=== PATIENT | female | born 1940 | race African-American/Black ===

== ENCOUNTER 2019-02-18 16:35 | Emergency (ER) | payer BC, OTHER ==
[2019-02-18 16:51] VITALS: BP 121/61; PULSE 73; TEMP 98.2; BMI 25.0
[2019-02-18] MEDS ORDERED: ACETAMINOPHEN 325 MG TABLET (FP) PO ONE (18:13)
[2019-02-18] MEDS ORDERED: CEFAZOLIN 1 GM in DEXTROSE 5%-WATER - 50 ML IVPB ONE (18:13)
--- NOTE | 2019-02-18 18:20 | PDOC ---
History of Present Illness - General Chief Complaint: Chronic pain Stated Complaint: FOOT PAIN Time Seen by Provider: 02/18/19 17:58 History Source: Patient Exam Limitations: No Limitations - History of Present Illness Initial Comments: 02/18/19 18:15 78 year old female with medical history of HTN, DM and cholesterol presents with pain to right foot x 1 month, worsening today when they noted right great toe to be swollen and erythematous. Denies fever or chills. States wore ill fitting shoes 1 month ago and since then with intermittent foot pain. Occurred: reports: other (1 month worse today) Severity: Yes: moderate Lower Extremity Pain Location: right: 1st toe Method of Injury: Yes: other (infection) Modifying Factors: improves with: immobilization, pain medication Lower Ext. Injury Location - Specific Injury Location Hips: bilateral hip: no evidence of injury Legs: bilateral: normal inspection Knees: bilateral no evidence of injury Ankle: bilateral no evidence of injury Foot: bilateral foot no evidence of injury Extremity Pain Location - Extremity Pain Location Extremity Pain Locations: right: 1st toe Past History - Travel Traveled outside of the country in the last 30 days: No Close contact w/someone who was outside of country & ill: No - Past Medical History Allergies/Adverse Reactions: Allergies Allergy/AdvReac Type Severity Reaction Status Date / Time No Known Allergies Allergy Verified 02/18/19 16:51 Home Medications: Ambulatory Orders Atorvastatin Ca [Lipitor] 80 mg PO DAILY 02/16/13 Ferrous Sulfate/Licor Rt Ext [Sailaja Molly Herbal Tablet] 325 mg PO DAILY 02/16 Hydrochloric Acid 0 ml PO DAILY 02/16/13 Simethicone [Gas Relief] 80 mg PO DAILY 02/16/13 Valsartan/Hydrochlorothiazide [Diovan Hct 160-12.5 mg Tablet] 160 mg PO DAILY Acetaminophen 500 mg PO Q4HWA #20 tablet 02/18/19 Aspirin 81 mg PO DAILY 02/18/19 Cephalexin [Keflex] 500 mg PO QID #30 capsule 02/18/19 Lisinopril 0 mg PO DAILY 02/18/19 Metformin HCl [Glucophage] 0 mg PO DAILY 02/18/19 Anemia: Yes Cancer: Yes (leukemia) Cardiac Disorders: Yes COPD: No Diabetes: Yes HTN: Yes Hypercholesterolemia: Yes - Psycho Social/Smoking Cessation Hx Smoking History: Never smoked Hx Alcohol Use: No Drug/Substance Use Hx: No Review of Systems - Review of Systems Able to Perform ROS?: Yes Is the patient limited Polish proficient: No Constitutional: No: Chills, Diaphoresis, Fever HEENTM: No: Throat Pain, Throat Swelling Respiratory: No: Shortness of Breath, Wheezing Cardiac (ROS): No: Edema, Palpitations, Syncope ABD/GI: No: Poor Appetite, Indigestion : No: Burning, Dysuria, Incontinence Musculoskeletal: Yes: Joint Pain Integumentary: Yes: Erythema, Other Neurological: Yes: Numbness *Physical Exam - Vital Signs Last Vital Signs Temp Pulse Resp BP Pulse Ox 98.2 F 73 16 121/61 100 02/18/19 16:47 02/18/19 16:47 02/18/19 16:47 02/18/19 16:47 02/18/19 16:47 - Physical Exam General Appearance: Yes: Nourished, Appropriately Dressed HEENT: positive: Pharynx Normal Neck: positive: Supple. negative: Lymphadenopathy (R), Lymphadenopathy (L) Respiratory/Chest: positive: Lungs Clear Cardiovascular: positive: Regular Rhythm, Regular Rate Vascular Pulses: Dorsalis-Pedis (R): 3+, Doralis-Pedis (L): 4+ Musculoskeletal: positive: Normal Inspection Extremity: positive: Normal Capillary Refill, Erythema, Inflammation, Other ( right great toe with redness swelling and discoloration of right great toe) Neurologic: positive: Fully Oriented, Alert Medical Decision Making - Medical Decision Making 02/18/19 18:23 78 year old female with medical history of HTN, DM and cholesterol presents with pain to right foot x 1 month, worsening today when they noted right great toe to be swollen and erythematous. Denies fever or chills. States wore ill fitting shoes 1 month ago and since then with intermittent foot pain. Imp: onchyomycosis Plan: xray 1gm of ancef analgesia 02/18/19 20:10 no fracture or dislocation, no osteomyelitis Discharge - Discharge Information Problems reviewed: Yes Clinical Impression/Diagnosis: Nail bed infection Condition: Good Disposition: HOME - Admission No - Additional Discharge Information Prescriptions: Acetaminophen 500 mg PO Q4HWA #20 tablet Cephalexin [Keflex] 500 mg PO QID #30 capsule - Follow up/Referral Referrals: Baldo Lewis MD [Staff Physician] - (follow up with history card clerk) - Patient Discharge Instructions Patient Printed Discharge Instructions: Onychomycosis Additional Instructions: Please take medication as prescribed Please return to emergency room 02/20/2019 or follow up with history card clerk as previously scheduled Return to emergency room for worsening of symptoms including pain and numbness of toe Please soak toe in warm water 3 times daily - Post Discharge Activity Work/Back to School Note: Back to Work
[2019-02-18] MEDS ORDERED: ACETAMINOPHEN 325 MG TABLET (FP) ONE (18:34)
[2019-02-18] MEDS ORDERED: CEFAZOLIN 1 GM/D5W 1 GM/50 ML BAG ONE (19:27)
== END 2019-02-18 20:25 | disposition home or self-care (01) ==
LOC: JERFT 16:35
DX: B35.1 Tinea unguium (principal); I10 Essential (primary) hypertension; E78.00 Pure hypercholesterolemia, unspecified; E11.9 Type 2 diabetes mellitus without complications; Z79.84 Long term (current) use of oral hypoglycemic drugs; D64.9 Anemia, unspecified; Z85.6 Personal history of leukemia
CPT/HCPCS: 73630-TC-RT-FY; 73660-TC-FY; 96365; 99281-25

== ENCOUNTER 2019-03-03 17:57 | Inpatient (IN) | payer BC, OTHER ==
[2019-03-03] MEDS ORDERED: CLINDAMYCIN 600MG PREMIX IVPB 600 MG/50 ML BAG IVPB ONE ×2 (19:08→21:17)
--- NOTE | 2019-03-03 19:11 | PDOC ---
History of Present Illness - General Chief Complaint: Wound Stated Complaint: WOUND ON R TOE Time Seen by Provider: 03/03/19 18:51 History Source: Patient, Family - History of Present Illness Occurred: reports: other Lower Extremity Pain Location: right: 1st toe Past History - Past Medical History Allergies/Adverse Reactions: Allergies Allergy/AdvReac Type Severity Reaction Status Date / Time No Known Allergies Allergy Verified 03/03/19 18:13 Home Medications: Ambulatory Orders Ferrous Sulfate/Licor Rt Ext [Sailaja Omlly Herbal Tablet] 325 mg PO DAILY 02/16 Simethicone [Gas Relief] 80 mg PO DAILY 02/16/13 Valsartan/Hydrochlorothiazide [Diovan Hct 160-12.5 mg Tablet] 160 mg PO DAILY Acetaminophen 500 mg PO Q4HWA #20 tablet 02/18/19 Aspirin 81 mg PO DAILY 02/18/19 Lisinopril 40 mg PO DAILY 02/18/19 Amlodipine Besylate [Norvasc -] 10 mg PO DAILY 03/03/19 Insulin Lispro [Humalog] units SQ ASDIR 03/03/19 Simvastatin 80 mg PO HS 03/03/19 Anemia: Yes Cancer: Yes (leukemia) Cardiac Disorders: Yes COPD: No Diabetes: Yes HTN: Yes Hypercholesterolemia: Yes - Psycho Social/Smoking Cessation Hx Smoking History: Never smoked Hx Alcohol Use: No Drug/Substance Use Hx: No Review of Systems - Review of Systems Constitutional: No: Chills, Fever, Malaise Integumentary: Yes: Erythema *Physical Exam - Vital Signs Last Vital Signs Temp Pulse Resp BP Pulse Ox 97.9 F 83 18 129/56 L 100 03/03/19 18:21 03/03/19 18:21 03/03/19 18:21 03/03/19 18:21 03/03/19 18:21 - Physical Exam General Appearance: Yes: Appropriately Dressed. No: Apparent Distress HEENT: positive: Normal Voice Neck: positive: Supple Respiratory/Chest: negative: Respiratory Distress Extremity: positive: Other (R great toe paronychia w/ surrounding dark discoloration and trace erythema extending into foot) Integumentary: positive: Dry, Warm Neurologic: positive: Fully Oriented, Alert, Normal Mood/Affect Procedures - Incision and Drainage I&D Site: Right: Paronychia (R great toe) Betadine cleansed: Yes Anesthesia: 1% Lidocaine Volume(ml): 5 Blade Size: 11 Attempts: 1 (small amoutn of purulent drainage) Plain Packing: No ED Treatment Course - LABORATORY CBC & Chemistry Diagram: 03/03/19 19:10 03/03/19 19:10 - RADIOLOGY Radiology Studies Ordered: Category Date Time Status FOOT-RIGHT [RAD] Stat Radiology 03/03/19 19:07 Ordered Medical Decision Making - Medical Decision Making 03/03/19 19:09 79-year-old female history of HTN, IDDM, CKD, here with worsening R great toe pain. Patient states condition started a month ago after she got a pedicure. Pt was seen here on 02/18 and discharged with a course of keflex for cellulitis. States after she was seen here, she followed up with her reception centre manager who drained pus from site. Patient states symptoms had improved but then got worse yesterday. States pain now radiating into her foot. No fever or chills see exam R great toe paronychia Persistent despite I&D and a course of keflex > 3 weeks ago No systemic s/s -pain control -XR -I&D -admit for IV abx Discharge - Discharge Information Problems reviewed: Yes Clinical Impression/Diagnosis: Cellulitis of foot, Paronychia Condition: Fair - Admission Yes - Follow up/Referral - Patient Discharge Instructions - Post Discharge Activity
[2019-03-03] MEDS ORDERED: ACETAMINOPHEN 325 MG TABLET (FP) PO ONE (19:15)
[2019-03-03 21:29] LABS: BASO % 1.3 % (0-2.0); EOS % 4.6 % (0-4.5); HEMATOCRIT 33.6 % (32.4-45.2); HEMOGLOBIN 10.7 GM/dL (10.7-15.3); MCH 28.1 pg (25.7-33.7); MEAN CELL VOLUME 87.9 fl (80-96); MEAN PLT VOLUME 10.4 fl (7.5-11.1); MONO % 4.6 % (3.8-10.2); NEUT % 45.5 % (42.8-82.8); PLATELET COUNT 192 K/MM3 (134-434); RBC 3.82 M/mm3 (3.60-5.2); WHITE BLOOD COUNT 10.3 K/mm3 (4.0-10.0)
[2019-03-03] MEDS ORDERED: ACETAMINOPHEN 325 MG TABLET (FP) ONE (21:33)
[2019-03-03 21:55] LABS: BILIRUBIN,TOTAL 0.4 mg/dL (0.2-1); BLOOD UREA NITROGEN 42.7 mg/dL (7-18); CALCIUM 8.8 mg/dL (8.5-10.1); CREATININE 1.9 mg/dL (0.55-1.3); POTASSIUM 5.3 mmol/L (3.5-5.1)
--- NOTE | 2019-03-03 23:24 | HP ---
CHIEF COMPLAINT: Pain, swelling, and erythema of her Rt big toe for the past 3 weeks PCP: None HISTORY OF PRESENT ILLNESS: This is a 79 year old female with PMH significant for HTN, DM, and CKD. She presented to the ER with complaints of pain, swelling, and erythema of her Rt big toe over the past 3 weeks. She underwent a pedicure procedure in January, and approximately a week after that she developed pain, swelling, and erythema of her Rt big toe. She visited the [facility] ER and was discharged on Keflex. She followed up with her pneumatic tester the next day, and had an I&D of the toe. Since then, the swelling and pain has persisted and there has been no improvement in her symptoms. She denies any fevers, chills, dizziness, light headedness, SOB, chest pain, palpitations, nausea, vomiting, diarrhea, constipation, dysuria, or hematuria. She has not taken any new medications, and denies sick contacts. She follows regularly with a pneumatic tester and an senior trial attorney for her DM, and checks her glucose regularly at home. 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 Social History: Smoking: Quit 20 years ago, unable to quantify amount Alcohol: a few beers every month Drugs: denies Allergies No Known Allergies Allergy (Verified 03/03/19 18:13) HOME MEDICATIONS: Home Medications Medication Instructions Recorded Ferrous Sulfate/Licor Rt Ext 325 mg PO DAILY 02/16/13 [Sailaja Molly Herbal Tablet] Simethicone [Gas Relief] 80 mg PO DAILY 02/16/13 Valsartan/Hydrochlorothiazide 160 mg PO DAILY 02/16/13 [Diovan Hct 160-12.5 mg Tablet] Acetaminophen 500 mg PO Q4HWA #20 tablet 02/18/19 Aspirin 81 mg PO DAILY 02/18/19 Lisinopril 40 mg PO DAILY 02/18/19 Amlodipine Besylate [Norvasc -] 10 mg PO DAILY 03/03/19 Insulin Lispro [Humalog] units SQ ASDIR 03/03/19 Simvastatin 80 mg PO HS 03/03/19 REVIEW OF SYSTEMS CONSTITUTIONAL: Absent: fever, chills, diaphoresis, generalized weakness, malaise, loss of appetite, weight change HEENT: Absent: rhinorrhea, nasal congestion, throat pain, throat swelling, difficulty swallowing, mouth swelling, ear pain, eye pain, visual changes CARDIOVASCULAR: Absent: chest pain, syncope, palpitations, irregular heart rate, lightheadedness , peripheral edema RESPIRATORY: Absent: cough, shortness of breath, dyspnea with exertion, orthopnea, wheezing, stridor, hemoptysis GASTROINTESTINAL: Absent: abdominal pain, abdominal distension, nausea, vomiting, diarrhea, constipation, melena, hematochezia GENITOURINARY: Absent: dysuria, frequency, urgency, hesitancy, hematuria, flank pain, genital pain MUSCULOSKELETAL: erythema, swelling, and pain Rt toe Absent: myalgia, arthralgia, joint swelling, back pain, neck pain SKIN: Absent: rash, itching, pallor HEMATOLOGIC/IMMUNOLOGIC: Absent: easy bleeding, easy bruising, lymphadenopathy, frequent infections ENDOCRINE: Absent: unexplained weight gain, unexplained weight loss, heat intolerance, cold intolerance NEUROLOGIC: Absent: headache, focal weakness or paresthesias, dizziness, unsteady gait, seizure, mental status changes, bladder or bowel incontinence PSYCHIATRIC: Absent: anxiety, depression, suicidal or homicidal ideation, hallucinations. PHYSICAL EXAMINATION Vital Signs - 24 hr 03/03/19 03/03/19 18:21 19:50 Temperature 97.9 F 98.2 F Pulse Rate 83 Pulse Rate [ 71 Apical] Respiratory 18 22 H Rate Blood Pressure 129/56 L Blood Pressure 150/80 [Right Arm] O2 Sat by Pulse 100 100 Oximetry (%) GENERAL: AOx3 HEAD: Normal with no signs of trauma. EYES: PETER, EOMI, clouding of right cornea EARS, NOSE, THROAT: Ears normal, nares patent, oropharynx clear without exudates. Moist mucous membranes. NECK: Normal range of motion, supple without lymphadenopathy, JVD, or masses. LUNGS: Breath sounds equal, clear to auscultation bilaterally. No wheezes, and no crackles. No accessory muscle use. HEART: Regular rate and rhythm, normal S1 and S2 without murmur, rub or gallop. ABDOMEN: Soft, nontender, not distended, normoactive bowel sounds, no guarding, no rebound, no masses. No hepatomegaly or splenomegaly. MUSCULOSKELETAL: Normal range of motion at all joints. No bony deformities or tenderness. No CVA tenderness. LOWER EXTREMITIES: 2+ pulses, warm, well-perfused. Rt toe is swollen with erythema extending to the foot as well as inter digital space NEUROLOGICAL: Cranial nerves II-XII intact. Normal speech. Normal gait. PSYCHIATRIC: Cooperative. Good eye contact. Appropriate mood and affect. SKIN: Warm, dry, normal turgor, no rashes or lesions noted, normal capillary refill. Laboratory Results - last 24 hr 03/03/19 03/03/19 19:10 19:10 WBC 10.3 H RBC 3.82 Hgb 10.7 Hct 33.6 MCV 87.9 MCH 28.1 MCHC 32.0 RDW 14.0 Plt Count 192 MPV 10.4 Absolute Neuts (auto) 4.7 Neutrophils % 45.5 Lymphocytes % 44.0 H Monocytes % 4.6 Eosinophils % 4.6 H Basophils % 1.3 Nucleated RBC % 0 Sodium 142 Potassium 5.3 H Chloride 112 H Carbon Dioxide 24 Anion Gap 5 L BUN 42.7 H Creatinine 1.9 H Est GFR (CKD-EPI)AfAm 28.56 Est GFR (CKD-EPI)NonAf 24.64 Random Glucose 194 H Calcium 8.8 Total Bilirubin 0.4 AST 33 ALT 71 H Alkaline Phosphatase 154 H Total Protein 6.0 L Albumin 3.0 L ASSESSMENT/PLAN: 79 year old female with PMH significant for HTN, DM, and CKD. She presented to the ER with complaints of pain, swelling, and erythema of her Rt big toe over the past 3 weeks. #Cellulitis - Will start on renally dosed Vancomycin 1g OD and Zosyn 2.25g Q6, received Clinda 600mg in ER - MRI Rt toe ordered to r/o osteomyelitis - XRay Rt toe pending - CRP/ESR ordered in AM - ID consult (Dr. Shi) - Podiatry consult (Dr. Adams) #CKD - Cr 1.9, was also 1.9 on last visit on Feb 14 - UA pending - Renal US ordered - Renal consult placed with (Dr. Mayfield) #Hyperkalemia - May be due to CKD, or decreased insulin - Pt. apparently on LEXUS and ARBs, would D/C one since these may exacerbate hyperkalemia - Levemir 10 units HS started, 10 units given now for glucose control, will also help with K #Hx of DM - BG 194 - BGM with ISS ACHS started - Levemir 10units given on admission - HbA1c ordered #Hx of HTN - Continue Norvasc and Lisinopril, Valsartan/HCTZ held #Hx of HLD - Continue Simvastatin #FEN - DM diet #DVT - Lovenox 40mg Visit type - Emergency Visit Emergency Visit: Yes ED Registration Date: 03/03/19 Care time: The patient presented to the Emergency Department on the above date and was hospitalized for further evaluation of their emergent condition. - New Patient This patient is new to me today: Yes Date on this admission: 03/04/19 - Critical Care Critical Care patient: No Total Critical Care Time (in minutes): 37 Critical Care Statement: The care of this patient involved high complexity decision making to prevent further life threatening deterioration of the patient 's condition and/or to evaluate & treat vital organ system(s) failure or risk of failure. ATTENDING PHYSICIAN STATEMENT I saw and evaluated the patient. I reviewed the resident's note and discussed the case with the resident. I agree with the resident's findings and plan as documented. SUBJECTIVE: OBJECTIVE: ASSESSMENT AND PLAN:
[2019-03-03] MEDS ORDERED: INSULIN (LEVEMIR) 100 UNITS/ML UNITS SQ ONE (23:39)
--- NOTE | 2019-03-04 01:23 | PN ---
Teaching Attending Note Name of Resident: Jose Maria Garcia ATTENDING PHYSICIAN STATEMENT I saw and evaluated the patient. I reviewed the resident's note and discussed the case with the resident. I agree with the resident's findings and plan as documented. SUBJECTIVE: 79-year-old woman with a history of uncontrolled insulin dependent diabetes, Blind right eye, hypertension, CKD presenting with right great toe swelling, tenderness worsening despite taking p.o. cephalexin which was prescribed to her on a ER visit on 02/18/2019. Patient reports compliance with her antibiotic and wound is not improving. Reported that the nail is coming off her great toe. Denied any trauma to her foot and thinks it started spontaneously. She says she sees a podiatristDr. Patel Who allegedly drained purulent discharge from her right great toe recently. In the emergency room, patient received clindamycin 600 mg IV. OBJECTIVE: Last Vital Signs Temp Pulse Resp BP Pulse Ox 98.2 F 71 22 H 150/80 100 03/03/19 19:50 03/03/19 19:50 03/03/19 19:50 03/03/19 19:50 03/03/19 19:50 GENERAL: Elderly, frail, not in acute distress HEENT: Right eye opaque NECK: Supple. Full ROM. No JVD. Carotid pulses 2+ and symmetric, without bruits. No thyromegaly. No lymphadenopathy. CARDIOVASCULAR: Regular rate and rhythm. No murmurs, rubs, or gallops. Distal pulses are 2+ and symmetric. PULMONARY: No evidence of respiratory distress. Lungs clear to auscultation bilaterally. No wheezing, rales or rhonchi. ABDOMINAL: Soft. Non-tender. Non-distended. No rebound or guarding. No organomegaly. Normoactive bowel sounds. MUSCULOSKELETAL Normal range of motion at all joints. No bony deformities or tenderness. No CVA tenderness. EXTREMITIES: Right great toe swollen, loose, tender to touch, serous discharge appreciated SKIN: Warm and dry. Normal capillary refill. No rashes. No jaundice. NEUROLOGICAL: Alert, awake, appropriate. Cranial nerves 2-12 intact. No deficits to light touch and temperature in face, upper extremities and lower extremities. No motor deficits in the in face, upper extremities and lower extremities. Normoreflexic in the upper and lower extremities. Normal speech. Toes are down- going bilaterally. Gait is normal without ataxia. PSYCHIATRIC: Cooperative. Good eye contact. Appropriate mood and affect. Abnormal Lab Results 03/03/19 03/03/19 03/03/19 19:10 19:10 19:10 WBC 10.3 H Lymphocytes % 44.0 H Eosinophils % 4.6 H Potassium 5.3 H Chloride 112 H Anion Gap 5 L BUN 42.7 H Creatinine 1.9 H Random Glucose 194 H Hemoglobin A1c % 8.2 H ALT 71 H Alkaline Phosphatase 154 H Total Protein 6.0 L Albumin 3.0 L Imaging studies reviewed ASSESSMENT AND PLAN: 79-year-old woman uncontrolled diabetic with suspected osteomyelitis of her right great toe, tender to touch, did not respond to Keflex. Admit to [facility] Blood cultures x2 Zosynrenally dosed Vancomycin renally dosed ESR and CRP Infectious disease consultation MRI of right foot to rule out osteomyelitis Podiatry consultwould obtain bone biopsy of right great toe and specimen for culture Strict glycemic control #Uncontrolled diabetes mellitus-Noted to be on both an LEXUS inhibitor and Arb. This is not recommended and may contribute to worsening kidney function, possible toxicity, hyperkalemia A1c NovoLog sliding scale Glargine 10 units nightly IV fluid hydration Diabetic diet DC valsartan/hydrochlorothiazide, can continue lisinopril for now Continue with aspirin Continue with simvastatin #CKD Strict diabetes control UA Avoid unnecessary nephrotoxins Nephrology consult Renal sonogram
[2019-03-04] MEDS ORDERED: morphine CARPU-JECT 4 MG/1 ML DISP.SYRIN IVPUSH ONE (01:38)
[2019-03-04] MEDS ORDERED: INSULIN SLIDING SCALE (NOVOLOG) 1 VIAL SQ SCH ×2 (01:38→07:00)
[2019-03-04] MEDS ORDERED: VANCOMYCIN 1 GRAM (PRE-DOCKED) 1,000 MG/250 ML BAG IVPB SCH (02:00)
[2019-03-04] MEDS ORDERED: MORPHINE SULFATE 2 MG/ML VIAL ONE (02:18)
[2019-03-04] MEDS ORDERED: VANCOMYCIN 1 GRAM (PRE-DOCKED) 1,000 MG/250 ML BAG IVPB ONE (02:18)
[2019-03-04] MEDS ORDERED: PIPERACILLIN/TAZOB 2.25 GM 2.25 GM/50 ML BAG IVPB ONE ×2 (02:18→11:56)
[2019-03-04] MEDS: PIPERACILLIN/TAZOB 2.25 GM 2.25 GM in DEXTROSE 5%-WATER - 50 ML IVPB SCH ×5 (02:25→22:01)
[2019-03-04 06:19] LABS: BASO % 0.9 % (0-2.0); EOS % 5.1 % (0-4.5); HEMOGLOBIN 9.8 GM/dL (10.7-15.3); LYMPH % 46.5 % (8-40); MCH 28.3 pg (25.7-33.7); MCHC 32.6 g/dl (32.0-36.0); MEAN CELL VOLUME 86.8 fl (80-96); MEAN PLT VOLUME 9.3 fl (7.5-11.1); MONO % 6.9 % (3.8-10.2); NEUT % 40.6 % (42.8-82.8); PLATELET COUNT 165 K/MM3 (134-434); RBC 3.45 M/mm3 (3.60-5.2); RDW 13.5 % (11.6-15.6); WHITE BLOOD COUNT 6.8 K/mm3 (4.0-10.0)
[2019-03-04 06:49] LABS: ALBUMIN 2.8 g/dl (3.4-5.0); ALK PHOS 129 U/L (45-117); ANION GAP 7 MMOL/L (8-16); BILIRUBIN,TOTAL 0.4 mg/dL (0.2-1); BLOOD UREA NITROGEN 41.2 mg/dL (7-18); CHLORIDE 111 mmol/L (98-107); CO2 21 mmol/L (21-32); CREATININE 1.9 mg/dL (0.55-1.3); GLUCOSE,RANDOM 227 mg/dL (74-106); POTASSIUM 4.1 mmol/L (3.5-5.1); SGOT/AST 26 U/L (15-37); SGPT/ALT 60 U/L (13-61); SODIUM 139 mmol/L (136-145); TOT PROT 5.1 g/dl (6.4-8.2)
[2019-03-04] MEDS ORDERED: ENOXAPARIN NA (PORCINE) 40 MG/0.4 ML DISP.SYRIN SQ SCH (10:00)
--- NOTE | 2019-03-04 10:54 | PN ---
Progress Note (short form) - Note Progress Note: ID consult dictated history of right foot pain/ first toe swelling with recent drainage 2 weeks ago- cellulitis, r/o osteomyelitis MICHEAL/?CKD longstanding diabetes continue with vancomycin and zosyn-dose vancomycin by level esr/crp MRI podiatry to see consider vascular surgery consult-?PVD, nonpalpable pedal pulses evaluation of MICHEAL in progress Problem List - Problems (1) Cellulitis of foot Code(s): L03.119 - CELLULITIS OF UNSPECIFIED PART OF LIMB (2) Osteomyelitis Code(s): M86.9 - OSTEOMYELITIS, UNSPECIFIED (3) CKD (chronic kidney disease) Code(s): N18.9 - CHRONIC KIDNEY DISEASE, UNSPECIFIED (4) Diabetes Code(s): E11.9 - TYPE 2 DIABETES MELLITUS WITHOUT COMPLICATIONS (5) PVD (peripheral vascular disease) Code(s): I73.9 - PERIPHERAL VASCULAR DISEASE, UNSPECIFIED
[2019-03-04] MEDS ORDERED: ACETAMINOPHEN 500 MG TABLET (FP) PO ONE (11:15)
[2019-03-04] MEDS: SIMETHICONE 80 MG TAB.CHEW (FP) PO SCH (11:30)
[2019-03-04] MEDS: INSULIN SLIDING SCALE (NOVOLOG) 1 VIAL SQ SCH ×4 (11:32→22:12)
[2019-03-04] MEDS ORDERED: LISINOPRIL 20 MG TABLET (FP) ONE (11:55)
[2019-03-04] MEDS ORDERED: amLODIPine BESYLATE 5 MG TABLET (FP) ONE (11:55)
[2019-03-04] MEDS ORDERED: ASPIRIN 81 MG CHEWABLE TABLETS ONE (11:55)
[2019-03-04] MEDS: ASPIRIN 81 MG CHEWABLE TABLETS PO SCH (12:00)
[2019-03-04] MEDS: amLODIPine BESYLATE 10 MG TABLET (FP) PO SCH (12:22)
[2019-03-04] MEDS: LISINOPRIL 20 MG TABLET (FP) PO SCH (12:22)
[2019-03-04] MEDS ORDERED: ACETAMINOPHEN 325 MG TABLET (FP) ONE (12:26)
[2019-03-04] MEDS ORDERED: INSULIN (NOVOLOG) ASPART 100 UNITS/ML 10ML VIAL ONE (12:27)
--- NOTE | 2019-03-04 12:49 | CONSULT ---
Consult Consult Specialty:: Nephrology Reason for Consultation:: CKD - History of Present Illness Chief Complaint: right great toe pain History of Present Illness: Pt is a 79 year old female with pmhx of htn, dm, ckd who presents with pain and selling of her right great toe. She was found to have elevated creatinine and I was called to evaluate her. She denies history of CKD. Her daughter is at bedside and assisted with history. She denies shortness of breath or palpitations. SHe denies fevers or chills. She denies nsaid use. She denies hematuria or dysuria. - History Source History Provided By: Patient - Past Medical History Cardio/Vascular: Yes: HTN Renal/: Yes: Renal Inusuff Endocrine: Yes: Diabetes Mellitus - Alcohol/Substance Use Hx Alcohol Use: No - Smoking History Smoking history: Never smoked Home Medications - Allergies Allergies/Adverse Reactions: Allergies Allergy/AdvReac Type Severity Reaction Status Date / Time No Known Allergies Allergy Verified 03/03/19 18:13 - Home Medications Home Medications: Ambulatory Orders Acetaminophen 500 mg PO Q4HWA #20 tablet 02/18/19 Lisinopril 40 mg PO DAILY 02/18/19 Amlodipine Besylate [Norvasc -] 10 mg PO DAILY 03/03/19 Insulin Lispro [Humalog] units SQ ASDIR 03/03/19 Aspirin [Aspirin EC] 1 tab PO DAILY 03/04/19 Brimonidine Tartrate [Alphagan P 0.1% -] 1 drop OU BID 03/04/19 Cephalexin [Keflex] 1 cap PO QID 03/04/19 Dicloxacillin Sodium 500 mg PO BID 03/04/19 Dorzolamide/Timolol/Pf [Dorzolamide-Timolol 2%-0.5%] 1 drop OU BID 03/04/19 Latanoprost 0.005% Eye Drops [Xalatan 0.005% Eye Drops -] 1 drop OS HS 03/04/19 Lipase/Protease/Amylase [Zenpep Dr 40,000 Unit Capsule] 1 cap PO TID 03/04/19 Simvastatin 1 tab PO HS 03/04/19 metroNIDAZOLE [Metronidazole] 1 tab PO TID 03/04/19 Family Medical History Family History: Denies Review of Systems - Review of Systems Constitutional: reports: No Symptoms Eyes: reports: No Symptoms HENT: reports: No Symptoms Neck: reports: No Symptoms Cardiovascular: reports: No Symptoms Respiratory: reports: No Symptoms Gastrointestinal: reports: No Symptoms Genitourinary: reports: No Symptoms Musculoskeletal: reports: Other (right toe pain) Neurological: reports: No Symptoms Endocrine: reports: No Symptoms Hematology/Lymphatic: reports: No Symptoms Psychiatric: reports: No Symptoms Physical Exam Vital Signs: Vital Signs Temperature 99.1 F 03/04/19 12:00 Pulse Rate 78 03/04/19 12:00 Respiratory Rate 18 03/04/19 12:00 Blood Pressure 147/79 03/04/19 12:00 O2 Sat by Pulse Oximetry (%) 99 03/04/19 12:00 Constitutional: Yes: Calm Eyes: Yes: Conjunctiva Clear HENT: Yes: Atraumatic Cardiovascular: Yes: S1, S2 Respiratory: Yes: CTA Bilaterally Gastrointestinal: Yes: Soft Musculoskeletal: Yes: WNL Edema: No Neurological: Yes: Oriented Psychiatric: Yes: Oriented Labs: CBC, BMP 03/04/19 05:20 03/04/19 05:20 Laboratory Tests 02/14/19 03/03/19 03/03/19 10:02 19:10 19:10 WBC 10.3 H Sodium Potassium Creatinine 1.9 H 1.9 H Hemoglobin A1c % 03/04/19 03/04/19 03/04/19 05:20 05:20 05:20 WBC 6.8 Sodium 139 Potassium 4.1 Creatinine 1.9 H Hemoglobin A1c % 8.2 H Imaging - Results Chest X-ray: Report Reviewed Ultrasound: Report Reviewed Problem List - Problems (1) CKD (chronic kidney disease) Code(s): N18.9 - CHRONIC KIDNEY DISEASE, UNSPECIFIED (2) Cellulitis of foot Code(s): L03.119 - CELLULITIS OF UNSPECIFIED PART OF LIMB Assessment/Plan Current Medications Generic Name Dose Route Start Last Admin Trade Name Freq PRN Reason Stop Dose Admin Amlodipine Besylate 10 mg 03/04/19 10:00 03/04/19 12:22 Norvasc - PO 10 mg DAILY LEATHA Administration Aspirin 81 mg 03/04/19 10:00 03/04/19 12:00 Asa - PO 81 mg DAILY LEATHA Administration Atorvastatin Calcium 40 mg 03/04/19 22:00 Lipitor - PO HS LEATHA Heparin Sodium (Porcine) 5,000 unit 03/04/19 14:00 Heparin - SQ TID LEATHA Sodium Chloride 1,000 mls @ 100 mls/hr 03/04/19 04:45 Normal Saline - IV ASDIR LEATHA Piperacillin Sod/Tazobactam 50 mls @ 100 mls/hr 03/04/19 11:00 03/04/19 12:23 Sod 2.25 gm/ Dextrose IVPB 100 mls/hr Q6H-IV LEATHA Administration Protocol Insulin Aspart 1 vial 03/04/19 01:45 03/04/19 12:34 Novolog Vial Sliding Scale - SQ 2 units ACHS LEATHA Administration Protocol Insulin Detemir 10 units 03/04/19 22:00 Levemir Vial SQ HS LEATHA Lisinopril 40 mg 03/04/19 10:00 03/04/19 12:22 Prinivil PO 40 mg DAILY LEATHA Administration Simethicone 80 mg 03/04/19 10:00 03/04/19 11:30 Mylicon - PO 80 mg DAILY LEATHA Administration Impression 1. CKD 2. cellulitis 3. DM 4. HTN 5. 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
--- NOTE | 2019-03-04 13:23 | CONS ---
INFECTIOUS DISEASE CONSULTATION DATE OF CONSULTATION: DATE OF DICTATION: 03/04/2019 HISTORY: This is a 79-year-old woman with a history of longstanding diabetes for over 20 years, hypertension, hyperlipidemia. She originally presented on the to the ER complaining of swelling and pain of her big toe, which had originally been of the foot and then had come to the big toe. She was seen in our ER on the and prescribed Keflex and follow up with her human resources temp. She saw the human resources temp the next day and had an incision and drainage of the toe. She does not recall the name of the human resources temp. She reports no fevers or chills. The toe has continued to remain swollen and painful. She has been taking Keflex for 2 weeks, so she just completed it. She has no fevers or chills. She, otherwise, feels well. PAST MEDICAL HISTORY: Notable for hypertension, diabetes, hyperlipidemia. SURGICAL HISTORY: Cataracts and corneal transplant. SOCIAL HISTORY: Her granddaughter lives with her. She is originally from [place]. She has been in this country more than 20 years. Distant smoker. Quit many years ago. Last travel was to [place] in November 2018. She is followed at [address] [place] [address]. She does not know the name of her doctor or her human resources temp. ALLERGIES: She has no known drug allergies. MEDICATIONS: Include iron, simethicone, valsartan, hydrochlorothiazide, acetaminophen, aspirin, lisinopril, Norvasc, insulin, and simvastatin. REVIEW OF SYSTEMS: As per HPI. She does not recall how this happened to her foot. She has not had any foot ulcers before. PHYSICAL EXAMINATION: General: She is awake and alert. Vital Signs: Her temperature is 98.2, pulse of 84, blood pressure is 139/81, respiratory rate is 14. She is saturating 97% on room air. no thrush cor-rrr lulngs clear abd soft,nt ext no palpable pedal pulse +swelling discoloration of the right big toe, no drainage Extremities: She is complaining of pain in her toe for which she has been taking Tylenol at home. Her white count is 6.8, hemoglobin 9.8, platelets are 165, BUN 41, creatinine 1.9. Hemoglobin A1c is 8.2. Blood cultures have been sent and are pending. She received clindamycin in the ER and was switched to vancomycin and Zosyn. When seen by the admitting doctor, she had erythema extending to the foot, which appears to be improved, but she still has discoloration and pain and swelling around the nail of the big toe. She has a good femoral pulse. Her foot is warm, but it is difficult to feel the pulse in her foot. In summary, this is a 79-year-old woman with: Cellulitis/uleout osteomyelitis 1. At least a now [id number]-[id number] of pain in her toe with a recent 2-week course of Keflex that is now improving. Apparently, had purulent drainage drained from that area. Would treat her with vancomycin and Zosyn. MRI of the foot to rule out osteomyelitis. Podiatry consult. 2. Diabetes. Check hgbaic 3. MICHEAL or CKD. We do not know her baseline. Antibiotics to be adjusted for her renal failure. We will follow up. 4. r/o PVD- nonpalpable pulses in her feet GAURAV MELÉNDEZ M.D. [id number] MTDD
--- NOTE | 2019-03-04 13:57 | EKG ---
Test Reason : Blood Pressure : / mmHG Vent. Rate : 072 BPM Atrial Rate : 072 BPM P-R Int : 178 ms QRS Dur : 072 ms QT Int : 380 ms P-R-T Axes : 053 020 056 degrees QTc Int : 416 ms NORMAL SINUS RHYTHM POSSIBLE LEFT ATRIAL ENLARGEMENT SEPTAL INFARCT , AGE UNDETERMINED ABNORMAL ECG WHEN COMPARED WITH ECG OF 10-APR-1997 21:49, NO SIGNIFICANT CHANGE WAS FOUND Confirmed by Ny Cervantes ([id number]) on 03/04/2019 1:56:55 PM Referred By: Confirmed By:Ny Cervantes
[2019-03-04] MEDS ORDERED: SODIUM CHLORIDE 1,000 ML IV SCH (14:45)
[2019-03-04] MEDS ORDERED: PIPERACILLIN/TAZOB 2.25 GM 2.25 GM in DEXTROSE 5%-WATER - 50 ML IVPB SCH (15:00)
[2019-03-04] MEDS ORDERED: DEXTROSE 5%-WATER - 50 ML IVPB ONE ×2 (15:27→21:38)
[2019-03-04] MEDS ORDERED: PIPERACILLIN/TAZOBACTAM 2.25 GM VIAL IVPB ONE ×2 (15:27→21:38)
--- NOTE | 2019-03-04 16:01 | PN ---
Physical Exam: SUBJECTIVE: Patient seen and examined. Pt appears to be in pain and discomfort. Denies any overnight events or issues. Denies f/c/n/v/d/chest pain. OBJECTIVE: Vital Signs Period Temp Pulse Resp BP Sys/Zarate Pulse Ox Last 24 Hr 97.9 F-99.1 F 71-84 14-22 129-150/56-81 97-100 GENERAL: AOx3, AT/AC EYES: PETER, EOMI, cataract visible EARS, NOSE, THROAT: oropharynx clear without exudates. Moist mucous membranes. NECK: Normal range of motion, supple without lymphadenopathy, JVD, or masses. LUNGS: Breath sounds equal, clear to auscultation bilaterally. No wheezes, and no crackles. No accessory muscle use. HEART: Regular rate and rhythm, normal S1 and S2 without murmur, rub or gallop. ABDOMEN: Soft, nontender, not distended, normoactive bowel sounds, no guarding, no rebound, no masses. LOWER EXTREMITIES: 2+ pulses, warm, well-perfused. Rt toe is swollen with erythema extending to the foot as well as inter digital space. Appears to be an infect toe nail. NEUROLOGICAL: Normal speech. Normal gait. SKIN: Warm, dry, normal turgor, Laboratory Results - last 24 hr CBC,CMP WBC 6.8 K/mm3 (4.0-10.0) 03/04/19 05:20 RBC 3.45 M/mm3 (3.60-5.2) L 03/04/19 05:20 Hgb 9.8 GM/dL (10.7-15.3) L 03/04/19 05:20 Hct 30.0 % (32.4-45.2) L 03/04/19 05:20 MCV 86.8 fl (80-96) 03/04/19 05:20 MCH 28.3 pg (25.7-33.7) 03/04/19 05:20 MCHC 32.6 g/dl (32.0-36.0) 03/04/19 05:20 RDW 13.5 % (11.6-15.6) 03/04/19 05:20 Plt Count 165 K/MM3 (134-434) 03/04/19 05:20 MPV 9.3 fl (7.5-11.1) D 03/04/19 05:20 Absolute Neuts (auto) 2.7 K/mm3 (1.5-8.0) 03/04/19 05:20 Neutrophils % 40.6 % (42.8-82.8) L 03/04/19 05:20 Lymphocytes % 46.5 % (8-40) H 03/04/19 05:20 Monocytes % 6.9 % (3.8-10.2) 03/04/19 05:20 Eosinophils % 5.1 % (0-4.5) H 03/04/19 05:20 Basophils % 0.9 % (0-2.0) 03/04/19 05:20 Nucleated RBC % 0 % (0-0) 03/04/19 05:20 ESR 25 mm/hr (0-30) 03/04/19 05:20 Sodium 139 mmol/L (136-145) 03/04/19 05:20 Potassium 4.1 mmol/L (3.5-5.1) 03/04/19 05:20 Chloride 111 mmol/L (98-107) H 03/04/19 05:20 Carbon Dioxide 21 mmol/L (21-32) 03/04/19 05:20 Anion Gap 7 MMOL/L (8-16) L 03/04/19 05:20 BUN 41.2 mg/dL (7-18) H 03/04/19 05:20 Creatinine 1.9 mg/dL (0.55-1.3) H 03/04/19 05:20 Est GFR (CKD-EPI)AfAm 28.56 03/04/19 05:20 Est GFR (CKD-EPI)NonAf 24.64 03/04/19 05:20 POC Glucometer 166 UNITS (80-120) 03/04/19 12:19 Random Glucose 227 mg/dL (74-106) H 03/04/19 05:20 Hemoglobin A1c % 8.2 % (4.2-6.3) H 03/04/19 05:20 Calcium 8.0 mg/dL (8.5-10.1) L 03/04/19 05:20 Total Bilirubin 0.4 mg/dL (0.2-1) 03/04/19 05:20 AST 26 U/L (15-37) 03/04/19 05:20 ALT 60 U/L (13-61) 03/04/19 05:20 Alkaline Phosphatase 129 U/L (45-117) H 03/04/19 05:20 C-Reactive Protein < 0.3 MG/DL (0.00-0.3) 03/04/19 05:20 Total Protein 5.1 g/dl (6.4-8.2) L 03/04/19 05:20 Albumin 2.8 g/dl (3.4-5.0) L 03/04/19 05:20 Active Medications Generic Name Dose Route Start Last Admin Trade Name Freq PRN Reason Stop Dose Admin Amlodipine Besylate 10 mg 03/04/19 10:00 03/04/19 12:22 Norvasc - PO 10 mg DAILY LEATHA Administration Aspirin 81 mg 03/04/19 10:00 03/04/19 12:00 Asa - PO 81 mg DAILY LEATHA Administration Atorvastatin Calcium 40 mg 03/04/19 22:00 Lipitor - PO HS LEATHA Brimonidine Tartrate 1 drop 03/04/19 22:00 Alphagan P 0.1% - OU BID LEATHA Heparin Sodium (Porcine) 5,000 unit 03/04/19 14:00 Heparin - SQ TID LEATHA Sodium Chloride 1,000 mls @ 100 mls/hr 03/04/19 04:45 Normal Saline - IV ASDIR LEATHA Piperacillin Sod/Tazobactam 50 mls @ 100 mls/hr 03/04/19 11:00 03/04/19 12:23 Sod 2.25 gm/ Dextrose IVPB 100 mls/hr Q6H-IV LEATHA Administration Protocol Insulin Aspart 1 vial 03/04/19 01:45 03/04/19 12:34 Novolog Vial Sliding Scale - SQ 2 units ACHS LEATHA Administration Protocol Insulin Detemir 10 units 03/04/19 22:00 Levemir Vial SQ HS LEATHA Latanoprost 1 drop 03/04/19 22:00 Xalatan 0.005% Eye Drops - OS HS LEATHA Lisinopril 40 mg 03/04/19 10:00 03/04/19 12:22 Prinivil PO 40 mg DAILY LEATHA Administration Non-Formulary Medication 1 drop 03/04/19 22:00 Dorzolamide/Timolol/Pf [Dorzolamide-Timolol 2%-0.5%] OU BID LEATHA Non-Formulary Medication 1 cap 03/04/19 14:00 Lipase/Protease/Amylase [Zenpep Dr 40,000 Unit Capsule] PO TID LEATHA Simethicone 80 mg 03/04/19 10:00 03/04/19 11:30 Mylicon - PO 80 mg DAILY LEATHA Administration Vancomycin HCl 1,000 mg 03/05/19 02:00 Vancomycin (Pre-Docked) IVPB 03/05/19 02:01 ONCE ONE Protocol ASSESSMENT/PLAN: 79 y/o F with PMH significant for HTN, DM, and CKD presents to ed c/o pain, swelling, and erythema of her Rt big toe over the past 3 weeks admitted for infection of the toe #Cellulitis of the Toe 2/2 to an infected ingrown toe nail Renally dosed Vancomycin 1g given once, will f/u ID for daily dosing Zosyn 2.25g Q6 MRI Rt toe ordered to r/o osteomyelitis XRay Rt toe- right foot revel some bone density loss, calcaneal spurring, vascular calcifications and some minimal swelling. Small soft tissue ulceration by the distal end of the first metatarsal. CRP/ESR normal ID consult- appreciate consult Podiatry consult (Dr. Adams)- pending #CKD Cr 1.9 appears baseline for pt UA pending Renal US ordered- unremarkable Renal consult (Dr. Mayfield) appreciated #Hyperkalemia resolved #Hx of DM A1c 8.2 BGM with ISS ACHS started Levemir 10 units if needed for glucose control, will also help with K #Hx of HTN Lisinopril #Hx of HLD lipitor #FEN DM diet #DVT Heparin TID Dispo: f/u MRI, f/u Podiatry consult, cont abx Visit type - Emergency Visit Emergency Visit: Yes ED Registration Date: 03/03/19 Care time: The patient presented to the Emergency Department on the above date and was hospitalized for further evaluation of their emergent condition. - New Patient This patient is new to me today: Yes Date on this admission: 03/04/19 - Critical Care Critical Care patient: No - Discharge Referral Referred to [facility] Med [facility] No ATTENDING PHYSICIAN STATEMENT I saw and evaluated the patient. I reviewed the resident's note and discussed the case with the resident. I agree with the resident's findings and plan as documented. SUBJECTIVE: OBJECTIVE: ASSESSMENT AND PLAN:
[2019-03-04] MEDS: HEPARIN NA (PORCINE) 5,000 UNITS/ML 1ML VIAL SQ SCH ×2 (16:29→22:12)
[2019-03-04] MEDS: SODIUM CHLORIDE 1,000 ML IV SCH (16:32)
[2019-03-04] MEDS ORDERED: PATIENT'S OWN MEDICATION (NON-FORMULARY) (Dorzolamide/Timolol/Pf [Dorzolamide-Timolol 2%-0 OU SCH (22:00)
[2019-03-04] MEDS: ATORVASTATIN CA 40 MG TABLET (FP) PO SCH (22:12)
[2019-03-04] MEDS: INSULIN (LEVEMIR) 100 UNITS/ML UNITS SQ SCH (22:12)
[2019-03-04 22:18] LABS: EPI CELLS 0.6 /HPF (0-5/HPF); HYALINE CASTS 0 /lpf (0-8); PH,URINE 5.5 (5.0-8.0); URINE APPEARANCE CLEAR; URINE BACTERIA 0.5 /hpf (NEGATIVE); URINE BILIRUBIN NEGATIVE (NEGATIVE); URINE COLOR YELLOW; URINE GLUCOSE (UA) NEGATIVE (NEGATIVE); URINE KETONE NEGATIVE (NEGATIVE); URINE LEUK ESTERASE NEGATIVE (NEGATIVE); URINE NITRITE NEGATIVE (NEGATIVE); URINE PROTEIN 3+ (NEGATIVE); URINE RBC 1 /hpf (0-4); URINE UROBILINOGEN 0.2 mg/dL (0.2-1.0); URINE WBC 1 /hpf (0-5)
[2019-03-04] MEDS: LATANOPROST 0.005% OPHTH SOLN 2.5ML BOTTLE OS SCH (23:48)
[2019-03-04] MEDS: BRIMONIDINE TARTRATE 0.1% OPHTHALMIC 5 ML BOTTLE OU SCH (23:48)
[2019-03-05] MEDS ORDERED: PIPERACILLIN/TAZOBACTAM 2.25 GM VIAL IVPB ONE ×4 (01:35→21:53)
[2019-03-05] MEDS ORDERED: DEXTROSE 5%-WATER - 50 ML IVPB ONE ×4 (01:35→21:53)
[2019-03-05] MEDS ORDERED: VANCOMYCIN 1 GRAM (PRE-DOCKED) 1,000 MG/250 ML BAG IVPB SCH (02:00)
[2019-03-05] MEDS ORDERED: VANCOMYCIN 1 GM in D5W (PRE-DOCKED) 1,000 MG/250 ML IVPB ONE (02:00)
--- NOTE | 2019-03-05 02:03 | PN ---
Teaching Attending Note Name of Resident: Marcel Romero ATTENDING PHYSICIAN STATEMENT I saw and evaluated the patient. I reviewed the resident's note and discussed the case with the resident. I agree with the resident's findings and plan as documented. Seen and examined; agree with overnight and resident assessment. Noted consult placed for CKD. PMH CKD, DM, HTN. No new complaints. DM, suspicioud for OM. Noted low ESr, low CRP (relative for OM) and no WBC or fever. 10 sys ROS done and negative aside from hpi VS labs imaging reviewed NAD AAO resting in bed NC AT EOMI PERRLA HR wnl, +s1/2 Lungs CTAB, w/ sym exp Toenail wound noted with no tracking or edema ASSESSMENT AND PLAN: Potential cellulitis, r/o OM, defer care to consultants DM HTN Full code
[2019-03-05] MEDS: PIPERACILLIN/TAZOB 2.25 GM 2.25 GM in DEXTROSE 5%-WATER - 50 ML IVPB SCH ×4 (02:47→22:30)
[2019-03-05] MEDS: HEPARIN NA (PORCINE) 5,000 UNITS/ML 1ML VIAL SQ SCH ×4 (06:53→23:00)
[2019-03-05] MEDS: SODIUM CHLORIDE 1,000 ML IV SCH ×3 (06:53→23:25)
[2019-03-05] MEDS: INSULIN SLIDING SCALE (NOVOLOG) 1 VIAL SQ SCH ×4 (06:54→23:17)
[2019-03-05 09:14] LABS: HEMATOCRIT 30.9 % (32.4-45.2); HEMOGLOBIN 9.9 GM/dL (10.7-15.3); MCH 27.9 pg (25.7-33.7); MCHC 32.1 g/dl (32.0-36.0); MEAN CELL VOLUME 86.8 fl (80-96); MEAN PLT VOLUME 9.4 fl (7.5-11.1); PLATELET COUNT 180 K/MM3 (134-434); RBC 3.55 M/mm3 (3.60-5.2); RDW 13.6 % (11.6-15.6); WHITE BLOOD COUNT 7.2 K/mm3 (4.0-10.0)
[2019-03-05 09:32] LABS: ALBUMIN 2.8 g/dl (3.4-5.0); BILIRUBIN,TOTAL 0.3 mg/dL (0.2-1); BLOOD UREA NITROGEN 32.1 mg/dL (7-18); CREATININE 1.8 mg/dL (0.55-1.3); POTASSIUM 4.5 mmol/L (3.5-5.1); TOT PROT 5.3 g/dl (6.4-8.2)
[2019-03-05] MEDS ORDERED: BRIMONIDINE TARTRATE 0.2% OPHTHALMIC 5 ML BOTTLE OU SCH (10:00)
[2019-03-05] MEDS ORDERED: PT OWN MED DRAWER 7, Y5N ONE (10:48)
[2019-03-05] MEDS: ASPIRIN 81 MG CHEWABLE TABLETS PO SCH (11:13)
[2019-03-05] MEDS: SIMETHICONE 80 MG TAB.CHEW (FP) PO SCH (11:13)
[2019-03-05] MEDS: LISINOPRIL 20 MG TABLET (FP) PO SCH (11:13)
[2019-03-05] MEDS: TIMOLOL 0.5% OPHTHALMIC SOL 5 ML BOTTLE OU SCH ×2 (11:13→23:04)
[2019-03-05] MEDS: amLODIPine BESYLATE 10 MG TABLET (FP) PO SCH (11:13)
[2019-03-05] MEDS: DORZOLAMIDE 2% HCL OPHTHALMIC SOLUTION 10 ML BOTTLE OU SCH ×2 (11:13→23:11)
[2019-03-05] MEDS: BRIMONIDINE TARTRATE 0.1% OPHTHALMIC 5 ML BOTTLE OU SCH ×2 (11:14→23:10)
[2019-03-05] MEDS ORDERED: INSULIN (NOVOLOG) ASPART 100 UNITS/ML 10ML VIAL ONE (11:16)
[2019-03-05] MEDS ORDERED: ACETAMINOPHEN 325 MG TABLET (FP) PO PRN (12:29)
--- NOTE | 2019-03-05 13:23 | PN ---
Physical Exam: SUBJECTIVE: Patient seen and examined. Pt appears to be in pain and discomfort. Denies any overnight events or issues. Denies f/c/n/v/d/chest pain. OBJECTIVE: Vital Signs Period Temp Pulse Resp BP Sys/Zarate Pulse Ox Last 24 Hr 98.1 F-98.7 F 73-80 18-18 144-158/70-80 98-99 GENERAL: AOx3, AT/AC EYES: PETER, EOMI, cataract visible EARS, NOSE, THROAT: oropharynx clear without exudates. Moist mucous membranes. NECK: Normal range of motion, supple without lymphadenopathy, JVD, or masses. LUNGS: Breath sounds equal, clear to auscultation bilaterally. No wheezes, and no crackles. No accessory muscle use. HEART: Regular rate and rhythm, normal S1 and S2 without murmur, rub or gallop. ABDOMEN: Soft, nontender, not distended, normoactive bowel sounds, no guarding, no rebound, no masses. LOWER EXTREMITIES: 2+ pulses, warm, well-perfused. Rt toe is swollen with erythema extending to the foot as well as inter digital space. Appears to be an infect toe nail. Dressing placed NEUROLOGICAL: Normal speech. Normal gait. SKIN: Warm, dry, normal turgor, Laboratory Results - last 24 hr CBC,CMP WBC 7.2 K/mm3 (4.0-10.0) 03/05/19 07:30 RBC 3.55 M/mm3 (3.60-5.2) L 03/05/19 07:30 Hgb 9.9 GM/dL (10.7-15.3) L 03/05/19 07:30 Hct 30.9 % (32.4-45.2) L 03/05/19 07:30 MCV 86.8 fl (80-96) 03/05/19 07:30 MCH 27.9 pg (25.7-33.7) 03/05/19 07:30 MCHC 32.1 g/dl (32.0-36.0) 03/05/19 07:30 RDW 13.6 % (11.6-15.6) 03/05/19 07:30 Plt Count 180 K/MM3 (134-434) 03/05/19 07:30 MPV 9.4 fl (7.5-11.1) 03/05/19 07:30 Absolute Neuts (auto) 2.7 K/mm3 (1.5-8.0) 03/04/19 05:20 Neutrophils % 40.6 % (42.8-82.8) L 03/04/19 05:20 Lymphocytes % 46.5 % (8-40) H 03/04/19 05:20 Monocytes % 6.9 % (3.8-10.2) 03/04/19 05:20 Eosinophils % 5.1 % (0-4.5) H 03/04/19 05:20 Basophils % 0.9 % (0-2.0) 03/04/19 05:20 Nucleated RBC % 0 % (0-0) 03/04/19 05:20 ESR 25 mm/hr (0-30) 03/04/19 05:20 Sodium 143 mmol/L (136-145) 03/05/19 07:30 Potassium 4.5 mmol/L (3.5-5.1) 03/05/19 07:30 Chloride 115 mmol/L (98-107) H 03/05/19 07:30 Carbon Dioxide 22 mmol/L (21-32) 03/05/19 07:30 Anion Gap 5 MMOL/L (8-16) L 03/05/19 07:30 BUN 32.1 mg/dL (7-18) H 03/05/19 07:30 Creatinine 1.8 mg/dL (0.55-1.3) H 03/05/19 07:30 Est GFR (CKD-EPI)AfAm 30.49 03/05/19 07:30 Est GFR (CKD-EPI)NonAf 26.31 03/05/19 07:30 POC Glucometer 182 UNITS (80-120) 03/05/19 11:20 Random Glucose 130 mg/dL (74-106) H 03/05/19 07:30 Hemoglobin A1c % 8.2 % (4.2-6.3) H 03/04/19 05:20 Calcium 8.0 mg/dL (8.5-10.1) L 03/05/19 07:30 Total Bilirubin 0.3 mg/dL (0.2-1) 03/05/19 07:30 AST 22 U/L (15-37) 03/05/19 07:30 ALT 52 U/L (13-61) 03/05/19 07:30 Alkaline Phosphatase 113 U/L (45-117) 03/05/19 07:30 C-Reactive Protein < 0.3 MG/DL (0.00-0.3) 03/04/19 05:20 Total Protein 5.3 g/dl (6.4-8.2) L 03/05/19 07:30 Albumin 2.8 g/dl (3.4-5.0) L 03/05/19 07:30 Active Medications Current Medications Acetaminophen (Tylenol -) 650 mg PO Q6H PRN PRN Reason: PAIN LEVEL 1-5 Amlodipine Besylate (Norvasc -) 10 mg PO DAILY [facility] Last Admin: 03/05/19 11:13 Dose: 10 mg Aspirin (Asa -) 81 mg PO DAILY [facility] Last Admin: 03/05/19 11:13 Dose: 81 mg Atorvastatin Calcium (Lipitor -) 40 mg PO [facility] Last Admin: 03/04/19 22:12 Dose: 40 mg Brimonidine Tartrate (Alphagan P 0.1% -) 1 drop OU BID [facility] Last Admin: 03/05/19 11:14 Dose: 1 drop Dorzolamide HCl (Trusopt 2%) 1 drop OU BID [facility] Last Admin: 03/05/19 11:13 Dose: 1 drop Heparin Sodium (Porcine) (Heparin -) 5,000 unit SQ TID [facility] Last Admin: 03/05/19 06:53 Dose: 5,000 unit Sodium Chloride (Normal Saline -) 1,000 mls @ 100 mls/hr IV ASDIR [facility] Last Admin: 03/05/19 09:03 Dose: 100 mls/hr Piperacillin Sod/Tazobactam (Sod 2.25 gm/ Dextrose) 50 mls @ 100 mls/hr IVPB Q6H-IV [facility]; Protocol Last Admin: 03/05/19 09:01 Dose: 100 mls/hr Insulin Aspart (Novolog Vial Sliding Scale -) 1 vial SQ [facility]; Protocol Last Admin: 03/05/19 11:17 Dose: 2 units Insulin Detemir (Levemir Vial) 10 units SQ [facility] Last Admin: 03/04/19 22:12 Dose: 10 units Latanoprost (Xalatan 0.005% Eye Drops -) 1 drop OS [facility] Last Admin: 03/04/19 23:48 Dose: 1 drop Lisinopril (Prinivil) 40 mg PO DAILY [facility] Last Admin: 03/05/19 11:13 Dose: 40 mg Non-Formulary Medication (Lipase/Protease/Amylase [Jerrodpep Dr 40,000 Unit Capsule ]) 1 cap PO TID [facility] Simethicone (Mylicon -) 80 mg PO DAILY [facility] Last Admin: 03/05/19 11:13 Dose: 80 mg Timolol Maleate (Timoptic 0.5%) 1 drop OU BID [facility] Last Admin: 03/05/19 11:13 Dose: 1 drop Home Medications Medication Instructions Recorded Acetaminophen 500 mg PO Q4HWA #20 tablet 02/18/19 Lisinopril 40 mg PO DAILY 02/18/19 Amlodipine Besylate [Norvasc -] 10 mg PO DAILY 03/03/19 Insulin Lispro [Humalog] units SQ ASDIR 03/03/19 Aspirin [Aspirin EC] 1 tab PO DAILY 03/04/19 Brimonidine Tartrate [Alphagan P 1 drop OU BID 03/04/19 0.1% -] Cephalexin [Keflex] 1 cap PO QID 03/04/19 Dicloxacillin Sodium 500 mg PO BID 03/04/19 Dorzolamide/Timolol/Pf 1 drop OU BID 03/04/19 [Dorzolamide-Timolol 2%-0.5%] Latanoprost 0.005% Eye Drops 1 drop OS HS 03/04/19 [Xalatan 0.005% Eye Drops -] Lipase/Protease/Amylase [Markusp Dr 1 cap PO TID 03/04/19 40,000 Unit Capsule] Simvastatin 1 tab PO HS 03/04/19 metroNIDAZOLE [Metronidazole] 1 tab PO TID 03/04/19 Microbiology 03/04/19 05:20 Blood - Peripheral Venous Blood Culture - Preliminary NO GROWTH OBTAINED AFTER 24 HOURS, INCUBATION TO CONTINUE FOR 4 DAYS. 03/04/19 05:20 Blood - Peripheral Venous Blood Culture - Preliminary NO GROWTH OBTAINED AFTER 24 HOURS, INCUBATION TO CONTINUE FOR 4 DAYS. ASSESSMENT/PLAN: 79 y/o F with PMH significant for HTN, DM, and CKD presents to ed c/o pain, swelling, and erythema of her Rt big toe over the past 3 weeks admitted for infection of the toe #Cellulitis of the Toe 2/2 to an infected ingrown toe nail Renally dosed Vancomycin 1g given once, will f/u ID for daily dosing- give another dose today Zosyn 2.25g Q6 MRI Rt toe ordered to r/o osteomyelitis- pending read ID consult- appreciate consult- f/u on cont Vanc daily or must give one dose today Podiatry consult (Dr. Adams)- pending- attempted to contact, left message with wound clinic nurses Discussed with Dr. Morgan, hold vanc dose today, vanc levels appropriate, will r/p levels in the am If MRI positive for findings, consider Vascular consult #CKD Cr 1.8 appears baseline for pt- attempting to f/u with outpt Nephro for baseline Cre PCP clinic gave two values- 02/25 Cre 2.07; 02/24 Cre 1.72 UA pending Renal consult (Dr. Mayfield) appreciated #Anemia Iron-TIBC panel, Folate, B12 ordered #Hx of DM BGM with ISS ACHS started Levemir 10 units if needed for glucose control, will also help with K #Hx of HTN Lisinopril, Norvasc, will f/u with PCP for any other BP meds #Hx of HLD lipitor #FEN DM diet #DVT Heparin TID Dispo: f/u MRI read, f/u Podiatry consult, cont abx Visit type - Emergency Visit Emergency Visit: Yes ED Registration Date: 03/03/19 Care time: The patient presented to the Emergency Department on the above date and was hospitalized for further evaluation of their emergent condition. - New Patient This patient is new to me today: Yes Date on this admission: 03/06/19 - Critical Care Critical Care patient: No - Discharge Referral Referred to [facility] Med P.C.: No ATTENDING PHYSICIAN STATEMENT I saw and evaluated the patient. I reviewed the resident's note and discussed the case with the resident. I agree with the resident's findings and plan as documented. SUBJECTIVE: OBJECTIVE: ASSESSMENT AND PLAN:
--- NOTE | 2019-03-05 14:11 | CONSULT ---
Consult - text type - Consultation Consultation Note: Podiatry Consultation: 79 year old diabetic female presents to hospital for admission for intractable pain, cellulitis to the right great toe. The patient endorses a several week history of pain, swelling to the nail fold of the right great toe. She was seen by her talent acquisition lead who trimmed a portion of the nail. She notes some clear drainage from the nail fold. She went to ED and was discharged with PO abx. However, her pain progressed which prompted admission. She denies F/V/N/C/SOB/ CP. Afebrile. She states that her blood sugars have been up and down. PMHx: DM, HTN, HLP, CKD Meds: noted ALL: NKMA SIM: Pedal pulses nonpalpable, TG wnl, CFT brisk to toes bilaterally. There are no acute ischemic changes to the foot bilaterally. There is tenderness elicited on palpation of the medial nail fold of the right hallux. There is mild serous drainage to the right medial nail fold. There is moderate discoloration of the medial nail fold. There is no probing to bone, no deep purulence, no fluctuance , no streaking cellulitis, no signs of infection R foot XR: calcifications, no evidence of osteomyelitis R foot MRI: report pending Imp: 79 year old diabetic female with chronic paronychia right great toe 1. IV abx per infectious disease 2. Continue local care 3. MRI report pending 4. Needs DIMAS/PVRs. I suspect intractable pain can be from peripheral arterial insufficiency. +/- vascular consult. 5. Will follow. Thank you for the courtesy of this consultation. Es Adams DPM
--- NOTE | 2019-03-05 14:44 | PN ---
Progress Note (short form) - Note Progress Note: no complaints awaiting MRI results Vital Signs Period Temp Pulse Resp BP Sys/Zarate Pulse Ox Last 24 Hr 98.1 F-98.7 F 73-80 18-18 144-152/70-76 98-98 cor-rrr lungs clear abd soft,nt ext big toe is discolored, no erythema no drainage CBC, BMP 03/05/19 07:30 03/05/19 07:30 Laboratory Tests 03/04/19 03/04/19 05:20 05:20 ESR 25 C-Reactive Protein < 0.3 awaiting MRI results a/p history of right foot pain/ first toe swelling with recent drainage 2 weeks ago- cellulitis, r/o osteomyelitis MICHEAL/?CKD longstanding diabetes continue with vancomycin and zosyn-dose vancomycin by level esr/crp are normal MRI pending podiatry consult noted consider vascular surgery consult-?PVD, nonpalpable pedal pulses evaluation of MICHEAL in progress Problem List - Problems (1) Cellulitis of foot Code(s): L03.119 - CELLULITIS OF UNSPECIFIED PART OF LIMB (2) Osteomyelitis Code(s): M86.9 - OSTEOMYELITIS, UNSPECIFIED (3) CKD (chronic kidney disease) Code(s): N18.9 - CHRONIC KIDNEY DISEASE, UNSPECIFIED (4) Diabetes Code(s): E11.9 - TYPE 2 DIABETES MELLITUS WITHOUT COMPLICATIONS (5) PVD (peripheral vascular disease) Code(s): I73.9 - PERIPHERAL VASCULAR DISEASE, UNSPECIFIED
--- NOTE | 2019-03-05 15:06 | PN ---
Teaching Attending Note Name of Resident: Marcel Romero ATTENDING PHYSICIAN STATEMENT I saw and evaluated the patient. I reviewed the resident's note and discussed the case with the resident. I agree with the resident's findings and plan as documented. SUBJECTIVE: Improving pain/erythema/swelling R great toe. No fever/chills. OBJECTIVE: Afebrile, Hemodynamically Stable. Last Vital Signs Temp Pulse Resp BP Pulse Ox 98.7 F 73 18 147/76 98 03/05/19 09:11 03/05/19 09:11 03/05/19 09:11 03/05/19 09:11 03/05/19 09:00 HEENT - Atraumatic, Normocephalic. Heart - S1 S2, RRR Lungs - clear to auscultation Abdomen - soft, non-tender. Extremities - no edema, no calf tenderness, warm, difficult to palpate pedal pulses, R great toe medial aspect erythema/tenderness, serosanguinous discharge. Neuro - AAO x 3. Tone/Power normal all extremities. Laboratory Results - last 24 hr 03/04/19 03/04/19 03/04/19 17:31 21:50 21:50 WBC RBC Hgb Hct MCV MCH MCHC RDW Plt Count MPV Sodium Potassium Chloride Carbon Dioxide Anion Gap BUN Creatinine Est GFR (CKD-EPI)AfAm Est GFR (CKD-EPI)NonAf POC Glucometer 156 Random Glucose Calcium Iron TIBC Iron Saturation Unsaturated IBC Total Bilirubin AST ALT Alkaline Phosphatase Total Protein Albumin Vitamin B12 Serum Folate Urine Color Yellow Urine Appearance Clear Urine pH 5.5 Ur Specific [place] 1.016 Urine Protein 3+ H Urine Glucose (UA) Negative Urine Ketones Negative Urine Blood Negative Urine Nitrite Negative Urine Bilirubin Negative Urine Urobilinogen 0.2 Ur Leukocyte Esterase Negative Urine WBC (Auto) 1 Urine RBC (Auto) 1 Urine Casts (Auto) 0 U Epithel Cells (Auto) 0.6 Urine Bacteria (Auto) 0.5 U Random Total Protein 148.8 H Urine Creatinine 68.0 Protein/Creatinin Ratio 2.2 Random Vancomycin 03/04/19 03/05/19 03/05/19 22:09 06:52 07:30 WBC RBC Hgb Hct MCV MCH MCHC RDW Plt Count MPV Sodium Potassium Chloride Carbon Dioxide Anion Gap BUN Creatinine Est GFR (CKD-EPI)AfAm Est GFR (CKD-EPI)NonAf POC Glucometer 148 133 Random Glucose Calcium Iron TIBC Iron Saturation Unsaturated IBC Total Bilirubin AST ALT Alkaline Phosphatase Total Protein Albumin Vitamin B12 Serum Folate Urine Color Urine Appearance Urine pH Ur Specific [place] Urine Protein Urine Glucose (UA) Urine Ketones Urine Blood Urine Nitrite Urine Bilirubin Urine Urobilinogen Ur Leukocyte Esterase Urine WBC (Auto) Urine RBC (Auto) Urine Casts (Auto) U Epithel Cells (Auto) Urine Bacteria (Auto) U Random Total Protein Urine Creatinine Protein/Creatinin Ratio Random Vancomycin 21.2 03/05/19 03/05/19 03/05/19 07:30 07:30 11:20 WBC 7.2 RBC 3.55 L Hgb 9.9 L Hct 30.9 L MCV 86.8 MCH 27.9 MCHC 32.1 RDW 13.6 Plt Count 180 MPV 9.4 Sodium 143 Potassium 4.5 Chloride 115 H Carbon Dioxide 22 Anion Gap 5 L BUN 32.1 H Creatinine 1.8 H Est GFR (CKD-EPI)AfAm 30.49 Est GFR (CKD-EPI)NonAf 26.31 POC Glucometer 182 Random Glucose 130 H Calcium 8.0 L Iron 62 TIBC 179 L Iron Saturation 34 Unsaturated IBC 117 L Total Bilirubin 0.3 AST 22 ALT 52 Alkaline Phosphatase 113 Total Protein 5.3 L Albumin 2.8 L Vitamin B12 816 Serum Folate 11 Urine Color Urine Appearance Urine pH Ur Specific [place] Urine Protein Urine Glucose (UA) Urine Ketones Urine Blood Urine Nitrite Urine Bilirubin Urine Urobilinogen Ur Leukocyte Esterase Urine WBC (Auto) Urine RBC (Auto) Urine Casts (Auto) U Epithel Cells (Auto) Urine Bacteria (Auto) U Random Total Protein Urine Creatinine Protein/Creatinin Ratio Random Vancomycin Current Medications Generic Name Dose Route Start Last Admin Trade Name Freq PRN Reason Stop Dose Admin Acetaminophen 650 mg 03/05/19 12:29 03/05/19 14:00 Tylenol - PO 650 mg Q6H PRN Administration PAIN LEVEL 1-5 Amlodipine Besylate 10 mg 03/04/19 10:00 03/05/19 11:13 Norvasc - PO 10 mg DAILY LEATHA Administration Aspirin 81 mg 03/04/19 10:00 03/05/19 11:13 Asa - PO 81 mg DAILY LEATHA Administration Atorvastatin Calcium 40 mg 03/04/19 22:00 03/04/19 22:12 Lipitor - PO 40 mg HS LEATHA Administration Brimonidine Tartrate 1 drop 01/27/20 22:00 03/05/19 11:14 Alphagan P 0.1% - OU 1 drop BID LEATHA Administration Dorzolamide HCl 1 drop 03/05/19 10:00 03/05/19 11:13 Trusopt 2% OU 1 drop BID LEATHA Administration Heparin Sodium (Porcine) 5,000 unit 03/04/19 14:00 03/05/19 14:00 Heparin - SQ 5,000 unit TID LEATHA Administration Sodium Chloride 1,000 mls @ 100 mls/hr 03/04/19 04:45 03/05/19 09:03 Normal Saline - IV 100 mls/hr ASDIR LEATHA Administration Piperacillin Sod/Tazobactam 50 mls @ 100 mls/hr 03/04/19 11:00 03/05/19 14:00 Sod 2.25 gm/ Dextrose IVPB 100 mls/hr Q6H-IV [facility] Administration Protocol Insulin Aspart 1 vial 03/04/19 01:45 03/05/19 11:17 Novolog Vial Sliding Scale - SQ 2 units ACHS LEATHA Administration Protocol Insulin Detemir 10 units 03/04/19 22:00 03/04/19 22:12 Levemir Vial SQ 10 units HS [facility]ATHA Administration Latanoprost 1 drop 03/04/19 22:00 03/04/19 23:48 Xalatan 0.005% Eye Drops - OS 1 drop HS [facility]ATHA Administration Lisinopril 40 mg 03/04/19 10:00 03/05/19 11:13 Prinivil PO 40 mg DAILY LEATHA Administration Non-Formulary Medication 1 cap 03/04/19 14:00 Lipase/Protease/Amylase [Zenpep Dr 40,000 Unit Capsule] PO TID LEATHA Simethicone 80 mg 03/04/19 10:00 03/05/19 11:13 Mylicon - PO 80 mg DAILY LEAT[facility] Administration Timolol Maleate 1 drop 03/05/19 10:00 03/05/19 11:13 Timoptic 0.5% OU 1 drop BID LEATHA Administration Home Medications Medication Instructions Recorded Acetaminophen 500 mg PO Q4HWA #20 tablet 02/18/19 Lisinopril 40 mg PO DAILY 02/18/19 Amlodipine Besylate [Norvasc -] 10 mg PO DAILY 03/03/19 Insulin Lispro [Humalog] units SQ ASDIR 03/03/19 Aspirin [Aspirin EC] 1 tab PO DAILY 03/04/19 Brimonidine Tartrate [Alphagan P 1 drop OU BID 03/04/19 0.1% -] Cephalexin [Keflex] 1 cap PO QID 03/04/19 Dicloxacillin Sodium 500 mg PO BID 03/04/19 Dorzolamide/Timolol/Pf 1 drop OU BID 03/04/19 [Dorzolamide-Timolol 2%-0.5%] Latanoprost 0.005% Eye Drops 1 drop OS HS 03/04/19 [Xalatan 0.005% Eye Drops -] Lipase/Protease/Amylase [Zenpep Dr 1 cap PO TID 03/04/19 40,000 Unit Capsule] Simvastatin 1 tab PO HS 03/04/19 metroNIDAZOLE [Metronidazole] 1 tab PO TID 03/04/19 ASSESSMENT AND PLAN: 79 year old female with history of DM 2, R eye visual impairment, HTN, CKD 3, admitted with R great toe cellulitis, failed out-patient Abx therapy with Cephalexin. 1. Acute Cellulitis R great toe s/p Pedicure, failed out-patient abx therapy IV Vanco/Zosyn. Blood Cx neg MRI to exclude osteomyelitis Podiatry, ID following. 2. Suspected PAD Decreased pulses LEs Arterial Duplex LEs requested. Vascular Sx consult if positive. 3. DM 2, Uncontrolled, A1c 8.2 Miantain on Glargine/Novolog sliding scale insulin 4. HTN - Continue Lisinopril, Norvasc. 5. HLD - Continue Statin. 6. CKD 3 - Stable. Renal US - no obstruction. Nephrology following. DVT Px - Heparin SQ
[2019-03-05 15:07] VITALS: BMI 25.1
[2019-03-05] MEDS: LIPASE/PROTEASE/AMYLASE 36,000 UNIT CAPSULE PO SCH (17:51)
--- NOTE | 2019-03-05 18:51 | PN ---
Progress Note, Physician History of Present Illness: Pt seen and examined at bedside. She denies shortness of breath. - Current Medication List Current Medications: Active Medications Acetaminophen (Tylenol -) 650 mg PO Q6H PRN PRN Reason: PAIN LEVEL 1-5 Last Admin: 03/05/19 14:00 Dose: 650 mg Amlodipine Besylate (Norvasc -) 10 mg PO DAILY [facility] Last Admin: 03/05/19 11:13 Dose: 10 mg Aspirin (Asa -) 81 mg PO DAILY [facility] Last Admin: 03/05/19 11:13 Dose: 81 mg Atorvastatin Calcium (Lipitor -) 40 mg PO HS [facility] Last Admin: 03/04/19 22:12 Dose: 40 mg Brimonidine Tartrate (Alphagan P 0.1% -) 1 drop OU BID [facility] Last Admin: 03/05/19 11:14 Dose: 1 drop Dorzolamide HCl (Trusopt 2%) 1 drop OU BID [facility] [place] Last Admin: 03/05/19 11:13 Dose: 1 drop Heparin Sodium (Porcine) (Heparin -) 5,000 unit SQ TID [facility] [place] Last Admin: 03/05/19 14:00 Dose: 5,000 unit Sodium Chloride (Normal Saline -) 1,000 mls @ 100 mls/hr IV ASDIR [facility] [place] Last Admin: 03/05/19 09:03 Dose: 100 mls/hr Piperacillin Sod/Tazobactam (Sod 2.25 gm/ Dextrose) 50 mls @ 100 mls/hr IVPB Q6H-IV [facility] [place]; Protocol Last Admin: 03/05/19 14:00 Dose: 100 mls/hr Insulin Aspart (Novolog Vial Sliding Scale -) 1 vial SQ ACHS [facility] [place]; Protocol Last Admin: 03/05/19 16:39 Dose: Not Given Insulin Detemir (Levemir Vial) 10 units SQ [facility] Last Admin: 03/04/19 22:12 Dose: 10 units Latanoprost (Xalatan 0.005% Eye Drops -) 1 drop OS HS [facility] [place] Last Admin: 03/04/19 23:48 Dose: 1 drop Lisinopril (Prinivil) 40 mg PO DAILY [facility] [place] Last Admin: 03/05/19 11:13 Dose: 40 mg Pancrelipase (Creon Dr 36,000 Units Capsule) 1 cap PO TIDAC [facility] [place] Last Admin: 03/05/19 17:51 Dose: 1 cap Simethicone (Mylicon -) 80 mg PO DAILY [facility] Last Admin: 03/05/19 11:13 Dose: 80 mg Timolol Maleate (Timoptic 0.5%) 1 drop OU BID [facility] Last Admin: 03/05/19 11:13 Dose: 1 drop - Objective Vital Signs: Vital Signs Temperature 98.1 F 03/05/19 14:00 Pulse Rate 80 03/05/19 14:00 Respiratory Rate 18 03/05/19 14:00 Blood Pressure 175/85 H 03/05/19 14:00 O2 Sat by Pulse Oximetry (%) 98 03/05/19 09:00 Constitutional: Yes: Calm Eyes: Yes: Conjunctiva Clear HENT: Yes: Atraumatic Neck: Yes: Supple Cardiovascular: Yes: S1, S2 Respiratory: Yes: CTA Bilaterally Gastrointestinal: Yes: Normal Bowel Sounds, Soft Genitourinary: Yes: WNL Musculoskeletal: Yes: WNL Edema: No Integumentary: Yes: WNL Neurological: Yes: Oriented Psychiatric: Yes: Oriented Labs: CBC, BMP 03/05/19 07:30 03/05/19 07:30 Problem List - Problems (1) CKD (chronic kidney disease) Code(s): N18.9 - CHRONIC KIDNEY DISEASE, UNSPECIFIED (2) Cellulitis of foot Code(s): L03.119 - CELLULITIS OF UNSPECIFIED PART OF LIMB Assessment/Plan Current Medications Generic Name Dose Route Start Last Admin Trade Name Freq PRN Reason Stop Dose Admin Acetaminophen 650 mg 03/05/19 12:29 03/05/19 14:00 Tylenol - PO 650 mg Q6H PRN Administration PAIN LEVEL 1-5 Amlodipine Besylate 10 mg 03/04/19 10:00 03/05/19 11:13 Norvasc - PO 10 mg DAILY LEATHA Administration Aspirin 81 mg 03/04/19 10:00 03/05/19 11:13 Asa - PO 81 mg DAILY LEATHA Administration Atorvastatin Calcium 40 mg 03/04/19 22:00 03/04/19 22:12 Lipitor - PO 40 mg HS LEATHA Administration Brimonidine Tartrate 1 drop 03/04/19 22:00 03/05/19 11:14 Alphagan P 0.1% - OU 1 drop BID LEATHA Administration Dorzolamide HCl 1 drop 03/05/19 10:00 03/05/19 11:13 Trusopt 2% OU 1 drop BID LEATHA Administration Heparin Sodium (Porcine) 5,000 unit 03/04/19 14:00 03/05/19 14:00 Heparin - SQ 5,000 unit TID LEATHA Administration Sodium Chloride 1,000 mls @ 100 mls/hr 03/04/19 04:45 03/05/19 09:03 Normal Saline - IV 100 mls/hr ASDIR LEATHA Administration Piperacillin Sod/Tazobactam 50 mls @ 100 mls/hr 03/04/19 11:00 03/05/19 14:00 Sod 2.25 gm/ Dextrose IVPB 100 mls/hr Q6H-IV LEATHA Administration Protocol Insulin Aspart 1 vial 03/04/19 01:45 03/05/19 16:39 Novolog Vial Sliding Scale - SQ Not Given ACHS LEATHA Protocol Insulin Detemir 10 units 03/04/19 22:00 03/04/19 22:12 Levemir Vial SQ 10 units HS LEATHA Administration Latanoprost 1 drop 03/04/19 22:00 03/04/19 23:48 Xalatan 0.005% Eye Drops - OS 1 drop HS LEATHA Administration Lisinopril 40 mg 03/04/19 10:00 03/05/19 11:13 Prinivil PO 40 mg DAILY LEATHA Administration Pancrelipase 1 cap 03/05/19 16:30 03/05/19 17:51 Creon 36,000 Units Capsule PO 1 cap TIDAC LEATHA Administration Simethicone 80 mg 03/04/19 10:00 03/05/19 11:13 Mylicon - PO 80 mg DAILY LEATHA Administration Timolol Maleate 1 drop 03/05/19 10:00 03/05/19 11:13 Timoptic 0.5% OU 1 drop BID LEATHA Administration Impression 1. CKD 2. cellulitis 3. DM 4. HTN 5. HLD Plan - renal function at baseline - she follows with Dr Vidal - cont leena for proteinuria - avoid nsaids - renal dose meds - will need outpt follow up
[2019-03-05] MEDS: ATORVASTATIN CA 40 MG TABLET (FP) PO SCH (23:00)
[2019-03-05] MEDS: LATANOPROST 0.005% OPHTH SOLN 2.5ML BOTTLE OS SCH (23:05)
[2019-03-05] MEDS: INSULIN (LEVEMIR) 100 UNITS/ML UNITS SQ SCH (23:11)
[2019-03-06] MEDS ORDERED: PIPERACILLIN/TAZOBACTAM 2.25 GM VIAL IVPB ONE ×3 (00:51→13:37)
[2019-03-06] MEDS ORDERED: DEXTROSE 5%-WATER - 50 ML IVPB ONE ×3 (00:51→13:38)
[2019-03-06] MEDS: PIPERACILLIN/TAZOB 2.25 GM 2.25 GM in DEXTROSE 5%-WATER - 50 ML IVPB SCH ×3 (02:58→14:47)
[2019-03-06] MEDS ORDERED: SODIUM CHLORIDE 1,000 ML IV SCH (03:20)
[2019-03-06] MEDS: HEPARIN NA (PORCINE) 5,000 UNITS/ML 1ML VIAL SQ SCH ×4 (05:42→22:05)
[2019-03-06] MEDS ORDERED: PT OWN MED DRAWER 7, Y5N ONE ×3 (06:16→22:01)
[2019-03-06] MEDS: INSULIN SLIDING SCALE (NOVOLOG) 1 VIAL SQ SCH ×4 (06:38→22:12)
[2019-03-06] MEDS: LIPASE/PROTEASE/AMYLASE 36,000 UNIT CAPSULE PO SCH ×3 (06:41→17:59)
[2019-03-06 08:53] LABS: HEMATOCRIT 30.3 % (32.4-45.2); MCH 28.5 pg (25.7-33.7); MEAN CELL VOLUME 86.3 fl (80-96); PLATELET COUNT 185 K/MM3 (134-434); RBC 3.51 M/mm3 (3.60-5.2); RDW 13.6 % (11.6-15.6); WHITE BLOOD COUNT 7.2 K/mm3 (4.0-10.0)
[2019-03-06 09:22] LABS: ALBUMIN 2.8 g/dl (3.4-5.0); BILIRUBIN,TOTAL 0.3 mg/dL (0.2-1); BLOOD UREA NITROGEN 20.5 mg/dL (7-18); CALCIUM 8.1 mg/dL (8.5-10.1); CREATININE 1.5 mg/dL (0.55-1.3); MAGNESIUM 2.3 mg/dL (1.8-2.4); POTASSIUM 4.1 mmol/L (3.5-5.1); TOT PROT 5.4 g/dl (6.4-8.2)
[2019-03-06] MEDS: ASPIRIN 81 MG CHEWABLE TABLETS PO SCH (09:48)
[2019-03-06] MEDS: LISINOPRIL 20 MG TABLET (FP) PO SCH (09:48)
[2019-03-06] MEDS: SIMETHICONE 80 MG TAB.CHEW (FP) PO SCH (09:48)
[2019-03-06] MEDS: amLODIPine BESYLATE 10 MG TABLET (FP) PO SCH (09:48)
[2019-03-06] MEDS: DORZOLAMIDE 2% HCL OPHTHALMIC SOLUTION 10 ML BOTTLE OU SCH ×2 (09:50→22:08)
[2019-03-06] MEDS: TIMOLOL 0.5% OPHTHALMIC SOL 5 ML BOTTLE OU SCH ×2 (09:50→22:08)
[2019-03-06] MEDS: BRIMONIDINE TARTRATE 0.1% OPHTHALMIC 5 ML BOTTLE OU SCH ×2 (09:51→22:06)
--- NOTE | 2019-03-06 12:55 | PN ---
Progress Note, Physician History of Present Illness: Pt seen and examined at bedside. She is awake and alert. She denies shortness of breath. - Current Medication List Current Medications: Active Medications Acetaminophen (Tylenol -) 650 mg PO Q6H PRN PRN Reason: PAIN LEVEL 1-5 Last Admin: 03/05/19 14:00 Dose: 650 mg Amlodipine Besylate (Norvasc -) 10 mg PO DAILY [facility] Last Admin: 03/06/19 09:48 Dose: 10 mg Aspirin (Asa -) 81 mg PO DAILY [facility] Last Admin: 03/06/19 09:48 Dose: 81 mg Atorvastatin Calcium (Lipitor -) 40 mg PO HS [facility] Last Admin: 03/05/19 23:00 Dose: 40 mg Brimonidine Tartrate (Alphagan P 0.1% -) 1 drop OU BID [facility] Last Admin: 03/06/19 09:51 Dose: 1 drop Dorzolamide HCl (Trusopt 2%) 1 drop OU BID [facility] Last Admin: 03/06/19 09:50 Dose: 1 drop Heparin Sodium (Porcine) (Heparin -) 5,000 unit SQ TID [facility] Last Admin: 03/06/19 06:41 Dose: 5,000 unit Piperacillin Sod/Tazobactam (Sod 2.25 gm/ Dextrose) 50 mls @ 100 mls/hr IVPB Q6H-IV [facility]; Protocol Last Admin: 03/06/19 08:29 Dose: 100 mls/hr Sodium Chloride (Normal Saline -) 1,000 mls @ 50 mls/hr IV ASDIR [facility] Last Admin: 03/06/19 04:08 Dose: Not Given Insulin Aspart (Novolog Vial Sliding Scale -) [facility] Protocol Last Admin: 03/06/19 11:55 Dose: Not Given Insulin Detemir (Levemir Vial) 10 units SQ [facility] Last Admin: 03/05/19 23:11 Dose: 10 units Latanoprost (Xalatan 0.005% Eye Drops -) 1 drop OS HS [facility] Last Admin: 03/05/19 23:05 Dose: 1 drop Lisinopril (Prinivil) 40 mg PO DAILY [facility] Last Admin: 03/06/19 09:48 Dose: 40 mg Pancrelipase (Creon Dr 36,000 Units Capsule) 1 cap PO TIDAC [facility] Last Admin: 03/06/19 12:12 Dose: 1 cap Simethicone (Mylicon -) 80 mg PO DAILY [facility] Last Admin: 03/06/19 09:48 Dose: 80 mg Timolol Maleate (Timoptic 0.5%) 1 drop OU BID [facility] Last Admin: 03/06/19 09:50 Dose: 1 drop - Objective Vital Signs: Vital Signs Temperature 97.9 F 03/06/19 06:00 Pulse Rate 76 03/06/19 10:00 Respiratory Rate 18 03/06/19 10:00 Blood Pressure 130/68 03/06/19 10:00 O2 Sat by Pulse Oximetry (%) 98 03/06/19 09:00 Constitutional: Yes: Calm Eyes: Yes: Conjunctiva Clear HENT: Yes: Atraumatic Neck: Yes: Supple Cardiovascular: Yes: S1, S2 Respiratory: Yes: CTA Bilaterally Gastrointestinal: Yes: Soft Genitourinary: Yes: WNL Musculoskeletal: Yes: WNL Edema: No Neurological: Yes: Oriented Psychiatric: Yes: Oriented Labs: CBC, BMP 03/06/19 08:23 03/06/19 08:23 Problem List - Problems (1) CKD (chronic kidney disease) Code(s): N18.9 - CHRONIC KIDNEY DISEASE, UNSPECIFIED (2) Cellulitis of foot Code(s): L03.119 - CELLULITIS OF UNSPECIFIED PART OF LIMB Assessment/Plan Current Medications Generic Name Dose Route Start Last Admin Trade Name Freq PRN Reason Stop Dose Admin Acetaminophen 650 mg 03/05/19 12:29 03/05/19 14:00 Tylenol - PO 650 mg Q6H PRN Administration PAIN LEVEL 1-5 Amlodipine Besylate 10 mg 03/04/19 10:00 03/06/19 09:48 Norvasc - PO 10 mg DAILY LEATHA Administration Aspirin 81 mg 03/04/19 10:00 03/06/19 09:48 Asa - PO 81 mg DAILY [facility]HA Administration Atorvastatin Calcium 40 mg 03/04/19 22:00 03/05/19 23:00 Lipitor - PO 40 mg HS LEATHA Administration Brimonidine Tartrate 1 drop 03/04/19 22:00 03/06/19 09:51 Alphagan P 0.1% - OU 1 drop BID LEATHA Administration Dorzolamide HCl 1 drop 03/05/19 10:00 03/06/19 09:50 Trusopt 2% OU 1 drop BID LEATHA Administration Heparin Sodium (Porcine) 5,000 unit 03/04/19 14:00 03/06/19 06:41 Heparin - SQ 5,000 unit TID [facility] Administration Piperacillin Sod/Tazobactam 50 mls @ 100 mls/hr 03/04/19 11:00 03/06/19 08:29 Sod 2.25 gm/ Dextrose IVPB 100 mls/hr Q6H-IV [facility] Administration Protocol Sodium Chloride 1,000 mls @ 50 mls/hr 03/06/19 03:20 03/06/19 04:08 Normal Saline - IV Not Given ASDIR LEATHA Insulin Aspart 1 vial 03/04/19 01:45 03/06/19 11:55 Novolog Vial Sliding Scale - SQ Not Given ACHS [facility] Protocol Insulin Detemir 10 units 03/04/19 22:00 03/05/19 23:11 Levemir Vial SQ 10 units HS [facility] Administration Latanoprost 1 drop 03/04/19 22:00 03/05/19 23:05 Xalatan 0.005% Eye Drops - OS 1 drop HS [facility] Administration Lisinopril 40 mg 03/04/19 10:00 03/06/19 09:48 Prinivil PO 40 mg DAILY [facility] Administration Pancrelipase 1 cap 03/05/19 16:30 03/06/19 12:12 Creon 36,000 Units Capsule PO 1 cap TIDAC [facility] Administration Simethicone 80 mg 03/04/19 10:00 03/06/19 09:48 Mylicon - PO 80 mg DAILY [facility] Administration Timolol Maleate 1 drop 03/05/19 10:00 03/06/19 09:50 Timoptic 0.5% OU 1 drop BID [facility] Administration Impression 1. CKD 2. cellulitis 3. DM 4. HTN 5. HLD Plan - renal function is stable - cont leena - potassium stable - she follows with Dr Vidal as outpt - cont leena for proteinuria - avoid nsaids
--- NOTE | 2019-03-06 13:24 | PN ---
Teaching Attending Note Name of Resident: Marcel Romero ATTENDING PHYSICIAN STATEMENT I saw and evaluated the patient. I reviewed the resident's note and discussed the case with the resident. I agree with the resident's findings and plan as documented. SUBJECTIVE: Improving pain/erythema/swelling R great toe. No fever/chills. OBJECTIVE: Afebrile, Hemodynamically Stable. Last Vital Signs Temp Pulse Resp BP Pulse Ox 97.9 F 76 18 130/68 98 03/06/19 06:00 03/06/19 10:00 03/06/19 10:00 03/06/19 10:00 03/06/19 09:00 Heart - S1 S2, RRR Lungs - clear to auscultation Abdomen - soft, non-tender. Extremities - no edema, no calf tenderness, warm, difficult to palpate pedal pulses, R great toe medial aspect erythema/tenderness, dressed. Neuro - AAO x 3. Tone/Power normal all extremities. Laboratory Results - last 24 hr 03/05/19 03/05/19 03/05/19 07:30 16:37 23:12 WBC RBC Hgb Hct MCV MCH MCHC RDW Plt Count MPV Sodium Potassium Chloride Carbon Dioxide Anion Gap BUN Creatinine Est GFR (CKD-EPI)AfAm Est GFR (CKD-EPI)NonAf POC Glucometer 141 244 Random Glucose Calcium Magnesium Iron 62 TIBC 179 L Iron Saturation 34 Unsaturated IBC 117 L Total Bilirubin AST ALT Alkaline Phosphatase Total Protein Albumin Vitamin B12 816 Serum Folate 11 Random Vancomycin 03/06/19 03/06/19 03/06/19 06:00 06:37 08:23 WBC 7.2 RBC 3.51 L Hgb 10.0 L Hct 30.3 L MCV 86.3 MCH 28.5 MCHC 33.0 RDW 13.6 Plt Count 185 MPV 9.0 Sodium Potassium Chloride Carbon Dioxide Anion Gap BUN Creatinine Est GFR (CKD-EPI)AfAm Est GFR (CKD-EPI)NonAf POC Glucometer 106 Random Glucose Calcium Magnesium Iron TIBC Iron Saturation Unsaturated IBC Total Bilirubin AST ALT Alkaline Phosphatase Total Protein Albumin Vitamin B12 Serum Folate Random Vancomycin 10.9 L 03/06/19 03/06/19 08:23 11:48 WBC RBC Hgb Hct MCV MCH MCHC RDW Plt Count MPV Sodium 144 Potassium 4.1 Chloride 116 H Carbon Dioxide 23 Anion Gap 5 L BUN 20.5 H Creatinine 1.5 H Est GFR (CKD-EPI)AfAm 38.01 Est GFR (CKD-EPI)NonAf 32.79 POC Glucometer 135 Random Glucose 107 H Calcium 8.1 L Magnesium 2.3 Iron TIBC Iron Saturation Unsaturated IBC Total Bilirubin 0.3 AST 24 ALT 48 Alkaline Phosphatase 122 H Total Protein 5.4 L Albumin 2.8 L Vitamin B12 Serum Folate Random Vancomycin Current Medications Generic Name Dose Route Start Last Admin Trade Name Freq PRN Reason Stop Dose Admin Acetaminophen 650 mg 03/05/19 12:29 03/05/19 14:00 Tylenol - PO 650 mg Q6H PRN Administration PAIN LEVEL 1-5 Amlodipine Besylate 10 mg 03/04/19 10:00 03/06/19 09:48 Norvasc - PO 10 mg DAILY LEATHA Administration Aspirin 81 mg 03/04/19 10:00 03/06/19 09:48 Asa - PO 81 mg DAILY LEATHA Administration Atorvastatin Calcium 40 mg 03/04/19 22:00 03/05/19 23:00 Lipitor - PO 40 mg HS LEATHA Administration Brimonidine Tartrate 1 drop 03/04/19 22:00 03/06/19 09:51 Alphagan P 0.1% - OU 1 drop BID LEATHA Administration Dorzolamide HCl 1 drop 03/05/19 10:00 03/06/19 09:50 Trusopt 2% OU 1 drop BID LEATHA Administration Heparin Sodium (Porcine) 5,000 unit 03/04/19 14:00 03/06/19 06:41 Heparin - SQ 5,000 unit TID LEATHA Administration Piperacillin Sod/Tazobactam 50 mls @ 100 mls/hr 03/04/19 11:00 03/06/19 08:29 Sod 2.25 gm/ Dextrose IVPB 100 mls/hr Q6H-IV LEATHA Administration Protocol Sodium Chloride 1,000 mls @ 50 mls/hr 03/06/19 03:20 03/06/19 04:08 Normal Saline - IV Not Given ASDIR [facility] Insulin Aspart 1 vial 03/04/19 01:45 03/06/19 11:55 Novolog Vial Sliding Scale - SQ Not Given ACHS [facility] Protocol Insulin Detemir 10 units 03/04/19 22:00 03/05/19 23:11 Levemir Vial SQ 10 units HS LEATHA Administration Latanoprost 1 drop 03/04/19 22:00 03/05/19 23:05 Xalatan 0.005% Eye Drops - OS 1 drop HS LEATHA Administration Lisinopril 40 mg 03/04/19 10:00 03/06/19 09:48 Prinivil PO 40 mg DAILY LEATHA Administration Pancrelipase 1 cap 03/05/19 16:30 03/06/19 12:12 Crefernanda Vásquez 36,000 Units Capsule PO 1 cap TIDAC LEATHA Administration Simethicone 80 mg 03/04/19 10:00 03/06/19 09:48 Mylicon - PO 80 mg DAILY LEATHA Administration Timolol Maleate 1 drop 03/05/19 10:00 03/06/19 09:50 Timoptic 0.5% OU 1 drop BID LEATHA Administration Home Medications Medication Instructions Recorded Acetaminophen 500 mg PO Q4HWA #20 tablet 02/18/19 Lisinopril 40 mg PO DAILY 02/18/19 Amlodipine Besylate [Norvasc -] 10 mg PO DAILY 03/03/19 Insulin Lispro [Humalog] units SQ ASDIR 03/03/19 Aspirin [Aspirin EC] 1 tab PO DAILY 03/04/19 Brimonidine Tartrate [Alphagan P 1 drop OU BID 03/04/19 0.1% -] Cephalexin [Keflex] 1 cap PO QID 03/04/19 Dicloxacillin Sodium 500 mg PO BID 03/04/19 Dorzolamide/Timolol/Pf 1 drop OU BID 03/04/19 [Dorzolamide-Timolol 2%-0.5%] Latanoprost 0.005% Eye Drops 1 drop OS HS 03/04/19 [Xalatan 0.005% Eye Drops -] Lipase/Protease/Amylase [Zenpep Dr 1 cap PO TID 03/04/19 40,000 Unit Capsule] Simvastatin 1 tab PO HS 03/04/19 metroNIDAZOLE [Metronidazole] 1 tab PO TID 03/04/19 ASSESSMENT AND PLAN: 79 year old female with history of DM 2, R eye visual impairment, HTN, CKD 3, admitted with R great toe cellulitis, failed out-patient Abx therapy with Cephalexin. 1. Acute Cellulitis R great toe s/p Pedicure, failed out-patient abx therapy Blood Cx neg MRI - soft tissue swelling plantar aspect foot, no OM. Podiatry, ID following. Continue IV zosyn/Vanco for now pending ID re-eval given MRI findings. 2. PAD Arterial Duplex LEs - moderate to high grade stenosis distal R SFA extends to prox popliteal; stenosis L popliteal Vascular Sx consult. 3. DM 2, Uncontrolled, A1c 8.2 Miantain on Glargine/Novolog sliding scale insulin 4. HTN - Continue Lisinopril, Norvasc. 5. HLD - Continue Statin. 6. CKD 3 - Stable. Renal US - no obstruction. Nephrology following. DVT Px - Heparin SQ
--- NOTE | 2019-03-06 14:59 | PN ---
Physical Exam: SUBJECTIVE: Patient seen and examined. Pt reports pain has improved significantly. BMx2 and urinating. No overnight events. Denies any overnight events or issues. Denies f/c/n/v/d/chest pain. OBJECTIVE: Vital Signs Period Temp Pulse Resp BP Sys/Zarate Pulse Ox Last 24 Hr 97.9 F-98.4 F 76-80 18-18 130-177/68-84 97-98 GENERAL: AOx3, AT/AC EYES: PETER, EOMI, cataract visible EARS, NOSE, THROAT: oropharynx clear without exudates. Moist mucous membranes. NECK: Normal range of motion, supple without lymphadenopathy, JVD, or masses. LUNGS: Breath sounds equal, clear to auscultation bilaterally. No wheezes, and no crackles. No accessory muscle use. HEART: Regular rate and rhythm, normal S1 and S2 without murmur, rub or gallop. ABDOMEN: Soft, nontender, not distended, normoactive bowel sounds, no guarding, no rebound, no masses. LOWER EXTREMITIES: 2+ pulses, warm, well-perfused. Rt toe is swollen with erythema extending to the foot as well as inter digital space. Appears to be an infect toe nail. Dressing placed. Toes and leg discolored- turning dark NEUROLOGICAL: Normal speech. Normal gait. SKIN: Warm, dry, normal turgor, Laboratory Results - last 24 hr CBC,CMP WBC 7.2 K/mm3 (4.0-10.0) 03/06/19 08:23 RBC 3.51 M/mm3 (3.60-5.2) L 03/06/19 08:23 Hgb 10.0 GM/dL (10.7-15.3) L 03/06/19 08:23 Hct 30.3 % (32.4-45.2) L 03/06/19 08:23 MCV 86.3 fl (80-96) 03/06/19 08:23 MCH 28.5 pg (25.7-33.7) 03/06/19 08:23 MCHC 33.0 g/dl (32.0-36.0) 03/06/19 08:23 RDW 13.6 % (11.6-15.6) 03/06/19 08:23 Plt Count 185 K/MM3 (134-434) 03/06/19 08:23 MPV 9.0 fl (7.5-11.1) 03/06/19 08:23 Absolute Neuts (auto) 2.7 K/mm3 (1.5-8.0) 03/04/19 05:20 Neutrophils % 40.6 % (42.8-82.8) L 03/04/19 05:20 Lymphocytes % 46.5 % (8-40) H 03/04/19 05:20 Monocytes % 6.9 % (3.8-10.2) 03/04/19 05:20 Eosinophils % 5.1 % (0-4.5) H 03/04/19 05:20 Basophils % 0.9 % (0-2.0) 03/04/19 05:20 Nucleated RBC % 0 % (0-0) 03/04/19 05:20 ESR 25 mm/hr (0-30) 03/04/19 05:20 Sodium 144 mmol/L (136-145) 03/06/19 08:23 Potassium 4.1 mmol/L (3.5-5.1) 03/06/19 08:23 Chloride 116 mmol/L (98-107) H 03/06/19 08:23 Carbon Dioxide 23 mmol/L (21-32) 03/06/19 08:23 Anion Gap 5 MMOL/L (8-16) L 03/06/19 08:23 BUN 20.5 mg/dL (7-18) H 03/06/19 08:23 Creatinine 1.5 mg/dL (0.55-1.3) H 03/06/19 08:23 Est GFR (CKD-EPI)AfAm 38.01 03/06/19 08:23 Est GFR (CKD-EPI)NonAf 32.79 03/06/19 08:23 POC Glucometer 135 UNITS (80-120) 03/06/19 11:48 Random Glucose 107 mg/dL (74-106) H 03/06/19 08:23 Hemoglobin A1c % 8.2 % (4.2-6.3) H 03/04/19 05:20 Calcium 8.1 mg/dL (8.5-10.1) L 03/06/19 08:23 Magnesium 2.3 mg/dL (1.8-2.4) 03/06/19 08:23 Iron 62 ug/dL (50-175) 03/05/19 07:30 TIBC 179 ug/dL (250-450) L 03/05/19 07:30 Iron Saturation 34 % (17.5-39) 03/05/19 07:30 Unsaturated IBC 117 ug/dL (200-275) L 03/05/19 07:30 Total Bilirubin 0.3 mg/dL (0.2-1) 03/06/19 08:23 AST 24 U/L (15-37) 03/06/19 08:23 ALT 48 U/L (13-61) 03/06/19 08:23 Alkaline Phosphatase 122 U/L (45-117) H 03/06/19 08:23 C-Reactive Protein < 0.3 MG/DL (0.00-0.3) 03/04/19 05:20 Total Protein 5.4 g/dl (6.4-8.2) L 03/06/19 08:23 Albumin 2.8 g/dl (3.4-5.0) L 03/06/19 08:23 Vitamin B12 816 pg/ml (193-986) 03/05/19 07:30 Serum Folate 11 ng/mL (3.1-17.5) 03/05/19 07:30 Active Medications Generic Name Dose Route Start Last Admin Trade Name Freq PRN Reason Stop Dose Admin Acetaminophen 650 mg 03/05/19 12:29 03/05/19 14:00 Tylenol - PO 650 mg Q6H PRN Administration PAIN LEVEL 1-5 Amlodipine Besylate 10 mg 03/04/19 10:00 03/06/19 09:48 Norvasc - PO 10 mg DAILY LEATHA Administration Aspirin 81 mg 03/04/19 10:00 03/06/19 09:48 Asa - PO 81 mg DAILY LEATHA Administration Atorvastatin Calcium 40 mg 03/04/19 22:00 03/05/19 23:00 Lipitor - PO 40 mg HS LEATHA Administration Brimonidine Tartrate 1 drop 03/04/19 22:00 03/06/19 09:51 Alphagan P 0.1% - OU 1 drop BID LEATHA Administration Clindamycin HCl 450 mg 03/06/19 18:00 Cleocin - PO Q6HPO LEATHA Dorzolamide HCl 1 drop 03/05/19 10:00 03/06/19 09:50 Trusopt 2% OU 1 drop BID LEATHA Administration Heparin Sodium (Porcine) 5,000 unit 03/04/19 14:00 03/06/19 13:52 Heparin - SQ 5,000 unit TID LEATHA Administration Insulin Aspart 1 vial 03/04/19 01:45 03/06/19 11:55 Novolog Vial Sliding Scale - SQ Not Given ACHS [facility] Protocol Insulin Detemir 10 units 03/04/19 22:00 03/05/19 23:11 Levemir Vial SQ 10 units HS LEATHA Administration Latanoprost 1 drop 03/04/19 22:00 03/05/19 23:05 Xalatan 0.005% Eye Drops - OS 1 drop HS LEATHA Administration Lisinopril 40 mg 03/04/19 10:00 03/06/19 09:48 Prinivil PO 40 mg DAILY LEATHA Administration Pancrelipase 1 cap 03/05/19 16:30 03/06/19 12:[address] 36,000 Units Capsule PO 1 cap TIDAC LEATHA Administration Simethicone 80 mg 03/04/19 10:00 03/06/19 09:48 Mylicon - PO 80 mg DAILY LEATHA Administration Timolol Maleate 1 drop 03/05/19 10:00 03/06/19 09:50 Timoptic 0.5% OU 1 drop BID LEATHA Administration ASSESSMENT/PLAN: 79 y/o F with PMH significant for HTN, DM, and CKD presents to ed c/o pain, swelling, and erythema of her Rt big toe over the past 3 weeks admitted for infection of the toe #Cellulitis of the Toe 2/2 to an infected ingrown toe nail Vanc/ Zosyn d/sari Clindamycin 300 TID started as per ID recom- no sign of major infection Arterial Duplex LEs - moderate to high grade stenosis distal R SFA extends to prox popliteal; stenosis L popliteal MRI Rt toe ordered to r/o osteomyelitis- soft tissue swelling plantar aspect foot 2nd metatarsal, no OM. Examined 2nd MCP, no signs of swelling or infxn Podiatry following Vascular consult appreciated- Discussed with Dr. Lundy. Pt scheduled for CO2 angiography of the right leg and foot tomorrow, in the setting of CKD, risk of Contrast induced nephropathy. Pt NPO after midnight #CKD PCP clinic gave two values- 02/25 Cre 2.07; 02/24 Cre 1.72 Renal consult (Dr. Mayfield) appreciated #Anemia Iron-TIBC panel, Folate, B12 ordered #Hx of DM BGM with ISS ACHS started Levemir 10 units if needed for glucose control, will also help with K #Hx of HTN Lisinopril, Norvasc, will f/u with PCP for any other BP meds #Hx of HLD lipitor #FEN DM diet #DVT Heparin TID Dispo: podiatry/ ID/ Vascular following, Angiogram tomorrow Visit type - Emergency Visit Emergency Visit: Yes ED Registration Date: 03/03/19 Care time: The patient presented to the Emergency Department on the above date and was hospitalized for further evaluation of their emergent condition. - New Patient This patient is new to me today: Yes Date on this admission: 03/07/19 - Critical Care Critical Care patient: No - Discharge Referral Referred to [facility] Med [facility].C[facility] No ATTENDING PHYSICIAN STATEMENT I saw and evaluated the patient. I reviewed the resident's note and discussed the case with the resident. I agree with the resident's findings and plan as documented. SUBJECTIVE: OBJECTIVE: ASSESSMENT AND PLAN:
--- NOTE | 2019-03-06 15:07 | PN ---
Progress Note (short form) - Note Progress Note: no complaints mri no osteomyelitis Vital Signs Period Temp Pulse Resp BP Sys/Zarate Pulse Ox Last 24 Hr 97.9 F-98.4 F 76-80 18-18 130-177/68-84 97-98 cor-rrr lungs clear abd soft,nt ext big toe is discolored, no erythema no drainage CBC, BMP 03/06/19 08:23 03/06/19 08:23 Laboratory Tests 03/04/19 03/04/19 05:20 05:20 ESR 25 C-Reactive Protein < 0.3 a/p history of right foot pain/ first toe swelling with recent drainage 2 weeks ago- mild cellulitis, no osteo, can switch to po cllindamycin 300 tid for one week bacid doe for one month (prior keflex) ckd longstanding diabetes PVD- for angio per vascular please call back if needed d/w resident Problem List - Problems (1) Cellulitis of foot Code(s): L03.119 - CELLULITIS OF UNSPECIFIED PART OF LIMB (2) Osteomyelitis Code(s): M86.9 - OSTEOMYELITIS, UNSPECIFIED (3) CKD (chronic kidney disease) Code(s): N18.9 - CHRONIC KIDNEY DISEASE, UNSPECIFIED (4) Diabetes Code(s): E11.9 - TYPE 2 DIABETES MELLITUS WITHOUT COMPLICATIONS (5) PVD (peripheral vascular disease) Code(s): I73.9 - PERIPHERAL VASCULAR DISEASE, UNSPECIFIED
--- NOTE | 2019-03-06 16:22 | PN ---
Progress Note (short form) - Note Progress Note: 79 year old diabetic female presents to hospital for admission for intractable pain, cellulitis to the right great toe. Has been doing better. Had MRI done as well as vascular studies. Redness down. PMHx: DM, HTN, HLP, CKD Meds: noted ALL: NKMA SIM: Pedal pulses nonpalpable, TG wnl, CFT brisk to toes bilaterally. . There is tenderness elicited on palpation of the medial nail fold of the right hallux. there is mild duskiness noted to the same area, no erythema, no edema, POP to the digit, no signs of acute infection R foot XR: calcifications, no evidence of osteomyelitis R foot MRI: negative for osteo Imp: 79 year old diabetic female with chronic paronychia right great toe Evaluated and reviewed DIMAS/PVR show stenosis; will need vascular work up Infection resolving Cont Iv Abx Per ID. Will follow
[2019-03-06] MEDS: CLINDAMYCIN HCL 150 MG CAPSULE (FP) PO SCH ×2 (17:59→23:50)
[2019-03-06] MEDS: ATORVASTATIN CA 40 MG TABLET (FP) PO SCH (22:05)
[2019-03-06] MEDS: LATANOPROST 0.005% OPHTH SOLN 2.5ML BOTTLE OS SCH (22:08)
[2019-03-06] MEDS: INSULIN (LEVEMIR) 100 UNITS/ML UNITS SQ SCH (22:15)
[2019-03-07] MEDS: HEPARIN NA (PORCINE) 5,000 UNITS/ML 1ML VIAL SQ SCH ×3 (06:15→22:45)
[2019-03-07] MEDS: INSULIN SLIDING SCALE (NOVOLOG) 1 VIAL SQ SCH ×4 (06:15→22:46)
[2019-03-07] MEDS: CLINDAMYCIN HCL 150 MG CAPSULE (FP) PO SCH ×3 (06:38→22:44)
[2019-03-07] MEDS: LIPASE/PROTEASE/AMYLASE 36,000 UNIT CAPSULE PO SCH ×3 (06:38→17:44)
[2019-03-07 09:15] LABS: HEMATOCRIT 30.2 % (32.4-45.2); MCH 28.3 pg (25.7-33.7); MEAN CELL VOLUME 85.8 fl (80-96); MEAN PLT VOLUME 9.2 fl (7.5-11.1); PLATELET COUNT 189 K/MM3 (134-434); RBC 3.52 M/mm3 (3.60-5.2); RDW 13.6 % (11.6-15.6)
[2019-03-07 09:55] LABS: ALBUMIN 2.7 g/dl (3.4-5.0); BILIRUBIN,TOTAL 0.3 mg/dL (0.2-1); BLOOD UREA NITROGEN 21.2 mg/dL (7-18); CALCIUM 8.4 mg/dL (8.5-10.1); CREATININE 1.4 mg/dL (0.55-1.3); MAGNESIUM 2.3 mg/dL (1.8-2.4); POTASSIUM 4.3 mmol/L (3.5-5.1); TOT PROT 5.5 g/dl (6.4-8.2)
[2019-03-07] MEDS ORDERED: LACTOBACILLUS ACIDOPHILUS 1 TABLET PO SCH (10:00)
[2019-03-07] MEDS: SIMETHICONE 80 MG TAB.CHEW (FP) PO SCH (10:09)
[2019-03-07] MEDS: amLODIPine BESYLATE 10 MG TABLET (FP) PO SCH (10:51)
[2019-03-07] MEDS: LISINOPRIL 20 MG TABLET (FP) PO SCH (10:51)
[2019-03-07] MEDS: ASPIRIN 81 MG CHEWABLE TABLETS PO SCH (10:51)
[2019-03-07] MEDS: BRIMONIDINE TARTRATE 0.1% OPHTHALMIC 5 ML BOTTLE OU SCH ×2 (10:55→22:44)
[2019-03-07] MEDS: DORZOLAMIDE 2% HCL OPHTHALMIC SOLUTION 10 ML BOTTLE OU SCH ×2 (10:59→22:47)
[2019-03-07] MEDS: TIMOLOL 0.5% OPHTHALMIC SOL 5 ML BOTTLE OU SCH ×2 (11:04→22:47)
[2019-03-07] MEDS ORDERED: ONDANSETRON 4 MG/2 ML VIAL IVPUSH PRN ×4 (12:33→16:24)
[2019-03-07] MEDS ORDERED: PROPOFOL 20 ML ONE ×4 (12:38→14:59)
[2019-03-07] MEDS ORDERED: SUCCINYLCHOLINE CHLORIDE 200 MG/10 ML SYRINGE ONE (12:38)
[2019-03-07] MEDS ORDERED: MIDAZOLAM HCL 2 MG/2 ML SINGLE DOSE VIAL ONE (12:38)
[2019-03-07] MEDS ORDERED: LIDOCAINE HCL 1%, 10 MG/ML (20ML VIAL) ONE ×2 (12:46→13:03)
[2019-03-07] MEDS ORDERED: HEPARIN NA (PORCINE) 5,000 UNITS/ML 1ML VIAL ONE ×2 (12:46→13:59)
[2019-03-07] MEDS ORDERED: ceFAZolin SODIUM 1 GM VIAL IVPB ONE (13:15)
[2019-03-07] MEDS ORDERED: LIDOCAINE HCL 1%, 10 MG/ML (20ML VIAL) NR ONE ×2 (13:42)
--- NOTE | 2019-03-07 14:03 | PN ---
Teaching Attending Note Name of Resident: Marcel Romero ATTENDING PHYSICIAN STATEMENT I saw and evaluated the patient. I reviewed the resident's note and discussed the case with the resident. I agree with the resident's findings and plan as documented. SUBJECTIVE: Improving pain/erythema/swelling R great toe. No fever/chills. Hungry, wants to eat. NPO for Angio +/- PCI. OBJECTIVE: Afebrile, Hemodynamically Stable. Last Vital Signs Temp Pulse Resp BP Pulse Ox 97.8 F 76 18 120/72 100 03/07/19 06:35 03/07/19 10:00 03/07/19 10:00 03/07/19 10:03/07/19 09:00 Heart - S1 S2, RRR Lungs - clear to auscultation Abdomen - soft, non-tender. Extremities - no edema, no calf tenderness, warm, difficult to palpate pedal pulses, R great toe medial aspect erythema/tenderness, dressed. Neuro - AAO x 3. Tone/Power normal all extremities. Laboratory Results - last 24 hr 03/06/19 03/06/19 03/07/19 17:03 22:10 06:03 WBC RBC Hgb Hct MCV MCH MCHC RDW Plt Count MPV Sodium Potassium Chloride Carbon Dioxide Anion Gap BUN Creatinine Est GFR (CKD-EPI)AfAm Est GFR (CKD-EPI)NonAf POC Glucometer 228 76 113 Random Glucose Calcium Magnesium Total Bilirubin AST ALT Alkaline Phosphatase Total Protein Albumin 03/07/19 03/07/19 03/07/19 08:15 08:15 11:37 WBC 9.0 RBC 3.52 L Hgb 10.0 L Hct 30.2 L MCV 85.8 MCH 28.3 MCHC 33.0 RDW 13.6 Plt Count 189 MPV 9.2 Sodium 143 Potassium 4.3 Chloride 113 H Carbon Dioxide 21 Anion Gap 8 BUN 21.2 H Creatinine 1.4 H Est GFR (CKD-EPI)AfAm 41.31 Est GFR (CKD-EPI)NonAf 35.65 POC Glucometer 110 Random Glucose 120 H Calcium 8.4 L Magnesium 2.3 Total Bilirubin 0.3 AST 35 ALT 60 Alkaline Phosphatase 124 H Total Protein 5.5 L Albumin 2.7 L Current Medications Generic Name Dose Route Start Last Admin Trade Name Freq PRN Reason Stop Dose Admin Acetaminophen 650 mg 03/05/19 12:29 03/05/19 14:00 Tylenol - PO 650 mg Q6H PRN Administration PAIN LEVEL 1-5 Amlodipine Besylate 10 mg 03/04/19 10:00 03/07/19 10:51 Norvasc - PO 10 mg DAILY [facility] Administration Aspirin 81 mg 03/04/19 10:00 03/07/19 10:51 Asa - PO Not Given DAILY [facility] Atorvastatin Calcium 40 mg 03/04/19 22:00 03/06/19 22:05 Lipitor - PO 40 mg HS [facility] Administration Brimonidine Tartrate 1 drop 03/04/19 22:00 03/07/19 10:55 Alphagan P 0.1% - OU 1 drop BID [facility] Administration Clindamycin HCl 300 mg 03/07/19 06:00 03/07/19 06:38 Cleocin - PO 300 mg TID [facility] Administration Dorzolamide HCl 1 drop 03/05/19 10:00 03/07/19 10:59 Trusopt 2% OU 1 drop BID [facility] Administration Fentanyl 50 mcg 03/07/19 12:33 Sublimaze Injection - IVPUSH [id number] PRN PAIN-PACU ORDER X 4 DOSES ONLY Heparin Sodium (Porcine) 5,000 unit 03/04/19 14:00 03/07/19 06:15 Heparin - SQ Not Given TID [facility] Insulin Aspart 1 vial 03/04/19 01:45 03/07/19 11:43 Novolog Vial Sliding Scale - SQ Not Given ACHS [facility] Protocol Insulin Detemir 10 units 03/04/19 22:00 03/06/19 22:15 Levemir Vial SQ Not Given HS [facility] Lactobacillus Acidophilus 1 tab 03/07/19 10:00 03/07/19 10:51 Bacid - PO 1 tab DAILY [facility] Administration Latanoprost 1 drop 03/04/19 22:00 03/06/19 22:08 Xalatan 0.005% Eye Drops - OS 1 drop HS [facility] Administration Lisinopril 40 mg 03/04/19 10:00 03/07/19 10:51 Prinivil PO 40 mg DAILY [facility] Administration Ondansetron HCl 4 mg 03/07/19 12:33 Zofran Injection IVPUSH Q6H PRN NAUSEA AND/OR VOMITING Pancrelipase 1 cap 03/05/19 16:30 03/07/19 10:[address] 36,000 Units Capsule PO Not Given TIDAC [facility] Simethicone 80 mg 03/04/19 10:00 03/07/19 10:09 Mylicon - PO Not Given DAILY LEATHA Timolol Maleate 1 drop 03/05/19 10:00 03/07/19 11:04 Timoptic 0.5% OU 1 drop BID LEATHA Administration Home Medications Medication Instructions Recorded Acetaminophen 500 mg PO Q4HWA #20 tablet 02/18/19 Lisinopril 40 mg PO DAILY 02/18/19 Amlodipine Besylate [Norvasc -] 10 mg PO DAILY 03/03/19 Insulin Lispro [Humalog] units SQ ASDIR 03/03/19 Aspirin [Aspirin EC] 1 tab PO DAILY 03/04/19 Brimonidine Tartrate [Alphagan P 1 drop OU BID 03/04/19 0.1% -] Cephalexin [Keflex] 1 cap PO QID 03/04/19 Dicloxacillin Sodium 500 mg PO BID 03/04/19 Dorzolamide/Timolol/Pf 1 drop OU BID 03/04/19 [Dorzolamide-Timolol 2%-0.5%] Latanoprost 0.005% Eye Drops 1 drop OS HS 03/04/19 [Xalatan 0.005% Eye Drops -] Lipase/Protease/Amylase [Zenpep Dr 1 cap PO TID 03/04/19 40,000 Unit Capsule] Simvastatin 1 tab PO HS 03/04/19 metroNIDAZOLE [Metronidazole] 1 tab PO TID 03/04/19 ASSESSMENT AND PLAN: 79 year old female with history of DM 2, R eye visual impairment, HTN, CKD 3, admitted with R great toe cellulitis, failed out-patient Abx therapy with Cephalexin. 1. Acute Cellulitis R great toe s/p Pedicure, failed out-patient abx therapy Blood Cx neg MRI - soft tissue swelling plantar aspect foot, no OM. IV Zosyn/Vanco transitioned to oral Clindamycin for 1 week with Probiotic coverage. Podiatry, ID following. 2. PAD Arterial Duplex LEs - moderate to high grade stenosis distal R SFA extends to prox popliteal; stenosis L popliteal Vascular Sx to perform LE Angiogram +/- PCI today. 3. DM 2, Uncontrolled, A1c 8.2 Maintain on Glargine/Novolog sliding scale insulin - can resume out-patient regimen on discharge with PCP follow up for further DM 2 management. 4. HTN - Continue Lisinopril, Norvasc. 5. HLD - Continue Statin. 6. CKD 3 - Stable. Renal US - no obstruction. Nephrology following. DVT Px - Heparin SQ
--- NOTE | 2019-03-07 15:23 | OP ---
Operative Note - Note: Operative Date: 03/07/19 Pre-Operative Diagnosis: Right great toe discoloration Operation: CO2 Aortogram, RLE angiogram, SFA atherectomy, angioplasty, with stent placement. Findings: 80% stenosis Abductor canal for 10 cm. Post-Operative Diagnosis: Same as Pre-op Surgeon: Sam Lundy Anesthesia: Fractional Estimated Blood Loss (mls): 50 Operative Report Dictated: Yes
[2019-03-07] MEDS ORDERED: SODIUM CHLORIDE 1,000 ML IV SCH (15:30)
[2019-03-07] MEDS ORDERED: ACETAMINOPHEN 325 MG TABLET (FP) ONE (16:55)
[2019-03-07] MEDS ORDERED: CLOPIDOGREL BISULFATE 75 MG TABLET (FP) ONE (16:55)
[2019-03-07] MEDS: CLOPIDOGREL BISULFATE 75 MG TABLET (FP) PO SCH (17:00)
[2019-03-07] MEDS: ACETAMINOPHEN 325 MG TABLET (FP) PO PRN (17:00)
--- NOTE | 2019-03-07 17:02 | PN ---
Physical Exam: SUBJECTIVE: Patient seen and examined. Pt reports pain has improved significantly. BMx2 and urinating. No overnight events. Denies any overnight events or issues. Denies f/c/n/v/d/chest pain. OBJECTIVE: Vital Signs Period Temp Pulse Resp BP Sys/Zarate Pulse Ox Last 24 Hr 97.8 F-98.8 F 64-76 18-18 120-167/59-73 99-100 GENERAL: AOx3, AT/AC EYES: PETER, EOMI, cataract visible EARS, NOSE, THROAT: oropharynx clear without exudates. Moist mucous membranes. NECK: Normal range of motion, supple without lymphadenopathy, JVD, or masses. LUNGS: Breath sounds equal, clear to auscultation bilaterally. No wheezes, and no crackles. No accessory muscle use. HEART: Regular rate and rhythm, normal S1 and S2 without murmur, rub or gallop. ABDOMEN: Soft, nontender, not distended, normoactive bowel sounds, no guarding, no rebound, no masses. LOWER EXTREMITIES: 2+ pulses, warm, well-perfused. Rt toe is swollen with erythema extending to the foot as well as inter digital space. Appears to be an infect toe nail. Dressing placed. Toes and leg discolored- turning dark NEUROLOGICAL: Normal speech. Normal gait. SKIN: Warm, dry, normal turgor, Laboratory Results - last 24 hr CBC,CMP WBC 9.0 K/mm3 (4.0-10.0) 03/07/19 08:15 RBC 3.52 M/mm3 (3.60-5.2) L 03/07/19 08:15 Hgb 10.0 GM/dL (10.7-15.3) L 03/07/19 08:15 Hct 30.2 % (32.4-45.2) L 03/07/19 08:15 MCV 85.8 fl (80-96) 03/07/19 08:15 MCH 28.3 pg (25.7-33.7) 03/07/19 08:15 MCHC 33.0 g/dl (32.0-36.0) 03/07/19 08:15 RDW 13.6 % (11.6-15.6) 03/07/19 08:15 Plt Count 189 K/MM3 (134-434) 03/07/19 08:15 MPV 9.2 fl (7.5-11.1) 03/07/19 08:15 Absolute Neuts (auto) 2.7 K/mm3 (1.5-8.0) 03/04/19 05:20 Neutrophils % 40.6 % (42.8-82.8) L 03/04/19 05:20 Lymphocytes % 46.5 % (8-40) H 03/04/19 05:20 Monocytes % 6.9 % (3.8-10.2) 03/04/19 05:20 Eosinophils % 5.1 % (0-4.5) H 03/04/19 05:20 Basophils % 0.9 % (0-2.0) 03/04/19 05:20 Nucleated RBC % 0 % (0-0) 03/04/19 05:20 ESR 25 mm/hr (0-30) 03/04/19 05:20 Sodium 143 mmol/L (136-145) 03/07/19 08:15 Potassium 4.3 mmol/L (3.5-5.1) 03/07/19 08:15 Chloride 113 mmol/L (98-107) H 03/07/19 08:15 Carbon Dioxide 21 mmol/L (21-32) 03/07/19 08:15 Anion Gap 8 MMOL/L (8-16) 03/07/19 08:15 BUN 21.2 mg/dL (7-18) H 03/07/19 08:15 Creatinine 1.4 mg/dL (0.55-1.3) H 03/07/19 08:15 Est GFR (CKD-EPI)AfAm 41.31 03/07/19 08:15 Est GFR (CKD-EPI)NonAf 35.65 03/07/19 08:15 POC Glucometer 105 UNITS (80-120) 03/07/19 16:48 Random Glucose 120 mg/dL (74-106) H 03/07/19 08:15 Hemoglobin A1c % 8.2 % (4.2-6.3) H 03/04/19 05:20 Calcium 8.4 mg/dL (8.5-10.1) L 03/07/19 08:15 Magnesium 2.3 mg/dL (1.8-2.4) 03/07/19 08:15 Iron 62 ug/dL (50-175) 03/05/19 07:30 TIBC 179 ug/dL (250-450) L 03/05/19 07:30 Iron Saturation 34 % (17.5-39) 03/05/19 07:30 Unsaturated IBC 117 ug/dL (200-275) L 03/05/19 07:30 Total Bilirubin 0.3 mg/dL (0.2-1) 03/07/19 08:15 AST 35 U/L (15-37) 03/07/19 08:15 ALT 60 U/L (13-61) 03/07/19 08:15 Alkaline Phosphatase 124 U/L (45-117) H 03/07/19 08:15 C-Reactive Protein < 0.3 MG/DL (0.00-0.3) 03/04/19 05:20 Total Protein 5.5 g/dl (6.4-8.2) L 03/07/19 08:15 Albumin 2.7 g/dl (3.4-5.0) L 03/07/19 08:15 Vitamin B12 816 pg/ml (193-986) 03/05/19 07:30 Serum Folate 11 ng/mL (3.1-17.5) 03/05/19 07:30 Active Medications Generic Name Dose Route Start Last Admin Trade Name Freq PRN Reason Stop Dose Admin Acetaminophen 650 mg 03/07/19 16:24 Tylenol - PO Q6H PRN PAIN LEVEL 1-5 Amlodipine Besylate 10 mg 03/08/19 10:00 Norvasc - PO DAILY [facility] Atorvastatin Calcium 40 mg 03/07/19 22:00 Lipitor - PO HS [facility] Brimonidine Tartrate 1 drop 03/07/19 22:00 Alphagan P 0.1% - OU BID [facility]AT[facility] Clindamycin HCl 300 mg 03/07/19 22:00 Cleocin - PO TID [facility] Clopidogrel Bisulfate 75 mg 03/07/19 15:30 Plavix - PO DAILY [facility] Dorzolamide HCl 1 drop 03/07/19 22:00 Trusopt 2% OU BID [facility] Heparin Sodium (Porcine) 5,000 unit 03/07/19 22:00 Heparin - SQ TID [facility] Sodium Chloride 1,000 mls @ 75 mls/hr 03/07/19 16:24 Normal Saline - IV ASDIR [facility] Insulin Aspart 1 vial 03/07/19 16:30 Novolog Vial Sliding Scale - SQ ACHS [facility] Protocol Insulin Detemir 10 units 03/07/19 22:00 Levemir Vial SQ HS [facility] Lactobacillus Acidophilus 1 tab 03/08/19 10:00 Bacid - PO DAILY [facility] Latanoprost 1 drop 03/07/19 22:00 Xalatan 0.005% Eye Drops - OS HS [facility] Lisinopril 40 mg 03/08/19 10:00 Prinivil PO DAILY [facility] Pancrelipase 1 cap 03/07/19 16:30 Creon 36,000 Units Capsule PO TIDAC [facility] Simethicone 80 mg 03/08/19 10:00 Mylicon - PO DAILY [facility] Timolol Maleate 1 drop 03/07/19 22:00 Timoptic 0.5% OU BID [facility] ASSESSMENT/PLAN: 79 y/o F with PMH significant for HTN, DM, and CKD presents to ed c/o pain, swelling, and erythema of her Rt big toe over the past 3 weeks admitted for infection of the toe #Cellulitis of the Toe 2/2 to an infected ingrown toe nail Clindamycin 300 TID started as per ID recom- no sign of major infection Arterial Duplex LEs - moderate to high grade stenosis distal R SFA extends to prox popliteal; stenosis L popliteal MRI Rt toe ordered to r/o osteomyelitis- soft tissue swelling plantar aspect foot 2nd metatarsal, no OM. CO2 angiogram with, SFA atherectomy, angioplasty, stent placement of the RLE- 80 % stenosis of abductor canal for 10cm #CKD PCP clinic gave two values- 02/25 Cre 2.07; 02/24 Cre 1.72 Renal consult (Dr. Mayfield) appreciated #Anemia Iron-TIBC panel, Folate, B12 #Hx of DM BGM with ISS ACHS started Levemir 10 units if needed for glucose control, will also help with K #Hx of HTN Lisinopril, Norvasc, will f/u with PCP for any other BP meds #Hx of HLD lipitor #FEN DM diet #DVT Heparin TID Dispo: podiatry/ ID/ f/u with Vascular for d/c likely damon Visit type - Emergency Visit Emergency Visit: Yes ED Registration Date: 03/03/19 Care time: The patient presented to the Emergency Department on the above date and was hospitalized for further evaluation of their emergent condition. - New Patient This patient is new to me today: Yes Date on this admission: 03/08/19 - Critical Care Critical Care patient: No - Discharge Referral Referred to [facility] Med P.C.: No ATTENDING PHYSICIAN STATEMENT I saw and evaluated the patient. I reviewed the resident's note and discussed the case with the resident. I agree with the resident's findings and plan as documented. SUBJECTIVE: OBJECTIVE: ASSESSMENT AND PLAN:
--- NOTE | 2019-03-07 17:18 | PN ---
Progress Note, Physician History of Present Illness: Pt seen and examined at bedside. She is awake and alert. She denies shortness of breath. She had the angio today. - Current Medication List Current Medications: Active Medications Acetaminophen (Tylenol -) 650 mg PO Q6H PRN PRN Reason: PAIN LEVEL 1-5 Amlodipine Besylate (Norvasc -) 10 mg PO DAILY [facility] Atorvastatin Calcium (Lipitor -) 40 mg PO HS [facility] Brimonidine Tartrate (Alphagan P 0.1% -) 1 drop OU BID [facility] Clindamycin HCl (Cleocin -) 300 mg PO TID [facility] Clopidogrel Bisulfate (Plavix -) 75 mg PO DAILY [facility] Dorzolamide HCl (Trusopt 2%) 1 drop OU BID [facility] Heparin Sodium (Porcine) (Heparin -) 5,000 unit SQ TID [facility] Sodium Chloride (Normal Saline -) 1,000 mls @ 75 mls/hr IV ASDIR [facility] Insulin Aspart (Novolog Vial Sliding Scale -) 1 vial SQ ACHS [facility]; Protocol Insulin Detemir (Levemir Vial) 10 units SQ HS [facility] Lactobacillus Acidophilus (Bacid -) 1 tab PO DAILY [facility] Latanoprost (Xalatan 0.005% Eye Drops -) 1 drop OS HS [facility] Lisinopril (Prinivil) 40 mg PO DAILY [facility] Pancrelipase (Creon Dr 36,000 Units Capsule) 1 cap PO TIDAC [facility] Simethicone (Mylicon -) 80 mg PO DAILY [facility] Timolol Maleate (Timoptic 0.5%) 1 drop OU BID [facility] - Objective Vital Signs: Vital Signs Temperature 97.8 F 03/07/19 15:20 Pulse Rate 64 03/07/19 15:20 Respiratory Rate 18 03/07/19 15:20 Blood Pressure 127/59 L 03/07/19 15:20 O2 Sat by Pulse Oximetry (%) 99 03/07/19 15:20 Constitutional: Yes: Calm Eyes: Yes: Conjunctiva Clear HENT: Yes: Atraumatic Neck: Yes: Supple Cardiovascular: Yes: S1, S2 Respiratory: Yes: CTA Bilaterally Gastrointestinal: Yes: Normal Bowel Sounds, Soft Genitourinary: Yes: WNL Edema: No Neurological: Yes: Oriented Psychiatric: Yes: Oriented Labs: CBC, BMP 03/07/19 08:15 03/07/19 08:15 Problem List - Problems (1) CKD (chronic kidney disease) Code(s): N18.9 - CHRONIC KIDNEY DISEASE, UNSPECIFIED (2) Cellulitis of foot Code(s): L03.119 - CELLULITIS OF UNSPECIFIED PART OF LIMB Assessment/Plan Current Medications Generic Name Dose Route Start Last Admin Trade Name Freq PRN Reason Stop Dose Admin Acetaminophen 650 mg 03/07/19 16:24 Tylenol - PO Q6H PRN PAIN LEVEL 1-5 Amlodipine Besylate 10 mg 03/08/19 10:00 Norvasc - PO DAILY [facility] Atorvastatin Calcium 40 mg 03/07/19 22:00 Lipitor - PO HS [facility] Brimonidine Tartrate 1 drop 03/07/19 22:00 Alphagan P 0.1% - OU BID [facility] Clindamycin HCl 300 mg 03/07/19 22:00 Cleocin - PO TID [facility] Clopidogrel Bisulfate 75 mg 03/07/19 15:30 Plavix - PO DAILY [facility] Dorzolamide HCl 1 drop 03/07/19 22:00 Trusopt 2% OU BID [facility] Heparin Sodium (Porcine) 5,000 unit 03/07/19 22:00 Heparin - SQ TID [facility] Sodium Chloride 1,000 mls @ 75 mls/hr 03/07/19 16:24 Normal Saline - IV ASDIR [facility] Insulin Aspart 1 vial 03/07/19 16:30 Novolog Vial Sliding Scale - SQ ACHS [facility] Protocol Insulin Detemir 10 units 03/07/19 22:00 Levemir Vial SQ HS [facility] Lactobacillus Acidophilus 1 tab 03/08/19 10:00 Bacid - PO DAILY [facility] Latanoprost 1 drop 03/07/19 22:00 Xalatan 0.005% Eye Drops - OS HS [facility] Lisinopril 40 mg 03/08/19 10:00 Prinivil PO DAILY [facility] Pancrelipase 1 cap 03/07/19 16:[address] 36,000 Units Capsule PO TIDAC [facility] Simethicone 80 mg 03/08/19 10:00 Mylicon - PO DAILY [facility] Timolol Maleate 1 drop 03/07/19 22:00 Timoptic 0.5% OU BID [facility] Impression 1. CKD 2. cellulitis 3. DM 4. HTN 5. HLD Plan - pt s/p angio - monitor renal function - avoid nsaids - will need outpt follow up - cont leena for proteinuria - avoid nsaids
[2019-03-07] MEDS: SODIUM CHLORIDE 1,000 ML IV SCH (17:43)
[2019-03-07] MEDS ORDERED: ATORVASTATIN CA 40 MG TABLET (FP) PO SCH (22:00)
[2019-03-07] MEDS ORDERED: INSULIN (LEVEMIR) 100 UNITS/ML UNITS SQ SCH (22:00)
[2019-03-07] MEDS ORDERED: LATANOPROST 0.005% OPHTH SOLN 2.5ML BOTTLE OS SCH (22:00)
[2019-03-08] MEDS: CLINDAMYCIN HCL 150 MG CAPSULE (FP) PO SCH ×2 (05:33→13:23)
[2019-03-08] MEDS: HEPARIN NA (PORCINE) 5,000 UNITS/ML 1ML VIAL SQ SCH ×2 (05:34→13:23)
[2019-03-08] MEDS: ACETAMINOPHEN 325 MG TABLET (FP) PO PRN (05:34)
[2019-03-08] MEDS: INSULIN SLIDING SCALE (NOVOLOG) 1 VIAL SQ SCH ×3 (07:02→17:40)
[2019-03-08] MEDS: LIPASE/PROTEASE/AMYLASE 36,000 UNIT CAPSULE PO SCH ×3 (07:03→17:41)
--- NOTE | 2019-03-08 08:58 | PN ---
Progress Note (short form) - Note Progress Note: VASCULAR SURGERY POD #1 s/p CO2 Aortogram, RLE angiogram, SFA atherectomy, angioplasty, with stent placement No acute events per RN notes. Alert. Doing well. No complaints. AVSS. Afebrile Gen: nad Left groin: closed with dermabond. stab incision c/d/i. no hematoma. No acute ischemic changes to the feet bilaterally. Warm. Cap refill < 3 sec Problem List - Problems (1) CKD (chronic kidney disease) Assessment/Plan: POD #1 RLE angio No complications from surgery. Tight glycemic control Cont care per primary medical team re-consult vascular surgery prn Above discussed with my attending and agrees On behalf of Dr. Lundy, thank you for the opportunity to participate in your patient's care. Code(s): N18.9 - CHRONIC KIDNEY DISEASE, UNSPECIFIED (2) Cellulitis of foot Code(s): L03.119 - CELLULITIS OF UNSPECIFIED PART OF LIMB (3) Diabetes Code(s): E11.9 - TYPE 2 DIABETES MELLITUS WITHOUT COMPLICATIONS (4) Paronychia Code(s): NYV0628 -
[2019-03-08 09:11] LABS: BASO % 0.5 % (0-2.0); EOS % 2.5 % (0-4.5); HEMATOCRIT 27.6 % (32.4-45.2); LYMPH % 46.7 % (8-40); MCH 28.1 pg (25.7-33.7); MCHC 32.5 g/dl (32.0-36.0); MEAN CELL VOLUME 86.4 fl (80-96); MEAN PLT VOLUME 9.3 fl (7.5-11.1); MONO % 4.3 % (3.8-10.2); PLATELET COUNT 177 K/MM3 (134-434); RDW 13.6 % (11.6-15.6)
[2019-03-08 09:40] LABS: BLOOD UREA NITROGEN 27.4 mg/dL (7-18); CALCIUM 7.9 mg/dL (8.5-10.1); CREATININE 1.5 mg/dL (0.55-1.3); POTASSIUM 4.3 mmol/L (3.5-5.1)
[2019-03-08] MEDS ORDERED: SIMETHICONE 80 MG TAB.CHEW (FP) PO SCH (10:00)
[2019-03-08] MEDS ORDERED: LISINOPRIL 20 MG TABLET (FP) PO SCH (10:00)
[2019-03-08] MEDS ORDERED: LACTOBACILLUS ACIDOPHILUS 1 TABLET PO SCH (10:00)
[2019-03-08] MEDS ORDERED: amLODIPine BESYLATE 10 MG TABLET (FP) PO SCH (10:00)
[2019-03-08] MEDS: CLOPIDOGREL BISULFATE 75 MG TABLET (FP) PO SCH (10:27)
[2019-03-08] MEDS: BRIMONIDINE TARTRATE 0.1% OPHTHALMIC 5 ML BOTTLE OU SCH (10:28)
[2019-03-08] MEDS: TIMOLOL 0.5% OPHTHALMIC SOL 5 ML BOTTLE OU SCH (10:29)
[2019-03-08] MEDS: DORZOLAMIDE 2% HCL OPHTHALMIC SOLUTION 10 ML BOTTLE OU SCH (10:29)
--- NOTE | 2019-03-08 13:15 | PN ---
Teaching Attending Note Name of Resident: Marcel Romero ATTENDING PHYSICIAN STATEMENT I saw and evaluated the patient. I reviewed the resident's note and discussed the case with the resident. I agree with the resident's findings and plan as documented. SUBJECTIVE: Improving pain/erythema/swelling R great toe. No fever/chills. OBJECTIVE: Afebrile, Hemodynamically Stable. Last Vital Signs Temp Pulse Resp BP Pulse Ox 98.5 F 72 18 134/78 100 03/08/19 09:57 03/08/19 09:57 03/08/19 09:57 03/08/19 09:57 03/08/19 09:00 Heart - S1 S2, RRR Lungs - clear to auscultation Abdomen - soft, non-tender. Extremities - no edema, no calf tenderness, warm, still difficult to palpate pedal pulses, R great toe medial aspect erythema/tenderness improving Neuro - AAO x 3. Tone/Power normal all extremities. Laboratory Results - last 24 hr 03/07/19 03/07/19 03/08/19 16:48 22:41 05:34 WBC RBC Hgb Hct MCV MCH MCHC RDW Plt Count MPV Absolute Neuts (auto) Neutrophils % Lymphocytes % Monocytes % Eosinophils % Basophils % Nucleated RBC % Sodium Potassium Chloride Carbon Dioxide Anion Gap BUN Creatinine Est GFR (CKD-EPI)AfAm Est GFR (CKD-EPI)NonAf POC Glucometer 105 165 90 Random Glucose Calcium 03/08/19 03/08/19 03/08/19 08:19 08:19 11:36 WBC 12.0 H RBC 3.20 L Hgb 9.0 L Hct 27.6 L MCV 86.4 MCH 28.1 MCHC 32.5 RDW 13.6 Plt Count 177 MPV 9.3 Absolute Neuts (auto) 5.5 Neutrophils % 46.0 Lymphocytes % 46.7 H Monocytes % 4.3 Eosinophils % 2.5 Basophils % 0.5 Nucleated RBC % 0 Sodium 140 Potassium 4.3 Chloride 113 H Carbon Dioxide 20 L Anion Gap 7 L BUN 27.4 H Creatinine 1.5 H Est GFR (CKD-EPI)AfAm 38.01 Est GFR (CKD-EPI)NonAf 32.79 POC Glucometer 137 Random Glucose 99 Calcium 7.9 L Current Medications Generic Name Dose Route Start Last Admin Trade Name Freq PRN Reason Stop Dose Admin Acetaminophen 650 mg 03/07/19 16:24 03/08/19 05:34 Tylenol - PO 650 mg Q6H PRN Administration PAIN LEVEL 1-5 Amlodipine Besylate 10 mg 03/08/19 10:00 03/08/19 10:27 Norvasc - PO 10 mg DAILY [facility] Administration Atorvastatin Calcium 40 mg 03/07/19 22:00 03/07/19 22:45 Lipitor - PO 40 mg HS COUNTS INCLUDE 234 BEDS AT [facility] Administration Brimonidine Tartrate 1 drop 03/07/19 22:00 03/08/19 10:28 Alphagan P 0.1% - OU 1 drop BID [facility] Administration Clindamycin HCl 300 mg 03/07/19 22:00 03/08/19 05:33 Cleocin - PO 300 mg TID COUNTS INCLUDE 234 BEDS AT THE [facility] Administration Clopidogrel Bisulfate 75 mg 03/07/19 15:30 03/08/19 10:27 Plavix - PO 75 mg DAILY [facility] Administration Dorzolamide HCl 1 drop 03/07/19 22:00 03/08/19 10:29 Trusopt 2% OU 1 drop BID COUNTS INCLUDE 234 BEDS AT THE [facility] Administration Heparin Sodium (Porcine) 5,000 unit 03/07/19 22:00 03/08/19 05:34 Heparin - SQ 5,000 unit TID COUNTS INCLUDE 234 BEDS AT [facility] Administration Sodium Chloride 1,000 mls @ 75 mls/hr 03/07/19 16:24 03/07/19 17:43 Normal Saline - IV 75 mls/hr ASDIR COUNTS INCLUDE 234 BEDS AT [facility] Administration Insulin Aspart 1 vial 03/07/19 16:30 03/08/19 11:38 Novolog Vial Sliding Scale - SQ Not [facility] Protocol Insulin Detemir 10 units 03/07/19 22:00 03/07/19 22:45 Levemir Vial SQ 10 units HS [facility]S INCLUDE 234 BEDS AT [facility] Administration Lactobacillus Acidophilus 1 tab 03/08/19 10:00 03/08/19 10:27 Bacid - PO 1 tab DAILY COUNTS INCLUDE 234 BEDS AT [facility] Administration Latanoprost 1 drop 03/07/19 22:00 03/07/19 22:47 Xalatan 0.005% Eye Drops - OS Not Given [facility] Lisinopril 40 mg 03/08/19 10:00 03/08/19 10:27 Prinivil PO 40 mg DAILY [facility]S INCLUDE 234 BEDS AT [facility] Administration Pancrelipase 1 cap 03/07/19 16:30 03/08/19 11:[address] 36,000 Units Capsule PO Not Given TIDAC COUNTS INCLUDE 234 BEDS AT THE [facility] Simethicone 80 mg 03/08/19 10:00 03/08/19 10:27 Mylicon - PO 80 mg DAILY [facility] Administration Timolol Maleate 1 drop 03/07/19 22:00 03/08/19 10:29 Timoptic 0.5% OU 1 drop BID [facility] Administration Discharge Medications Medication Instructions Recorded Lisinopril 40 mg PO DAILY 02/18/19 Amlodipine Besylate [Norvasc -] 10 mg PO DAILY 03/03/19 Insulin Lispro [Humalog] 2 - 10 units SQ AC 03/03/19 Aspirin [Aspirin EC] 1 tab PO DAILY 03/04/19 Brimonidine Tartrate [Alphagan P 1 drop OU BID 03/04/19 0.1% -] Dorzolamide/Timolol/Pf 1 drop OU BID 03/04/19 [Dorzolamide-Timolol 2%-0.5%] Latanoprost 0.005% Eye Drops 1 drop OS HS 03/04/19 [Xalatan 0.005% Eye Drops -] Lipase/Protease/Amylase [Zenpep Dr 1 cap PO TID 03/04/19 40,000 Unit Capsule] Simvastatin 1 tab PO HS 03/04/19 Insulin (Levemir) [Levemir Vial] 16 units SQ HS 03/07/19 Clindamycin [Cleocin -] 300 mg PO TID #18 capsule 03/08/19 Clopidogrel Bisulfate [Plavix -] 75 mg PO DAILY #30 tablet 03/08/19 Lactobacillus Acidophilus [Bacid -] 1 tab PO DAILY #30 tab 03/08/19 ASSESSMENT AND PLAN: 79 year old female with history of DM 2, R eye visual impairment, HTN, CKD 3, admitted with R great toe cellulitis, failed out-patient Abx therapy with Cephalexin. 1. Acute Cellulitis R great toe s/p Pedicure, failed out-patient abx therapy Blood Cx neg MRI - soft tissue swelling plantar aspect foot, no OM. IV Zosyn/Vanco transitioned to oral Clindamycin for 1 additional week with Probiotic coverage as per ID. Podiatry, ID following. 2. PAD Arterial Duplex LEs - moderate to high grade stenosis distal R SFA extends to prox popliteal; stenosis L popliteal POD 1 s/p RLE Angiogram +/- PCI/Stent R SFA. LEs well perfused. Optimized for discharge as per Vascular Sx. Will discharge on Aspirin/Plavix/Statin. Vascular Sx follow up. 3. DM 2, Uncontrolled, A1c 8.2 Can resume out-patient regimen on discharge with PCP follow up for further DM 2 management. 4. HTN - Continue Lisinopril, Norvasc. 5. HLD - Continue Statin. 6. CKD 3 - Stable. Renal US - no obstruction. Nephrology following. Medically stable and optimized for discharge wit PCP, Podiatry, and Vascular Surgery follow up.
[2019-03-08 15:44] VITALS: BP 160/77; PULSE 82; TEMP 99.2
--- NOTE | 2019-03-08 16:36 | PN ---
Progress Note, Physician History of Present Illness: Pt seen and examined at bedside. She is awake and alert. She is eager to go home. - Current Medication List Current Medications: Active Medications Acetaminophen (Tylenol -) 650 mg PO Q6H PRN PRN Reason: PAIN LEVEL 1-5 Last Admin: 03/08/19 05:34 Dose: 650 mg Amlodipine Besylate (Norvasc -) 10 mg PO DAILY [facility] Last Admin: 03/08/19 10:27 Dose: 10 mg Atorvastatin Calcium (Lipitor -) 40 mg PO HS [facility] Last Admin: 03/07/19 22:45 Dose: 40 mg Brimonidine Tartrate (Alphagan P 0.1% -) 1 drop OU BID [facility] Last Admin: 03/08/19 10:28 Dose: 1 drop Clindamycin HCl (Cleocin -) 300 mg PO TID [facility] Last Admin: 03/08/19 13:23 Dose: 300 mg Clopidogrel Bisulfate (Plavix -) 75 mg PO DAILY [facility] Last Admin: 03/08/19 10:27 Dose: 75 mg Dorzolamide HCl (Trusopt 2%) 1 drop OU BID [facility] Last Admin: 03/08/19 10:29 Dose: 1 drop Heparin Sodium (Porcine) (Heparin -) 5,000 unit SQ TID [facility] Last Admin: 03/08/19 13:23 Dose: 5,000 unit Sodium Chloride (Normal Saline -) 1,000 mls @ 75 mls/hr IV ASDIR [facility] Last Admin: 03/07/19 17:43 Dose: 75 mls/hr Insulin Aspart (Novolog Vial Sliding Scale -) 1 vial SQ [facility]; Protocol Last Admin: 03/08/19 11:38 Dose: Not Given Insulin Detemir (Levemir Vial) 10 units SQ [facility] Last Admin: 03/07/19 22:45 Dose: 10 units Lactobacillus Acidophilus (Bacid -) 1 tab PO DAILY [facility] Last Admin: 03/08/19 10:27 Dose: 1 tab Latanoprost (Xalatan 0.005% Eye Drops -) 1 drop OS [facility] Last Admin: 03/07/19 22:47 Dose: Not Given Lisinopril (Prinivil) 40 mg PO DAILY [facility] Last Admin: 03/08/19 10:27 Dose: 40 mg Pancrelipase (Creon Dr 36,000 Units Capsule) 1 cap PO TIDAC [facility] Last Admin: 03/08/19 11:37 Dose: Not Given Simethicone (Mylicon -) 80 mg PO DAILY [facility] Last Admin: 03/08/19 10:27 Dose: 80 mg Timolol Maleate (Timoptic 0.5%) 1 drop OU BID [facility] Last Admin: 03/08/19 10:29 Dose: 1 drop - Objective Vital Signs: Vital Signs Temperature 99.2 F 03/08/19 15:40 Pulse Rate 82 03/08/19 15:40 Respiratory Rate 18 03/08/19 15:40 Blood Pressure 160/77 03/08/19 15:40 O2 Sat by Pulse Oximetry (%) 100 03/08/19 09:00 Constitutional: Yes: Calm Eyes: Yes: Conjunctiva Clear HENT: Yes: Atraumatic Neck: Yes: Supple Cardiovascular: Yes: S1, S2 Respiratory: Yes: CTA Bilaterally Gastrointestinal: Yes: Normal Bowel Sounds, Soft Genitourinary: Yes: WNL Musculoskeletal: Yes: WNL Edema: No Neurological: Yes: Oriented Psychiatric: Yes: Oriented Labs: CBC, BMP 03/08/19 08:19 03/08/19 08:19 Problem List - Problems (1) CKD (chronic kidney disease) Code(s): N18.9 - CHRONIC KIDNEY DISEASE, UNSPECIFIED (2) Cellulitis of foot Code(s): L03.119 - CELLULITIS OF UNSPECIFIED PART OF LIMB Assessment/Plan Current Medications Generic Name Dose Route Start Last Admin Trade Name Freq PRN Reason Stop Dose Admin Acetaminophen 650 mg 03/07/19 16:24 03/08/19 05:34 Tylenol - PO 650 mg Q6H PRN Administration PAIN LEVEL 1-5 Amlodipine Besylate 10 mg 03/08/19 10:00 03/08/19 10:27 Norvasc - PO 10 mg DAILY [facility] Administration Atorvastatin Calcium 40 mg 03/07/19 22:00 03/07/19 22:45 Lipitor - PO 40 mg HS [facility] Administration Brimonidine Tartrate 1 drop 03/07/19 22:00 03/08/19 10:28 Alphagan P 0.1% - OU 1 drop BID [facility] Administration Clindamycin HCl 300 mg 03/07/19 22:00 03/08/19 13:23 Cleocin - PO 300 mg TID [facility] Administration Clopidogrel Bisulfate 75 mg 03/07/19 15:30 03/08/19 10:27 Plavix - PO 75 mg DAILY [facility] Administration Dorzolamide HCl 1 drop 03/07/19 22:00 03/08/19 10:29 Trusopt 2% OU 1 drop BID [facility] Administration Heparin Sodium (Porcine) 5,000 unit 03/07/19 22:00 03/08/19 13:23 Heparin - SQ 5,000 unit TID [facility] Administration Sodium Chloride 1,000 mls @ 75 mls/hr 03/07/19 16:24 03/07/19 17:43 Normal Saline - IV 75 mls/hr ASDIR [facility] Administration Insulin Aspart 1 vial 03/07/19 16:30 03/08/19 11:38 Novolog Vial Sliding Scale - SQ Not [facility] Protocol Insulin Detemir 10 units 03/07/19 22:00 03/07/19 22:45 Levemir Vial SQ 10 units HS [facility] Administration Lactobacillus Acidophilus 1 tab 03/08/19 10:00 03/08/19 10:27 Bacid - PO 1 tab DAILY [facility] Administration Latanoprost 1 drop 03/07/19 22:00 03/07/19 22:47 Xalatan 0.005% Eye Drops - OS Not Given HS [facility] Lisinopril 40 mg 03/08/19 10:00 03/08/19 10:27 Prinivil PO 40 mg DAILY [facility] Administration Pancrelipase 1 cap 03/07/19 16:30 03/08/19 11:37 Creon 36,000 Units Capsule PO Not Given TIDAC [facility] Simethicone 80 mg 03/08/19 10:00 03/08/19 10:27 Mylicon - PO 80 mg DAILY LEATHA Administration Timolol Maleate 1 drop 03/07/19 22:00 03/08/19 10:29 Timoptic 0.5% OU 1 drop BID LEATHA Administration Impression 1. CKD 2. cellulitis 3. DM 4. HTN 5. HLD Plan - renal function is stable - can d/c fluids - outpt follow up with Dr Vidal - avoid nsaids - avoid nephrotoxins - cont leena for proteinuria
--- NOTE | 2019-03-08 17:04 | DS ---
Physical Exam: SUBJECTIVE: Patient seen and examined. S/p POD1 angiogram and stenting of the right toe. Pt is much more comfortable. Denies any pain ot the toe. Denies f/c/n/v/d/sob/cp OBJECTIVE: Vital Signs Period Temp Pulse Resp BP Sys/Zarate Pulse Ox Last 24 Hr 97.6 F-99.2 F 62-82 18-18 134-172/60-78 98-100 PHYSICAL EXAM GENERAL: AOx3, AT/AC EYES: PETER, EOMI, cataract visible EARS, NOSE, THROAT: oropharynx clear without exudates. Moist mucous membranes. NECK: Normal range of motion, supple without lymphadenopathy, JVD, or masses. LUNGS: Breath sounds equal, clear to auscultation bilaterally. No wheezes, and no crackles. No accessory muscle use. HEART: Regular rate and rhythm, normal S1 and S2 without murmur, rub or gallop. ABDOMEN: Soft, nontender, not distended, normoactive bowel sounds, no guarding, no rebound, no masses. LOWER EXTREMITIES: 2+ pulses, warm, well-perfused. Rt toe much more improved. Color normal now. Nontender or not swollen. NEUROLOGICAL: Normal speech. Normal gait. SKIN: Warm, dry, normal turgor, LABS Laboratory Results - last 24 hr 03/08/19 03/08/19 08:19 11:36 WBC 12.0 H RBC 3.20 L Hgb 9.0 L Hct 27.6 L MCV 86.4 MCH 28.1 MCHC 32.5 RDW 13.6 Plt Count 177 MPV 9.3 Absolute Neuts (auto) 5.5 Neutrophils % 46.0 Lymphocytes % 46.7 H Monocytes % 4.3 Eosinophils % 2.5 Basophils % 0.5 Nucleated RBC % 0 Sodium Potassium Chloride Carbon Dioxide Anion Gap BUN Creatinine Est GFR (CKD-EPI)AfAm Est GFR (CKD-EPI)NonAf POC Glucometer 137 Random Glucose Calcium HOSPITAL COURSE: Date of Admission:03/03/19 79 y/o F with PMH significant for HTN, DM, and CKD presents to ed c/o pain, swelling, and erythema of her Rt big toe over the past 3 weeks admitted for infection of the toe likely from trauma to the nail. Pt was started on zosyn and vanc and then switched to Clindamycin 300 TID. Pt's cellulitis improved but her arterial Duplex LEs showed moderate to high grade stenosis distal R SFA extends to prox popliteal; stenosis L popliteal. MRI Rt toe ordered to r/o osteomyelitis - soft tissue swelling plantar aspect foot 2nd metatarsal, no OM. Dr. Lundy, vascular was consulted and after lengthy discussion, pt was taken for an CO2 angiogram of the right LE, which showed 80% stenosis of abductor canal for 10cm. Therefore, SFA atherectomy, angioplasty, stent placement of the RLE was done. S/p POD1 pts symptoms improved significantly and pt was discharged on Clindamycin 100 mg three times a day by mouth for 6 more days and Bacid 1 pill daily by mouth for one month. Pt was also started on Plavix 75 daily and her ASA was d/sari. Arterial Duplex LEs showed moderate to high grade stenosis distal R SFA extends to prox popliteal; stenosis L popliteal. MRI Rt toe ordered to r/o osteomyelitis- soft tissue swelling plantar aspect foot 2nd metatarsal, no OM CO2 angiogram of the right LE, which showed 80% stenosis of abductor canal for 10cm. XRay Rt toe- right foot revel some bone density loss, calcaneal spurring, vascular calcifications and some minimal swelling. Small soft tissue ulceration by the distal end of the first metatarsal. Date of Discharge: 03/08/19 Minutes to complete discharge: 40 Discharge Summary Problems reviewed: Yes Reason For Visit: PARONYCHIA, CELLULITIS OF FOOT Current Active Problems CKD (chronic kidney disease) (Chronic) Diabetes (Chronic) PVD (peripheral vascular disease) (Chronic) Condition: Improved - Instructions Diet, Activity, Other Instructions: You were admitted to the hospital for an infection in your toe. Wile you were here we drained the abscess and we treated you with antibiotics. To complete treatment of the infection please take: Clindamycin 100 mg three times a day by mouth for 6 more days Bacid 1 pill daily by mouth for one month While you were here you also underwent a procedure to help open up the vessels in your legs. There was a stent placed to help keep the vessels open. To ensure the vessels stay open please take: Clopidogrel 75 mg by mouth daily [place] STOP taking your aspirin. It is very important that you follow up with the vascular surgeon, Dr. Lundy in one week. You should follow up with the Utility Bagger to monitor your foot wound. You should follow up with the Instructional Media Services Technician ( kidney doctor) to continue to monitor function of your kidneys. Please continue your home medications as prescribed. Follow up with your primary care physician within one week. It is very important for you to try to tightly control your diabetes. Return to the Emergency Department if you have nay nausea, vomiting, bleeding, chest pain, headaches, or shortness of breath. f/u w/ Dr. Lundy in [facility] to set-up HBO Therapy in 1 week Referrals: [facility] [place] [facility] [Provider Group] Natanael Adams MD [Staff Physician] - Sam Lundy DO [Staff Physician] - Carson Mayfield MD [Staff Physician] - Disposition: HOME - Home Medications Comprehensive Discharge Medication List: Ambulatory Orders Lisinopril 40 mg PO DAILY 02/18/19 Amlodipine Besylate [Norvasc -] 10 mg PO DAILY 03/03/19 Insulin Lispro [Humalog] 2 - 10 units SQ AC 03/03/19 Brimonidine Tartrate [Alphagan P 0.1% -] 1 drop OU BID 03/04/19 Dorzolamide/Timolol/Pf [Dorzolamide-Timolol 2%-0.5%] 1 drop OU BID 03/04/19 Latanoprost 0.005% Eye Drops [Xalatan 0.005% Eye Drops -] 1 drop OS HS 03/04/19 Lipase/Protease/Amylase [Zenpep Dr 40,000 Unit Capsule] 1 cap PO TID 03/04/19 Simvastatin 1 tab PO HS 03/04/19 Insulin (Levemir) [Levemir Vial] 16 units SQ HS 03/07/19 Clindamycin [Cleocin -] 300 mg PO TID #18 capsule 03/08/19 Clopidogrel Bisulfate [Plavix -] 75 mg PO DAILY #30 tablet 03/08/19 Lactobacillus Acidophilus [Bacid -] 1 tab PO DAILY #30 tab 03/08/19 This patient is new to me today: Yes Date on this admission: 03/08/19 Emergency Visit: Yes ED Registration Date: 03/03/19 Care time: The patient presented to the Emergency Department on the above date and was hospitalized for further evaluation of their emergent condition. Critical Care patient: No - Discharge Referral Referred to [facility] No ATTENDING PHYSICIAN STATEMENT I saw and evaluated the patient. I reviewed the resident's note and discussed the case with the resident. I agree with the resident's findings and plan as documented. SUBJECTIVE: OBJECTIVE: ASSESSMENT AND PLAN:
[2019-03-08] MEDS: SODIUM CHLORIDE 1,000 ML IV SCH (17:40)
--- NOTE | 2019-03-20 13:34 | OP ---
DATE OF OPERATION: 03/07/2019 PREOPERATIVE DIAGNOSIS: Right great toe discoloration. POSTOPERATIVE DIAGNOSIS: Right great toe discoloration. PROCEDURE: Carbon dioxide aortogram, right lower extremity angiogram, superficial femoral artery atherectomy, angioplasty with stent placement. FINDINGS: Stenosis 80% adductor canal for 10 cm. SURGEON: Sam Thorpe DO ANESTHESIA: Fractional. BLOOD LOSS: 50 mL. INDICATIONS FOR PROCEDURE: Patient is a 79-year-old female that has right great toe discoloration, after she went to a janitorial tech. She had a preoperative CTA showing right SFA disease. It was decided that she would need an angiogram. Patient was consented for the procedure, understanding all risks, benefits, and alternatives, and was then taken to the operating room. Once in the operating room, was laid on the operating room table in supine position and the area of the right and left groin was prepped and draped in a sterile surgical manner. We then injected 10 mL of lidocaine 1% over the left common femoral artery. We then took a Micropuncture needle, punctured the left common femoral artery, and a Micropuncture wire was inserted. Micropuncture sheath was inserted and a 0.035 floppy guide wire was inserted. A traditional 5-[place] sheath was then inserted. We then inserted our 0.035 floppy guide wire up into the aorta, followed by Omni Flush catheter. Due to the fact that the patient had renal insufficiency, we used CO2 and a CO2 aortogram was performed showing that the aorta and iliac arteries were without any disease. We then used our wire and went up and over to the right common femoral artery and our Omni Flush catheter followed. We then shot a CO2 angiogram showing that the common femoral artery and the profunda were patent. The SFA was patent, but the SFA had severe disease of 80% to 90% along the adductor canal for 10 cm. Popliteal artery was patent and patient had 2-vessel runoff into the foot in the form of AT and PT. At this point, we placed a 0.035 stiff guide wire into the SFA, removed our Omni Flush catheter, and a 6 x 45 Crossover sheath was placed. Heparin of 5000 units was administered to the patient. We then placed our 0.035 stiff guide wire down to the adductor canal and we were able to cross it using Quick-Cross catheter. We then exchanged the wire for a ViperWire. We then used a Squla orbital atherectomy device and performed atherectomy of the adductor canal on low and medium. We then went ahead and used a 5 x 10 Ultraverse balloon and angioplasty was performed. Once the angioplasty was performed, we shot a completion CO2 angiogram showing that the SFA was now patent, but there was still some recoil at this point. At this point, a 6 x 8 LifeStent was placed in the area and that was ballooned in place using a 5 x 8 Ultraverse balloon. Completion CO2 angiogram now showed that the SFA was patent, there was flow all the way down into the foot. At this point, we brought our sheath up and over. StarClose device was successfully deployed in the left common femoral artery. Pressure was held for 5 minutes. After there was no more bleeding, the area was and Dermabond was placed. Patient tolerated the procedure with no complications. Patient transferred to PACU in stable condition. SAM THORPE DO [id number]
== END 2019-03-08 17:22 | disposition home or self-care (01) | DRG 271 ==
LOC: JER 17:57 → JERBED 19:58 → J5S 03-04 15:11
PROVIDERS: ADMIT Internal Medicine
PROC: 0H9MXZZ Drainage of Right Foot Skin, External Approach (ICD-10-PCS; 2019-03-03)
PROC: 047K3DZ Dilation of Right Femoral Artery with Intraluminal Device, Percutaneous Approach (ICD-10-PCS; 2019-03-07)
PROC: B40FYZZ Plain Radiography of Right Lower Extremity Arteries using Other Contrast (ICD-10-PCS; 2019-03-07)
PROC: B41DYZZ Fluoroscopy of Aorta and Bilateral Lower Extremity Arteries using Other Contrast (ICD-10-PCS; 2019-03-07)
PROC: 04CK3ZZ Extirpation of Matter from Right Femoral Artery, Percutaneous Approach (ICD-10-PCS; principal; 2019-03-07 14:00)
DX: E11.51 Type 2 diabetes mellitus with diabetic peripheral angiopathy without gangrene (principal); N17.9 Acute kidney failure, unspecified; L03.031 Cellulitis of right toe; E11.22 Type 2 diabetes mellitus with diabetic chronic kidney disease; I12.9 Hypertensive chronic kidney disease with stage 1 through stage 4 chronic kidney disease, or unspecified chronic kidney disease; Z94.7 Corneal transplant status; E87.5 Hyperkalemia; E78.5 Hyperlipidemia, unspecified; Z79.4 Long term (current) use of insulin; D64.9 Anemia, unspecified; E11.65 Type 2 diabetes mellitus with hyperglycemia; N18.3 Chronic kidney disease, stage 3 (moderate)
CPT/HCPCS: 36415; 71045-TC-FY; 73630-TC-RT-FY; 73718-TC-RT; 76000-TC-FY; 76775-TC; 80048; 80053; 81003; 82570; 82607; 82746; 82962; 83036; 83540; 83550; 83735; 84156; 85025; 85027; 85651; 86140; 87040; 93005; 93010; 93925-TC; 93971-TC; 94760; 99284-25; G0480; J1644; J7030

== ENCOUNTER 2019-03-14 16:49 | Emergency (ER) | payer BC, OTHER ==
[2019-03-14 17:23] VITALS: BP 155/67; PULSE 66; TEMP 98; BMI 26.2
[2019-03-14] MEDS ORDERED: BACITRACIN 15 GM TUBE TOPICAL OINTMENT ONE (18:26)
--- NOTE | 2019-03-14 18:27 | PDOC ---
History of Present Illness - General Chief Complaint: Wound Stated Complaint: INFECTED TOE Time Seen by Provider: 03/14/19 17:39 History Source: Patient, Old Records Exam Limitations: No Limitations - History of Present Illness Initial Comments: 03/14/19 19:02 HISTORY OF PRESENT ILLNESS: 79-year-old woman with past medical history of CKD, hypertension, diabetes who is currently status post angiography of occluded vessel in the left leg who presents emergency department for evaluation of right great toe. The daughter brought the patient to the emergency department for reevaluation as she was discharged 7 days ago and has finished antibiotics. The daughter is requesting reassessment of the foot as well as indications for treatment going forward. Patient was recommended to follow-up with the wound clinic here at [facility] as well as podiatry, nephrology and primary care for management of her chronic medical conditions. Patient has not contacted any of her doctors as an outpatient. Patient denies any complaints at this time. No recent travel or sick contacts. PAST MEDICAL HISTORY: See HPI SURGICAL HISTORY: See HPI ALLERGIES: No known drug allergies REVIEW OF SYSTEMS General/Constitutional: Denies fever or chills. Denies weakness, weight change. HEENT: Denies change in vision. Denies ear pain or discharge. Denies sore throat. Cardiovascular: Denies chest pain or shortness of breath. Respiratory: Denies cough, wheezing, or hemoptysis. Gastrointestinal: Denies nausea, vomiting, diarrhea or constipation. Denies rectal bleeding. Genitourinary: Denies dysuria, frequency, or change in urination. Musculoskeletal: See HPI Skin and breasts: Denies rash or easy bruising. Neurologic: Denies headache, vertigo, loss of consciousness, or loss of sensation. Psychiatric: Denies depression or anxiety. Endocrine: Denies increased thirst. Denies abnormal weight change. Hematologic/Lymphatic: Denies anemia, easy bleeding, or history of blood clots. Allergic/Immunologic: Denies hives or skin allergy. Denies latex allergy. PHYSICAL EXAM General Appearance: Well-appearing, appropriately dressed. No apparent distress , no intoxication. Lymphatic: No adenopathy, tenderness. Musculoskeletal/Extremities: Normal inspection. FROM of all extremities, normal capillary refill. Pelvis Stable. No CVA tenderness. No tenderness to extremities, pedal edema, swelling, erythema or deformity. Right great toe without erythema or induration present. No lymphangitis present. There is no discharge or drainage from her toe and is neurovascularly intact. Integumentary: Appropriate color, dry, warm. No cyanosis, erythema, jaundice or rash Past History - Past Medical History Allergies/Adverse Reactions: Allergies Allergy/AdvReac Type Severity Reaction Status Date / Time No Known Allergies Allergy Verified 03/03/19 18:13 Home Medications: Ambulatory Orders Lisinopril 40 mg PO DAILY 02/18/19 Amlodipine Besylate [Norvasc -] 10 mg PO DAILY 03/03/19 Insulin Lispro [Humalog] 2 - 10 units SQ AC 03/03/19 Brimonidine Tartrate [Alphagan P 0.1% -] 1 drop OU BID 03/04/19 Dorzolamide/Timolol/Pf [Dorzolamide-Timolol 2%-0.5%] 1 drop OU BID 03/04/19 Latanoprost 0.005% Eye Drops [Xalatan 0.005% Eye Drops -] 1 drop OS HS 03/04/19 Lipase/Protease/Amylase [Zenpep Dr 40,000 Unit Capsule] 1 cap PO TID 03/04/19 Simvastatin 1 tab PO HS 03/04/19 Insulin (Levemir) [Levemir Vial] 16 units SQ HS 03/07/19 Clindamycin [Cleocin -] 300 mg PO TID #18 capsule 03/08/19 Clopidogrel Bisulfate [Plavix -] 75 mg PO DAILY #30 tablet 03/08/19 Lactobacillus Acidophilus [Bacid -] 1 tab PO DAILY #30 tab 03/08/19 Anemia: Yes Asthma: No Cancer: Yes (leukemia) Cardiac Disorders: Yes CVA: No COPD: No CHF: No Dementia: No Diabetes: Yes GI Disorders: No Disorders: No HTN: Yes Hypercholesterolemia: Yes Liver Disease: No Seizures: No Thyroid Disease: No - Surgical History Abdominal Surgery: No Appendectomy: No Cardiac Surgery: No Cholecystectomy: No Lung Surgery: No Neurologic Surgery: No Orthopedic Surgery: No - Immunization History Immunization Up to Date: No - Psycho Social/Smoking Cessation Hx Smoking History: Never smoked Have you smoked in the past 12 months: No Information on smoking cessation initiated: No Hx Alcohol Use: No Drug/Substance Use Hx: No Substance Use Type: None Hx Substance Use Treatment: No *Physical Exam - Vital Signs Last Vital Signs Temp Pulse Resp BP Pulse Ox 98.0 F 66 16 155/67 98 03/14/19 17:20 03/14/19 17:20 03/14/19 17:20 03/14/19 17:20 03/14/19 17:20 Medical Decision Making - Medical Decision Making 03/14/19 19:05 A/P: 79-year-old woman here for wound check of her right great toe There are no signs of infection presently. Patient finished a course of clindamycin as an outpatient and is currently offering no complaints. Patient is instructed to follow-up with wound care as well as her other specialist as an outpatient for continued management of her chronic medical conditions. Bacitracin placed on the toe followed by a dry sterile dressing as patient's foot is exposed to the elements upon arrival. Discharge home Discharge - Discharge Information Problems reviewed: Yes Clinical Impression/Diagnosis: Visit for wound check Condition: Stable Disposition: HOME - Admission No - Follow up/Referral Referrals: ON STAFF,NOT [Primary Care Provider] - - Patient Discharge Instructions Additional Instructions: It is important that you follow-up with wound care as previously recommended. The phone number is [phone]. Call to schedule an appointment for evaluation as soon as possible. Continue doing dressing changes as you have been at home. It is important that you follow-up with your audit consultant. Call tomorrow to schedule an appointment. Follow-up with your transitional nurse as previously scheduled. Schedule appointment with your primary doctor for tight control of your diabetes. Return to the emergency department for any new or worsening symptoms. Thank you very much for choosing us to provide your emergent healthcare needs. - Post Discharge Activity
== END 2019-03-14 18:25 | disposition home or self-care (01) ==
LOC: JER 16:49
DX: Z51.89 Encounter for other specified aftercare (principal); I12.9 Hypertensive chronic kidney disease with stage 1 through stage 4 chronic kidney disease, or unspecified chronic kidney disease; E11.22 Type 2 diabetes mellitus with diabetic chronic kidney disease; N18.9 Chronic kidney disease, unspecified; Z79.4 Long term (current) use of insulin; E78.00 Pure hypercholesterolemia, unspecified; I73.89 Other specified peripheral vascular diseases; Z85.6 Personal history of leukemia; Z98.62 Peripheral vascular angioplasty status
CPT/HCPCS: 99281-25

== ENCOUNTER 2020-02-10 20:14 | Observation (INO) | payer MEDICARE, OTHER ==
[2020-02-10 21:02] LABS: HEMATOCRIT 32.5 % (32.4-45.2); HEMOGLOBIN 10.4 GM/dl (10.7-15.3); MCH 27.8 pg (25.7-33.7); MCHC 31.9 g/dl (32.0-36.0); MEAN CELL VOLUME 86.9 fl (80-96); MEAN PLT VOLUME 10.4 fl (7.5-11.1); PLATELET COUNT 193 K/MM3 (134-434); RBC 3.74 M/mm3 (3.60-5.2); RDW 12.3 % (11.6-15.6); WHITE BLOOD COUNT 12.6 K/mm3 (4.0-10.8)
[2020-02-10 21:15] LABS: ALBUMIN 3.7 g/dl (3.4-5.0); BILIRUBIN,TOTAL 0.4 mg/dl (0.2-1); CALCIUM 10.4 mg/dl (8.5-10); CREATININE 3.4 mg/dl (0.55-1.3); TOT PROT 6.2 g/dl (6.4-8.2)
[2020-02-10 22:30] LABS: PLATELET ESTIMATE ADEQUATE
[2020-02-11] MEDS: SODIUM CHLORIDE 1,000 ML IV SCH ×2 (01:13→22:52)
[2020-02-11] MEDS: LATANOPROST 0.005% OPHTH SOLN 2.5ML BOTTLE OU SCH ×2 (01:21→22:55)
[2020-02-11] MEDS: BRIMONIDINE TARTRATE 0.1% OPHTHALMIC 5 ML BOTTLE OU SCH ×4 (01:22→22:54)
[2020-02-11 06:53] LABS: BASO % 0.4 % (0-2.0); HEMATOCRIT 30.7 % (32.4-45.2); HEMOGLOBIN 9.9 GM/dL (10.7-15.3); MCH 27.9 pg (25.7-33.7); MCHC 32.2 g/dl (32.0-36.0); MEAN CELL VOLUME 86.6 fl (80-96); MEAN PLT VOLUME 10.7 fl (7.5-11.1); NEUT % 38.6 % (42.8-82.8); PLATELET COUNT 178 K/MM3 (134-434); RBC 3.55 M/mm3 (3.60-5.2); WHITE BLOOD COUNT 12.5 K/mm3 (4.0-10.0)
[2020-02-11 07:03] LABS: ALBUMIN 3.5 g/dl (3.4-5.0); ANION GAP 9 MMOL/L (8-16); BLOOD UREA NITROGEN 70.5 mg/dL (7-18); CALCIUM 9.5 mg/dL (8.5-10.1); CHLORIDE 108 mmol/L (98-107); CO2 24 mmol/L (21-32); GLUCOSE,RANDOM 220 mg/dL (74-106); MAGNESIUM 1.9 mg/dL (1.8-2.4); SODIUM 141 mmol/L (136-145)
[2020-02-11 07:06] LABS: CHOLESTEROL 218 mg/dL (50-200); CREATININE 2.8 mg/dL (0.55-1.3); SGOT/AST 21 U/L (15-37); SGPT/ALT 26 U/L (13-61)
[2020-02-11 07:07] LABS: BILIRUBIN,TOTAL 0.3 mg/dL (0.2-1); TOT PROT 6.4 g/dl (6.4-8.2); TRIGLYCERIDES 62 mg/dL (0-150)
[2020-02-11 07:09] LABS: ALK PHOS 120 U/L (45-117); HDL CHOLESTEROL 80 mg/dL (40-60); LDL CHOLESTEROL (ONLY DFH) 126 mg/dl (5-100)
[2020-02-11] MEDS ORDERED: PATIENT'S OWN MEDICATION (NON-FORMULARY) (Dorzolamide/Timolol/Pf [Dorzolamide-Timolol 2%-0 OU SCH (10:00)
[2020-02-11] MEDS: CLOPIDOGREL BISULFATE 75 MG TABLET (FP) PO SCH (10:21)
[2020-02-11] MEDS: amLODIPine BESYLATE 10 MG TABLET (FP) PO SCH (10:21)
[2020-02-11] MEDS: TIMOLOL 0.5% OPHTHALMIC SOL 5 ML BOTTLE OU SCH ×2 (10:21→22:54)
[2020-02-11] MEDS: DORZOLAMIDE 2% HCL OPHTHALMIC SOLUTION 10 ML BOTTLE OU SCH ×2 (10:21→22:54)
[2020-02-11] MEDS: INSULIN SLIDING SCALE (NOVOLOG) 1 VIAL SQ SCH ×4 (11:39→22:52)
[2020-02-11 20:39] VITALS: BMI 23.1
[2020-02-11] MEDS: ATORVASTATIN CA 40 MG TABLET (FP) PO SCH (22:51)
[2020-02-12] MEDS: INSULIN SLIDING SCALE (NOVOLOG) 1 VIAL SQ SCH ×4 (07:14→21:09)
[2020-02-12] MEDS ORDERED: SODIUM CHLORIDE 0.45% 1,000 ML IV SCH (09:00)
[2020-02-12 09:10] LABS: ALBUMIN 3.5 g/dl (3.4-5.0); BILIRUBIN,TOTAL 0.6 mg/dl (0.2-1); CALCIUM 9.6 mg/dl (8.5-10); CREATININE 2.7 mg/dl (0.55-1.3); TOT PROT 5.6 g/dl (6.4-8.2)
[2020-02-12 09:11] LABS: BASO % 3.5 % (0-2.0); EOS % 2.3 % (0-4.5); HEMATOCRIT 29.2 % (32.4-45.2); HEMOGLOBIN 9.6 GM/dl (10.7-15.3); LYMPH % 50.3 % (8-40); MCH 28.3 pg (25.7-33.7); MCHC 32.7 g/dl (32.0-36.0); MEAN CELL VOLUME 86.4 fl (80-96); MEAN PLT VOLUME 10.8 fl (7.5-11.1); MONO % 4.9 % (3.8-10.2); PLATELET COUNT 191 K/MM3 (134-434); RBC 3.39 M/mm3 (3.60-5.2); RDW 12.4 % (11.6-15.6); WHITE BLOOD COUNT 10.7 K/mm3 (4.0-10.8)
[2020-02-12] MEDS: CLOPIDOGREL BISULFATE 75 MG TABLET (FP) PO SCH (09:56)
[2020-02-12] MEDS: amLODIPine BESYLATE 10 MG TABLET (FP) PO SCH (09:56)
[2020-02-12] MEDS: TIMOLOL 0.5% OPHTHALMIC SOL 5 ML BOTTLE OU SCH ×2 (09:58→21:15)
[2020-02-12] MEDS: DORZOLAMIDE 2% HCL OPHTHALMIC SOLUTION 10 ML BOTTLE OU SCH ×2 (10:01→21:13)
[2020-02-12] MEDS: BRIMONIDINE TARTRATE 0.1% OPHTHALMIC 5 ML BOTTLE OU SCH ×2 (10:01→21:11)
[2020-02-12] MEDS: EZETIMIBE 10 MG TABLET (FP) PO SCH (15:22)
[2020-02-12] MEDS: ATORVASTATIN CA 40 MG TABLET (FP) PO SCH (21:11)
[2020-02-12] MEDS: LATANOPROST 0.005% OPHTH SOLN 2.5ML BOTTLE OU SCH (21:14)
[2020-02-13] MEDS: INSULIN SLIDING SCALE (NOVOLOG) 1 VIAL SQ SCH ×2 (07:36→12:03)
[2020-02-13 08:10] LABS: EPITHELIAL CELLS FEW /hpf
[2020-02-13] MEDS: BRIMONIDINE TARTRATE 0.1% OPHTHALMIC 5 ML BOTTLE OU SCH (09:32)
[2020-02-13] MEDS: CLOPIDOGREL BISULFATE 75 MG TABLET (FP) PO SCH (09:34)
[2020-02-13] MEDS: EZETIMIBE 10 MG TABLET (FP) PO SCH (09:34)
[2020-02-13] MEDS: amLODIPine BESYLATE 10 MG TABLET (FP) PO SCH (09:34)
[2020-02-13] MEDS: DORZOLAMIDE 2% HCL OPHTHALMIC SOLUTION 10 ML BOTTLE OU SCH (09:35)
[2020-02-13] MEDS: TIMOLOL 0.5% OPHTHALMIC SOL 5 ML BOTTLE OU SCH (09:38)
[2020-02-13 14:00] LABS: CALCIUM 8.9 mg/dl (8.5-10); CREATININE 2.4 mg/dl (0.55-1.3)
[2020-02-13 14:23] VITALS: BP 143/61; PULSE 76; TEMP 98.9
== END 2020-02-13 16:15 | disposition home or self-care (01) ==
LOC: FER 20:14 → FM/S 22:11 → UNDOADMOB 23:58 → FM/S 23:58
PROVIDERS: ADMIT Internal Medicine; ATTEND Nurse Practitioner Acute Care
PROC: 3E0337Z Introduction of Electrolytic and Water Balance Substance into Peripheral Vein, Percutaneous Approach (ICD-10-PCS; principal; 2020-02-10)
DX: I12.9 Hypertensive chronic kidney disease with stage 1 through stage 4 chronic kidney disease, or unspecified chronic kidney disease (principal); E11.22 Type 2 diabetes mellitus with diabetic chronic kidney disease; N18.9 Chronic kidney disease, unspecified; E78.00 Pure hypercholesterolemia, unspecified; I73.9 Peripheral vascular disease, unspecified
CPT/HCPCS: 36415; 80048; 80053; 80061; 81003; 81015; 82550; 82553; 82565; 82962; 83735; 84156; 84443; 84484; 85025; 93005; 93306-TC; 93880-TC; 96360; 96361; 97116-GP; 97162-GP; 99285-25; C9803; G0378; U0003

== ENCOUNTER 2020-02-27 04:57 | Day surgery (SDC) | payer MEDICARE, OTHER ==
[2020-02-25 11:30] VITALS: BMI 25.4
[2020-02-27] MEDS ORDERED: DEXTROSE 50%-WATER 25 GM/50 ML DISP.SYRIN ONE (09:14)
[2020-02-27] MEDS ORDERED: DEXTROSE 50%-WATER - 25 GM/50 ML VIAL ONE (09:18)
[2020-02-27] MEDS ORDERED: PROPOFOL 20 ML ONE ×3 (10:38)
[2020-02-27] MEDS ORDERED: ceFAZolin 2 GRAM PREMIX BAG IVPB ONE (11:05)
[2020-02-27] MEDS ORDERED: ceFAZolin SODIUM 1 GM VIAL ONE (11:07)
[2020-02-27] MEDS ORDERED: HEPARIN NA (PORCINE) 5,000 UNITS/ML 1ML VIAL ONE (11:53)
[2020-02-27] MEDS ORDERED: ONDANSETRON 4 MG/2 ML VIAL IVPUSH PRN (12:47)
[2020-02-27] MEDS ORDERED: oxyCODONE HCL 5 MG TABLET PO PRN (12:47)
[2020-02-27] MEDS ORDERED: SODIUM CHLORIDE 1,000 ML IV SCH (13:00)
[2020-02-27] MEDS ORDERED: oxyCODONE HCL 5 MG TABLET ONE (13:52)
[2020-02-27 15:01] VITALS: PULSE 78
[2020-02-27 15:29] VITALS: BP 140/70; TEMP 97.8
== END 2020-02-27 15:34 | disposition home or self-care (01) ==
LOC: JASU-SURG 04:57
PROVIDERS: ATTEND Surgery Vascular Surgery
PROC: B41DZZZ Fluoroscopy of Aorta and Bilateral Lower Extremity Arteries (ICD-10-PCS; principal; 2020-02-27 10:30)
DX: I70.211 Atherosclerosis of native arteries of extremities with intermittent claudication, right leg (principal); E11.9 Type 2 diabetes mellitus without complications; I10 Essential (primary) hypertension; Z79.4 Long term (current) use of insulin
CPT/HCPCS: 75710-TC-FY; 76000-TC-FY; 82962; 94760; J1644

== ENCOUNTER 2020-03-05 13:55 | Inpatient (IN) | payer MEDICARE, OTHER ==
[2020-03-05 14:34] VITALS: BMI 25.0
[2020-03-05 14:58] LABS: BASO % 0.8 % (0-2.0); EOS % 4.2 % (0-4.5); HEMATOCRIT 29.6 % (32.4-45.2); HEMOGLOBIN 9.8 GM/dL (10.7-15.3); LYMPH % 35.4 % (8-40); MCH 28.6 pg (25.7-33.7); MCHC 33.1 g/dl (32.0-36.0); MEAN CELL VOLUME 86.3 fl (80-96); MEAN PLT VOLUME 10.3 fl (7.5-11.1); MONO % 6.8 % (3.8-10.2); NEUT % 52.8 % (42.8-82.8); PLATELET COUNT 226 K/MM3 (134-434); RBC 3.43 M/mm3 (3.60-5.2); RDW 13.2 % (11.6-15.6); WHITE BLOOD COUNT 9.2 K/mm3 (4.0-10.0)
[2020-03-05 15:09] LABS: INR 0.91 (0.83-1.09); PROTHROMBIN TIME (PATIENT) 11.2 SEC (9.7-13.0)
[2020-03-05 15:12] LABS: ACTIVATED PTT 23.3 SECONDS (25.2-36.5)
[2020-03-05] MEDS ORDERED: ACETAMINOPHEN 325 MG TABLET (FP) PO ONE (15:27)
[2020-03-05 15:29] LABS: POTASSIUM 5.6 mmol/L (3.5-5.1)
[2020-03-05 15:30] LABS: CALCIUM 10.1 mg/dL (8.5-10.1)
[2020-03-05 15:31] LABS: ALBUMIN 3.6 g/dl (3.4-5.0)
[2020-03-05 15:34] LABS: CREATININE 2.7 mg/dL (0.55-1.3)
[2020-03-05 15:36] LABS: BILIRUBIN,TOTAL 0.4 mg/dL (0.2-1); TOT PROT 7.1 g/dl (6.4-8.2)
[2020-03-05] MEDS ORDERED: PIPERACILLIN/TAZOB 2.25 GM 2.25 GM in DEXTROSE 5%-WATER - 50 ML IVPB ONE (15:38)
[2020-03-05] MEDS ORDERED: VANCOMYCIN 1 GM in D5W (PRE-DOCKED) 1,000 MG/250 ML IVPB ONE (15:42)
[2020-03-05 15:56] LABS: ERYTHROCYTE SEDIMENTATION RATE 59 mm/hr (0-30)
[2020-03-05] MEDS ORDERED: SODIUM CHLORIDE 0.9% 500 ML INFUS.BAG IV ONE (15:56)
[2020-03-05] MEDS ORDERED: ACETAMINOPHEN 325 MG TABLET (FP) ONE (16:06)
[2020-03-05] MEDS ORDERED: PIPERACILLIN/TAZOB 2.25 GM 2.25 GM/50 ML BAG IVPB ONE (16:06)
[2020-03-05] MEDS ORDERED: VANCOMYCIN 1 GRAM (PRE-DOCKED) 1,000 MG/250 ML BAG IVPB ONE (16:07)
[2020-03-05] MEDS: INSULIN SLIDING SCALE (NOVOLOG) 1 VIAL SQ SCH (16:57)
[2020-03-05 17:33] LABS: POTASSIUM 4.5 mmol/L (3.5-5.1)
[2020-03-05] MEDS: ATORVASTATIN CA 40 MG TABLET (FP) PO SCH (21:07)
[2020-03-05] MEDS: INSULIN (LEVEMIR) 100 UNITS/ML UNITS SQ SCH (21:07)
[2020-03-05] MEDS ORDERED: PATIENT'S OWN MEDICATION (NON-FORMULARY) (Dorzolamide/Timolol/Pf [Dorzolamide-Timolol 2%-0 OU SCH (22:00)
[2020-03-05] MEDS: LATANOPROST 0.005% OPHTH SOLN 2.5ML BOTTLE OS SCH (22:01)
[2020-03-06] MEDS: PIPERACILLIN/TAZOB 2.25 GM 2.25 GM in DEXTROSE 5%-WATER - 50 ML IVPB SCH ×2 (02:00→09:30)
[2020-03-06] MEDS ORDERED: PIPERACILLIN/TAZOBACTAM 2.25 GM VIAL IVPB ONE ×2 (03:10→09:13)
[2020-03-06] MEDS ORDERED: DEXTROSE 5%-WATER - 50 ML IVPB ONE ×2 (03:10→09:13)
[2020-03-06] MEDS ORDERED: PT OWN MED DRAWER 7, Y5N ONE ×2 (03:16→09:13)
[2020-03-06] MEDS: ACETAMINOPHEN 500 MG TABLET (FP) PO PRN ×3 (06:00→21:07)
[2020-03-06] MEDS: INSULIN SLIDING SCALE (NOVOLOG) 1 VIAL SQ SCH ×3 (06:02→17:38)
[2020-03-06 08:01] LABS: BASO % 1.2 % (0-2.0); EOS % 5.8 % (0-4.5); HEMATOCRIT 27.5 % (32.4-45.2); HEMOGLOBIN 8.8 GM/dl (10.7-15.3); LYMPH % 32.6 % (8-40); MCH 27.7 pg (25.7-33.7); MEAN CELL VOLUME 86.6 fl (80-96); MEAN PLT VOLUME 9.2 fl (7.5-11.1); MONO % 7.3 % (3.8-10.2); NEUT % 53.1 % (42.8-82.8); PLATELET COUNT 195 K/MM3 (134-434); RBC 3.17 M/mm3 (3.60-5.2); RDW 12.3 % (11.6-15.6); WHITE BLOOD COUNT 8.3 K/mm3 (4.0-10.8)
[2020-03-06 08:09] LABS: ALBUMIN 3.2 g/dl (3.4-5.0); BILIRUBIN,TOTAL 0.5 mg/dl (0.2-1); CALCIUM 9.2 mg/dl (8.5-10); CREATININE 2.8 mg/dl (0.55-1.3); MAGNESIUM 2.1 mg/dL (1.8-2.4); POTASSIUM 4.2 mmol/L (3.5-5.1); TOT PROT 5.5 g/dl (6.4-8.2)
[2020-03-06] MEDS: LIPASE/PROTEASE/AMYLASE 36,000 UNIT CAPSULE PO SCH ×3 (09:15→17:38)
[2020-03-06] MEDS: EZETIMIBE 10 MG TABLET (FP) PO SCH (09:15)
[2020-03-06] MEDS: CLOPIDOGREL BISULFATE 75 MG TABLET (FP) PO SCH (09:15)
[2020-03-06] MEDS: TIMOLOL 0.5% OPHTHALMIC SOL 5 ML BOTTLE OU SCH ×2 (09:17→21:12)
[2020-03-06] MEDS: BRIMONIDINE TARTRATE 0.1% OPHTHALMIC 5 ML BOTTLE OU SCH ×2 (09:17→21:13)
[2020-03-06] MEDS: DORZOLAMIDE 2% HCL OPHTHALMIC SOLUTION 10 ML BOTTLE OU SCH ×2 (09:18→21:13)
[2020-03-06] MEDS: amLODIPine BESYLATE 10 MG TABLET (FP) PO SCH (09:30)
[2020-03-06] MEDS: HEPARIN NA (PORCINE) 5,000 UNITS/ML 1ML VIAL SQ SCH ×2 (14:58→21:07)
[2020-03-06] MEDS ORDERED: DEXTROSE 5%-WATER 100 ML IVPB ONE (17:34)
[2020-03-06] MEDS: CEFTRIAXONE 2 GM in DEXTROSE 5%-WATER 2 GM/100 ML BAG IVPB SCH (17:37)
[2020-03-06] MEDS: INSULIN (LEVEMIR) 100 UNITS/ML UNITS SQ SCH (21:09)
[2020-03-06] MEDS: ATORVASTATIN CA 40 MG TABLET (FP) PO SCH ×2 (21:11→21:26)
[2020-03-06] MEDS: LATANOPROST 0.005% OPHTH SOLN 2.5ML BOTTLE OS SCH (21:14)
[2020-03-06] MEDS ORDERED: ATORVASTATIN CA 40 MG TABLET (FP) PO SCH (21:21)
[2020-03-07] MEDS: ACETAMINOPHEN 500 MG TABLET (FP) PO PRN (06:14)
[2020-03-07] MEDS: HEPARIN NA (PORCINE) 5,000 UNITS/ML 1ML VIAL SQ SCH ×3 (06:15→22:14)
[2020-03-07] MEDS: INSULIN SLIDING SCALE (NOVOLOG) 1 VIAL SQ SCH ×3 (07:00→17:29)
[2020-03-07] MEDS ORDERED: traMADol HCL 50 MG TABLET PO ONE (07:05)
[2020-03-07] MEDS: LIPASE/PROTEASE/AMYLASE 36,000 UNIT CAPSULE PO SCH ×3 (09:00→17:29)
[2020-03-07] MEDS ORDERED: DEXTROSE 5%-WATER 100 ML IVPB ONE (09:15)
[2020-03-07] MEDS: BRIMONIDINE TARTRATE 0.1% OPHTHALMIC 5 ML BOTTLE OU SCH ×2 (10:44→22:13)
[2020-03-07] MEDS: TIMOLOL 0.5% OPHTHALMIC SOL 5 ML BOTTLE OU SCH ×2 (10:44→22:13)
[2020-03-07] MEDS: DORZOLAMIDE 2% HCL OPHTHALMIC SOLUTION 10 ML BOTTLE OU SCH ×2 (10:44→22:13)
[2020-03-07] MEDS: EZETIMIBE 10 MG TABLET (FP) PO SCH (10:49)
[2020-03-07] MEDS: amLODIPine BESYLATE 10 MG TABLET (FP) PO SCH (10:49)
[2020-03-07] MEDS: CLOPIDOGREL BISULFATE 75 MG TABLET (FP) PO SCH (10:49)
[2020-03-07] MEDS: CEFTRIAXONE 2 GM in DEXTROSE 5%-WATER 2 GM/100 ML BAG IVPB SCH (10:50)
[2020-03-07 10:57] LABS: BASO % 4.1 % (0-2.0); EOS % 7.2 % (0-4.5); HEMATOCRIT 28.6 % (32.4-45.2); HEMOGLOBIN 9.2 GM/dl (10.7-15.3); LYMPH % 45.4 % (8-40); MCHC 32.1 g/dl (32.0-36.0); MEAN CELL VOLUME 87.3 fl (80-96); MEAN PLT VOLUME 9.1 fl (7.5-11.1); MONO % 6.2 % (3.8-10.2); NEUT % 37.1 % (42.8-82.8); PLATELET COUNT 200 K/MM3 (134-434); RBC 3.28 M/mm3 (3.60-5.2); RDW 13.2 % (11.6-15.6); WHITE BLOOD COUNT 7.7 K/mm3 (4.0-10.8)
[2020-03-07 11:46] LABS: CREATININE 2.8 mg/dl (0.55-1.3); POTASSIUM 4.4 mmol/L (3.5-5.1)
[2020-03-07] MEDS ORDERED: PT OWN MED DRAWER 7, Y5N ONE ×3 (12:04→17:23)
[2020-03-07] MEDS: ATORVASTATIN CA 40 MG TABLET (FP) PO SCH (22:13)
[2020-03-07] MEDS: INSULIN (LEVEMIR) 100 UNITS/ML UNITS SQ SCH (22:13)
[2020-03-07] MEDS: LATANOPROST 0.005% OPHTH SOLN 2.5ML BOTTLE OS SCH (22:14)
[2020-03-08] MEDS: ACETAMINOPHEN 500 MG TABLET (FP) PO PRN ×2 (01:17→09:09)
[2020-03-08] MEDS: HEPARIN NA (PORCINE) 5,000 UNITS/ML 1ML VIAL SQ SCH ×3 (06:56→21:17)
[2020-03-08] MEDS: INSULIN SLIDING SCALE (NOVOLOG) 1 VIAL SQ SCH ×3 (06:56→16:30)
[2020-03-08] MEDS ORDERED: DEXTROSE 5%-WATER 100 ML IVPB ONE (08:16)
[2020-03-08] MEDS: LIPASE/PROTEASE/AMYLASE 36,000 UNIT CAPSULE PO SCH ×3 (08:37→17:47)
[2020-03-08] MEDS: DORZOLAMIDE 2% HCL OPHTHALMIC SOLUTION 10 ML BOTTLE OU SCH ×2 (09:07→21:16)
[2020-03-08] MEDS: TIMOLOL 0.5% OPHTHALMIC SOL 5 ML BOTTLE OU SCH ×2 (09:07→21:16)
[2020-03-08] MEDS: amLODIPine BESYLATE 10 MG TABLET (FP) PO SCH (09:07)
[2020-03-08] MEDS: BRIMONIDINE TARTRATE 0.1% OPHTHALMIC 5 ML BOTTLE OU SCH ×2 (09:07→21:15)
[2020-03-08] MEDS: CLOPIDOGREL BISULFATE 75 MG TABLET (FP) PO SCH (09:08)
[2020-03-08] MEDS: EZETIMIBE 10 MG TABLET (FP) PO SCH (09:09)
[2020-03-08] MEDS: CEFTRIAXONE 2 GM in DEXTROSE 5%-WATER 2 GM/100 ML BAG IVPB SCH (09:09)
[2020-03-08 09:37] LABS: ALBUMIN 3.1 g/dl (3.4-5.0); BILIRUBIN,TOTAL 0.8 mg/dl (0.2-1); CALCIUM 8.5 mg/dl (8.5-10); CREATININE 2.4 mg/dl (0.55-1.3); MAGNESIUM 2.2 mg/dL (1.8-2.4); POTASSIUM 5.4 mmol/L (3.5-5.1); TOT PROT 5.9 g/dl (6.4-8.2)
[2020-03-08 09:37] LABS: BASO % 4.3 % (0-2.0); EOS % 5.6 % (0-4.5); HEMATOCRIT 26.8 % (32.4-45.2); HEMOGLOBIN 8.8 GM/dl (10.7-15.3); LYMPH % 43.9 % (8-40); MCH 28.4 pg (25.7-33.7); MCHC 32.8 g/dl (32.0-36.0); MEAN CELL VOLUME 86.6 fl (80-96); MEAN PLT VOLUME 9.8 fl (7.5-11.1); MONO % 6.1 % (3.8-10.2); NEUT % 40.1 % (42.8-82.8); PLATELET COUNT 200 K/MM3 (134-434); RDW 13.1 % (11.6-15.6); WHITE BLOOD COUNT 8.4 K/mm3 (4.0-10.8)
[2020-03-08] MEDS: ATORVASTATIN CA 40 MG TABLET (FP) PO SCH (21:13)
[2020-03-08] MEDS ORDERED: PT OWN MED DRAWER 7, Y5N ONE (21:14)
[2020-03-08] MEDS: LATANOPROST 0.005% OPHTH SOLN 2.5ML BOTTLE OS SCH (21:16)
[2020-03-08] MEDS: INSULIN (LEVEMIR) 100 UNITS/ML UNITS SQ SCH (21:17)
[2020-03-09] MEDS: ACETAMINOPHEN 500 MG TABLET (FP) PO PRN (03:06)
[2020-03-09] MEDS: HEPARIN NA (PORCINE) 5,000 UNITS/ML 1ML VIAL SQ SCH ×3 (06:58→21:28)
[2020-03-09] MEDS: LIPASE/PROTEASE/AMYLASE 36,000 UNIT CAPSULE PO SCH ×3 (08:00→17:33)
[2020-03-09] MEDS ORDERED: DEXTROSE 5%-WATER 100 ML IVPB ONE (09:20)
[2020-03-09] MEDS: CEFTRIAXONE 2 GM in DEXTROSE 5%-WATER 2 GM/100 ML BAG IVPB SCH (09:24)
[2020-03-09] MEDS: EZETIMIBE 10 MG TABLET (FP) PO SCH (09:26)
[2020-03-09] MEDS: CLOPIDOGREL BISULFATE 75 MG TABLET (FP) PO SCH (09:26)
[2020-03-09] MEDS: amLODIPine BESYLATE 10 MG TABLET (FP) PO SCH (09:26)
[2020-03-09] MEDS: DORZOLAMIDE 2% HCL OPHTHALMIC SOLUTION 10 ML BOTTLE OU SCH ×2 (09:27→21:28)
[2020-03-09] MEDS: TIMOLOL 0.5% OPHTHALMIC SOL 5 ML BOTTLE OU SCH ×2 (09:27→21:28)
[2020-03-09] MEDS: BRIMONIDINE TARTRATE 0.1% OPHTHALMIC 5 ML BOTTLE OU SCH ×2 (09:27→21:28)
[2020-03-09] MEDS: INSULIN SLIDING SCALE (NOVOLOG) 1 VIAL SQ SCH ×3 (09:28→16:45)
[2020-03-09] MEDS ORDERED: PT OWN MED DRAWER 7, Y5N ONE ×2 (09:30→17:13)
[2020-03-09 09:34] LABS: ALBUMIN 3.1 g/dl (3.4-5.0); CALCIUM 8.8 mg/dL (8.5-10.1); MAGNESIUM 2.5 mg/dL (1.8-2.4)
[2020-03-09 09:35] LABS: CREATININE 2.4 mg/dL (0.55-1.3)
[2020-03-09 09:37] LABS: BILIRUBIN,TOTAL 1.4 mg/dL (0.2-1)
[2020-03-09 09:38] LABS: BASO % 0.6 % (0-2.0); EOS % 3.5 % (0-4.5); HEMATOCRIT 26.5 % (32.4-45.2); HEMOGLOBIN 8.6 GM/dL (10.7-15.3); LYMPH % 54.6 % (8-40); MCH 28.2 pg (25.7-33.7); MCHC 32.5 g/dl (32.0-36.0); MEAN CELL VOLUME 86.6 fl (80-96); MEAN PLT VOLUME 9.8 fl (7.5-11.1); MONO % 6.9 % (3.8-10.2); NEUT % 34.4 % (42.8-82.8); PLATELET COUNT 206 K/MM3 (134-434); RBC 3.06 M/mm3 (3.60-5.2); RDW 13.5 % (11.6-15.6); WHITE BLOOD COUNT 8.8 K/mm3 (4.0-10.0)
[2020-03-09 11:38] LABS: INR 0.95 (0.83-1.09); PROTHROMBIN TIME (PATIENT) 11.7 SEC (9.7-13.0)
[2020-03-09] MEDS: ATORVASTATIN CA 40 MG TABLET (FP) PO SCH (21:27)
[2020-03-09] MEDS: INSULIN (LEVEMIR) 100 UNITS/ML UNITS SQ SCH (21:28)
[2020-03-09] MEDS: LATANOPROST 0.005% OPHTH SOLN 2.5ML BOTTLE OS SCH (21:28)
[2020-03-10] MEDS: INSULIN SLIDING SCALE (NOVOLOG) 1 VIAL SQ SCH ×3 (07:43→16:54)
[2020-03-10] MEDS: HEPARIN NA (PORCINE) 5,000 UNITS/ML 1ML VIAL SQ SCH ×3 (07:43→21:37)
[2020-03-10] MEDS ORDERED: DEXTROSE 5%-WATER 100 ML IVPB ONE (08:38)
[2020-03-10] MEDS: CEFTRIAXONE 2 GM in DEXTROSE 5%-WATER 2 GM/100 ML BAG IVPB SCH (09:14)
[2020-03-10] MEDS: amLODIPine BESYLATE 10 MG TABLET (FP) PO SCH (09:14)
[2020-03-10] MEDS: EZETIMIBE 10 MG TABLET (FP) PO SCH (09:16)
[2020-03-10] MEDS ORDERED: PT OWN MED DRAWER 7, Y5N ONE ×3 (09:18→17:12)
[2020-03-10] MEDS: LIPASE/PROTEASE/AMYLASE 36,000 UNIT CAPSULE PO SCH ×3 (09:18→17:15)
[2020-03-10] MEDS: ACETAMINOPHEN 500 MG TABLET (FP) PO PRN (09:20)
[2020-03-10] MEDS: CLOPIDOGREL BISULFATE 75 MG TABLET (FP) PO SCH (10:48)
[2020-03-10] MEDS: BRIMONIDINE TARTRATE 0.1% OPHTHALMIC 5 ML BOTTLE OU SCH ×2 (11:01→21:38)
[2020-03-10] MEDS: DORZOLAMIDE 2% HCL OPHTHALMIC SOLUTION 10 ML BOTTLE OU SCH ×2 (11:02→21:41)
[2020-03-10] MEDS: TIMOLOL 0.5% OPHTHALMIC SOL 5 ML BOTTLE OU SCH ×2 (11:03→21:41)
[2020-03-10] MEDS: ATORVASTATIN CA 40 MG TABLET (FP) PO SCH (21:34)
[2020-03-10] MEDS: INSULIN (LEVEMIR) 100 UNITS/ML UNITS SQ SCH (21:38)
[2020-03-10] MEDS: LATANOPROST 0.005% OPHTH SOLN 2.5ML BOTTLE OS SCH (21:42)
[2020-03-11] MEDS: ACETAMINOPHEN 500 MG TABLET (FP) PO PRN ×2 (01:18→21:05)
[2020-03-11] MEDS: HEPARIN NA (PORCINE) 5,000 UNITS/ML 1ML VIAL SQ SCH ×3 (06:19→21:05)
[2020-03-11] MEDS: INSULIN SLIDING SCALE (NOVOLOG) 1 VIAL SQ SCH ×3 (06:46→17:04)
[2020-03-11] MEDS ORDERED: DEXTROSE 5%-WATER 100 ML IVPB ONE (09:44)
[2020-03-11] MEDS ORDERED: PT OWN MED DRAWER 7, Y5N ONE (09:44)
[2020-03-11] MEDS: CEFTRIAXONE 2 GM in DEXTROSE 5%-WATER 2 GM/100 ML BAG IVPB SCH (09:52)
[2020-03-11] MEDS: LIPASE/PROTEASE/AMYLASE 36,000 UNIT CAPSULE PO SCH ×3 (09:53→17:12)
[2020-03-11] MEDS: EZETIMIBE 10 MG TABLET (FP) PO SCH (09:53)
[2020-03-11] MEDS: CLOPIDOGREL BISULFATE 75 MG TABLET (FP) PO SCH (09:53)
[2020-03-11] MEDS: amLODIPine BESYLATE 10 MG TABLET (FP) PO SCH (09:53)
[2020-03-11] MEDS: BRIMONIDINE TARTRATE 0.1% OPHTHALMIC 5 ML BOTTLE OU SCH ×2 (09:58→21:06)
[2020-03-11] MEDS: DORZOLAMIDE 2% HCL OPHTHALMIC SOLUTION 10 ML BOTTLE OU SCH ×2 (09:59→21:06)
[2020-03-11] MEDS: TIMOLOL 0.5% OPHTHALMIC SOL 5 ML BOTTLE OU SCH ×2 (09:59→21:06)
[2020-03-11] MEDS: LATANOPROST 0.005% OPHTH SOLN 2.5ML BOTTLE OS SCH (21:06)
[2020-03-11] MEDS: ATORVASTATIN CA 40 MG TABLET (FP) PO SCH (21:06)
[2020-03-11] MEDS: INSULIN (LEVEMIR) 100 UNITS/ML UNITS SQ SCH (21:07)
[2020-03-12 06:31] VITALS: BP 129/55; PULSE 70; TEMP 98.3
[2020-03-12] MEDS: INSULIN SLIDING SCALE (NOVOLOG) 1 VIAL SQ SCH (06:44)
[2020-03-12] MEDS: HEPARIN NA (PORCINE) 5,000 UNITS/ML 1ML VIAL SQ SCH (06:45)
== END 2020-03-12 09:00 | disposition home or self-care (01) | DRG 638 ==
LOC: JER 13:55 → JERBED 19:27 → FM/S 19:30
PROVIDERS: ADMIT Internal Medicine; ATTEND Nurse Practitioner Acute Care
PROC: 02HV33Z Insertion of Infusion Device into Superior Vena Cava, Percutaneous Approach (ICD-10-PCS; principal; 2020-03-11)
PROC: B518ZZA Fluoroscopy of Superior Vena Cava, Guidance (ICD-10-PCS; 2020-03-11)
DX: E11.69 Type 2 diabetes mellitus with other specified complication (principal); M86.8X7 Other osteomyelitis, ankle and foot; L03.119 Cellulitis of unspecified part of limb; L97.518 Non-pressure chronic ulcer of other part of right foot with other specified severity; L03.115 Cellulitis of right lower limb; N18.4 Chronic kidney disease, stage 4 (severe); N17.9 Acute kidney failure, unspecified; E11.51 Type 2 diabetes mellitus with diabetic peripheral angiopathy without gangrene; I10 Essential (primary) hypertension; E78.5 Hyperlipidemia, unspecified; I12.9 Hypertensive chronic kidney disease with stage 1 through stage 4 chronic kidney disease, or unspecified chronic kidney disease; E11.22 Type 2 diabetes mellitus with diabetic chronic kidney disease; E11.621 Type 2 diabetes mellitus with foot ulcer; E87.5 Hyperkalemia; R80.9 Proteinuria, unspecified; B96.4 Proteus (mirabilis) (morganii) as the cause of diseases classified elsewhere; H40.9 Unspecified glaucoma; B95.2 Enterococcus as the cause of diseases classified elsewhere; B96.89 Other specified bacterial agents as the cause of diseases classified elsewhere; Z20.822 Contact with and (suspected) exposure to COVID-19
CPT/HCPCS: 11721; 36415; 36569; 71045-TC-FY; 73630-TC-RT-FY; 73718-TC-RT; 77001-TC-FY; 80048; 80053; 82607; 82728; 82746; 82962; 83540; 83550; 83735; 84132; 85025; 85610; 85651; 85730; 86140; 86850; 86900; 86901; 87040; 87070; 87186; 87205; 93005; 93010; 97116-GP; 97162-GP; 99285-25; C1751; C9803; G0463-25; J1644; U0003

== ENCOUNTER 2020-11-08 10:23 | Inpatient (IN) | payer MEDICARE, OTHER ==
[2020-11-08 11:11] LABS: EPI CELLS 15 /uL (0-25.1); HYALINE CASTS 1 /uL (0-3.1); PH,URINE 5.5 (5.0-8.0); URINE APPEARANCE CLEAR; URINE BACTERIA 20 /uL (0-1359); URINE BILIRUBIN NEGATIVE (NEGATIVE); URINE COLOR YELLOW; URINE GLUCOSE (UA) 1+ (NEGATIVE); URINE KETONE NEGATIVE (NEGATIVE); URINE LEUK ESTERASE NEGATIVE (NEGATIVE); URINE NITRITE NEGATIVE (NEGATIVE); URINE PROTEIN 4+ (NEGATIVE); URINE RBC 17 /uL (0-23.9); URINE UROBILINOGEN 0.2 mg/dL (0.2-1.0); URINE WBC 15 /uL (0-25.8)
[2020-11-08 11:20] LABS: BASO % 0.5 % (0-2.0); EOS % 1.7 % (0-4.5); HEMOGLOBIN 12.8 GM/dL (10.7-15.3); MCH 27.7 pg (25.7-33.7); MCHC 32.1 g/dl (32.0-36.0); MEAN CELL VOLUME 86.3 fl (80-96); MEAN PLT VOLUME 9.2 fl (7.5-11.1); MONO % 5.1 % (3.8-10.2); NEUT % 41.7 % (42.8-82.8); PLATELET COUNT 212 10^3/uL (134-434); RBC 4.63 M/mm3 (3.60-5.2); WHITE BLOOD COUNT 15.8 K/mm3 (4.0-10.0)
[2020-11-08 11:27] LABS: INR 0.86 (0.83-1.09); PROTHROMBIN TIME (PATIENT) 10.5 SEC (9.7-13.0)
[2020-11-08 11:35] LABS: ALBUMIN 2.8 g/dl (3.4-5.0); BLOOD UREA NITROGEN 97.5 mg/dL (7-18); CALCIUM 8.5 mg/dL (8.5-10.1)
[2020-11-08 11:40] LABS: BILIRUBIN,TOTAL 0.3 mg/dL (0.2-1)
[2020-11-08] MEDS ORDERED: LACTATED RINGERS SOLUTION 1000 ML INFUS.BAG IV ONE (12:32)
[2020-11-08] MEDS ORDERED: ACETAMINOPHEN 325 MG TABLET (FP) PO PRN (14:53)
[2020-11-08] MEDS ORDERED: LABETALOL HCL 200 MG TABLET (FP) PO ONE (21:32)
[2020-11-08] MEDS ORDERED: HEPARIN NA (PORCINE) 5,000 UNITS/ML 1ML VIAL SQ SCH (22:00)
[2020-11-09] MEDS ORDERED: LABETALOL HCL 100 MG TABLET (FP) PO ONE (05:53)
[2020-11-09] MEDS: INSULIN SLIDING SCALE (NOVOLOG) 1 VIAL SQ SCH ×4 (06:10→22:24)
[2020-11-09 08:45] LABS: HEMATOCRIT 36.8 % (32.4-45.2); HEMOGLOBIN 11.7 GM/dL (10.7-15.3); MCH 27.4 pg (25.7-33.7); MCHC 31.7 g/dl (32.0-36.0); MEAN CELL VOLUME 86.3 fl (80-96); MEAN PLT VOLUME 9.4 fl (7.5-11.1); PLATELET COUNT 200 10^3/uL (134-434); RBC 4.27 M/mm3 (3.60-5.2); RDW 15.2 % (11.6-15.6); WHITE BLOOD COUNT 12.1 K/mm3 (4.0-10.0)
[2020-11-09 08:58] LABS: CHLORIDE 120 mmol/L (98-107); SODIUM 146 mmol/L (136-145)
[2020-11-09 09:01] LABS: ANION GAP 11 MMOL/L (8-16); CALCIUM 8.5 mg/dL (8.5-10.1); CO2 15 mmol/L (21-32)
[2020-11-09 09:02] LABS: GLUCOSE,RANDOM 154 mg/dL (74-106)
[2020-11-09 09:05] LABS: CREATININE 6.5 mg/dL (0.55-1.3)
[2020-11-09 09:15] LABS: BLOOD UREA NITROGEN 106.8 mg/dL (7-18)
[2020-11-09] MEDS ORDERED: SODIUM BICARBONATE 650 MG TABLET PO SCH (10:00)
[2020-11-09] MEDS: CLOPIDOGREL BISULFATE 75 MG TABLET (FP) PO SCH (10:45)
[2020-11-09] MEDS: amLODIPine BESYLATE 10 MG TABLET (FP) PO SCH (10:45)
[2020-11-09] MEDS ORDERED: SODIUM CHLORIDE 0.45% 1,000 ML IV SCH (13:45)
[2020-11-09] MEDS: SODIUM BICARBONATE 650 MG TABLET PO SCH ×2 (15:55→21:18)
[2020-11-09] MEDS: ATORVASTATIN CA 40 MG TABLET (FP) PO SCH (21:18)
[2020-11-10] MEDS: SODIUM BICARBONATE 650 MG TABLET PO SCH ×3 (05:38→22:53)
[2020-11-10] MEDS: INSULIN SLIDING SCALE (NOVOLOG) 1 VIAL SQ SCH ×4 (06:12→22:44)
[2020-11-10] MEDS: amLODIPine BESYLATE 10 MG TABLET (FP) PO SCH ×2 (07:17→10:08)
[2020-11-10] MEDS: CLOPIDOGREL BISULFATE 75 MG TABLET (FP) PO SCH (10:12)
[2020-11-10 10:30] LABS: HEMATOCRIT 35.8 % (32.4-45.2); HEMOGLOBIN 11.5 GM/dL (10.7-15.3); MCH 27.9 pg (25.7-33.7); MCHC 32.2 g/dl (32.0-36.0); MEAN CELL VOLUME 86.8 fl (80-96); MEAN PLT VOLUME 9.4 fl (7.5-11.1); PLATELET COUNT 206 10^3/uL (134-434); RBC 4.12 M/mm3 (3.60-5.2); RDW 14.9 % (11.6-15.6); WHITE BLOOD COUNT 12.5 K/mm3 (4.0-10.0)
[2020-11-10 10:53] LABS: CALCIUM 7.7 mg/dL (8.5-10.1)
[2020-11-10 10:54] LABS: ALBUMIN 2.3 g/dl (3.4-5.0); BLOOD UREA NITROGEN 89.3 mg/dL (7-18); MAGNESIUM 2.4 mg/dL (1.8-2.4)
[2020-11-10 10:57] LABS: PHOSPHOROUS 4.8 mg/dL (2.5-4.9)
[2020-11-10 10:58] LABS: BILIRUBIN,TOTAL 0.4 mg/dL (0.2-1); TOT PROT 5.2 g/dl (6.4-8.2)
[2020-11-10 12:00] LABS: ANISOCYTOSIS 0; HELMET CELLS 0; HOWELL-JOLLY BODIES 0; MACROCYTOSIS 0; OVALOCYTE 0; PLATELET ESTIMATE NORMAL; ROULEAU 0; SICKELED CELLS 0; TARGET CELLS 0; TEAR DROP CELLS 0; TOXIC GRANULATION 0
[2020-11-10] MEDS: hydrALAZINE HCL 50 MG TABLET (FP) PO SCH ×2 (13:18→22:45)
[2020-11-10] MEDS: ATORVASTATIN CA 40 MG TABLET (FP) PO SCH (22:53)
[2020-11-11] MEDS: SODIUM BICARBONATE 650 MG TABLET PO SCH ×3 (06:16→21:24)
[2020-11-11] MEDS: INSULIN SLIDING SCALE (NOVOLOG) 1 VIAL SQ SCH ×4 (06:16→21:24)
[2020-11-11] MEDS: hydrALAZINE HCL 50 MG TABLET (FP) PO SCH ×3 (06:16→21:24)
[2020-11-11 09:06] LABS: ALBUMIN 2.5 g/dl (3.4-5.0); BLOOD UREA NITROGEN 90.7 mg/dL (7-18); CALCIUM 8.1 mg/dL (8.5-10.1)
[2020-11-11 09:09] LABS: BILIRUBIN,TOTAL 0.3 mg/dL (0.2-1); TOT PROT 5.3 g/dl (6.4-8.2)
[2020-11-11] MEDS: amLODIPine BESYLATE 10 MG TABLET (FP) PO SCH (09:34)
[2020-11-11] MEDS: CLOPIDOGREL BISULFATE 75 MG TABLET (FP) PO SCH (09:34)
[2020-11-11 11:54] LABS: HEPATITIS B SURFACE AG MATERN NON-REACTIVE (NONREACTIVE)
[2020-11-11] MEDS: ATORVASTATIN CA 40 MG TABLET (FP) PO SCH (21:24)
[2020-11-12] MEDS: hydrALAZINE HCL 50 MG TABLET (FP) PO SCH ×3 (06:06→21:05)
[2020-11-12] MEDS: SODIUM BICARBONATE 650 MG TABLET PO SCH ×3 (06:06→21:06)
[2020-11-12] MEDS: INSULIN SLIDING SCALE (NOVOLOG) 1 VIAL SQ SCH ×4 (06:07→21:06)
[2020-11-12] MEDS ORDERED: LIDOCAINE HCL 1%, 10 MG/ML (20ML VIAL) ONE ×2 (07:11→10:22)
[2020-11-12] MEDS ORDERED: LIDOCAINE HCL 1%, 10 MG/ML (50 mL VIAL) INF ONE ×3 (07:35→10:18)
[2020-11-12] MEDS ORDERED: LIDOCAINE HCL/PF 2% SDV 5ML VIAL ONE (09:47)
[2020-11-12] MEDS ORDERED: PROPOFOL 20 ML ONE (09:47)
[2020-11-12] MEDS: amLODIPine BESYLATE 10 MG TABLET (FP) PO SCH (10:00)
[2020-11-12] MEDS ORDERED: ceFAZolin SODIUM 1 GM VIAL ONE (10:02)
[2020-11-12] MEDS ORDERED: ceFAZolin SODIUM 1 GM VIAL IVPB ONE ×2 (10:02)
[2020-11-12] MEDS ORDERED: ONDANSETRON 4 MG/2 ML VIAL IVPUSH PRN ×2 (10:06→10:41)
[2020-11-12] MEDS ORDERED: LACTATED RINGERS SOLUTION 1,000 ML IV SCH ×2 (10:15→10:41)
[2020-11-12] MEDS ORDERED: ACETAMINOPHEN 325 MG TABLET (FP) PO PRN (10:41)
[2020-11-12] MEDS ORDERED: oxyCODONE HCL 5 MG TABLET ONE (12:21)
[2020-11-12] MEDS ORDERED: oxyCODONE HCL 5 MG TABLET PO ONE (12:27)
[2020-11-12 16:59] LABS: BASO % 0.6 % (0-2.0); HEMATOCRIT 37.6 % (32.4-45.2); LYMPH % 50.3 % (8-40); MCH 27.7 pg (25.7-33.7); MEAN CELL VOLUME 86.8 fl (80-96); MEAN PLT VOLUME 9.9 fl (7.5-11.1); NEUT % 43.1 % (42.8-82.8); PLATELET COUNT 220 10^3/uL (134-434); RBC 4.33 M/mm3 (3.60-5.2); RDW 15.2 % (11.6-15.6); WHITE BLOOD COUNT 11.1 K/mm3 (4.0-10.0)
[2020-11-12 17:21] LABS: ALBUMIN 2.4 g/dl (3.4-5.0); CALCIUM 8.3 mg/dL (8.5-10.1)
[2020-11-12 17:22] LABS: BLOOD UREA NITROGEN 76.7 mg/dL (7-18); MAGNESIUM 2.4 mg/dL (1.8-2.4)
[2020-11-12 17:24] LABS: CREATININE 6.1 mg/dL (0.55-1.3)
[2020-11-12 17:25] LABS: PHOSPHOROUS 5.4 mg/dL (2.5-4.9)
[2020-11-12 17:26] LABS: BILIRUBIN,TOTAL 0.4 mg/dL (0.2-1); TOT PROT 5.2 g/dl (6.4-8.2)
[2020-11-12] MEDS: HEPARIN NA (PORCINE) 5,000 UNITS/ML 1ML VIAL SQ SCH (21:06)
[2020-11-12] MEDS: ATORVASTATIN CA 40 MG TABLET (FP) PO SCH (21:06)
[2020-11-13] MEDS ORDERED: PT OWN MED DRAWER 7, Y5N ONE (05:52)
[2020-11-13] MEDS: SODIUM BICARBONATE 650 MG TABLET PO SCH (06:41)
[2020-11-13] MEDS: HEPARIN NA (PORCINE) 5,000 UNITS/ML 1ML VIAL SQ SCH ×3 (06:41→21:51)
[2020-11-13] MEDS: INSULIN SLIDING SCALE (NOVOLOG) 1 VIAL SQ SCH ×4 (06:42→21:50)
[2020-11-13] MEDS: hydrALAZINE HCL 50 MG TABLET (FP) PO SCH ×4 (06:42→21:49)
[2020-11-13 08:10] LABS: BASO % 0.4 % (0-2.0); EOS % 1.8 % (0-4.5); HEMATOCRIT 37.3 % (32.4-45.2); HEMOGLOBIN 11.9 GM/dL (10.7-15.3); LYMPH % 46.3 % (8-40); MCH 27.8 pg (25.7-33.7); MCHC 31.9 g/dl (32.0-36.0); MEAN CELL VOLUME 86.9 fl (80-96); MEAN PLT VOLUME 9.8 fl (7.5-11.1); MONO % 7.3 % (3.8-10.2); NEUT % 44.2 % (42.8-82.8); PLATELET COUNT 194 10^3/uL (134-434); WHITE BLOOD COUNT 10.5 K/mm3 (4.0-10.0)
[2020-11-13 08:43] LABS: ALBUMIN 2.3 g/dl (3.4-5.0); BLOOD UREA NITROGEN 79.2 mg/dL (7-18); CALCIUM 8.2 mg/dL (8.5-10.1); MAGNESIUM 2.7 mg/dL (1.8-2.4)
[2020-11-13 08:46] LABS: CREATININE 6.2 mg/dL (0.55-1.3)
[2020-11-13 08:48] LABS: BILIRUBIN,TOTAL 0.3 mg/dL (0.2-1); TOT PROT 5.1 g/dl (6.4-8.2)
[2020-11-13] MEDS ORDERED: SODIUM CHLORIDE 250 ML IV PRN ×2 (09:38→13:27)
[2020-11-13] MEDS ORDERED: ACETAMINOPHEN 1000 MG/100 ML VIAL IVPB PRN (10:35)
[2020-11-13] MEDS: amLODIPine BESYLATE 10 MG TABLET (FP) PO SCH (11:13)
[2020-11-13] MEDS: ATORVASTATIN CA 40 MG TABLET (FP) PO SCH (21:51)
[2020-11-14] MEDS: HEPARIN NA (PORCINE) 5,000 UNITS/ML 1ML VIAL SQ SCH ×3 (05:41→21:42)
[2020-11-14] MEDS: hydrALAZINE HCL 50 MG TABLET (FP) PO SCH ×3 (05:41→21:43)
[2020-11-14] MEDS: INSULIN SLIDING SCALE (NOVOLOG) 1 VIAL SQ SCH ×4 (06:10→21:43)
[2020-11-14] MEDS ORDERED: hydrALAZINE HCL 20 MG/ML VIAL IVPUSH ONE (06:47)
[2020-11-14 08:52] LABS: BASO % 0.6 % (0-2.0); HEMATOCRIT 39.1 % (32.4-45.2); HEMOGLOBIN 12.8 GM/dL (10.7-15.3); LYMPH % 55.1 % (8-40); MCH 27.8 pg (25.7-33.7); MCHC 32.7 g/dl (32.0-36.0); MEAN CELL VOLUME 85.3 fl (80-96); MEAN PLT VOLUME 9.3 fl (7.5-11.1); MONO % 7.7 % (3.8-10.2); NEUT % 31.6 % (42.8-82.8); PLATELET COUNT 114 10^3/uL (134-434); RBC 4.58 M/mm3 (3.60-5.2); RDW 15.1 % (11.6-15.6); WHITE BLOOD COUNT 11.2 K/mm3 (4.0-10.0)
[2020-11-14] MEDS ORDERED: HEPARIN NA (PORCINE) 5,000 UNITS/ML 1ML VIAL IVPUSH ONE (09:00)
[2020-11-14 09:11] LABS: CALCIUM 7.7 mg/dL (8.5-10.1)
[2020-11-14 09:12] LABS: ALBUMIN 2.3 g/dl (3.4-5.0); MAGNESIUM 1.9 mg/dL (1.8-2.4)
[2020-11-14 09:15] LABS: CREATININE 4.7 mg/dL (0.55-1.3); PHOSPHOROUS 3.4 mg/dL (2.5-4.9)
[2020-11-14 09:16] LABS: BILIRUBIN,TOTAL 0.3 mg/dL (0.2-1); TOT PROT 5.5 g/dl (6.4-8.2)
[2020-11-14 09:22] LABS: BLOOD UREA NITROGEN 44.1 mg/dL (7-18)
[2020-11-14] MEDS: LOSARTAN POTASSIUM 50 MG TABLET PO SCH (11:34)
[2020-11-14] MEDS: amLODIPine BESYLATE 10 MG TABLET (FP) PO SCH (11:34)
[2020-11-14] MEDS: ATORVASTATIN CA 40 MG TABLET (FP) PO SCH (21:42)
[2020-11-15] MEDS: hydrALAZINE HCL 50 MG TABLET (FP) PO SCH ×3 (05:44→21:09)
[2020-11-15] MEDS: HEPARIN NA (PORCINE) 5,000 UNITS/ML 1ML VIAL SQ SCH ×4 (05:45→21:10)
[2020-11-15] MEDS: INSULIN SLIDING SCALE (NOVOLOG) 1 VIAL SQ SCH ×4 (06:28→21:10)
[2020-11-15] MEDS: amLODIPine BESYLATE 10 MG TABLET (FP) PO SCH (10:10)
[2020-11-15] MEDS: LOSARTAN POTASSIUM 50 MG TABLET PO SCH (10:10)
[2020-11-15] MEDS ORDERED: BISACODYL 5 MG TABLET.DR (FP) PO ONE (11:17)
[2020-11-15] MEDS: ATORVASTATIN CA 40 MG TABLET (FP) PO SCH (21:10)
[2020-11-16] MEDS: hydrALAZINE HCL 50 MG TABLET (FP) PO SCH ×3 (06:27→21:35)
[2020-11-16] MEDS: INSULIN SLIDING SCALE (NOVOLOG) 1 VIAL SQ SCH ×4 (06:27→21:35)
[2020-11-16 09:43] LABS: PHOSPHOROUS 3.8 mg/dL (2.5-4.9)
[2020-11-16 10:59] LABS: BASO % 0.5 % (0-2.0); EOS % 6.2 % (0-4.5); HEMATOCRIT 37.3 % (32.4-45.2); HEMOGLOBIN 12.2 GM/dL (10.7-15.3); MCH 27.7 pg (25.7-33.7); MCHC 32.5 g/dl (32.0-36.0); MEAN CELL VOLUME 85.1 fl (80-96); MEAN PLT VOLUME 10.2 fl (7.5-11.1); MONO % 7.3 % (3.8-10.2); PLATELET COUNT 60 10^3/uL (134-434); RBC 4.39 M/mm3 (3.60-5.2); RDW 14.6 % (11.6-15.6); WHITE BLOOD COUNT 9.5 K/mm3 (4.0-10.0)
[2020-11-16 11:12] LABS: ALBUMIN 2.1 g/dl (3.4-5.0); BLOOD UREA NITROGEN 41.9 mg/dL (7-18); CALCIUM 7.9 mg/dL (8.5-10.1)
[2020-11-16 11:17] LABS: BILIRUBIN,TOTAL 0.3 mg/dL (0.2-1); TOT PROT 5.1 g/dl (6.4-8.2)
[2020-11-16] MEDS: HEPARIN NA (PORCINE) 5,000 UNITS/ML 1ML VIAL SQ SCH ×2 (14:34→21:36)
[2020-11-16] MEDS: LOSARTAN POTASSIUM 50 MG TABLET PO SCH (14:34)
[2020-11-16] MEDS: VITAMIN B COMP W-C 1 EA TABLET (NEPHRO-VITE) PO SCH (14:34)
[2020-11-16] MEDS: amLODIPine BESYLATE 10 MG TABLET (FP) PO SCH (14:34)
[2020-11-16] MEDS: ATORVASTATIN CA 40 MG TABLET (FP) PO SCH (21:35)
[2020-11-17] MEDS ORDERED: ACETAMINOPHEN 1000 MG/100 ML VIAL IVPB ONE (00:03)
[2020-11-17 00:42] LABS: HEMATOCRIT 38.5 % (32.4-45.2); HEMOGLOBIN 12.4 GM/dL (10.7-15.3); MCH 27.3 pg (25.7-33.7); MCHC 32.2 g/dl (32.0-36.0); MEAN CELL VOLUME 84.9 fl (80-96); MEAN PLT VOLUME 8.8 fl (7.5-11.1); RBC 4.54 M/mm3 (3.60-5.2); RDW 14.6 % (11.6-15.6); WHITE BLOOD COUNT 10.5 K/mm3 (4.0-10.0)
[2020-11-17] MEDS ORDERED: ASPIRIN 81 MG CHEWABLE TABLETS PO ONE (00:44)
[2020-11-17 00:46] LABS: PLATELET COUNT 27 10^3/uL (134-434)
[2020-11-17] MEDS: hydrALAZINE HCL 50 MG TABLET (FP) PO SCH ×3 (05:46→21:55)
[2020-11-17] MEDS: INSULIN SLIDING SCALE (NOVOLOG) 1 VIAL SQ SCH ×4 (06:20→21:55)
[2020-11-17 09:54] LABS: BASO % 0.4 % (0-2.0); HEMATOCRIT 39.4 % (32.4-45.2); HEMOGLOBIN 12.5 GM/dL (10.7-15.3); LYMPH % 47.7 % (8-40); MCH 27.1 pg (25.7-33.7); MCHC 31.6 g/dl (32.0-36.0); MEAN CELL VOLUME 85.6 fl (80-96); MEAN PLT VOLUME 10.4 fl (7.5-11.1); MONO % 7.1 % (3.8-10.2); NEUT % 39.8 % (42.8-82.8); PLATELET COUNT 38 10^3/uL (134-434); RBC 4.61 M/mm3 (3.60-5.2); RDW 14.3 % (11.6-15.6); WHITE BLOOD COUNT 10.6 K/mm3 (4.0-10.0)
[2020-11-17 10:06] LABS: CHLORIDE 101 mmol/L (98-107); SODIUM 139 mmol/L (136-145)
[2020-11-17 10:09] LABS: ALBUMIN 2.2 g/dl (3.4-5.0); ANION GAP 9 MMOL/L (8-16); BLOOD UREA NITROGEN 20.7 mg/dL (7-18); CALCIUM 7.9 mg/dL (8.5-10.1); CO2 28 mmol/L (21-32); MAGNESIUM 1.9 mg/dL (1.8-2.4)
[2020-11-17 10:12] LABS: PHOSPHOROUS 2.9 mg/dL (2.5-4.9); SGOT/AST 48 U/L (15-37); SGPT/ALT 43 U/L (13-61)
[2020-11-17 10:13] LABS: CREATININE 3.4 mg/dL (0.55-1.3); GLUCOSE,RANDOM 115 mg/dL (74-106)
[2020-11-17 10:14] LABS: BILIRUBIN,TOTAL 0.4 mg/dL (0.2-1); TOT PROT 5.3 g/dl (6.4-8.2)
[2020-11-17 10:15] LABS: ALK PHOS 263 U/L (45-117)
[2020-11-17] MEDS: amLODIPine BESYLATE 10 MG TABLET (FP) PO SCH (10:15)
[2020-11-17] MEDS: LOSARTAN POTASSIUM 50 MG TABLET PO SCH (10:15)
[2020-11-17] MEDS: VITAMIN B COMP W-C 1 EA TABLET (NEPHRO-VITE) PO SCH (10:15)
[2020-11-17 10:17] LABS: LDH 240 U/L (84-246)
[2020-11-17] MEDS ORDERED: SODIUM CHLORIDE 250 ML IV PRN (13:03)
[2020-11-17] MEDS: ATORVASTATIN CA 40 MG TABLET (FP) PO SCH (21:55)
[2020-11-18] MEDS: hydrALAZINE HCL 50 MG TABLET (FP) PO SCH ×3 (05:57→21:46)
[2020-11-18] MEDS: INSULIN SLIDING SCALE (NOVOLOG) 1 VIAL SQ SCH ×4 (06:12→21:46)
[2020-11-18 08:03] LABS: BASO % 0.7 % (0-2.0); EOS % 5.5 % (0-4.5); HEMATOCRIT 38.6 % (32.4-45.2); HEMOGLOBIN 12.3 GM/dL (10.7-15.3); LYMPH % 48.1 % (8-40); MCH 27.1 pg (25.7-33.7); MCHC 31.8 g/dl (32.0-36.0); MEAN CELL VOLUME 85.2 fl (80-96); MEAN PLT VOLUME 10.1 fl (7.5-11.1); MONO % 6.2 % (3.8-10.2); NEUT % 39.5 % (42.8-82.8); PLATELET COUNT 57 10^3/uL (134-434); RBC 4.53 M/mm3 (3.60-5.2); RDW 14.4 % (11.6-15.6); WHITE BLOOD COUNT 10.1 K/mm3 (4.0-10.0)
[2020-11-18 08:26] LABS: ALBUMIN 2.3 g/dl (3.4-5.0); CALCIUM 7.8 mg/dL (8.5-10.1); MAGNESIUM 1.9 mg/dL (1.8-2.4)
[2020-11-18 08:29] LABS: CREATININE 4.3 mg/dL (0.55-1.3)
[2020-11-18 08:30] LABS: PHOSPHOROUS 3.2 mg/dL (2.5-4.9)
[2020-11-18 08:31] LABS: BILIRUBIN,TOTAL 0.4 mg/dL (0.2-1); TOT PROT 5.2 g/dl (6.4-8.2)
[2020-11-18] MEDS: amLODIPine BESYLATE 10 MG TABLET (FP) PO SCH (13:19)
[2020-11-18] MEDS: VITAMIN B COMP W-C 1 EA TABLET (NEPHRO-VITE) PO SCH (13:19)
[2020-11-18] MEDS: LOSARTAN POTASSIUM 50 MG TABLET PO SCH (13:19)
[2020-11-18 16:45] VITALS: BMI 22.4
[2020-11-18] MEDS: ATORVASTATIN CA 40 MG TABLET (FP) PO SCH (21:46)
[2020-11-19] MEDS: hydrALAZINE HCL 50 MG TABLET (FP) PO SCH ×3 (06:27→21:17)
[2020-11-19] MEDS: INSULIN SLIDING SCALE (NOVOLOG) 1 VIAL SQ SCH ×4 (06:27→21:18)
[2020-11-19 08:14] LABS: BASO % 0.5 % (0-2.0); EOS % 4.3 % (0-4.5); HEMATOCRIT 37.8 % (32.4-45.2); HEMOGLOBIN 12.2 GM/dL (10.7-15.3); LYMPH % 42.3 % (8-40); MCH 27.8 pg (25.7-33.7); MCHC 32.2 g/dl (32.0-36.0); MEAN CELL VOLUME 86.4 fl (80-96); MEAN PLT VOLUME 10.7 fl (7.5-11.1); MONO % 5.5 % (3.8-10.2); NEUT % 47.4 % (42.8-82.8); PLATELET COUNT 43 10^3/uL (134-434); RBC 4.38 M/mm3 (3.60-5.2); RDW 14.4 % (11.6-15.6); WHITE BLOOD COUNT 10.6 K/mm3 (4.0-10.0)
[2020-11-19 08:38] LABS: ALBUMIN 2.2 g/dl (3.4-5.0); BLOOD UREA NITROGEN 30.8 mg/dL (7-18); CALCIUM 8.1 mg/dL (8.5-10.1); MAGNESIUM 1.9 mg/dL (1.8-2.4)
[2020-11-19 08:41] LABS: CREATININE 3.6 mg/dL (0.55-1.3); PHOSPHOROUS 2.5 mg/dL (2.5-4.9)
[2020-11-19 08:42] LABS: BILIRUBIN,TOTAL 0.4 mg/dL (0.2-1); TOT PROT 5.2 g/dl (6.4-8.2)
[2020-11-19] MEDS: VITAMIN B COMP W-C 1 EA TABLET (NEPHRO-VITE) PO SCH (11:19)
[2020-11-19] MEDS: amLODIPine BESYLATE 10 MG TABLET (FP) PO SCH (11:19)
[2020-11-19] MEDS: LOSARTAN POTASSIUM 50 MG TABLET PO SCH (11:19)
[2020-11-19] MEDS: ATORVASTATIN CA 40 MG TABLET (FP) PO SCH (21:18)
[2020-11-20] MEDS: INSULIN SLIDING SCALE (NOVOLOG) 1 VIAL SQ SCH ×4 (06:00→21:22)
[2020-11-20] MEDS: hydrALAZINE HCL 50 MG TABLET (FP) PO SCH ×3 (06:00→21:19)
[2020-11-20 08:21] LABS: BASO % 0.6 % (0-2.0); HEMATOCRIT 37.7 % (32.4-45.2); HEMOGLOBIN 12.2 GM/dL (10.7-15.3); LYMPH % 53.9 % (8-40); MCH 27.9 pg (25.7-33.7); MCHC 32.2 g/dl (32.0-36.0); MEAN CELL VOLUME 86.7 fl (80-96); MEAN PLT VOLUME 10.3 fl (7.5-11.1); MONO % 4.6 % (3.8-10.2); NEUT % 35.9 % (42.8-82.8); PLATELET COUNT 78 10^3/uL (134-434); RBC 4.35 M/mm3 (3.60-5.2); RDW 14.2 % (11.6-15.6); WHITE BLOOD COUNT 10.4 K/mm3 (4.0-10.0)
[2020-11-20 08:39] LABS: ALBUMIN 2.3 g/dl (3.4-5.0); BLOOD UREA NITROGEN 33.2 mg/dL (7-18); MAGNESIUM 2.3 mg/dL (1.8-2.4)
[2020-11-20 08:42] LABS: CREATININE 4.1 mg/dL (0.55-1.3)
[2020-11-20 08:44] LABS: BILIRUBIN,TOTAL 0.4 mg/dL (0.2-1); TOT PROT 5.2 g/dl (6.4-8.2)
[2020-11-20] MEDS: amLODIPine BESYLATE 10 MG TABLET (FP) PO SCH (10:05)
[2020-11-20] MEDS: LOSARTAN POTASSIUM 50 MG TABLET PO SCH (10:05)
[2020-11-20] MEDS: VITAMIN B COMP W-C 1 EA TABLET (NEPHRO-VITE) PO SCH (10:05)
[2020-11-20] MEDS ORDERED: SODIUM CHLORIDE 250 ML IV PRN (12:32)
[2020-11-20] MEDS: ATORVASTATIN CA 40 MG TABLET (FP) PO SCH (21:19)
[2020-11-21] MEDS: INSULIN SLIDING SCALE (NOVOLOG) 1 VIAL SQ SCH ×4 (06:14→21:11)
[2020-11-21] MEDS: hydrALAZINE HCL 50 MG TABLET (FP) PO SCH ×3 (06:15→21:11)
[2020-11-21 09:35] LABS: BASO % 0.9 % (0-2.0); EOS % 3.6 % (0-4.5); HEMATOCRIT 39.2 % (32.4-45.2); HEMOGLOBIN 12.6 GM/dL (10.7-15.3); LYMPH % 51.4 % (8-40); MCH 27.8 pg (25.7-33.7); MCHC 32.3 g/dl (32.0-36.0); MEAN CELL VOLUME 86.2 fl (80-96); MEAN PLT VOLUME 10.5 fl (7.5-11.1); MONO % 5.8 % (3.8-10.2); NEUT % 38.3 % (42.8-82.8); PLATELET COUNT 105 10^3/uL (134-434); RBC 4.55 M/mm3 (3.60-5.2); RDW 14.2 % (11.6-15.6); WHITE BLOOD COUNT 9.9 K/mm3 (4.0-10.0)
[2020-11-21 09:52] LABS: ALBUMIN 2.3 g/dl (3.4-5.0)
[2020-11-21 09:53] LABS: BLOOD UREA NITROGEN 21.5 mg/dL (7-18); CALCIUM 8.1 mg/dL (8.5-10.1); MAGNESIUM 1.8 mg/dL (1.8-2.4)
[2020-11-21 09:55] LABS: BILIRUBIN,TOTAL 0.5 mg/dL (0.2-1); PHOSPHOROUS 2.3 mg/dL (2.5-4.9)
[2020-11-21 09:57] LABS: TOT PROT 5.3 g/dl (6.4-8.2)
[2020-11-21] MEDS: VITAMIN B COMP W-C 1 EA TABLET (NEPHRO-VITE) PO SCH (10:47)
[2020-11-21] MEDS: amLODIPine BESYLATE 10 MG TABLET (FP) PO SCH (10:47)
[2020-11-21] MEDS: LOSARTAN POTASSIUM 50 MG TABLET PO SCH (10:47)
[2020-11-21] MEDS: ATORVASTATIN CA 40 MG TABLET (FP) PO SCH (21:11)
[2020-11-22] MEDS: hydrALAZINE HCL 50 MG TABLET (FP) PO SCH ×3 (05:50→21:00)
[2020-11-22] MEDS: INSULIN SLIDING SCALE (NOVOLOG) 1 VIAL SQ SCH ×4 (06:03→21:00)
[2020-11-22 09:20] LABS: HEMATOCRIT 41.6 % (32.4-45.2); HEMOGLOBIN 13.5 GM/dL (10.7-15.3); MCHC 32.5 g/dl (32.0-36.0); MEAN CELL VOLUME 86.4 fl (80-96); MEAN PLT VOLUME 9.8 fl (7.5-11.1); PLATELET COUNT 153 10^3/uL (134-434); RBC 4.82 M/mm3 (3.60-5.2); RDW 14.3 % (11.6-15.6); WHITE BLOOD COUNT 9.1 K/mm3 (4.0-10.0)
[2020-11-22] MEDS: amLODIPine BESYLATE 10 MG TABLET (FP) PO SCH (09:44)
[2020-11-22] MEDS: LOSARTAN POTASSIUM 50 MG TABLET PO SCH (09:44)
[2020-11-22] MEDS: VITAMIN B COMP W-C 1 EA TABLET (NEPHRO-VITE) PO SCH (09:44)
[2020-11-22 09:50] LABS: BLOOD UREA NITROGEN 30.9 mg/dL (7-18); CALCIUM 8.3 mg/dL (8.5-10.1)
[2020-11-22 13:43] LABS: ANISOCYTOSIS 0; HELMET CELLS 0; HOWELL-JOLLY BODIES 0; MACROCYTOSIS 0; OVALOCYTE 0; PLATELET ESTIMATE DECREASED; ROULEAU 0; SICKELED CELLS 0; TARGET CELLS 0; TEAR DROP CELLS 0; TOXIC GRANULATION 0
[2020-11-22] MEDS ORDERED: SODIUM CHLORIDE 250 ML IV PRN (14:26)
[2020-11-22] MEDS: ATORVASTATIN CA 40 MG TABLET (FP) PO SCH (21:00)
[2020-11-23] MEDS: hydrALAZINE HCL 50 MG TABLET (FP) PO SCH ×3 (05:52→21:09)
[2020-11-23] MEDS: INSULIN SLIDING SCALE (NOVOLOG) 1 VIAL SQ SCH ×4 (06:05→21:08)
[2020-11-23 08:46] LABS: BASO % 0.5 % (0-2.0); HEMATOCRIT 39.4 % (32.4-45.2); LYMPH % 50.7 % (8-40); MCHC 32.9 g/dl (32.0-36.0); MEAN CELL VOLUME 85.2 fl (80-96); MONO % 5.2 % (3.8-10.2); NEUT % 38.6 % (42.8-82.8); PLATELET COUNT 164 10^3/uL (134-434); RBC 4.63 M/mm3 (3.60-5.2); RDW 14.2 % (11.6-15.6); WHITE BLOOD COUNT 9.3 K/mm3 (4.0-10.0)
[2020-11-23 09:11] LABS: CALCIUM 8.3 mg/dL (8.5-10.1)
[2020-11-23 09:12] LABS: BLOOD UREA NITROGEN 36.5 mg/dL (7-18)
[2020-11-23 09:15] LABS: CREATININE 4.4 mg/dL (0.55-1.3)
[2020-11-23] MEDS: VITAMIN B COMP W-C 1 EA TABLET (NEPHRO-VITE) PO SCH (09:45)
[2020-11-23] MEDS: amLODIPine BESYLATE 10 MG TABLET (FP) PO SCH (14:40)
[2020-11-23] MEDS: LOSARTAN POTASSIUM 50 MG TABLET PO SCH (14:40)
[2020-11-23] MEDS: ATORVASTATIN CA 40 MG TABLET (FP) PO SCH (21:09)
[2020-11-24] MEDS: hydrALAZINE HCL 50 MG TABLET (FP) PO SCH ×3 (06:27→22:13)
[2020-11-24] MEDS: INSULIN SLIDING SCALE (NOVOLOG) 1 VIAL SQ SCH ×4 (06:27→22:14)
[2020-11-24 10:21] LABS: BASO % 0.9 % (0-2.0); EOS % 4.1 % (0-4.5); HEMATOCRIT 40.2 % (32.4-45.2); MCHC 32.3 g/dl (32.0-36.0); MEAN CELL VOLUME 86.6 fl (80-96); MEAN PLT VOLUME 9.6 fl (7.5-11.1); PLATELET COUNT 182 10^3/uL (134-434); RBC 4.64 M/mm3 (3.60-5.2); RDW 14.5 % (11.6-15.6); WHITE BLOOD COUNT 9.4 K/mm3 (4.0-10.0)
[2020-11-24 10:46] LABS: ALBUMIN 2.4 g/dl (3.4-5.0); BLOOD UREA NITROGEN 19.4 mg/dL (7-18); CALCIUM 8.5 mg/dL (8.5-10.1)
[2020-11-24 10:47] LABS: MAGNESIUM 1.9 mg/dL (1.8-2.4)
[2020-11-24] MEDS: amLODIPine BESYLATE 10 MG TABLET (FP) PO SCH (10:48)
[2020-11-24] MEDS: LOSARTAN POTASSIUM 50 MG TABLET PO SCH (10:48)
[2020-11-24] MEDS: VITAMIN B COMP W-C 1 EA TABLET (NEPHRO-VITE) PO SCH (10:48)
[2020-11-24 10:49] LABS: CREATININE 3.5 mg/dL (0.55-1.3)
[2020-11-24 10:50] LABS: BILIRUBIN,TOTAL 0.3 mg/dL (0.2-1); PHOSPHOROUS 2.5 mg/dL (2.5-4.9)
[2020-11-24 10:51] LABS: TOT PROT 5.7 g/dl (6.4-8.2)
[2020-11-24] MEDS ORDERED: HEPARIN NA (PORCINE) 5,000 UNITS/ML 1ML VIAL IVPUSH PRN (13:39)
[2020-11-24] MEDS ORDERED: DOCUSATE NA 100 MG/10 ML UNIT-DOSE CUPS PO PRN (17:11)
[2020-11-24] MEDS: HEPARIN - 25,000 UNIT in SODIUM CHLORIDE 495 ML IV SCH (17:44)
[2020-11-24] MEDS: HEPARIN NA (PORCINE) 5,000 UNITS/ML 1ML VIAL IVPUSH PRN (19:37)
[2020-11-24] MEDS: ATORVASTATIN CA 40 MG TABLET (FP) PO SCH (22:13)
[2020-11-25] MEDS: INSULIN SLIDING SCALE (NOVOLOG) 1 VIAL SQ SCH ×4 (06:21→21:15)
[2020-11-25] MEDS: hydrALAZINE HCL 50 MG TABLET (FP) PO SCH ×3 (06:21→21:14)
[2020-11-25] MEDS ORDERED: hydrOXYzine PAMOATE 25 MG CAPSULE (FP) PO PRN (10:32)
[2020-11-25] MEDS: VITAMIN B COMP W-C 1 EA TABLET (NEPHRO-VITE) PO SCH (11:24)
[2020-11-25] MEDS ORDERED: SODIUM CHLORIDE 250 ML IV PRN (12:12)
[2020-11-25 12:32] LABS: INR 0.87 (0.83-1.09); PROTHROMBIN TIME (PATIENT) 10.2 SEC (9.7-13.0)
[2020-11-25 13:40] LABS: BASO % 0.9 % (0-2.0); EOS % 3.9 % (0-4.5); HEMATOCRIT 37.6 % (32.4-45.2); HEMOGLOBIN 12.1 GM/dL (10.7-15.3); LYMPH % 51.4 % (8-40); MCH 27.4 pg (25.7-33.7); MCHC 32.1 g/dl (32.0-36.0); MEAN CELL VOLUME 85.5 fl (80-96); MEAN PLT VOLUME 9.3 fl (7.5-11.1); MONO % 5.6 % (3.8-10.2); NEUT % 38.2 % (42.8-82.8); PLATELET COUNT 209 10^3/uL (134-434); RDW 14.2 % (11.6-15.6); WHITE BLOOD COUNT 9.2 K/mm3 (4.0-10.0)
[2020-11-25] MEDS: HEPARIN - 25,000 UNIT in SODIUM CHLORIDE 495 ML IV SCH ×3 (14:11→23:48)
[2020-11-25] MEDS: HEPARIN NA (PORCINE) 5,000 UNITS/ML 1ML VIAL IVPUSH PRN ×2 (14:12→23:48)
[2020-11-25] MEDS ORDERED: PT OWN MED DRAWER 7, Y5N ONE (17:53)
[2020-11-25] MEDS: LOSARTAN POTASSIUM 50 MG TABLET PO SCH (17:55)
[2020-11-25] MEDS: amLODIPine BESYLATE 10 MG TABLET (FP) PO SCH (17:55)
[2020-11-25] MEDS: ATORVASTATIN CA 40 MG TABLET (FP) PO SCH (21:14)
[2020-11-26] MEDS: INSULIN SLIDING SCALE (NOVOLOG) 1 VIAL SQ SCH ×4 (06:30→21:00)
[2020-11-26] MEDS: hydrALAZINE HCL 50 MG TABLET (FP) PO SCH ×3 (06:30→21:00)
[2020-11-26 08:28] LABS: EOS % 4.7 % (0-4.5); HEMATOCRIT 38.6 % (32.4-45.2); HEMOGLOBIN 12.3 GM/dL (10.7-15.3); LYMPH % 49.4 % (8-40); MCH 27.3 pg (25.7-33.7); MCHC 31.8 g/dl (32.0-36.0); MEAN CELL VOLUME 85.8 fl (80-96); MEAN PLT VOLUME 9.1 fl (7.5-11.1); NEUT % 38.9 % (42.8-82.8); PLATELET COUNT 207 10^3/uL (134-434); RDW 14.6 % (11.6-15.6); WHITE BLOOD COUNT 10.3 K/mm3 (4.0-10.0)
[2020-11-26 10:27] LABS: ALBUMIN 2.5 g/dl (3.4-5.0); BILIRUBIN,TOTAL 0.3 mg/dL (0.2-1); BLOOD UREA NITROGEN 22.1 mg/dL (7-18); CALCIUM 8.5 mg/dL (8.5-10.1); CREATININE 3.2 mg/dL (0.55-1.3); MAGNESIUM 2.1 mg/dL (1.8-2.4); PHOSPHOROUS 2.6 mg/dL (2.5-4.9); TOT PROT 5.4 g/dl (6.4-8.2)
[2020-11-26] MEDS: APIXABAN 2.5 MG TABLET PO SCH ×2 (10:51→20:59)
[2020-11-26] MEDS: amLODIPine BESYLATE 10 MG TABLET (FP) PO SCH (10:51)
[2020-11-26] MEDS: LOSARTAN POTASSIUM 50 MG TABLET PO SCH (10:51)
[2020-11-26] MEDS: VITAMIN B COMP W-C 1 EA TABLET (NEPHRO-VITE) PO SCH (10:52)
[2020-11-26] MEDS: ATORVASTATIN CA 40 MG TABLET (FP) PO SCH (20:59)
[2020-11-27] MEDS: INSULIN SLIDING SCALE (NOVOLOG) 1 VIAL SQ SCH ×3 (06:25→16:35)
[2020-11-27] MEDS: hydrALAZINE HCL 50 MG TABLET (FP) PO SCH ×2 (06:25→14:49)
[2020-11-27] MEDS ORDERED: SODIUM CHLORIDE 250 ML IV PRN (08:02)
[2020-11-27 08:30] LABS: HEMATOCRIT 36.8 % (32.4-45.2); HEMOGLOBIN 11.7 GM/dL (10.7-15.3); MCH 27.1 pg (25.7-33.7); MCHC 31.9 g/dl (32.0-36.0); MEAN CELL VOLUME 85.2 fl (80-96); MEAN PLT VOLUME 9.1 fl (7.5-11.1); PLATELET COUNT 213 10^3/uL (134-434); RBC 4.31 M/mm3 (3.60-5.2); RDW 14.6 % (11.6-15.6); WHITE BLOOD COUNT 8.6 K/mm3 (4.0-10.0)
[2020-11-27] MEDS: amLODIPine BESYLATE 10 MG TABLET (FP) PO SCH ×2 (09:15→14:50)
[2020-11-27] MEDS: LOSARTAN POTASSIUM 50 MG TABLET PO SCH ×2 (09:15→14:49)
[2020-11-27] MEDS: APIXABAN 2.5 MG TABLET PO SCH ×2 (10:00→16:39)
[2020-11-27 14:43] VITALS: TEMP 99.1
[2020-11-27] MEDS: VITAMIN B COMP W-C 1 EA TABLET (NEPHRO-VITE) PO SCH (14:49)
[2020-11-27 18:25] VITALS: BP 120/65; PULSE 77
== END 2020-11-27 17:30 | disposition home or self-care (01) | DRG 682 ==
LOC: JER 10:23 → JERBED 12:42 → J5S 19:52
PROVIDERS: ADMIT Internal Medicine
PROC: 05HY33Z Insertion of Infusion Device into Upper Vein, Percutaneous Approach (ICD-10-PCS; principal; 2020-11-12 08:00)
PROC: 5A1D70Z Performance of Urinary Filtration, Intermittent, Less than 6 Hours Per Day (ICD-10-PCS; 2020-11-27)
DX: I12.0 Hypertensive chronic kidney disease with stage 5 chronic kidney disease or end stage renal disease (principal); N18.6 End stage renal disease; N17.9 Acute kidney failure, unspecified; C95.90 Leukemia, unspecified not having achieved remission; I31.3 Pericardial effusion (noninflammatory); I82.621 Acute embolism and thrombosis of deep veins of right upper extremity; N04.9 Nephrotic syndrome with unspecified morphologic changes; I10 Essential (primary) hypertension; E78.5 Hyperlipidemia, unspecified; E11.9 Type 2 diabetes mellitus without complications; I73.9 Peripheral vascular disease, unspecified; D69.6 Thrombocytopenia, unspecified; I25.10 Atherosclerotic heart disease of native coronary artery without angina pectoris; R74.01 Elevation of levels of liver transaminase levels; F03.90 Unspecified dementia, unspecified severity, without behavioral disturbance, psychotic disturbance, mood disturbance, and anxiety
CPT/HCPCS: 36415; 70450-TC; 71045-TC-FY; 76000-TC-FY; 76705-TC; 76775-TC; 76856-TC; 80048; 80053; 81003; 82436; 82542; 82550; 82553; 82570; 82962; 83010; 83615; 83735; 83935; 84100; 84133; 84300; 84484; 85025; 85027; 85045; 85379; 85384; 85610; 85730; 86022; 86705; 86706; 86707; 86803; 87086; 87340; 87350; 87517; 87522; 87804; 93005; 93010; 93306-TC; 93970-TC; 93985; 94760; 97116-GP; 97161-GP; 99285-25; C9803; J1644; U0003; U0005

== ENCOUNTER 2020-12-24 05:01 | Day surgery (SDC) | payer MEDICARE, OTHER ==
[2020-12-24] MEDS ORDERED: ONDANSETRON 4 MG/2 ML VIAL IVPUSH PRN (10:22)
[2020-12-24] MEDS ORDERED: DEXTROSE 50%-WATER - 25 GM/50 ML VIAL IVPUSH ONE (10:23)
[2020-12-24] MEDS ORDERED: ceFAZolin SODIUM 1 GM VIAL IVPB ONE (11:22)
[2020-12-24] MEDS ORDERED: LIDOCAINE HCL 1%, 10 MG/ML (20ML VIAL) INF ONE ×3 (11:46)
[2020-12-24] MEDS ORDERED: LIDOCAINE HCL 1%, 10 MG/ML (20ML VIAL) NR ONE ×2 (12:06)
[2020-12-24] MEDS ORDERED: POVIDONE-IODINE OINTMENT 10% - 28.4 GM TUBE TP ONE (13:11)
[2020-12-24 15:09] VITALS: BP 149/63; PULSE 81; TEMP 97.9
== END 2020-12-24 15:40 | disposition home or self-care (01) ==
LOC: JASU-SURG 05:01
PROVIDERS: ATTEND Surgery Vascular Surgery
PROC: 03160JD Bypass Left Axillary Artery to Upper Arm Vein with Synthetic Substitute, Open Approach (ICD-10-PCS; principal; 2020-12-24 09:30)
DX: I12.0 Hypertensive chronic kidney disease with stage 5 chronic kidney disease or end stage renal disease (principal); E11.22 Type 2 diabetes mellitus with diabetic chronic kidney disease; N18.6 End stage renal disease; Z99.2 Dependence on renal dialysis; Z79.4 Long term (current) use of insulin
CPT/HCPCS: 82962; 94760

== ENCOUNTER 2020-12-24 17:36 | Emergency (ER) | payer MEDICARE, OTHER ==
[2020-12-24 17:58] VITALS: TEMP 98; BMI 21.6
[2020-12-24 18:13] VITALS: BP 184/65; PULSE 79
== END 2020-12-24 18:31 | disposition home or self-care (01) ==
LOC: JER 17:36
DX: T82.590A Other mechanical complication of surgically created arteriovenous fistula, initial encounter (principal)
CPT/HCPCS: 99281-25

== ENCOUNTER 2021-06-29 12:32 | Inpatient (IN) | payer MEDICARE, OTHER ==
[2021-06-29] MEDS ORDERED: ACETAMINOPHEN 1000 MG/100 ML BAG IVPB ONE (14:02)
[2021-06-29] MEDS ORDERED: ACETAMINOPHEN INJECTION 100 ML IVPB ONE (15:08)
[2021-06-29 15:48] LABS: HEMOGLOBIN 11.5 GM/dL (10.7-15.3); MCH 28.5 pg (25.7-33.7); MCHC 31.1 g/dl (32.0-36.0); MEAN CELL VOLUME 91.6 fl (80-96); PLATELET COUNT 174 10^3/uL (134-434); RBC 4.04 M/mm3 (3.60-5.2); RDW 15.7 % (11.6-15.6)
[2021-06-29 15:56] LABS: INR 1.03 (0.83-1.09); PROTHROMBIN TIME (PATIENT) 11.8 SEC (9.7-13.0)
[2021-06-29 15:58] LABS: ACTIVATED PTT 29.1 SECONDS (25.2-36.5)
[2021-06-29 16:09] LABS: CALCIUM 9.2 mg/dL (8.5-10.1)
[2021-06-29 16:10] LABS: ALBUMIN 3.3 g/dl (3.4-5.0); BLOOD UREA NITROGEN 34.4 mg/dL (7-18)
[2021-06-29 16:13] LABS: CREATININE 3.8 mg/dL (0.55-1.3)
[2021-06-29 16:15] LABS: BILIRUBIN,TOTAL 1.3 mg/dL (0.2-1)
[2021-06-29 16:16] LABS: TOT PROT 6.8 g/dl (6.4-8.2)
[2021-06-29] MEDS ORDERED: PIPERACILLIN/TAZOB 4.5 GM 4.5 GM in DEXTROSE 5%-WATER 100 ML IVPB ONE (16:53)
[2021-06-29 17:07] LABS: ANISOCYTOSIS 1+; MACROCYTOSIS 1+
[2021-06-29] MEDS ORDERED: PIPERACILLIN/TAZOB 4.5 GM 4.5 GM/100 ML BAG IVPB ONE (17:07)
[2021-06-29 21:03] LABS: PLATELET ESTIMATE ADEQUATE
[2021-06-29 21:16] LABS: EPI CELLS 8 /uL (0-25.1); HYALINE CASTS 1 /uL (0-3.1); PH,URINE 8.5 (5.0-8.0); URINE APPEARANCE CLEAR; URINE BACTERIA 5 /uL (0-1359); URINE BILIRUBIN NEGATIVE (NEGATIVE); URINE COLOR DK YELLOW; URINE GLUCOSE (UA) NEGATIVE (NEGATIVE); URINE KETONE NEGATIVE (NEGATIVE); URINE LEUK ESTERASE NEGATIVE (NEGATIVE); URINE NITRITE NEGATIVE (NEGATIVE); URINE PROTEIN 3+ (NEGATIVE); URINE RBC 4 /uL (0-23.9); URINE WBC 5 /uL (0-25.8)
[2021-06-30] MEDS: PIPERACILLIN/TAZOB 2.25 GM 2.25 GM in DEXTROSE 5%-WATER - 50 ML IVPB SCH ×3 (05:35→17:54)
[2021-06-30] MEDS ORDERED: PIPERACILLIN/TAZOBACTAM 2.25 GM VIAL IVPB ONE ×3 (06:30→17:23)
[2021-06-30] MEDS ORDERED: DEXTROSE 5%-WATER - 50 ML IVPB ONE ×3 (06:30→17:23)
[2021-06-30] MEDS: HEPARIN NA (PORCINE) 5,000 UNITS/ML 1ML VIAL SQ SCH ×3 (06:35→21:09)
[2021-06-30] MEDS: INSULIN SLIDING SCALE (NOVOLOG) 1 VIAL SQ SCH ×4 (06:35→21:08)
[2021-06-30 07:26] LABS: BASO % 0.4 % (0-2.0); EOS % 0.8 % (0-4.5); HEMOGLOBIN 11.1 GM/dL (10.7-15.3); LYMPH % 13.3 % (8-40); MCH 29.2 pg (25.7-33.7); MCHC 32.6 g/dl (32.0-36.0); MEAN CELL VOLUME 89.7 fl (80-96); MEAN PLT VOLUME 9.6 fl (7.5-11.1); NEUT % 75.5 % (42.8-82.8); PLATELET COUNT 157 10^3/uL (134-434); RDW 15.5 % (11.6-15.6); WHITE BLOOD COUNT 14.2 K/mm3 (4.0-10.0)
[2021-06-30 07:38] LABS: CALCIUM 8.4 mg/dL (8.5-10.1)
[2021-06-30 07:39] LABS: BLOOD UREA NITROGEN 54.6 mg/dL (7-18); MAGNESIUM 2.3 mg/dL (1.8-2.4)
[2021-06-30 07:42] LABS: PHOSPHOROUS 4.1 mg/dL (2.5-4.9)
[2021-06-30] MEDS ORDERED: SODIUM CHLORIDE 250 ML IV PRN (11:51)
[2021-07-01] MEDS ORDERED: PIPERACILLIN/TAZOBACTAM 2.25 GM VIAL IVPB ONE ×2 (01:19→09:02)
[2021-07-01] MEDS ORDERED: DEXTROSE 5%-WATER - 50 ML IVPB ONE ×2 (01:19→09:02)
[2021-07-01] MEDS: PIPERACILLIN/TAZOB 2.25 GM 2.25 GM in DEXTROSE 5%-WATER - 50 ML IVPB SCH ×3 (02:05→12:18)
[2021-07-01] MEDS: HEPARIN NA (PORCINE) 5,000 UNITS/ML 1ML VIAL SQ SCH ×3 (05:19→22:17)
[2021-07-01] MEDS: INSULIN SLIDING SCALE (NOVOLOG) 1 VIAL SQ SCH ×4 (07:27→22:20)
[2021-07-01] MEDS: CLOPIDOGREL BISULFATE 75 MG TABLET (FP) PO SCH (09:23)
[2021-07-01] MEDS ORDERED: VANCOMYCIN PREMIX 1.5 GM 1,500 MG/300 ML BAG IVPB ONE (11:15)
[2021-07-01 13:15] LABS: BASO % 0.5 % (0-2.0); EOS % 3.6 % (0-4.5); HEMATOCRIT 35.6 % (32.4-45.2); HEMOGLOBIN 11.6 GM/dL (10.7-15.3); LYMPH % 16.3 % (8-40); MCH 28.7 pg (25.7-33.7); MCHC 32.6 g/dl (32.0-36.0); MEAN PLT VOLUME 9.5 fl (7.5-11.1); MONO % 9.9 % (3.8-10.2); NEUT % 69.7 % (42.8-82.8); PLATELET COUNT 171 10^3/uL (134-434); RBC 4.05 M/mm3 (3.60-5.2); RDW 15.4 % (11.6-15.6); WHITE BLOOD COUNT 12.3 K/mm3 (4.0-10.0)
[2021-07-01 13:39] LABS: CALCIUM 8.5 mg/dL (8.5-10.1)
[2021-07-01 13:40] LABS: ALBUMIN 2.9 g/dl (3.4-5.0); BLOOD UREA NITROGEN 31.9 mg/dL (7-18); MAGNESIUM 2.2 mg/dL (1.8-2.4)
[2021-07-01 13:43] LABS: CREATININE 2.7 mg/dL (0.55-1.3)
[2021-07-01 13:44] LABS: TOT PROT 6.4 g/dl (6.4-8.2)
[2021-07-01 13:45] LABS: BILIRUBIN,TOTAL 0.8 mg/dL (0.2-1)
[2021-07-01] MEDS: hydrALAZINE HCL 50 MG TABLET (FP) PO SCH ×2 (15:04→22:17)
[2021-07-01 15:12] LABS: BILIRUBIN,DIRECT 0.5 mg/dL (0.0-0.2)
[2021-07-01] MEDS: ATORVASTATIN CA 20 MG TABLET (FP) PO SCH (22:17)
[2021-07-01] MEDS ORDERED: ACETAMINOPHEN 1000 MG/100 ML BAG IVPB ONE (22:44)
[2021-07-02] MEDS: hydrALAZINE HCL 50 MG TABLET (FP) PO SCH ×3 (05:59→21:27)
[2021-07-02] MEDS: HEPARIN NA (PORCINE) 5,000 UNITS/ML 1ML VIAL SQ SCH ×3 (06:00→21:27)
[2021-07-02] MEDS: INSULIN SLIDING SCALE (NOVOLOG) 1 VIAL SQ SCH ×4 (06:09→21:25)
[2021-07-02 07:16] LABS: HEMATOCRIT 34.3 % (32.4-45.2); HEMOGLOBIN 10.9 GM/dL (10.7-15.3); MCH 28.6 pg (25.7-33.7); MCHC 31.8 g/dl (32.0-36.0); MEAN CELL VOLUME 90.1 fl (80-96); MEAN PLT VOLUME 10.1 fl (7.5-11.1); PLATELET COUNT 172 10^3/uL (134-434); RBC 3.81 M/mm3 (3.60-5.2); RDW 15.5 % (11.6-15.6); WHITE BLOOD COUNT 10.9 K/mm3 (4.0-10.0)
[2021-07-02 07:39] LABS: CALCIUM 8.4 mg/dL (8.5-10.1)
[2021-07-02 07:40] LABS: MAGNESIUM 2.4 mg/dL (1.8-2.4)
[2021-07-02 07:41] LABS: ALBUMIN 2.6 g/dl (3.4-5.0)
[2021-07-02 07:43] LABS: CREATININE 4.1 mg/dL (0.55-1.3)
[2021-07-02 07:45] LABS: BILIRUBIN,TOTAL 0.7 mg/dL (0.2-1); TOT PROT 5.9 g/dl (6.4-8.2)
[2021-07-02 08:17] LABS: ANISOCYTOSIS 1+; MACROCYTOSIS 0; PLATELET ESTIMATE NORMAL
[2021-07-02] MEDS: CLOPIDOGREL BISULFATE 75 MG TABLET (FP) PO SCH (10:44)
[2021-07-02] MEDS: PIPERACILLIN/TAZOB 2.25 GM 2.25 GM in DEXTROSE 5%-WATER - 50 ML IVPB SCH ×2 (11:00→17:40)
[2021-07-02] MEDS ORDERED: PIPERACILLIN/TAZOBACTAM 2.25 GM VIAL IVPB ONE ×3 (11:41→23:54)
[2021-07-02] MEDS ORDERED: DEXTROSE 5%-WATER - 50 ML IVPB ONE ×3 (11:42→23:54)
[2021-07-02] MEDS ORDERED: SODIUM CHLORIDE 250 ML IV PRN (13:30)
[2021-07-02] MEDS: LOSARTAN POTASSIUM 50 MG TABLET PO SCH (16:32)
[2021-07-02] MEDS: ATORVASTATIN CA 20 MG TABLET (FP) PO SCH (21:27)
[2021-07-03] MEDS: PIPERACILLIN/TAZOB 2.25 GM 2.25 GM in DEXTROSE 5%-WATER - 50 ML IVPB SCH ×3 (01:08→17:53)
[2021-07-03] MEDS: hydrALAZINE HCL 50 MG TABLET (FP) PO SCH ×3 (05:24→22:52)
[2021-07-03] MEDS: HEPARIN NA (PORCINE) 5,000 UNITS/ML 1ML VIAL SQ SCH ×3 (05:24→22:50)
[2021-07-03] MEDS: INSULIN SLIDING SCALE (NOVOLOG) 1 VIAL SQ SCH ×4 (06:17→22:53)
[2021-07-03 06:47] LABS: BASO % 0.5 % (0-2.0); EOS % 4.3 % (0-4.5); HEMOGLOBIN 10.9 GM/dL (10.7-15.3); LYMPH % 36.1 % (8-40); MCH 28.5 pg (25.7-33.7); MCHC 32.1 g/dl (32.0-36.0); MEAN CELL VOLUME 88.9 fl (80-96); MEAN PLT VOLUME 10.4 fl (7.5-11.1); MONO % 11.6 % (3.8-10.2); NEUT % 47.5 % (42.8-82.8); PLATELET COUNT 181 10^3/uL (134-434); RBC 3.82 M/mm3 (3.60-5.2); RDW 15.9 % (11.6-15.6)
[2021-07-03 07:22] LABS: CALCIUM 9.1 mg/dL (8.5-10.1)
[2021-07-03 07:23] LABS: ALBUMIN 2.6 g/dl (3.4-5.0); MAGNESIUM 2.5 mg/dL (1.8-2.4)
[2021-07-03 07:26] LABS: CREATININE 5.3 mg/dL (0.55-1.3)
[2021-07-03 07:27] LABS: BILIRUBIN,TOTAL 0.9 mg/dL (0.2-1); TOT PROT 5.9 g/dl (6.4-8.2)
[2021-07-03] MEDS ORDERED: PIPERACILLIN/TAZOBACTAM 2.25 GM VIAL IVPB ONE ×2 (09:39→17:50)
[2021-07-03] MEDS ORDERED: DEXTROSE 5%-WATER - 50 ML IVPB ONE ×2 (09:39→17:50)
[2021-07-03] MEDS: CLOPIDOGREL BISULFATE 75 MG TABLET (FP) PO SCH (11:54)
[2021-07-03] MEDS: LOSARTAN POTASSIUM 50 MG TABLET PO SCH (11:54)
[2021-07-03] MEDS ORDERED: SODIUM CHLORIDE 250 ML IV PRN ×2 (22:08)
[2021-07-03] MEDS: ATORVASTATIN CA 20 MG TABLET (FP) PO SCH (22:50)
[2021-07-04] MEDS: PIPERACILLIN/TAZOB 2.25 GM 2.25 GM in DEXTROSE 5%-WATER - 50 ML IVPB SCH ×3 (02:00→17:06)
[2021-07-04] MEDS ORDERED: DEXTROSE 5%-WATER - 50 ML IVPB ONE ×3 (03:46→15:26)
[2021-07-04] MEDS ORDERED: PIPERACILLIN/TAZOBACTAM 2.25 GM VIAL IVPB ONE ×3 (03:46→15:26)
[2021-07-04] MEDS: HEPARIN NA (PORCINE) 5,000 UNITS/ML 1ML VIAL SQ SCH ×3 (06:00→21:55)
[2021-07-04] MEDS: hydrALAZINE HCL 50 MG TABLET (FP) PO SCH ×3 (06:00→21:55)
[2021-07-04] MEDS ORDERED: HEPARIN NA (PORCINE) 5,000 UNITS/ML 1ML VIAL SQ SCH (06:00)
[2021-07-04] MEDS ORDERED: hydrALAZINE HCL 50 MG TABLET (FP) PO SCH (06:00)
[2021-07-04] MEDS: INSULIN SLIDING SCALE (NOVOLOG) 1 VIAL SQ SCH ×5 (06:42→21:56)
[2021-07-04] MEDS ORDERED: INSULIN SLIDING SCALE (NOVOLOG) 1 VIAL SQ SCH (07:00)
[2021-07-04 09:47] LABS: BASO % 0.7 % (0-2.0); EOS % 3.3 % (0-4.5); HEMATOCRIT 33.2 % (32.4-45.2); LYMPH % 36.8 % (8-40); MCH 28.8 pg (25.7-33.7); MCHC 33.2 g/dl (32.0-36.0); MEAN CELL VOLUME 86.9 fl (80-96); MEAN PLT VOLUME 9.7 fl (7.5-11.1); MONO % 11.1 % (3.8-10.2); NEUT % 48.1 % (42.8-82.8); PLATELET COUNT 190 10^3/uL (134-434); RBC 3.82 M/mm3 (3.60-5.2); RDW 15.6 % (11.6-15.6); WHITE BLOOD COUNT 11.9 K/mm3 (4.0-10.0)
[2021-07-04 10:18] LABS: CALCIUM 9.4 mg/dL (8.5-10.1)
[2021-07-04 10:19] LABS: ALBUMIN 2.7 g/dl (3.4-5.0); BLOOD UREA NITROGEN 52.6 mg/dL (7-18); MAGNESIUM 2.4 mg/dL (1.8-2.4)
[2021-07-04 10:22] LABS: CREATININE 5.2 mg/dL (0.55-1.3)
[2021-07-04 10:23] LABS: BILIRUBIN,TOTAL 0.8 mg/dL (0.2-1); TOT PROT 6.1 g/dl (6.4-8.2)
[2021-07-04] MEDS: CLOPIDOGREL BISULFATE 75 MG TABLET (FP) PO SCH (10:43)
[2021-07-04] MEDS: LOSARTAN POTASSIUM 50 MG TABLET PO SCH (10:44)
[2021-07-04] MEDS: ATORVASTATIN CA 20 MG TABLET (FP) PO SCH (21:56)
[2021-07-04] MEDS ORDERED: ATORVASTATIN CA 20 MG TABLET (FP) PO SCH (22:00)
[2021-07-05] MEDS ORDERED: PIPERACILLIN/TAZOBACTAM 2.25 GM VIAL IVPB ONE (01:08)
[2021-07-05] MEDS ORDERED: DEXTROSE 5%-WATER - 50 ML IVPB ONE ×2 (01:08→12:17)
[2021-07-05] MEDS: PIPERACILLIN/TAZOB 2.25 GM 2.25 GM in DEXTROSE 5%-WATER - 50 ML IVPB SCH (01:59)
[2021-07-05] MEDS: hydrALAZINE HCL 50 MG TABLET (FP) PO SCH ×4 (05:46→22:03)
[2021-07-05] MEDS: HEPARIN NA (PORCINE) 5,000 UNITS/ML 1ML VIAL SQ SCH ×4 (05:46→22:04)
[2021-07-05] MEDS: ATORVASTATIN CA 20 MG TABLET (FP) PO SCH ×2 (07:51→22:03)
[2021-07-05] MEDS: INSULIN SLIDING SCALE (NOVOLOG) 1 VIAL SQ SCH ×5 (07:51→22:08)
[2021-07-05 10:00] LABS: BASO % 0.7 % (0-2.0); EOS % 3.7 % (0-4.5); HEMATOCRIT 33.4 % (32.4-45.2); HEMOGLOBIN 10.9 GM/dL (10.7-15.3); LYMPH % 41.7 % (8-40); MCH 28.8 pg (25.7-33.7); MCHC 32.8 g/dl (32.0-36.0); MEAN CELL VOLUME 87.7 fl (80-96); MEAN PLT VOLUME 9.5 fl (7.5-11.1); MONO % 9.1 % (3.8-10.2); NEUT % 44.8 % (42.8-82.8); PLATELET COUNT 208 10^3/uL (134-434); RDW 15.3 % (11.6-15.6); WHITE BLOOD COUNT 11.7 K/mm3 (4.0-10.0)
[2021-07-05] MEDS: CLOPIDOGREL BISULFATE 75 MG TABLET (FP) PO SCH (11:16)
[2021-07-05] MEDS: LOSARTAN POTASSIUM 50 MG TABLET PO SCH (11:16)
[2021-07-05] MEDS ORDERED: SODIUM CHLORIDE 250 ML IV PRN (11:19)
[2021-07-05 11:54] LABS: ALBUMIN 2.6 g/dl (3.4-5.0); BILIRUBIN,TOTAL 0.4 mg/dL (0.2-1); BLOOD UREA NITROGEN 72.1 mg/dL (7-18); CREATININE 6.8 mg/dL (0.55-1.3); MAGNESIUM 2.6 mg/dL (1.8-2.4)
[2021-07-05] MEDS ORDERED: ceFAZolin SODIUM 1 GM VIAL ONE (12:17)
[2021-07-05] MEDS: CEFAZOLIN 1 GM in DEXTROSE 5%-WATER - 50 ML IVPB SCH (13:30)
[2021-07-06] MEDS: INSULIN SLIDING SCALE (NOVOLOG) 1 VIAL SQ SCH ×4 (06:10→21:41)
[2021-07-06] MEDS: HEPARIN NA (PORCINE) 5,000 UNITS/ML 1ML VIAL SQ SCH ×3 (07:49→21:41)
[2021-07-06 09:40] LABS: HEMOGLOBIN 10.6 GM/dL (10.7-15.3); MCH 28.8 pg (25.7-33.7); MEAN PLT VOLUME 9.5 fl (7.5-11.1); PLATELET COUNT 240 10^3/uL (134-434); RBC 3.68 M/mm3 (3.60-5.2); WHITE BLOOD COUNT 12.8 K/mm3 (4.0-10.0)
[2021-07-06 10:06] LABS: CHLORIDE 98 mmol/L (98-107); SODIUM 136 mmol/L (136-145)
[2021-07-06 10:08] LABS: CALCIUM 8.9 mg/dL (8.5-10.1)
[2021-07-06 10:09] LABS: ALBUMIN 2.6 g/dl (3.4-5.0); ANION GAP 11 MMOL/L (8-16); CO2 28 mmol/L (21-32); GLUCOSE,RANDOM 222 mg/dL (74-106)
[2021-07-06 10:12] LABS: SGOT/AST 30 U/L (15-37); SGPT/ALT 39 U/L (13-61)
[2021-07-06 10:13] LABS: BILIRUBIN,TOTAL 0.4 mg/dL (0.2-1)
[2021-07-06 10:14] LABS: TOT PROT 6.1 g/dl (6.4-8.2)
[2021-07-06 10:15] LABS: ALK PHOS 231 U/L (45-117)
[2021-07-06 10:37] LABS: CREATININE 7.7 mg/dL (0.55-1.3)
[2021-07-06] MEDS ORDERED: ceFAZolin SODIUM 1 GM VIAL ONE (12:26)
[2021-07-06] MEDS ORDERED: DEXTROSE 5%-WATER - 50 ML IVPB ONE (12:27)
[2021-07-06] MEDS: hydrALAZINE HCL 50 MG TABLET (FP) PO SCH ×3 (12:29→21:41)
[2021-07-06] MEDS: CLOPIDOGREL BISULFATE 75 MG TABLET (FP) PO SCH (12:29)
[2021-07-06] MEDS: LOSARTAN POTASSIUM 50 MG TABLET PO SCH (12:29)
[2021-07-06] MEDS: CEFAZOLIN 1 GM in DEXTROSE 5%-WATER - 50 ML IVPB SCH (12:29)
[2021-07-06] MEDS: ATORVASTATIN CA 20 MG TABLET (FP) PO SCH (21:41)
[2021-07-07] MEDS: hydrALAZINE HCL 50 MG TABLET (FP) PO SCH ×3 (06:31→22:04)
[2021-07-07] MEDS: HEPARIN NA (PORCINE) 5,000 UNITS/ML 1ML VIAL SQ SCH ×3 (06:31→22:03)
[2021-07-07] MEDS: INSULIN SLIDING SCALE (NOVOLOG) 1 VIAL SQ SCH ×4 (06:33→22:13)
[2021-07-07] MEDS ORDERED: ceFAZolin SODIUM 1 GM VIAL ONE (09:23)
[2021-07-07] MEDS ORDERED: DEXTROSE 5%-WATER - 50 ML IVPB ONE (09:23)
[2021-07-07] MEDS: CEFAZOLIN 1 GM in DEXTROSE 5%-WATER - 50 ML IVPB SCH (09:27)
[2021-07-07] MEDS: CLOPIDOGREL BISULFATE 75 MG TABLET (FP) PO SCH (09:27)
[2021-07-07] MEDS: LOSARTAN POTASSIUM 50 MG TABLET PO SCH (09:27)
[2021-07-07 17:18] VITALS: BMI 24.1
[2021-07-07] MEDS: ATORVASTATIN CA 20 MG TABLET (FP) PO SCH (22:03)
[2021-07-08] MEDS: HEPARIN NA (PORCINE) 5,000 UNITS/ML 1ML VIAL SQ SCH ×2 (06:06→14:14)
[2021-07-08] MEDS: hydrALAZINE HCL 50 MG TABLET (FP) PO SCH ×2 (06:06→14:16)
[2021-07-08] MEDS: INSULIN SLIDING SCALE (NOVOLOG) 1 VIAL SQ SCH ×3 (06:26→17:28)
[2021-07-08] MEDS ORDERED: DEXTROSE 5%-WATER - 50 ML IVPB ONE (10:15)
[2021-07-08] MEDS ORDERED: ceFAZolin SODIUM 1 GM VIAL ONE (10:15)
[2021-07-08] MEDS: CEFAZOLIN 1 GM in DEXTROSE 5%-WATER - 50 ML IVPB SCH (10:40)
[2021-07-08] MEDS ORDERED: EPOETIN ALFA-EPBX 2,000 UNIT/ML VIAL SQ ONE (11:00)
[2021-07-08] MEDS ORDERED: SODIUM CHLORIDE 250 ML IV PRN (11:00)
[2021-07-08 11:23] LABS: BASO % 0.6 % (0-2.0); EOS % 3.1 % (0-4.5); HEMATOCRIT 32.4 % (32.4-45.2); HEMOGLOBIN 10.8 GM/dL (10.7-15.3); LYMPH % 45.3 % (8-40); MCHC 33.3 g/dl (32.0-36.0); MEAN CELL VOLUME 86.9 fl (80-96); MEAN PLT VOLUME 9.4 fl (7.5-11.1); MONO % 2.3 % (3.8-10.2); NEUT % 48.7 % (42.8-82.8); PLATELET COUNT 279 10^3/uL (134-434); RBC 3.73 M/mm3 (3.60-5.2); RDW 15.5 % (11.6-15.6); WHITE BLOOD COUNT 11.4 K/mm3 (4.0-10.0)
[2021-07-08 11:46] LABS: ALBUMIN 2.8 g/dl (3.4-5.0); CALCIUM 8.9 mg/dL (8.5-10.1); MAGNESIUM 2.3 mg/dL (1.8-2.4)
[2021-07-08 11:49] LABS: CREATININE 4.1 mg/dL (0.55-1.3)
[2021-07-08 11:50] LABS: BILIRUBIN,TOTAL 0.7 mg/dL (0.2-1)
[2021-07-08 11:51] LABS: TOT PROT 6.2 g/dl (6.4-8.2)
[2021-07-08 12:00] LABS: BLOOD UREA NITROGEN 39.8 mg/dL (7-18)
[2021-07-08] MEDS: CLOPIDOGREL BISULFATE 75 MG TABLET (FP) PO SCH (14:16)
[2021-07-08] MEDS: LOSARTAN POTASSIUM 50 MG TABLET PO SCH (14:16)
[2021-07-08 18:37] VITALS: BP 132/76; PULSE 80; TEMP 98.3
== END 2021-07-08 18:46 | disposition home health service (06) | DRG 871 ==
LOC: JER 12:32 → JERBED 19:57 → UNDOADMOB 19:57 → INTOOBSV 19:57 → J2W 06-30 03:47 → JERBED 06-30 03:47 → J2W 06-30 08:57 → OBSVTOIN 07-01 07:12 → J5S 07-03 22:13
PROVIDERS: ADMIT Internal Medicine; ATTEND Nurse Practitioner Acute Care
PROC: 5A1D70Z Performance of Urinary Filtration, Intermittent, Less than 6 Hours Per Day (ICD-10-PCS; principal; 2021-07-08)
DX: R78.81 Bacteremia (principal); N18.6 End stage renal disease; C95.90 Leukemia, unspecified not having achieved remission; I12.0 Hypertensive chronic kidney disease with stage 5 chronic kidney disease or end stage renal disease; R10.84 Generalized abdominal pain; E11.621 Type 2 diabetes mellitus with foot ulcer; I73.9 Peripheral vascular disease, unspecified; R80.9 Proteinuria, unspecified; D72.829 Elevated white blood cell count, unspecified; R77.8 Other specified abnormalities of plasma proteins; R74.8 Abnormal levels of other serum enzymes; E11.22 Type 2 diabetes mellitus with diabetic chronic kidney disease; E78.5 Hyperlipidemia, unspecified; Z99.2 Dependence on renal dialysis
CPT/HCPCS: 0241U-QW; 36415; 71045-TC-FY; 74176-TC; 76705-TC; 80053; 80076; 81003; 82962; 83036; 83605; 83690; 83735; 84100; 84484; 85025; 85027; 85610; 85730; 86705; 86803; 86850; 86900; 86901; 87040; 87086; 87186; 87340; 87517; 93005; 93010; 93306-TC; 97116-GP; 97161-GP; 99285-25; G0378; G0480; J1644; Q5106

== ENCOUNTER 2021-08-28 00:56 | Inpatient (IN) | payer MEDICARE, OTHER ==
[2021-08-28] MEDS ORDERED: ACETAMINOPHEN 1000 MG/100 ML BAG IVPB ONE (01:33)
[2021-08-28] MEDS ORDERED: ACETAMINOPHEN INJECTION 100 ML IVPB ONE (02:17)
[2021-08-28 02:34] LABS: BASO % 0.2 % (0-2.0); HEMATOCRIT 37.4 % (32.4-45.2); LYMPH % 17.1 % (8-40); MCH 27.7 pg (25.7-33.7); MCHC 32.2 g/dl (32.0-36.0); MEAN CELL VOLUME 85.8 fl (80-96); NEUT % 79.7 % (42.8-82.8); PLATELET COUNT 181 10^3/uL (134-434); RBC 4.35 M/mm3 (3.60-5.2); RDW 18.6 % (11.6-15.6); WHITE BLOOD COUNT 18.7 K/mm3 (4.0-10.0)
[2021-08-28 02:41] LABS: VENOUS BASE EXCESS -4.1 mmol/L (-2-2); VENOUS O2 SATURATION 82.4 % (70-80); VENOUS PCO2 31.2 mmHg (38-52); VENOUS PH 7.412 (7.310-7.410)
[2021-08-28 02:49] LABS: INR 1.03 (0.83-1.09); PROTHROMBIN TIME (PATIENT) 11.8 SEC (9.7-13.0)
[2021-08-28 02:52] LABS: ACTIVATED PTT 29.2 SECONDS (25.2-36.5)
[2021-08-28 02:54] LABS: CALCIUM 9.4 mg/dL (8.5-10.1)
[2021-08-28 02:55] LABS: ALBUMIN 3.8 g/dl (3.4-5.0); BLOOD UREA NITROGEN 75.5 mg/dL (7-18)
[2021-08-28 02:57] LABS: MAGNESIUM 2.6 mg/dL (1.8-2.4)
[2021-08-28 02:58] LABS: CREATININE 7.3 mg/dL (0.55-1.3)
[2021-08-28 03:00] LABS: BILIRUBIN,TOTAL 1.3 mg/dL (0.2-1); TOT PROT 7.4 g/dl (6.4-8.2)
[2021-08-28 03:01] LABS: PHOSPHOROUS 2.8 mg/dL (2.5-4.9)
[2021-08-28] MEDS ORDERED: VANCOMYCIN 1 GM in D5W (PRE-DOCKED) 1,000 MG/250 ML IVPB ONE (03:01)
[2021-08-28] MEDS ORDERED: VANCOMYCIN/WATER FOR INJ (PEG) 1,000 MG/200 ML BAG IVPB ONE (03:58)
[2021-08-28 03:59] LABS: EPI CELLS 5 /uL (0-25.1); HYALINE CASTS 1 /uL (0-3.1); URINE APPEARANCE CLEAR; URINE BACTERIA 7 /uL (0-1359); URINE BILIRUBIN NEGATIVE (NEGATIVE); URINE COLOR DK YELLOW; URINE GLUCOSE (UA) NEGATIVE (NEGATIVE); URINE KETONE TRACE (NEGATIVE); URINE LEUK ESTERASE NEGATIVE (NEGATIVE); URINE NITRITE NEGATIVE (NEGATIVE); URINE PROTEIN 3+ (NEGATIVE); URINE RBC 6 /uL (0-23.9); URINE WBC 5 /uL (0-25.8)
[2021-08-28] MEDS ORDERED: PIPERACILLIN/TAZOB 4.5 GM 2.25 GM in DEXTROSE 5%-WATER 100 ML IVPB ONE (04:23)
[2021-08-28] MEDS ORDERED: ASPIRIN 81 MG CHEWABLE TABLETS PO ONE (05:57)
[2021-08-28] MEDS ORDERED: CEFTRIAXONE 1 GM in DEXTROSE 5%-WATER - 50 ML IVPB ONE (05:58)
[2021-08-28] MEDS ORDERED: PIPERACILLIN/TAZOB 2.25 GM 2.25 GM/50 ML BAG IVPB ONE (06:01)
[2021-08-28] MEDS ORDERED: SODIUM CHLORIDE 0.9% 500 ML INFUS.BAG IV ONE (07:18)
[2021-08-28] MEDS ORDERED: CEFTRIAXONE 1 GM/50 ML BAG ONE (07:20)
[2021-08-28] MEDS ORDERED: MIDAZOLAM HCL 2 MG/2 ML SINGLE DOSE VIAL IVPUSH ONE (07:30)
[2021-08-28] MEDS ORDERED: MIDAZOLAM HCL 2 MG/2 ML SINGLE DOSE VIAL ONE (07:46)
[2021-08-28 08:05] LABS: BILIRUBIN,DIRECT 0.6 mg/dL (0.0-0.2)
[2021-08-28 09:41] LABS: CSF COLOR YELLOW (COLORLESS)
[2021-08-28 09:42] LABS: CSF APPEARANCE HAZY (CLEAR); CSF WBC 1 mm3 (0-5)
[2021-08-28 11:08] LABS: BF GLUCOSE (CSF ONLY) 122 mg/dL (40-70)
[2021-08-28] MEDS ORDERED: ACETAMINOPHEN 325 MG TABLET (FP) PO PRN (15:42)
[2021-08-28] MEDS ORDERED: SODIUM CHLORIDE 250 ML IV PRN (16:05)
[2021-08-28] MEDS ORDERED: CLOPIDOGREL BISULFATE 75 MG TABLET (FP) ONE (18:21)
[2021-08-28] MEDS: CLOPIDOGREL BISULFATE 75 MG TABLET (FP) PO SCH (18:28)
[2021-08-28] MEDS: INSULIN SLIDING SCALE (NOVOLOG) 1 VIAL SQ SCH ×2 (18:28→23:12)
[2021-08-28] MEDS ORDERED: hydrALAZINE HCL 50 MG TABLET (FP) ONE (21:46)
[2021-08-28] MEDS ORDERED: ATORVASTATIN CA 20 MG TABLET (FP) ONE (21:46)
[2021-08-28] MEDS ORDERED: HEPARIN NA (PORCINE) 5,000 UNITS/ML 1ML VIAL ONE (21:46)
[2021-08-28] MEDS ORDERED: INSULIN (NOVOLOG) ASPART 100 UNITS/ML 10ML VIAL ONE (21:47)
[2021-08-28] MEDS ORDERED: ATORVASTATIN CA 20 MG TABLET (FP) PO SCH (22:00)
[2021-08-28] MEDS: hydrALAZINE HCL 50 MG TABLET (FP) PO SCH (23:10)
[2021-08-28] MEDS: HEPARIN NA (PORCINE) 5,000 UNITS/ML 1ML VIAL SQ SCH (23:11)
[2021-08-29 05:37] VITALS: BMI 23.5
[2021-08-29] MEDS: HEPARIN NA (PORCINE) 5,000 UNITS/ML 1ML VIAL SQ SCH ×3 (06:30→21:57)
[2021-08-29] MEDS: INSULIN SLIDING SCALE (NOVOLOG) 1 VIAL SQ SCH ×4 (06:30→22:01)
[2021-08-29] MEDS: hydrALAZINE HCL 50 MG TABLET (FP) PO SCH ×3 (06:30→21:57)
[2021-08-29] MEDS ORDERED: cefTRIAXone SODIUM 1 GM VIAL ONE (09:08)
[2021-08-29] MEDS ORDERED: DEXTROSE 5%-WATER - 50 ML IVPB ONE (09:08)
[2021-08-29] MEDS: LOSARTAN POTASSIUM 50 MG TABLET PO SCH (09:14)
[2021-08-29] MEDS: CLOPIDOGREL BISULFATE 75 MG TABLET (FP) PO SCH (09:14)
[2021-08-29 09:41] LABS: BASO % 0.4 % (0-2.0); EOS % 0.9 % (0-4.5); HEMATOCRIT 36.9 % (32.4-45.2); HEMOGLOBIN 12.1 GM/dL (10.7-15.3); MCH 28.3 pg (25.7-33.7); MCHC 32.7 g/dl (32.0-36.0); MEAN CELL VOLUME 86.6 fl (80-96); MEAN PLT VOLUME 9.8 fl (7.5-11.1); MONO % 9.1 % (3.8-10.2); NEUT % 74.6 % (42.8-82.8); PLATELET COUNT 156 10^3/uL (134-434); RBC 4.26 M/mm3 (3.60-5.2); RDW 19.3 % (11.6-15.6)
[2021-08-29 09:56] LABS: CALCIUM 8.4 mg/dL (8.5-10.1)
[2021-08-29 09:57] LABS: MAGNESIUM 2.4 mg/dL (1.8-2.4)
[2021-08-29 10:00] LABS: CREATININE 5.3 mg/dL (0.55-1.3); PHOSPHOROUS 3.3 mg/dL (2.5-4.9)
[2021-08-29] MEDS ORDERED: CEFTRIAXONE 1 GM in DEXTROSE 5%-WATER - 50 ML IVPB SCH (10:00)
[2021-08-29 10:01] LABS: BILIRUBIN,TOTAL 0.7 mg/dL (0.2-1); TOT PROT 6.2 g/dl (6.4-8.2)
[2021-08-29 10:10] LABS: ALBUMIN 2.9 g/dl (3.4-5.0); BLOOD UREA NITROGEN 46.2 mg/dL (7-18)
[2021-08-29 14:33] VITALS: RESP 18
[2021-08-29] MEDS ORDERED: ACETAMINOPHEN 500 MG TABLET (FP) PO PRN (17:38)
[2021-08-30] MEDS: HEPARIN NA (PORCINE) 5,000 UNITS/ML 1ML VIAL SQ SCH ×3 (05:49→22:02)
[2021-08-30] MEDS: hydrALAZINE HCL 50 MG TABLET (FP) PO SCH ×3 (05:49→22:02)
[2021-08-30] MEDS: INSULIN SLIDING SCALE (NOVOLOG) 1 VIAL SQ SCH ×4 (06:03→22:16)
[2021-08-30] MEDS: CLOPIDOGREL BISULFATE 75 MG TABLET (FP) PO SCH (10:36)
[2021-08-30] MEDS: LOSARTAN POTASSIUM 50 MG TABLET PO SCH (10:37)
[2021-08-30 11:05] LABS: BASO % 0.6 % (0-2.0); EOS % 1.7 % (0-4.5); HEMATOCRIT 35.7 % (32.4-45.2); HEMOGLOBIN 11.4 GM/dL (10.7-15.3); MCH 27.5 pg (25.7-33.7); MCHC 31.9 g/dl (32.0-36.0); MEAN CELL VOLUME 86.3 fl (80-96); MEAN PLT VOLUME 9.9 fl (7.5-11.1); MONO % 10.9 % (3.8-10.2); NEUT % 65.8 % (42.8-82.8); PLATELET COUNT 188 10^3/uL (134-434); RBC 4.14 M/mm3 (3.60-5.2); RDW 18.3 % (11.6-15.6); WHITE BLOOD COUNT 14.8 K/mm3 (4.0-10.0)
[2021-08-30 11:19] LABS: CALCIUM 8.3 mg/dL (8.5-10.1)
[2021-08-30 11:20] LABS: ALBUMIN 2.9 g/dl (3.4-5.0); BLOOD UREA NITROGEN 67.8 mg/dL (7-18); MAGNESIUM 2.7 mg/dL (1.8-2.4)
[2021-08-30 11:23] LABS: PHOSPHOROUS 3.3 mg/dL (2.5-4.9)
[2021-08-30 11:24] LABS: BILIRUBIN,TOTAL 0.6 mg/dL (0.2-1)
[2021-08-30 11:25] LABS: TOT PROT 6.2 g/dl (6.4-8.2)
[2021-08-30] MEDS ORDERED: CEFTRIAXONE 1 GM in DEXTROSE 5%-WATER - 50 ML IVPB SCH ×3 (12:45→13:15)
[2021-08-30] MEDS ORDERED: DEXTROSE 5%-WATER - 50 ML IVPB ONE (13:04)
[2021-08-30] MEDS ORDERED: cefTRIAXone SODIUM 1 GM VIAL ONE (13:04)
[2021-08-30] MEDS ORDERED: PATIENT'S OWN MEDICATION (NON-FORMULARY) (Dorzolamide/Timolol/Pf [Dorzolamide-Timolol 2%-0 OP SCH (22:00)
[2021-08-30] MEDS: ATORVASTATIN CA 40 MG TABLET (FP) PO SCH (22:02)
[2021-08-30] MEDS: BRIMONIDINE TARTRATE 0.2% OPHTHALMIC 5 ML BOTTLE OU SCH (22:03)
[2021-08-30] MEDS: TIMOLOL 0.5% OPHTHALMIC SOL 5 ML BOTTLE OU SCH (22:03)
[2021-08-30] MEDS: LATANOPROST 0.005% OPHTH SOLN 2.5ML BOTTLE OU SCH (22:04)
[2021-08-30] MEDS: DORZOLAMIDE 2% HCL OPHTHALMIC SOLUTION 10 ML BOTTLE OU SCH (22:04)
[2021-08-31] MEDS: hydrALAZINE HCL 50 MG TABLET (FP) PO SCH ×3 (06:21→21:28)
[2021-08-31] MEDS: HEPARIN NA (PORCINE) 5,000 UNITS/ML 1ML VIAL SQ SCH ×3 (06:21→21:28)
[2021-08-31] MEDS: INSULIN SLIDING SCALE (NOVOLOG) 1 VIAL SQ SCH ×4 (06:25→21:42)
[2021-08-31 10:25] LABS: HEMATOCRIT 33.4 % (32.4-45.2); MCH 28.3 pg (25.7-33.7); MEAN CELL VOLUME 85.6 fl (80-96); MEAN PLT VOLUME 9.6 fl (7.5-11.1); PLATELET COUNT 192 10^3/uL (134-434); RDW 18.4 % (11.6-15.6); WHITE BLOOD COUNT 11.9 K/mm3 (4.0-10.0)
[2021-08-31 10:45] LABS: CHLORIDE 99 mmol/L (98-107); SODIUM 140 mmol/L (136-145)
[2021-08-31 10:49] LABS: ALBUMIN 2.8 g/dl (3.4-5.0); ANION GAP 14 MMOL/L (8-16); BLOOD UREA NITROGEN 87.2 mg/dL (7-18); CO2 27 mmol/L (21-32); GLUCOSE,RANDOM 76 mg/dL (74-106)
[2021-08-31 10:52] LABS: SGOT/AST 28 U/L (15-37); SGPT/ALT 57 U/L (13-61)
[2021-08-31 10:54] LABS: BILIRUBIN,TOTAL 0.7 mg/dL (0.2-1)
[2021-08-31 10:55] LABS: ALK PHOS 199 U/L (45-117)
[2021-08-31 10:59] LABS: CREATININE 8.2 mg/dL (0.55-1.3)
[2021-08-31] MEDS: DORZOLAMIDE 2% HCL OPHTHALMIC SOLUTION 10 ML BOTTLE OU SCH ×2 (11:40→21:29)
[2021-08-31] MEDS: BRIMONIDINE TARTRATE 0.2% OPHTHALMIC 5 ML BOTTLE OU SCH ×2 (11:40→21:29)
[2021-08-31] MEDS: TIMOLOL 0.5% OPHTHALMIC SOL 5 ML BOTTLE OU SCH ×2 (11:40→21:29)
[2021-08-31] MEDS: CEFAZOLIN SODIUM 2 GM in DEXTROSE 5%-WATER 100 ML IVPB SCH (11:50)
[2021-08-31] MEDS ORDERED: SODIUM CHLORIDE 250 ML IV PRN (11:52)
[2021-08-31] MEDS: CLOPIDOGREL BISULFATE 75 MG TABLET (FP) PO SCH (13:12)
[2021-08-31] MEDS: LOSARTAN POTASSIUM 50 MG TABLET PO SCH (13:12)
[2021-08-31] MEDS: ATORVASTATIN CA 40 MG TABLET (FP) PO SCH (21:28)
[2021-08-31] MEDS: LATANOPROST 0.005% OPHTH SOLN 2.5ML BOTTLE OU SCH (21:29)
[2021-08-31] MEDS ORDERED: INSULIN (NOVOLOG) ASPART 100 UNITS/ML 10ML VIAL ONE (21:42)
[2021-09-01] MEDS: INSULIN SLIDING SCALE (NOVOLOG) 1 VIAL SQ SCH ×4 (06:02→21:21)
[2021-09-01] MEDS: hydrALAZINE HCL 50 MG TABLET (FP) PO SCH ×3 (06:05→21:07)
[2021-09-01] MEDS: HEPARIN NA (PORCINE) 5,000 UNITS/ML 1ML VIAL SQ SCH ×3 (06:05→21:07)
[2021-09-01] MEDS: LOSARTAN POTASSIUM 50 MG TABLET PO SCH (09:47)
[2021-09-01] MEDS: CLOPIDOGREL BISULFATE 75 MG TABLET (FP) PO SCH (09:47)
[2021-09-01] MEDS: DORZOLAMIDE 2% HCL OPHTHALMIC SOLUTION 10 ML BOTTLE OU SCH ×2 (09:48→21:07)
[2021-09-01] MEDS: BRIMONIDINE TARTRATE 0.2% OPHTHALMIC 5 ML BOTTLE OU SCH ×2 (09:50→21:08)
[2021-09-01] MEDS: TIMOLOL 0.5% OPHTHALMIC SOL 5 ML BOTTLE OU SCH ×2 (09:50→21:08)
[2021-09-01] MEDS ORDERED: SODIUM CHLORIDE 250 ML IV PRN (10:00)
[2021-09-01 11:19] LABS: HEMATOCRIT 34.4 % (32.4-45.2); HEMOGLOBIN 11.1 GM/dL (10.7-15.3); MCH 27.9 pg (25.7-33.7); MCHC 32.1 g/dl (32.0-36.0); MEAN CELL VOLUME 86.8 fl (80-96); MEAN PLT VOLUME 9.6 fl (7.5-11.1); PLATELET COUNT 199 10^3/uL (134-434); RBC 3.97 M/mm3 (3.60-5.2); RDW 18.3 % (11.6-15.6); WHITE BLOOD COUNT 12.3 K/mm3 (4.0-10.0)
[2021-09-01 11:36] LABS: CALCIUM 8.8 mg/dL (8.5-10.1)
[2021-09-01 11:37] LABS: ALBUMIN 2.8 g/dl (3.4-5.0); MAGNESIUM 2.4 mg/dL (1.8-2.4)
[2021-09-01 11:40] LABS: CREATININE 5.3 mg/dL (0.55-1.3); PHOSPHOROUS 4.2 mg/dL (2.5-4.9)
[2021-09-01 11:42] LABS: BILIRUBIN,TOTAL 0.7 mg/dL (0.2-1); TOT PROT 6.1 g/dl (6.4-8.2)
[2021-09-01 11:44] LABS: BLOOD UREA NITROGEN 42.6 mg/dL (7-18)
[2021-09-01] MEDS: ARTIFICIAL TEARS (POLYVINYL ALCOHOL) OPTH DROPS OU SCH ×2 (12:26→21:21)
[2021-09-01] MEDS: ATORVASTATIN CA 40 MG TABLET (FP) PO SCH (21:07)
[2021-09-01] MEDS: LATANOPROST 0.005% OPHTH SOLN 2.5ML BOTTLE OU SCH (21:08)
[2021-09-02 03:06] LABS: MUMPS AB IGG CSF < 5.0 AU/mL (<=10.9)
[2021-09-02] MEDS: hydrALAZINE HCL 50 MG TABLET (FP) PO SCH ×2 (05:38→13:02)
[2021-09-02] MEDS: HEPARIN NA (PORCINE) 5,000 UNITS/ML 1ML VIAL SQ SCH ×2 (05:38→13:02)
[2021-09-02] MEDS: INSULIN SLIDING SCALE (NOVOLOG) 1 VIAL SQ SCH ×3 (06:16→17:01)
[2021-09-02 10:08] LABS: HEMATOCRIT 32.3 % (32.4-45.2); HEMOGLOBIN 10.5 GM/dL (10.7-15.3); MCH 28.3 pg (25.7-33.7); MCHC 32.7 g/dl (32.0-36.0); MEAN CELL VOLUME 86.6 fl (80-96); MEAN PLT VOLUME 9.8 fl (7.5-11.1); PLATELET COUNT 204 10^3/uL (134-434); RBC 3.73 M/mm3 (3.60-5.2); RDW 17.8 % (11.6-15.6); WHITE BLOOD COUNT 11.4 K/mm3 (4.0-10.0)
[2021-09-02 10:25] LABS: BLOOD UREA NITROGEN 43.8 mg/dL (7-18); CALCIUM 8.7 mg/dL (8.5-10.1)
[2021-09-02] MEDS: CLOPIDOGREL BISULFATE 75 MG TABLET (FP) PO SCH (12:57)
[2021-09-02] MEDS: LOSARTAN POTASSIUM 50 MG TABLET PO SCH (12:57)
[2021-09-02] MEDS: CEFAZOLIN SODIUM 2 GM in DEXTROSE 5%-WATER 100 ML IVPB SCH (12:59)
[2021-09-02] MEDS: BRIMONIDINE TARTRATE 0.2% OPHTHALMIC 5 ML BOTTLE OU SCH (13:00)
[2021-09-02] MEDS: ARTIFICIAL TEARS (POLYVINYL ALCOHOL) OPTH DROPS OU SCH (13:00)
[2021-09-02] MEDS: TIMOLOL 0.5% OPHTHALMIC SOL 5 ML BOTTLE OU SCH (13:01)
[2021-09-02] MEDS: DORZOLAMIDE 2% HCL OPHTHALMIC SOLUTION 10 ML BOTTLE OU SCH (13:02)
[2021-09-02 14:26] VITALS: BP 120/71; PULSE 97; TEMP 98.4
== END 2021-09-02 18:19 | disposition home or self-care (01) | DRG 871 ==
LOC: JER 00:56 → JERBED 03:02 → J6S 08-29 05:06
PROVIDERS: ADMIT Family Medicine; ATTEND Internal Medicine
PROC: 5A1D70Z Performance of Urinary Filtration, Intermittent, Less than 6 Hours Per Day (ICD-10-PCS; principal; 2021-09-02)
DX: A41.01 Sepsis due to Methicillin susceptible Staphylococcus aureus (principal); N18.6 End stage renal disease; G93.41 Metabolic encephalopathy; I12.0 Hypertensive chronic kidney disease with stage 5 chronic kidney disease or end stage renal disease; I31.3 Pericardial effusion (noninflammatory); Z99.2 Dependence on renal dialysis; F03.90 Unspecified dementia, unspecified severity, without behavioral disturbance, psychotic disturbance, mood disturbance, and anxiety; E11.51 Type 2 diabetes mellitus with diabetic peripheral angiopathy without gangrene; E11.22 Type 2 diabetes mellitus with diabetic chronic kidney disease; E78.5 Hyperlipidemia, unspecified; E78.00 Pure hypercholesterolemia, unspecified; I95.9 Hypotension, unspecified; D72.829 Elevated white blood cell count, unspecified; E87.5 Hyperkalemia; R80.9 Proteinuria, unspecified; E11.621 Type 2 diabetes mellitus with foot ulcer; I27.20 Pulmonary hypertension, unspecified; K75.9 Inflammatory liver disease, unspecified; R74.01 Elevation of levels of liver transaminase levels; B95.61 Methicillin susceptible Staphylococcus aureus infection as the cause of diseases classified elsewhere
CPT/HCPCS: 0241U-QW; 36415; 70450-TC; 71045-TC-FY; 71250-TC; 74177-TC; 76705-TC; 80048; 80053; 80061; 81003; 82248; 82803; 82945; 82962; 83605; 83735; 84100; 84132; 84157; 84443; 84484; 85025; 85027; 85610; 85730; 86694; 86735; 86765; 86787; 86788; 86789; 86803; 87040; 87070; 87086; 87186; 87205; 87340; 87529; 93005; 93010; 93306-TC; 99285-25; J1644; Q9967

== ENCOUNTER 2022-01-12 14:49 | Inpatient (IN) | payer MEDICARE, OTHER ==
[2022-01-12 17:25] LABS: BASO % 0.7 % (0-2.0); EOS % 2.7 % (0-4.5); HEMATOCRIT 35.1 % (32.4-45.2); HEMOGLOBIN 11.2 GM/dL (10.7-15.3); MCH 29.1 pg (25.7-33.7); MCHC 31.8 g/dl (32.0-36.0); MEAN CELL VOLUME 91.4 fl (80-96); MEAN PLT VOLUME 10.3 fl (7.5-11.1); MONO % 6.4 % (3.8-10.2); NEUT % 48.2 % (42.8-82.8); PLATELET COUNT 169 10^3/uL (134-434); RBC 3.84 M/mm3 (3.60-5.2); RDW 15.9 % (11.6-15.6); WHITE BLOOD COUNT 6.7 K/mm3 (4.0-10.0)
[2022-01-12 17:35] LABS: ALBUMIN 3.5 g/dl (3.4-5.0); BLOOD UREA NITROGEN 43.8 mg/dL (7-18); CALCIUM 9.4 mg/dL (8.5-10.1)
[2022-01-12 17:39] LABS: CREATININE 5.4 mg/dL (0.55-1.3)
[2022-01-12 17:41] LABS: BILIRUBIN,TOTAL 0.3 mg/dL (0.2-1); TOT PROT 6.3 g/dl (6.4-8.2)
[2022-01-12 18:11] LABS: INR 0.84 (0.83-1.09); PROTHROMBIN TIME (PATIENT) 9.6 SEC (9.7-13.0)
[2022-01-12 18:14] LABS: ACTIVATED PTT 28.8 SECONDS (25.2-36.5)
[2022-01-12] MEDS ORDERED: HEPARIN NA (PORCINE) 5,000 UNITS/ML 1ML VIAL IVPUSH PRN (20:06)
[2022-01-12] MEDS ORDERED: ACETAMINOPHEN 1000 MG/100 ML BAG IVPB PRN (22:45)
[2022-01-12] MEDS ORDERED: MELATONIN 5 MG TABLETS PO PRN (22:45)
[2022-01-12] MEDS ORDERED: HEPARIN NA (PORCINE) 5,000 UNITS/ML 1ML VIAL IVPUSH ONE (23:39)
[2022-01-13 01:16] VITALS: BMI 25.1
[2022-01-13] MEDS: INSULIN SLIDING SCALE (NOVOLOG) 1 VIAL SQ SCH ×5 (01:29→22:18)
[2022-01-13] MEDS ORDERED: ASPIRIN 81 MG CHEWABLE TABLETS PO SCH (10:00)
[2022-01-13] MEDS ORDERED: PNEUMOC 20-VAL CONJ-DIP CRM/PF 0.5 ML SYRINGE IM ONE (10:00)
[2022-01-13] MEDS ORDERED: CLOPIDOGREL BISULFATE 75 MG TABLET (FP) PO SCH (10:00)
[2022-01-13] MEDS ORDERED: FLU VACC QS2022-23(6MOS UP)/PF 60 MCG/0.5 ML SYRINGE IM ONE (10:00)
[2022-01-13 10:07] LABS: BASO % 0.8 % (0-2.0); EOS % 2.1 % (0-4.5); HEMOGLOBIN 10.9 GM/dL (10.7-15.3); LYMPH % 47.8 % (8-40); MCHC 32.1 g/dl (32.0-36.0); MEAN CELL VOLUME 90.3 fl (80-96); MEAN PLT VOLUME 9.9 fl (7.5-11.1); MONO % 6.3 % (3.8-10.2); PLATELET COUNT 177 10^3/uL (134-434); RBC 3.77 M/mm3 (3.60-5.2); RDW 15.5 % (11.6-15.6); WHITE BLOOD COUNT 8.3 K/mm3 (4.0-10.0)
[2022-01-13 11:24] LABS: CALCIUM 9.6 mg/dL (8.5-10.1); MAGNESIUM 2.4 mg/dL (1.8-2.4)
[2022-01-13 11:25] LABS: ALBUMIN 3.4 g/dl (3.4-5.0)
[2022-01-13 11:28] LABS: CREATININE 6.4 mg/dL (0.55-1.3); PHOSPHOROUS 3.8 mg/dL (2.5-4.9)
[2022-01-13 11:29] LABS: BILIRUBIN,TOTAL 0.6 mg/dL (0.2-1); TOT PROT 6.2 g/dl (6.4-8.2)
[2022-01-13] MEDS ORDERED: SODIUM CHLORIDE 250 ML IV PRN (13:14)
[2022-01-13] MEDS ORDERED: HEPARIN NA (PORCINE) 5,000 UNITS/ML 1ML VIAL IVPUSH ONE (15:15)
[2022-01-13] MEDS: amLODIPine BESYLATE 10 MG TABLET (FP) PO SCH (17:33)
[2022-01-13] MEDS ORDERED: PATIENT'S OWN MEDICATION (NON-FORMULARY) (Dorzolamide/Timolol/Pf [Dorzolamide-Timolol 2%-0 OU SCH ×2 (22:00)
[2022-01-13] MEDS ORDERED: ATORVASTATIN CA 40 MG TABLET (FP) PO SCH (22:00)
[2022-01-13] MEDS: TIMOLOL 0.5% OPHTHALMIC SOL 5 ML BOTTLE OU SCH (22:15)
[2022-01-13] MEDS: DORZOLAMIDE 2% HCL OPHTHALMIC SOLUTION 10 ML BOTTLE OU SCH (22:15)
[2022-01-13] MEDS: BRIMONIDINE TARTRATE 0.2% OPHTHALMIC 5 ML BOTTLE OU SCH (22:15)
[2022-01-14] MEDS: INSULIN SLIDING SCALE (NOVOLOG) 1 VIAL SQ SCH ×4 (06:39→21:32)
[2022-01-14 08:23] LABS: BASO % 0.7 % (0-2.0); EOS % 2.7 % (0-4.5); HEMATOCRIT 36.5 % (32.4-45.2); HEMOGLOBIN 11.8 GM/dL (10.7-15.3); LYMPH % 42.5 % (8-40); MCHC 32.3 g/dl (32.0-36.0); MEAN PLT VOLUME 9.6 fl (7.5-11.1); MONO % 7.5 % (3.8-10.2); NEUT % 46.6 % (42.8-82.8); PLATELET COUNT 182 10^3/uL (134-434); RBC 4.05 M/mm3 (3.60-5.2); RDW 15.9 % (11.6-15.6); WHITE BLOOD COUNT 9.1 K/mm3 (4.0-10.0)
[2022-01-14 08:55] LABS: ALBUMIN 3.6 g/dl (3.4-5.0); BLOOD UREA NITROGEN 22.8 mg/dL (7-18); CALCIUM 9.2 mg/dL (8.5-10.1)
[2022-01-14 08:57] LABS: CREATININE 4.6 mg/dL (0.55-1.3); TOT PROT 6.6 g/dl (6.4-8.2)
[2022-01-14 08:59] LABS: BILIRUBIN,TOTAL 0.6 mg/dL (0.2-1)
[2022-01-14] MEDS: amLODIPine BESYLATE 10 MG TABLET (FP) PO SCH (09:57)
[2022-01-14] MEDS: BRIMONIDINE TARTRATE 0.2% OPHTHALMIC 5 ML BOTTLE OU SCH ×2 (09:59→21:34)
[2022-01-14] MEDS: TIMOLOL 0.5% OPHTHALMIC SOL 5 ML BOTTLE OU SCH ×2 (09:59→21:33)
[2022-01-14] MEDS: DORZOLAMIDE 2% HCL OPHTHALMIC SOLUTION 10 ML BOTTLE OU SCH ×2 (09:59→21:35)
[2022-01-14] MEDS ORDERED: DONEPEZIL HCL 5 MG TABLET (FP) PO SCH (10:00)
[2022-01-14] MEDS ORDERED: ONDANSETRON 4 MG/2 ML VIAL IVPUSH PRN ×2 (15:45→18:17)
[2022-01-14] MEDS ORDERED: LACTATED RINGERS SOLUTION 1,000 ML IV SCH ×2 (15:45→18:17)
[2022-01-14] MEDS ORDERED: FENTANYL CITRATE/PF 50 MCG/ML VIAL ONE ×2 (15:59→17:05)
[2022-01-14] MEDS ORDERED: PROPOFOL 20 ML ONE (15:59)
[2022-01-14] MEDS ORDERED: SODIUM CHLORIDE 250 ML IV PRN ×2 (16:02→18:17)
[2022-01-14] MEDS ORDERED: HEPARIN NA (PORCINE) 5,000 UNITS/ML 1ML VIAL ONE (16:38)
[2022-01-14] MEDS ORDERED: LIDOCAINE HCL 1%, 10 MG/ML (20ML VIAL) ONE (16:43)
[2022-01-14] MEDS ORDERED: DEXMEDETOMIDINE HCL 200 MCG/2 ML IVPB ONE (16:51)
[2022-01-14] MEDS ORDERED: ceFAZolin SODIUM 1 GM VIAL ONE (17:00)
[2022-01-14] MEDS ORDERED: ceFAZolin SODIUM 1 GM VIAL IVPB ONE (17:02)
[2022-01-14] MEDS ORDERED: MELATONIN 5 MG TABLETS PO PRN (18:17)
[2022-01-14] MEDS ORDERED: ACETAMINOPHEN 1000 MG/100 ML BAG IVPB PRN (18:17)
[2022-01-14] MEDS ORDERED: SODIUM CHLORIDE 1,000 ML IV SCH (19:00)
[2022-01-14] MEDS: ATORVASTATIN CA 40 MG TABLET (FP) PO SCH (21:32)
[2022-01-14] MEDS ORDERED: RIVAROXABAN 2.5 MG TABLET PO SCH ×2 (22:00)
[2022-01-15] MEDS: INSULIN SLIDING SCALE (NOVOLOG) 1 VIAL SQ SCH ×4 (06:03→23:32)
[2022-01-15 09:28] LABS: BASO % 0.6 % (0-2.0); EOS % 2.5 % (0-4.5); HEMOGLOBIN 11.9 GM/dL (10.7-15.3); LYMPH % 33.7 % (8-40); MCHC 32.1 g/dl (32.0-36.0); MEAN CELL VOLUME 90.4 fl (80-96); MONO % 6.2 % (3.8-10.2); PLATELET COUNT 183 10^3/uL (134-434); RBC 4.09 M/mm3 (3.60-5.2); WHITE BLOOD COUNT 9.7 K/mm3 (4.0-10.0)
[2022-01-15 10:16] LABS: CALCIUM 9.6 mg/dL (8.5-10.1)
[2022-01-15 10:17] LABS: ALBUMIN 3.8 g/dl (3.4-5.0); BLOOD UREA NITROGEN 36.9 mg/dL (7-18)
[2022-01-15 10:20] LABS: CREATININE 6.6 mg/dL (0.55-1.3)
[2022-01-15 10:21] LABS: BILIRUBIN,TOTAL 0.8 mg/dL (0.2-1); TOT PROT 7.1 g/dl (6.4-8.2)
[2022-01-15] MEDS: BRIMONIDINE TARTRATE 0.2% OPHTHALMIC 5 ML BOTTLE OU SCH ×2 (13:28→23:30)
[2022-01-15] MEDS: TIMOLOL 0.5% OPHTHALMIC SOL 5 ML BOTTLE OU SCH ×2 (13:28→23:32)
[2022-01-15] MEDS: CLOPIDOGREL BISULFATE 75 MG TABLET (FP) PO SCH (13:29)
[2022-01-15] MEDS: DONEPEZIL HCL 5 MG TABLET (FP) PO SCH (13:29)
[2022-01-15] MEDS: ASPIRIN 81 MG CHEWABLE TABLETS PO SCH (13:29)
[2022-01-15] MEDS: APIXABAN 2.5 MG TABLET PO SCH ×2 (13:29→23:31)
[2022-01-15] MEDS: amLODIPine BESYLATE 10 MG TABLET (FP) PO SCH (13:29)
[2022-01-15] MEDS: DORZOLAMIDE 2% HCL OPHTHALMIC SOLUTION 10 ML BOTTLE OU SCH ×2 (13:29→23:34)
[2022-01-15] MEDS: ATORVASTATIN CA 40 MG TABLET (FP) PO SCH (23:31)
[2022-01-16 08:34] LABS: BASO % 0.6 % (0-2.0); HEMATOCRIT 31.4 % (32.4-45.2); HEMOGLOBIN 10.2 GM/dL (10.7-15.3); LYMPH % 33.8 % (8-40); MCH 29.3 pg (25.7-33.7); MCHC 32.4 g/dl (32.0-36.0); MEAN CELL VOLUME 90.6 fl (80-96); MEAN PLT VOLUME 9.9 fl (7.5-11.1); MONO % 8.5 % (3.8-10.2); NEUT % 54.1 % (42.8-82.8); PLATELET COUNT 157 10^3/uL (134-434); RBC 3.47 M/mm3 (3.60-5.2); RDW 15.7 % (11.6-15.6); WHITE BLOOD COUNT 8.2 K/mm3 (4.0-10.0)
[2022-01-16 09:07] LABS: ALBUMIN 3.2 g/dl (3.4-5.0); BLOOD UREA NITROGEN 21.8 mg/dL (7-18)
[2022-01-16 09:09] LABS: CREATININE 5.2 mg/dL (0.55-1.3)
[2022-01-16 09:11] LABS: BILIRUBIN,TOTAL 0.4 mg/dL (0.2-1)
[2022-01-16] MEDS: INSULIN SLIDING SCALE (NOVOLOG) 1 VIAL SQ SCH ×4 (09:37→21:33)
[2022-01-16] MEDS: ASPIRIN 81 MG CHEWABLE TABLETS PO SCH (10:18)
[2022-01-16] MEDS: amLODIPine BESYLATE 10 MG TABLET (FP) PO SCH (10:19)
[2022-01-16] MEDS: TIMOLOL 0.5% OPHTHALMIC SOL 5 ML BOTTLE OU SCH ×2 (10:19→21:29)
[2022-01-16] MEDS: APIXABAN 2.5 MG TABLET PO SCH ×2 (10:19→21:28)
[2022-01-16] MEDS: CLOPIDOGREL BISULFATE 75 MG TABLET (FP) PO SCH (10:19)
[2022-01-16] MEDS: DONEPEZIL HCL 5 MG TABLET (FP) PO SCH (10:19)
[2022-01-16] MEDS: DORZOLAMIDE 2% HCL OPHTHALMIC SOLUTION 10 ML BOTTLE OU SCH ×2 (10:19→21:30)
[2022-01-16] MEDS: BRIMONIDINE TARTRATE 0.2% OPHTHALMIC 5 ML BOTTLE OU SCH ×2 (10:19→21:29)
[2022-01-16] MEDS: ATORVASTATIN CA 40 MG TABLET (FP) PO SCH (21:28)
[2022-01-16] MEDS ORDERED: INSULIN (NOVOLOG) ASPART 100 UNITS/ML 10ML VIAL ONE (21:32)
[2022-01-17] MEDS: INSULIN SLIDING SCALE (NOVOLOG) 1 VIAL SQ SCH ×4 (06:45→22:07)
[2022-01-17 08:54] LABS: BASO % 0.6 % (0-2.0); EOS % 3.1 % (0-4.5); HEMATOCRIT 30.8 % (32.4-45.2); HEMOGLOBIN 9.9 GM/dL (10.7-15.3); LYMPH % 32.8 % (8-40); MCH 29.2 pg (25.7-33.7); MCHC 32.2 g/dl (32.0-36.0); MEAN CELL VOLUME 90.5 fl (80-96); MEAN PLT VOLUME 10.1 fl (7.5-11.1); MONO % 7.4 % (3.8-10.2); NEUT % 56.1 % (42.8-82.8); PLATELET COUNT 170 10^3/uL (134-434); RDW 15.3 % (11.6-15.6); WHITE BLOOD COUNT 9.4 K/mm3 (4.0-10.0)
[2022-01-17] MEDS: ASPIRIN 81 MG CHEWABLE TABLETS PO SCH (10:07)
[2022-01-17] MEDS: APIXABAN 2.5 MG TABLET PO SCH ×2 (10:07→21:57)
[2022-01-17] MEDS: DONEPEZIL HCL 5 MG TABLET (FP) PO SCH (10:07)
[2022-01-17] MEDS: CLOPIDOGREL BISULFATE 75 MG TABLET (FP) PO SCH (10:07)
[2022-01-17] MEDS: amLODIPine BESYLATE 10 MG TABLET (FP) PO SCH (10:07)
[2022-01-17] MEDS: BRIMONIDINE TARTRATE 0.2% OPHTHALMIC 5 ML BOTTLE OU SCH ×2 (10:07→21:57)
[2022-01-17] MEDS: TIMOLOL 0.5% OPHTHALMIC SOL 5 ML BOTTLE OU SCH ×2 (10:08→21:58)
[2022-01-17] MEDS: DORZOLAMIDE 2% HCL OPHTHALMIC SOLUTION 10 ML BOTTLE OU SCH ×2 (10:08→21:57)
[2022-01-17 10:20] LABS: ALBUMIN 3.3 g/dl (3.4-5.0)
[2022-01-17 10:24] LABS: CREATININE 7.2 mg/dL (0.55-1.3)
[2022-01-17 10:26] LABS: BILIRUBIN,TOTAL 0.3 mg/dL (0.2-1); TOT PROT 6.3 g/dl (6.4-8.2)
[2022-01-17] MEDS ORDERED: SODIUM CHLORIDE 250 ML IV PRN (14:12)
[2022-01-17] MEDS: ATORVASTATIN CA 40 MG TABLET (FP) PO SCH (21:57)
[2022-01-18 09:57] LABS: BASO % 0.6 % (0-2.0); EOS % 3.1 % (0-4.5); HEMATOCRIT 30.4 % (32.4-45.2); HEMOGLOBIN 9.9 GM/dL (10.7-15.3); LYMPH % 37.4 % (8-40); MCH 29.7 pg (25.7-33.7); MCHC 32.7 g/dl (32.0-36.0); MEAN CELL VOLUME 90.9 fl (80-96); MEAN PLT VOLUME 9.8 fl (7.5-11.1); MONO % 6.1 % (3.8-10.2); NEUT % 52.8 % (42.8-82.8); PLATELET COUNT 175 10^3/uL (134-434); RBC 3.34 M/mm3 (3.60-5.2); RDW 15.8 % (11.6-15.6); WHITE BLOOD COUNT 9.8 K/mm3 (4.0-10.0)
[2022-01-18] MEDS: DONEPEZIL HCL 5 MG TABLET (FP) PO SCH (09:57)
[2022-01-18] MEDS: amLODIPine BESYLATE 10 MG TABLET (FP) PO SCH (09:57)
[2022-01-18] MEDS: ASPIRIN 81 MG CHEWABLE TABLETS PO SCH (09:57)
[2022-01-18] MEDS: APIXABAN 2.5 MG TABLET PO SCH (09:57)
[2022-01-18] MEDS: CLOPIDOGREL BISULFATE 75 MG TABLET (FP) PO SCH (09:58)
[2022-01-18] MEDS: TIMOLOL 0.5% OPHTHALMIC SOL 5 ML BOTTLE OU SCH (10:02)
[2022-01-18] MEDS: BRIMONIDINE TARTRATE 0.2% OPHTHALMIC 5 ML BOTTLE OU SCH (10:02)
[2022-01-18] MEDS: DORZOLAMIDE 2% HCL OPHTHALMIC SOLUTION 10 ML BOTTLE OU SCH (10:03)
[2022-01-18 10:14] LABS: CHLORIDE 97 mmol/L (98-107); SODIUM 140 mmol/L (136-145)
[2022-01-18 10:27] LABS: ALBUMIN 3.2 g/dl (3.4-5.0)
[2022-01-18 10:28] LABS: BLOOD UREA NITROGEN 53.8 mg/dL (7-18); CALCIUM 8.9 mg/dL (8.5-10.1); GLUCOSE,RANDOM 133 mg/dL (74-106)
[2022-01-18 10:29] LABS: ANION GAP 14 MMOL/L (8-16); CO2 28 mmol/L (21-32); MAGNESIUM 2.4 mg/dL (1.8-2.4)
[2022-01-18 10:30] LABS: PHOSPHOROUS 5.2 mg/dL (2.5-4.9); SGOT/AST 22 U/L (15-37); SGPT/ALT 19 U/L (13-61)
[2022-01-18 10:32] LABS: BILIRUBIN,TOTAL 0.8 mg/dL (0.2-1); TOT PROT 6.4 g/dl (6.4-8.2)
[2022-01-18 10:36] LABS: ALK PHOS 184 U/L (45-117); CREATININE 8.7 mg/dL (0.55-1.3)
[2022-01-18] MEDS ORDERED: EPOETIN ALFA-EPBX 4,000 UNIT/ML VIAL IVPUSH ONE (11:30)
[2022-01-18 11:55] VITALS: RESP 18
[2022-01-18] MEDS: INSULIN SLIDING SCALE (NOVOLOG) 1 VIAL SQ SCH ×2 (12:03→16:42)
[2022-01-18 15:40] VITALS: BP 149/61; PULSE 88; TEMP 99.2
== END 2022-01-18 17:15 | disposition home or self-care (01) | DRG 299 ==
LOC: JER 14:49 → JERBED 18:44 → J7W 23:31
PROVIDERS: ADMIT Internal Medicine
PROC: 5A1D70Z Performance of Urinary Filtration, Intermittent, Less than 6 Hours Per Day (ICD-10-PCS; 2022-01-13)
PROC: B40DYZZ Plain Radiography of Aorta and Bilateral Lower Extremity Arteries using Other Contrast (ICD-10-PCS; 2022-01-14)
PROC: B40DYZZ Plain Radiography of Aorta and Bilateral Lower Extremity Arteries using Other Contrast (ICD-10-PCS; principal; 2022-01-14 17:30)
PROC: 5A1D70Z Performance of Urinary Filtration, Intermittent, Less than 6 Hours Per Day (ICD-10-PCS; 2022-01-15)
PROC: 5A1D70Z Performance of Urinary Filtration, Intermittent, Less than 6 Hours Per Day (ICD-10-PCS; 2022-01-18)
DX: E11.51 Type 2 diabetes mellitus with diabetic peripheral angiopathy without gangrene (principal); N18.6 End stage renal disease; I12.0 Hypertensive chronic kidney disease with stage 5 chronic kidney disease or end stage renal disease; H54.40 Blindness, one eye, unspecified eye; E11.22 Type 2 diabetes mellitus with diabetic chronic kidney disease; F03.90 Unspecified dementia, unspecified severity, without behavioral disturbance, psychotic disturbance, mood disturbance, and anxiety; I77.89 Other specified disorders of arteries and arterioles; E78.5 Hyperlipidemia, unspecified; I25.10 Atherosclerotic heart disease of native coronary artery without angina pectoris; R80.9 Proteinuria, unspecified; Z99.2 Dependence on renal dialysis
CPT/HCPCS: 0241U-QW; 36415; 71045-TC-FY; 75635-TC; 76000-TC-FY; 80048; 80053; 80061; 82962; 83605; 83735; 84100; 85025; 85610; 85730; 86803; 86850; 86900; 86901; 87340; 93005; 93010; 93922; 93925-TC; 94760; 97116-GP; 97162-GP; 99285-25; C1760; C1769; J1644; Q5106; Q9967

== ENCOUNTER 2022-04-07 15:00 | Emergency (ER) | payer MEDICARE, OTHER ==
[2022-04-07 15:24] VITALS: TEMP 98.2; BMI 26.0
[2022-04-07 17:20] LABS: BASO % 0.6 % (0-2.0); EOS % 2.8 % (0-4.5); HEMATOCRIT 37.8 % (32.4-45.2); HEMOGLOBIN 12.3 GM/dL (10.7-15.3); LYMPH % 37.3 % (8-40); MCH 30.2 pg (25.7-33.7); MCHC 32.6 g/dl (32.0-36.0); MEAN CELL VOLUME 92.6 fl (80-96); MEAN PLT VOLUME 9.1 fl (7.5-11.1); MONO % 11.3 % (3.8-10.2); PLATELET COUNT 204 10^3/uL (134-434); RBC 4.08 M/mm3 (3.60-5.2); RDW 16.9 % (11.6-15.6); WHITE BLOOD COUNT 7.3 K/mm3 (4.0-10.0)
[2022-04-07 17:27] LABS: INR 0.97 (0.83-1.09); PROTHROMBIN TIME (PATIENT) 11.3 SEC (9.7-13.0)
[2022-04-07 17:29] LABS: ACTIVATED PTT 31.6 SECONDS (25.2-36.5)
[2022-04-07 17:54] LABS: CHLORIDE 95 mmol/L (98-107); SODIUM 132 mmol/L (136-145)
[2022-04-07 17:56] LABS: BLOOD UREA NITROGEN 35.1 mg/dL (7-18); CALCIUM 8.8 mg/dL (8.5-10.1)
[2022-04-07 17:57] LABS: ALBUMIN 3.2 g/dl (3.4-5.0); CO2 31 mmol/L (21-32); GLUCOSE,RANDOM 146 mg/dL (74-106)
[2022-04-07 17:59] LABS: SGPT/ALT 49 U/L (13-61)
[2022-04-07 18:00] LABS: CREATININE 4.1 mg/dL (0.55-1.3); SGOT/AST 67 U/L (15-37)
[2022-04-07 18:01] LABS: BILIRUBIN,TOTAL 0.6 mg/dL (0.2-1)
[2022-04-07 18:02] LABS: ALK PHOS 220 U/L (45-117)
[2022-04-07 18:04] LABS: ERYTHROCYTE SEDIMENTATION RATE 19 mm/hr (0-30)
[2022-04-07 18:05] LABS: ANION GAP 6 MMOL/L (8-16)
[2022-04-07 19:48] LABS: BLOOD UREA NITROGEN 39.2 mg/dL (7-18); CALCIUM 8.6 mg/dL (8.5-10.1)
[2022-04-07 20:36] VITALS: BP 126/70; PULSE 80; RESP 16
== END 2022-04-07 20:39 | disposition home or self-care (01) ==
LOC: JER 15:00
DX: I73.9 Peripheral vascular disease, unspecified (principal); L03.031 Cellulitis of right toe
CPT/HCPCS: 36415; 73630-TC-RT-FY; 80048; 80053; 82962; 83605; 85025; 85610; 85651; 85730; 86140; 86850; 86900; 86901; 93005; 93010; 99285-25; C9803-CS; G0463-25; U0003; U0005

== ENCOUNTER 2022-04-11 07:36 | Inpatient (IN) | payer MEDICARE, OTHER ==
[2022-04-11] MEDS ORDERED: AMPICILLIN NA/SULBACTAM NA 3 GM in SODIUM CHLORIDE 100 ML IVPB ONE (08:54)
[2022-04-11] MEDS ORDERED: ACETAMINOPHEN 1000 MG/100 ML BAG IVPB ONE (08:55)
[2022-04-11] MEDS ORDERED: ACETAMINOPHEN INJECTION 100 ML IVPB ONE (08:59)
[2022-04-11 09:17] LABS: BASO % 0.7 % (0-2.0); HEMATOCRIT 30.4 % (32.4-45.2); HEMOGLOBIN 9.9 GM/dL (10.7-15.3); LYMPH % 26.2 % (8-40); MCH 29.7 pg (25.7-33.7); MCHC 32.5 g/dl (32.0-36.0); MEAN CELL VOLUME 91.4 fl (80-96); MEAN PLT VOLUME 9.3 fl (7.5-11.1); MONO % 8.4 % (3.8-10.2); NEUT % 62.7 % (42.8-82.8); PLATELET COUNT 171 10^3/uL (134-434); RBC 3.33 M/mm3 (3.60-5.2); RDW 16.6 % (11.6-15.6); WHITE BLOOD COUNT 10.2 K/mm3 (4.0-10.0)
[2022-04-11 09:53] LABS: ALBUMIN 3.4 g/dl (3.4-5.0); BLOOD UREA NITROGEN 54.5 mg/dL (7-18)
[2022-04-11 09:55] LABS: CALCIUM 8.7 mg/dL (8.5-10.1)
[2022-04-11 09:56] LABS: CREATININE 6.3 mg/dL (0.55-1.3); MAGNESIUM 2.4 mg/dL (1.8-2.4)
[2022-04-11 09:57] LABS: ERYTHROCYTE SEDIMENTATION RATE 51 mm/hr (0-30)
[2022-04-11 09:58] LABS: TOT PROT 6.5 g/dl (6.4-8.2)
[2022-04-11 10:01] LABS: ACTIVATED PTT 30.1 SECONDS (25.2-36.5); INR 0.89 (0.83-1.09); PROTHROMBIN TIME (PATIENT) 10.3 SEC (9.7-13.0)
[2022-04-11 10:02] LABS: BILIRUBIN,TOTAL 0.6 mg/dL (0.2-1)
[2022-04-11] MEDS ORDERED: SODIUM ZIRCONIUM CYCLOSILICATE (LOKELMA) 5 GM PACKET PO SCH ×2 (11:00→23:00)
[2022-04-11] MEDS ORDERED: SODIUM CHLORIDE 250 ML IV PRN (11:02)
[2022-04-11] MEDS ORDERED: fentaNYL CITRATE 250 MCG/5 ML VIAL ONE (11:26)
[2022-04-11] MEDS ORDERED: HALOPERIDOL LACTATE 5 MG/ML IM ONE (12:12)
[2022-04-11] MEDS ORDERED: oxyCODONE HCL 5 MG TABLET PO PRN (14:05)
[2022-04-11] MEDS ORDERED: ACETAMINOPHEN 325 MG TABLET (FP) PO PRN (14:05)
[2022-04-11] MEDS: hydrALAZINE HCL 50 MG TABLET (FP) PO SCH (21:11)
[2022-04-11] MEDS: ATORVASTATIN CA 40 MG TABLET (FP) PO SCH (21:11)
[2022-04-11] MEDS ORDERED: PATIENT'S OWN MEDICATION (NON-FORMULARY) (Dorzolamide/Timolol/Pf [Dorzolamide-Timolol 2%-0 OP SCH (22:00)
[2022-04-11] MEDS: LATANOPROST 0.005% OPHTH SOLN 2.5ML BOTTLE OU SCH (22:11)
[2022-04-11] MEDS: DORZOLAMIDE 2% HCL OPHTHALMIC SOLUTION 10 ML BOTTLE OU SCH (22:11)
[2022-04-11] MEDS: BRIMONIDINE TARTRATE 0.2% OPHTHALMIC 5 ML BOTTLE OU SCH (22:11)
[2022-04-11] MEDS: TIMOLOL 0.5% OPHTHALMIC SOL 5 ML BOTTLE OU SCH (22:12)
[2022-04-12] MEDS: hydrALAZINE HCL 50 MG TABLET (FP) PO SCH ×4 (05:27→21:10)
[2022-04-12 08:57] LABS: BASO % 0.7 % (0-2.0); EOS % 2.1 % (0-4.5); HEMATOCRIT 25.3 % (32.4-45.2); HEMOGLOBIN 8.3 GM/dL (10.7-15.3); LYMPH % 28.6 % (8-40); MCH 29.7 pg (25.7-33.7); MCHC 32.7 g/dl (32.0-36.0); MEAN CELL VOLUME 90.9 fl (80-96); MEAN PLT VOLUME 8.8 fl (7.5-11.1); MONO % 9.3 % (3.8-10.2); NEUT % 59.3 % (42.8-82.8); PLATELET COUNT 164 10^3/uL (134-434); RBC 2.78 M/mm3 (3.60-5.2); RDW 16.2 % (11.6-15.6); WHITE BLOOD COUNT 7.5 K/mm3 (4.0-10.0)
[2022-04-12 09:01] LABS: INR 1.03 (0.83-1.09); PROTHROMBIN TIME (PATIENT) 11.9 SEC (9.7-13.0)
[2022-04-12 09:25] LABS: CALCIUM 8.4 mg/dL (8.5-10.1)
[2022-04-12 09:27] LABS: ALBUMIN 2.8 g/dl (3.4-5.0)
[2022-04-12 09:29] LABS: CREATININE 4.2 mg/dL (0.55-1.3)
[2022-04-12 09:31] LABS: BILIRUBIN,TOTAL 0.5 mg/dL (0.2-1); TOT PROT 5.5 g/dl (6.4-8.2)
[2022-04-12 09:32] LABS: BLOOD UREA NITROGEN 24.8 mg/dL (7-18)
[2022-04-12] MEDS: ASPIRIN COATED 81 MG TABLET.EC PO SCH (10:37)
[2022-04-12] MEDS: amLODIPine BESYLATE 10 MG TABLET (FP) PO SCH (10:37)
[2022-04-12] MEDS: LOSARTAN POTASSIUM 50 MG TABLET PO SCH ×2 (10:37→12:03)
[2022-04-12] MEDS: CLOPIDOGREL BISULFATE 75 MG TABLET (FP) PO SCH (10:37)
[2022-04-12] MEDS: BRIMONIDINE TARTRATE 0.2% OPHTHALMIC 5 ML BOTTLE OU SCH ×2 (10:38→21:13)
[2022-04-12] MEDS: DORZOLAMIDE 2% HCL OPHTHALMIC SOLUTION 10 ML BOTTLE OU SCH ×2 (10:38→21:13)
[2022-04-12] MEDS: TIMOLOL 0.5% OPHTHALMIC SOL 5 ML BOTTLE OU SCH ×2 (10:39→21:12)
[2022-04-12] MEDS: SODIUM ZIRCONIUM CYCLOSILICATE (LOKELMA) 5 GM PACKET PO SCH ×2 (14:19→14:21)
[2022-04-12] MEDS: ATORVASTATIN CA 40 MG TABLET (FP) PO SCH (21:11)
[2022-04-12] MEDS: LATANOPROST 0.005% OPHTH SOLN 2.5ML BOTTLE OU SCH (21:13)
[2022-04-13] MEDS: hydrALAZINE HCL 50 MG TABLET (FP) PO SCH ×2 (05:42→23:52)
[2022-04-13] MEDS ORDERED: DEXMEDETOMIDINE HCL 200 MCG/2 ML IVPB ONE (08:07)
[2022-04-13] MEDS ORDERED: LIDOCAINE HCL 1%, 10 MG/ML (10ML VIAL) MDV ONE (08:07)
[2022-04-13] MEDS ORDERED: ACETAMINOPHEN INJECTION 100 ML IVPB ONE (08:07)
[2022-04-13] MEDS ORDERED: PHENYLEPHRINE HCL 10 MG/1 ML SINGLE DOSE VIAL ONE (08:18)
[2022-04-13] MEDS ORDERED: ONDANSETRON 4 MG/2 ML VIAL ONE (08:18)
[2022-04-13] MEDS ORDERED: DEXAMETHASONE SOD PHOSPHATE 4 MG/1 ML VIAL ONE (08:18)
[2022-04-13] MEDS ORDERED: LIDOCAINE HCL/PF 2% SDV 5ML VIAL ONE ×2 (08:18→08:30)
[2022-04-13] MEDS ORDERED: ceFAZolin SODIUM 1 GM VIAL ONE (08:18)
[2022-04-13] MEDS ORDERED: ETOMIDATE 20 MG/10 ML VIAL IVPUSH ONE (08:18)
[2022-04-13] MEDS ORDERED: SODIUM CHLORIDE 0.9% P/F 10 ML VIAL IJ ONE (08:18)
[2022-04-13] MEDS ORDERED: SUGAMMADEX SODIUM 200 MG/2 ML VIAL ONE (08:19)
[2022-04-13] MEDS ORDERED: ROCURONIUM BROMIDE 50 MG/5 ML SYRINGE ONE (08:19)
[2022-04-13] MEDS ORDERED: MIDAZOLAM HCL 2 MG/2 ML SINGLE DOSE VIAL ONE (08:19)
[2022-04-13] MEDS ORDERED: PROPOFOL 20 ML ONE (08:24)
[2022-04-13] MEDS ORDERED: THROMBIN (BOVINE) 5,000 UNIT VIAL TP ONE (08:25)
[2022-04-13] MEDS ORDERED: HEPARIN NA (PORCINE) 5,000 UNITS/ML 1ML VIAL ONE ×2 (08:26→10:55)
[2022-04-13] MEDS ORDERED: ONDANSETRON 4 MG/2 ML VIAL IVPUSH PRN ×2 (08:48→14:20)
[2022-04-13] MEDS ORDERED: SODIUM CHLORIDE 1,000 ML IV SCH (09:00)
[2022-04-13] MEDS: LOSARTAN POTASSIUM 50 MG TABLET PO SCH (09:12)
[2022-04-13] MEDS: ASPIRIN COATED 81 MG TABLET.EC PO SCH (09:12)
[2022-04-13] MEDS: amLODIPine BESYLATE 10 MG TABLET (FP) PO SCH (09:13)
[2022-04-13] MEDS: CLOPIDOGREL BISULFATE 75 MG TABLET (FP) PO SCH (09:13)
[2022-04-13] MEDS ORDERED: VITAMIN B COMP W-C 1 EA TABLET (NEPHRO-VITE) PO SCH (10:00)
[2022-04-13] MEDS ORDERED: ceFAZolin SODIUM 1 GM VIAL IVPB ONE (10:15)
[2022-04-13] MEDS ORDERED: HEPARIN NA (PORCINE) 5,000 UNITS/ML 1ML VIAL TP ONE ×2 (10:58)
[2022-04-13] MEDS ORDERED: NEOSTIGMINE METHYLSULFATE 0.5 MG/1 ML - 10 ML MDV ONE (12:03)
[2022-04-13] MEDS ORDERED: GLYCOPYRROLATE 0.2 MG/1 ML VIAL ONE (12:04)
[2022-04-13] MEDS ORDERED: POVIDONE-IODINE OINTMENT 10% - 28.4 GM TUBE ONE (12:15)
[2022-04-13] MEDS ORDERED: LABETALOL HCL 20 MG/4 ML VIAL ONE (12:23)
[2022-04-13] MEDS ORDERED: SODIUM CHLORIDE 250 ML IV PRN ×2 (12:52→14:20)
[2022-04-13] MEDS: DORZOLAMIDE 2% HCL OPHTHALMIC SOLUTION 10 ML BOTTLE OU SCH ×2 (16:52→22:17)
[2022-04-13] MEDS: TIMOLOL 0.5% OPHTHALMIC SOL 5 ML BOTTLE OU SCH ×2 (16:52→23:24)
[2022-04-13] MEDS: BRIMONIDINE TARTRATE 0.2% OPHTHALMIC 5 ML BOTTLE OU SCH ×2 (16:52→22:18)
[2022-04-13] MEDS: ACETAMINOPHEN 1000 MG/100 ML BAG IVPB SCH (20:12)
[2022-04-13] MEDS: SODIUM CHLORIDE 1,000 ML IV SCH (20:13)
[2022-04-13] MEDS: oxyCODONE HCL 5 MG TABLET PO PRN (20:49)
[2022-04-13] MEDS: ATORVASTATIN CA 40 MG TABLET (FP) PO SCH (21:01)
[2022-04-13] MEDS: LATANOPROST 0.005% OPHTH SOLN 2.5ML BOTTLE OU SCH (22:17)
[2022-04-13] MEDS: INSULIN SLIDING SCALE (NOVOLOG) 1 VIAL SQ SCH (22:28)
[2022-04-14] MEDS: ACETAMINOPHEN 1000 MG/100 ML BAG IVPB SCH ×2 (04:05→09:52)
[2022-04-14] MEDS ORDERED: ACETAMINOPHEN 325 MG TABLET (FP) PO PRN (04:05)
[2022-04-14] MEDS: oxyCODONE HCL 5 MG TABLET PO PRN (04:24)
[2022-04-14] MEDS: hydrALAZINE HCL 50 MG TABLET (FP) PO SCH ×3 (06:09→23:07)
[2022-04-14] MEDS: INSULIN SLIDING SCALE (NOVOLOG) 1 VIAL SQ SCH ×4 (06:10→23:05)
[2022-04-14 07:42] LABS: BASO % 0.4 % (0-2.0); EOS % 0.8 % (0-4.5); HEMATOCRIT 18.7 % (32.4-45.2); LYMPH % 18.5 % (8-40); MCH 30.2 pg (25.7-33.7); MCHC 33.1 g/dl (32.0-36.0); MEAN CELL VOLUME 91.2 fl (80-96); MONO % 8.6 % (3.8-10.2); NEUT % 71.7 % (42.8-82.8); PLATELET COUNT 176 10^3/uL (134-434); RBC 2.05 M/mm3 (3.60-5.2); RDW 16.1 % (11.6-15.6); WHITE BLOOD COUNT 11.2 K/mm3 (4.0-10.0)
[2022-04-14 07:49] LABS: ALBUMIN 2.5 g/dl (3.4-5.0); BLOOD UREA NITROGEN 26.4 mg/dL (7-18)
[2022-04-14 07:53] LABS: BILIRUBIN,TOTAL 0.5 mg/dL (0.2-1); CREATININE 3.9 mg/dL (0.55-1.3); PHOSPHOROUS 4.4 mg/dL (2.5-4.9)
[2022-04-14 08:09] LABS: HEMOGLOBIN 6.2 GM/dL (10.7-15.3)
[2022-04-14] MEDS ORDERED: MIRTAZAPINE 15 MG TABLET (FP) PO SCH (10:00)
[2022-04-14] MEDS: ASPIRIN COATED 81 MG TABLET.EC PO SCH (10:09)
[2022-04-14] MEDS: DONEPEZIL HCL 5 MG TABLET (FP) PO SCH (10:09)
[2022-04-14] MEDS: LOSARTAN POTASSIUM 50 MG TABLET PO SCH (10:09)
[2022-04-14] MEDS: VITAMIN B COMP W-C 1 EA TABLET (NEPHRO-VITE) PO SCH (10:10)
[2022-04-14] MEDS: amLODIPine BESYLATE 10 MG TABLET (FP) PO SCH (10:10)
[2022-04-14] MEDS: CLOPIDOGREL BISULFATE 75 MG TABLET (FP) PO SCH (10:10)
[2022-04-14] MEDS: DORZOLAMIDE 2% HCL OPHTHALMIC SOLUTION 10 ML BOTTLE OU SCH ×2 (10:11→23:08)
[2022-04-14] MEDS: TIMOLOL 0.5% OPHTHALMIC SOL 5 ML BOTTLE OU SCH ×2 (10:12→23:08)
[2022-04-14] MEDS: BRIMONIDINE TARTRATE 0.2% OPHTHALMIC 5 ML BOTTLE OU SCH ×2 (10:12→23:07)
[2022-04-14] MEDS: SODIUM CHLORIDE 1,000 ML IV SCH (14:04)
[2022-04-14 17:00] LABS: HEMATOCRIT 24.1 % (32.4-45.2); HEMOGLOBIN 7.9 GM/dL (10.7-15.3); MCHC 32.8 g/dl (32.0-36.0); MEAN CELL VOLUME 88.5 fl (80-96); MEAN PLT VOLUME 8.9 fl (7.5-11.1); PLATELET COUNT 166 10^3/uL (134-434); RBC 2.72 M/mm3 (3.60-5.2); RDW 17.2 % (11.6-15.6); WHITE BLOOD COUNT 10.7 K/mm3 (4.0-10.0)
[2022-04-14] MEDS ORDERED: SODIUM CHLORIDE 250 ML IV PRN (17:53)
[2022-04-14] MEDS ORDERED: CEFAZOLIN 1 GM in DEXTROSE 5%-WATER - 50 ML IVPB SCH (18:00)
[2022-04-14] MEDS: CEFAZOLIN 1 GM in DEXTROSE 5%-WATER - 50 ML IVPB SCH (18:04)
[2022-04-14] MEDS: ATORVASTATIN CA 40 MG TABLET (FP) PO SCH (23:07)
[2022-04-14] MEDS: LATANOPROST 0.005% OPHTH SOLN 2.5ML BOTTLE OU SCH (23:08)
[2022-04-15] MEDS: CEFAZOLIN 1 GM in DEXTROSE 5%-WATER - 50 ML IVPB SCH ×2 (02:30→10:45)
[2022-04-15] MEDS: hydrALAZINE HCL 50 MG TABLET (FP) PO SCH ×3 (05:55→22:49)
[2022-04-15] MEDS: INSULIN SLIDING SCALE (NOVOLOG) 1 VIAL SQ SCH ×4 (06:01→22:49)
[2022-04-15] MEDS ORDERED: EPOETIN ALFA-EPBX 10,000 UNIT, EPOETIN ALFA-EPBX 3,000 UNIT, EPOETIN ALFA-EPBX 2,000 UNIT IVPUSH ONE (08:15)
[2022-04-15 08:17] LABS: HEMATOCRIT 20.1 % (32.4-45.2); MCH 29.8 pg (25.7-33.7); MCHC 33.7 g/dl (32.0-36.0); MEAN CELL VOLUME 88.4 fl (80-96); MEAN PLT VOLUME 8.9 fl (7.5-11.1); PLATELET COUNT 152 10^3/uL (134-434); RBC 2.28 M/mm3 (3.60-5.2)
[2022-04-15 08:26] LABS: HEMOGLOBIN 6.8 GM/dL (10.7-15.3)
[2022-04-15 08:33] LABS: BLOOD UREA NITROGEN 39.7 mg/dL (7-18); CALCIUM 7.9 mg/dL (8.5-10.1)
[2022-04-15 08:34] LABS: ALBUMIN 2.5 g/dl (3.4-5.0)
[2022-04-15 08:36] LABS: CREATININE 5.7 mg/dL (0.55-1.3); PHOSPHOROUS 4.7 mg/dL (2.5-4.9)
[2022-04-15 08:38] LABS: BILIRUBIN,TOTAL 0.6 mg/dL (0.2-1)
[2022-04-15] MEDS: BRIMONIDINE TARTRATE 0.2% OPHTHALMIC 5 ML BOTTLE OU SCH ×2 (10:45→22:50)
[2022-04-15] MEDS: LOSARTAN POTASSIUM 50 MG TABLET PO SCH (10:46)
[2022-04-15] MEDS: CLOPIDOGREL BISULFATE 75 MG TABLET (FP) PO SCH (10:46)
[2022-04-15] MEDS: amLODIPine BESYLATE 10 MG TABLET (FP) PO SCH (10:46)
[2022-04-15] MEDS: ASPIRIN COATED 81 MG TABLET.EC PO SCH (10:46)
[2022-04-15] MEDS: VITAMIN B COMP W-C 1 EA TABLET (NEPHRO-VITE) PO SCH (10:46)
[2022-04-15] MEDS: DONEPEZIL HCL 5 MG TABLET (FP) PO SCH (10:46)
[2022-04-15] MEDS: TIMOLOL 0.5% OPHTHALMIC SOL 5 ML BOTTLE OU SCH ×2 (10:47→22:50)
[2022-04-15] MEDS: DORZOLAMIDE 2% HCL OPHTHALMIC SOLUTION 10 ML BOTTLE OU SCH ×2 (10:47→22:50)
[2022-04-15 15:44] VITALS: BMI 24.7
[2022-04-15] MEDS: SODIUM CHLORIDE 1,000 ML IV SCH (16:44)
[2022-04-15] MEDS ORDERED: EPOETIN ALFA-EPBX 10,000 UNIT/ML VIAL SQ ONE (17:53)
[2022-04-15] MEDS ORDERED: INSULIN (NOVOLOG) ASPART 100 UNITS/ML 10ML VIAL ONE (21:19)
[2022-04-15] MEDS: ATORVASTATIN CA 40 MG TABLET (FP) PO SCH (22:49)
[2022-04-15] MEDS: LATANOPROST 0.005% OPHTH SOLN 2.5ML BOTTLE OU SCH (22:50)
[2022-04-16] MEDS: hydrALAZINE HCL 50 MG TABLET (FP) PO SCH ×3 (07:06→22:51)
[2022-04-16] MEDS: INSULIN SLIDING SCALE (NOVOLOG) 1 VIAL SQ SCH ×4 (07:06→22:52)
[2022-04-16 08:19] LABS: BASO % 0.7 % (0-2.0); EOS % 2.1 % (0-4.5); HEMATOCRIT 23.6 % (32.4-45.2); HEMOGLOBIN 7.9 GM/dL (10.7-15.3); LYMPH % 23.3 % (8-40); MCH 29.8 pg (25.7-33.7); MCHC 33.7 g/dl (32.0-36.0); MEAN CELL VOLUME 88.4 fl (80-96); MEAN PLT VOLUME 8.9 fl (7.5-11.1); MONO % 6.4 % (3.8-10.2); NEUT % 67.5 % (42.8-82.8); PLATELET COUNT 175 10^3/uL (134-434); RBC 2.67 M/mm3 (3.60-5.2); RDW 16.5 % (11.6-15.6)
[2022-04-16] MEDS: VITAMIN B COMP W-C 1 EA TABLET (NEPHRO-VITE) PO SCH (12:07)
[2022-04-16] MEDS: CLOPIDOGREL BISULFATE 75 MG TABLET (FP) PO SCH (12:07)
[2022-04-16] MEDS: ASPIRIN COATED 81 MG TABLET.EC PO SCH (12:07)
[2022-04-16] MEDS: amLODIPine BESYLATE 10 MG TABLET (FP) PO SCH (12:07)
[2022-04-16] MEDS: LOSARTAN POTASSIUM 50 MG TABLET PO SCH (12:07)
[2022-04-16] MEDS: DONEPEZIL HCL 5 MG TABLET (FP) PO SCH (12:08)
[2022-04-16] MEDS: BRIMONIDINE TARTRATE 0.2% OPHTHALMIC 5 ML BOTTLE OU SCH ×2 (12:08→22:53)
[2022-04-16] MEDS: DORZOLAMIDE 2% HCL OPHTHALMIC SOLUTION 10 ML BOTTLE OU SCH ×2 (14:34→22:52)
[2022-04-16] MEDS: TIMOLOL 0.5% OPHTHALMIC SOL 5 ML BOTTLE OU SCH ×2 (14:34→22:53)
[2022-04-16] MEDS: SODIUM CHLORIDE 1,000 ML IV SCH (14:34)
[2022-04-16] MEDS ORDERED: INSULIN (NOVOLOG) ASPART 100 UNITS/ML 10ML VIAL ONE ×2 (17:30→21:31)
[2022-04-16 17:41] LABS: EPI CELLS >36 /uL (0-25.1); HYALINE CASTS 7 /uL (0-3.1); PH,URINE 8.5 (5.0-8.0); URINE APPEARANCE Error; URINE BACTERIA 1 /uL (0-1359); URINE BILIRUBIN NEGATIVE (NEGATIVE); URINE COLOR DK YELLOW; URINE GLUCOSE (UA) NEGATIVE (NEGATIVE); URINE KETONE NEGATIVE (NEGATIVE); URINE LEUK ESTERASE TRACE (NEGATIVE); URINE NITRITE NEGATIVE (NEGATIVE); URINE PROTEIN 3+ (NEGATIVE); URINE RBC 7 /uL (0-23.9); URINE WBC 93 /uL (0-25.8)
[2022-04-16] MEDS: ATORVASTATIN CA 40 MG TABLET (FP) PO SCH (22:51)
[2022-04-16] MEDS: LATANOPROST 0.005% OPHTH SOLN 2.5ML BOTTLE OU SCH (22:52)
[2022-04-17] MEDS: INSULIN SLIDING SCALE (NOVOLOG) 1 VIAL SQ SCH ×4 (06:13→22:31)
[2022-04-17] MEDS: hydrALAZINE HCL 50 MG TABLET (FP) PO SCH ×3 (06:13→22:31)
[2022-04-17] MEDS: VITAMIN B COMP W-C 1 EA TABLET (NEPHRO-VITE) PO SCH (10:52)
[2022-04-17] MEDS: ASPIRIN COATED 81 MG TABLET.EC PO SCH (10:53)
[2022-04-17] MEDS: CLOPIDOGREL BISULFATE 75 MG TABLET (FP) PO SCH (10:53)
[2022-04-17] MEDS: LOSARTAN POTASSIUM 50 MG TABLET PO SCH (10:53)
[2022-04-17] MEDS: amLODIPine BESYLATE 10 MG TABLET (FP) PO SCH (10:53)
[2022-04-17] MEDS: DONEPEZIL HCL 5 MG TABLET (FP) PO SCH (10:53)
[2022-04-17] MEDS: DORZOLAMIDE 2% HCL OPHTHALMIC SOLUTION 10 ML BOTTLE OU SCH ×2 (10:54→22:30)
[2022-04-17] MEDS: BRIMONIDINE TARTRATE 0.2% OPHTHALMIC 5 ML BOTTLE OU SCH ×2 (10:54→22:31)
[2022-04-17] MEDS: TIMOLOL 0.5% OPHTHALMIC SOL 5 ML BOTTLE OU SCH ×2 (10:55→22:30)
[2022-04-17] MEDS ORDERED: INSULIN (NOVOLOG) ASPART 100 UNITS/ML 10ML VIAL ONE ×2 (15:58→16:53)
[2022-04-17] MEDS: TAMSULOSIN HCL 0.4 MG CAP PO SCH (17:19)
[2022-04-17 22:29] VITALS: RESP 18
[2022-04-17] MEDS: ATORVASTATIN CA 40 MG TABLET (FP) PO SCH (22:31)
[2022-04-17] MEDS: LATANOPROST 0.005% OPHTH SOLN 2.5ML BOTTLE OU SCH (22:31)
[2022-04-18] MEDS: INSULIN SLIDING SCALE (NOVOLOG) 1 VIAL SQ SCH ×3 (06:38→17:07)
[2022-04-18] MEDS: hydrALAZINE HCL 50 MG TABLET (FP) PO SCH ×2 (06:38→15:22)
[2022-04-18] MEDS ORDERED: SODIUM CHLORIDE 250 ML IV PRN (08:00)
[2022-04-18] MEDS ORDERED: EPOETIN ALFA-EPBX 20,000 UNIT/ML VIAL SQ ONE (08:00)
[2022-04-18 08:17] LABS: HEMATOCRIT 24.3 % (32.4-45.2); HEMOGLOBIN 7.9 GM/dL (10.7-15.3); MCH 28.6 pg (25.7-33.7); MCHC 32.4 g/dl (32.0-36.0); MEAN CELL VOLUME 88.3 fl (80-96); MEAN PLT VOLUME 8.4 fl (7.5-11.1); PLATELET COUNT 192 10^3/uL (134-434); RBC 2.76 M/mm3 (3.60-5.2); RDW 15.6 % (11.6-15.6)
[2022-04-18 08:54] LABS: ALBUMIN 2.3 g/dl (3.4-5.0); BLOOD UREA NITROGEN 59.5 mg/dL (7-18); CALCIUM 8.4 mg/dL (8.5-10.1)
[2022-04-18 08:57] LABS: CREATININE 6.9 mg/dL (0.55-1.3)
[2022-04-18 08:59] LABS: BILIRUBIN,TOTAL 0.9 mg/dL (0.2-1)
[2022-04-18] MEDS: TAMSULOSIN HCL 0.4 MG CAP PO SCH (09:00)
[2022-04-18] MEDS: LOSARTAN POTASSIUM 50 MG TABLET PO SCH (10:30)
[2022-04-18 11:21] VITALS: TEMP 98.7
[2022-04-18 15:17] VITALS: BP 146/55; PULSE 99
[2022-04-18] MEDS: DONEPEZIL HCL 5 MG TABLET (FP) PO SCH (15:20)
[2022-04-18] MEDS: amLODIPine BESYLATE 10 MG TABLET (FP) PO SCH (15:21)
[2022-04-18] MEDS: CLOPIDOGREL BISULFATE 75 MG TABLET (FP) PO SCH (15:21)
[2022-04-18] MEDS: VITAMIN B COMP W-C 1 EA TABLET (NEPHRO-VITE) PO SCH (15:22)
[2022-04-18] MEDS: ASPIRIN COATED 81 MG TABLET.EC PO SCH (15:22)
[2022-04-18] MEDS: DORZOLAMIDE 2% HCL OPHTHALMIC SOLUTION 10 ML BOTTLE OU SCH (15:30)
[2022-04-18] MEDS: BRIMONIDINE TARTRATE 0.2% OPHTHALMIC 5 ML BOTTLE OU SCH (15:31)
[2022-04-18] MEDS: TIMOLOL 0.5% OPHTHALMIC SOL 5 ML BOTTLE OU SCH (15:32)
== END 2022-04-18 20:35 | disposition home or self-care (01) | DRG 252 ==
LOC: JER 07:36 → JERBED 07:59 → J5S 15:00 → JICU 04-13 15:40 → J7W 04-14 23:34
PROVIDERS: ADMIT Internal Medicine; ATTEND Internal Medicine
PROC: 041K09L Bypass Right Femoral Artery to Popliteal Artery with Autologous Venous Tissue, Open Approach (ICD-10-PCS; 2022-04-13)
PROC: 06BP0ZZ Excision of Right Saphenous Vein, Open Approach (ICD-10-PCS; 2022-04-13)
PROC: B40FYZZ Plain Radiography of Right Lower Extremity Arteries using Other Contrast (ICD-10-PCS; 2022-04-13)
PROC: 06JY0ZZ Inspection of Lower Vein, Open Approach (ICD-10-PCS; principal; 2022-04-13 09:00)
PROC: 05HB33Z Insertion of Infusion Device into Right Basilic Vein, Percutaneous Approach (ICD-10-PCS; 2022-04-14)
PROC: B54MZZA Ultrasonography of Right Upper Extremity Veins, Guidance (ICD-10-PCS; 2022-04-14)
DX: E11.52 Type 2 diabetes mellitus with diabetic peripheral angiopathy with gangrene (principal); N18.6 End stage renal disease; I12.0 Hypertensive chronic kidney disease with stage 5 chronic kidney disease or end stage renal disease; I96 Gangrene, not elsewhere classified; F03.90 Unspecified dementia, unspecified severity, without behavioral disturbance, psychotic disturbance, mood disturbance, and anxiety; E11.22 Type 2 diabetes mellitus with diabetic chronic kidney disease; E87.5 Hyperkalemia; I27.20 Pulmonary hypertension, unspecified; I07.1 Rheumatic tricuspid insufficiency; Z99.2 Dependence on renal dialysis; H54.40 Blindness, one eye, unspecified eye; R80.9 Proteinuria, unspecified; D63.1 Anemia in chronic kidney disease; E78.5 Hyperlipidemia, unspecified; M81.0 Age-related osteoporosis without current pathological fracture; M85.871 Other specified disorders of bone density and structure, right ankle and foot
CPT/HCPCS: 0241U-QW; 36415; 36430; 36511; 71045-TC-FY; 72170-TC-FY; 73502-TC-LT-FY; 73630-TC-RT-FY; 75635-TC; 76000-TC-FY; 80053; 81003; 82962; 83735; 84100; 85025; 85027; 85610; 85651; 85730; 86140; 86803; 86850; 86900; 86901; 86922; 87086; 87340; 93005; 93010; 94760; 97116-GP; 97162-GP; 99285-25; C1757; J1644; P9038; P9058; Q5106; Q9967

== ENCOUNTER 2022-06-14 17:03 | Observation (INO) | payer MEDICARE, OTHER ==
[2022-06-14 18:33] LABS: EOS % 2.8 % (0-4.5); HEMATOCRIT 36.2 % (32.4-45.2); HEMOGLOBIN 11.9 GM/dL (10.7-15.3); LYMPH % 28.1 % (8-40); MCHC 32.9 g/dl (32.0-36.0); MEAN CELL VOLUME 88.1 fl (80-96); MEAN PLT VOLUME 9.3 fl (7.5-11.1); MONO % 8.2 % (3.8-10.2); NEUT % 59.9 % (42.8-82.8); PLATELET COUNT 243 10^3/uL (134-434); RBC 4.11 M/mm3 (3.60-5.2); RDW 17.5 % (11.6-15.6); WHITE BLOOD COUNT 6.5 K/mm3 (4.0-10.0)
[2022-06-14 18:41] LABS: INR 0.94 (0.83-1.09); PROTHROMBIN TIME (PATIENT) 10.9 SEC (9.7-13.0)
[2022-06-14 18:44] LABS: ACTIVATED PTT 30.2 SECONDS (25.2-36.5)
[2022-06-14 19:14] LABS: POTASSIUM 5.2 mmol/L (3.5-5.1)
[2022-06-14 19:19] LABS: BLOOD UREA NITROGEN 27.2 mg/dL (7-18)
[2022-06-14 19:58] LABS: CALCIUM 9.2 mg/dL (8.5-10.1)
[2022-06-14 19:59] LABS: ALBUMIN 3.5 g/dl (3.4-5.0)
[2022-06-14 20:02] LABS: CREATININE 3.9 mg/dL (0.55-1.3)
[2022-06-14 20:04] LABS: BILIRUBIN,TOTAL 0.4 mg/dL (0.2-1); TOT PROT 6.9 g/dl (6.4-8.2)
[2022-06-15 02:08] VITALS: RESP 18
[2022-06-15 11:01] LABS: EOS % 3.7 % (0-4.5); HEMATOCRIT 30.7 % (32.4-45.2); HEMOGLOBIN 9.9 GM/dL (10.7-15.3); LYMPH % 37.6 % (8-40); MCH 28.5 pg (25.7-33.7); MCHC 32.2 g/dl (32.0-36.0); MEAN CELL VOLUME 88.7 fl (80-96); MEAN PLT VOLUME 8.7 fl (7.5-11.1); MONO % 8.6 % (3.8-10.2); NEUT % 49.1 % (42.8-82.8); PLATELET COUNT 217 10^3/uL (134-434); RBC 3.47 M/mm3 (3.60-5.2); RDW 17.9 % (11.6-15.6); WHITE BLOOD COUNT 7.2 K/mm3 (4.0-10.0)
[2022-06-15 11:14] LABS: CALCIUM 8.8 mg/dL (8.5-10.1)
[2022-06-15 11:15] LABS: BLOOD UREA NITROGEN 38.3 mg/dL (7-18)
[2022-06-15 11:18] LABS: CREATININE 4.8 mg/dL (0.55-1.3)
[2022-06-15] MEDS: hydrALAZINE HCL 50 MG TABLET (FP) PO SCH ×2 (13:56→21:43)
[2022-06-15] MEDS ORDERED: ATORVASTATIN CA 40 MG TABLET (FP) PO SCH (22:00)
[2022-06-15] MEDS ORDERED: LATANOPROST 0.005% OPHTH SOLN 2.5ML BOTTLE OU SCH (22:00)
[2022-06-15] MEDS: BRIMONIDINE TARTRATE 0.2% OPHTHALMIC 5 ML BOTTLE OU SCH (23:26)
[2022-06-15] MEDS: DORZOLAMIDE 2% HCL OPHTHALMIC SOLUTION 10 ML BOTTLE OU SCH (23:26)
[2022-06-15] MEDS: TIMOLOL 0.5% OPHTHALMIC SOL 5 ML BOTTLE OU SCH (23:27)
[2022-06-16] MEDS: hydrALAZINE HCL 50 MG TABLET (FP) PO SCH ×2 (05:36→13:46)
[2022-06-16] MEDS ORDERED: SODIUM CHLORIDE 250 ML IV PRN (08:09)
[2022-06-16] MEDS ORDERED: TAMSULOSIN HCL 0.4 MG CAP PO SCH (08:30)
[2022-06-16] MEDS ORDERED: EPOETIN ALFA-EPBX 10,000 UNIT/ML VIAL SQ ONE (09:00)
[2022-06-16] MEDS ORDERED: amLODIPine BESYLATE 10 MG TABLET (FP) PO SCH (10:00)
[2022-06-16] MEDS ORDERED: DONEPEZIL HCL 5 MG TABLET (FP) PO SCH (10:00)
[2022-06-16] MEDS ORDERED: CLOPIDOGREL BISULFATE 75 MG TABLET (FP) PO SCH (10:00)
[2022-06-16] MEDS ORDERED: LOSARTAN POTASSIUM 50 MG TABLET PO SCH (10:00)
[2022-06-16] MEDS ORDERED: ASPIRIN COATED 81 MG TABLET.EC PO SCH (10:00)
[2022-06-16] MEDS ORDERED: MIRTAZAPINE 15 MG TABLET (FP) PO SCH (10:00)
[2022-06-16 10:04] LABS: HEMATOCRIT 27.8 % (32.4-45.2); HEMOGLOBIN 9.2 GM/dL (10.7-15.3); MCH 28.9 pg (25.7-33.7); MCHC 33.1 g/dl (32.0-36.0); MEAN CELL VOLUME 87.2 fl (80-96); MEAN PLT VOLUME 9.2 fl (7.5-11.1); PLATELET COUNT 219 10^3/uL (134-434); RBC 3.19 M/mm3 (3.60-5.2); WHITE BLOOD COUNT 7.3 K/mm3 (4.0-10.0)
[2022-06-16 10:24] LABS: POTASSIUM 5.4 mmol/L (3.5-5.1)
[2022-06-16 10:26] LABS: CALCIUM 8.9 mg/dL (8.5-10.1)
[2022-06-16 10:27] LABS: BLOOD UREA NITROGEN 50.1 mg/dL (7-18)
[2022-06-16 10:31] LABS: BILIRUBIN,TOTAL 0.4 mg/dL (0.2-1); TOT PROT 5.5 g/dl (6.4-8.2)
[2022-06-16] MEDS: BRIMONIDINE TARTRATE 0.2% OPHTHALMIC 5 ML BOTTLE OU SCH (11:02)
[2022-06-16] MEDS: TIMOLOL 0.5% OPHTHALMIC SOL 5 ML BOTTLE OU SCH (11:04)
[2022-06-16] MEDS: DORZOLAMIDE 2% HCL OPHTHALMIC SOLUTION 10 ML BOTTLE OU SCH (11:04)
[2022-06-16 12:40] VITALS: BP 136/63; PULSE 91; TEMP 98.4
[2022-06-16 15:32] VITALS: BMI 25.9
== END 2022-06-16 17:50 | disposition home or self-care (01) ==
LOC: JER 17:03 → JERBED 20:37 → J6S 06-15 03:17
PROVIDERS: ADMIT Internal Medicine; ATTEND Internal Medicine
PROC: 3E023GC Introduction of Other Therapeutic Substance into Muscle, Percutaneous Approach (ICD-10-PCS; principal; 2022-06-14)
DX: T82.838A Hemorrhage due to vascular prosthetic devices, implants and grafts, initial encounter (principal); E11.9 Type 2 diabetes mellitus without complications; E78.00 Pure hypercholesterolemia, unspecified; N18.6 End stage renal disease; I73.9 Peripheral vascular disease, unspecified; F03.90 Unspecified dementia, unspecified severity, without behavioral disturbance, psychotic disturbance, mood disturbance, and anxiety; H54.40 Blindness, one eye, unspecified eye; Z87.891 Personal history of nicotine dependence; Z79.01 Long term (current) use of anticoagulants; R80.9 Proteinuria, unspecified; E87.5 Hyperkalemia; D69.6 Thrombocytopenia, unspecified; Y82.8 Other medical devices associated with adverse incidents
CPT/HCPCS: 36415; 80048; 80053; 84100; 85025; 85027; 85610; 85730; 86803; 86850; 86900; 86901; 87340; 93005; 93010; 96372; 99285-25; C9803-CS; G0378; Q5106; U0003; U0005

== ENCOUNTER 2022-07-13 15:56 | Observation (INO) | payer MEDICARE, OTHER ==
[2022-07-13 17:27] VITALS: BMI 22.4
[2022-07-13 17:44] LABS: VENOUS BASE EXCESS 2.4 mmol/L (-2-2); VENOUS O2 SATURATION 84.9 % (70-80); VENOUS PH 7.385 (7.310-7.410)
[2022-07-13 17:51] LABS: INR 0.96 (0.83-1.09); PROTHROMBIN TIME (PATIENT) 11.1 SEC (9.7-13.0)
[2022-07-13 17:54] LABS: ACTIVATED PTT 28.7 SECONDS (25.2-36.5)
[2022-07-13 18:00] LABS: EPI CELLS 5 /uL (0-25.1); HYALINE CASTS 0 /uL (0-3.1); URINE APPEARANCE CLEAR; URINE BACTERIA 1 /uL (0-1359); URINE BILIRUBIN NEGATIVE (NEGATIVE); URINE COLOR YELLOW; URINE GLUCOSE (UA) NEGATIVE (NEGATIVE); URINE KETONE NEGATIVE (NEGATIVE); URINE LEUK ESTERASE NEGATIVE (NEGATIVE); URINE NITRITE NEGATIVE (NEGATIVE); URINE PROTEIN 2+ (NEGATIVE); URINE RBC 5 /uL (0-23.9); URINE UROBILINOGEN 0.2 mg/dL (0.2-1.0); URINE WBC 3 /uL (0-25.8)
[2022-07-13 18:03] LABS: POTASSIUM 5.8 mmol/L (3.5-5.1)
[2022-07-13 18:04] LABS: BASO % 0.5 % (0-2.0); EOS % 2.4 % (0-4.5); HEMATOCRIT 37.5 % (32.4-45.2); MCH 28.5 pg (25.7-33.7); MEAN CELL VOLUME 89.2 fl (80-96); MEAN PLT VOLUME 9.3 fl (7.5-11.1); NEUT % 65.1 % (42.8-82.8); PLATELET COUNT 167 10^3/uL (134-434); RBC 4.21 M/mm3 (3.60-5.2); WHITE BLOOD COUNT 7.2 K/mm3 (4.0-10.0)
[2022-07-13 18:06] LABS: ALBUMIN 3.6 g/dl (3.4-5.0); BLOOD UREA NITROGEN 36.6 mg/dL (7-18); MAGNESIUM 2.3 mg/dL (1.8-2.4)
[2022-07-13 18:09] LABS: CREATININE 4.5 mg/dL (0.55-1.3); PHOSPHOROUS 3.7 mg/dL (2.5-4.9)
[2022-07-13 18:10] LABS: TOT PROT 7.1 g/dl (6.4-8.2)
[2022-07-13 18:11] LABS: BILIRUBIN,TOTAL 0.5 mg/dL (0.2-1)
[2022-07-13 20:30] LABS: POTASSIUM 5.5 mmol/L (3.5-5.1)
[2022-07-13 20:31] LABS: CALCIUM 8.7 mg/dL (8.5-10.1)
[2022-07-13 20:32] LABS: ALBUMIN 3.2 g/dl (3.4-5.0); BLOOD UREA NITROGEN 39.2 mg/dL (7-18)
[2022-07-13 20:35] LABS: CREATININE 4.8 mg/dL (0.55-1.3)
[2022-07-13 20:37] LABS: BILIRUBIN,TOTAL 0.4 mg/dL (0.2-1)
[2022-07-14] MEDS ORDERED: DEXTROSE 50%-WATER 25 GM/50 ML DISP.SYRIN IVPUSH PRN (02:14)
[2022-07-14] MEDS ORDERED: SODIUM CHLORIDE 250 ML IV PRN (07:20)
[2022-07-14 08:56] LABS: BASO % 0.7 % (0-2.0); EOS % 2.4 % (0-4.5); HEMATOCRIT 36.3 % (32.4-45.2); HEMOGLOBIN 11.3 GM/dL (10.7-15.3); LYMPH % 31.4 % (8-40); MCH 28.3 pg (25.7-33.7); MCHC 31.2 g/dl (32.0-36.0); MEAN CELL VOLUME 90.6 fl (80-96); MEAN PLT VOLUME 9.8 fl (7.5-11.1); NEUT % 59.5 % (42.8-82.8); PLATELET COUNT 172 10^3/uL (134-434); RDW 18.4 % (11.6-15.6); WHITE BLOOD COUNT 8.2 K/mm3 (4.0-10.0)
[2022-07-14 09:18] LABS: POTASSIUM 5.3 mmol/L (3.5-5.1)
[2022-07-14 09:19] LABS: CALCIUM 8.8 mg/dL (8.5-10.1)
[2022-07-14 09:20] LABS: BLOOD UREA NITROGEN 46.5 mg/dL (7-18)
[2022-07-14 09:23] LABS: CREATININE 5.5 mg/dL (0.55-1.3)
[2022-07-14] MEDS: VITAMIN B COMP W-C 1 EA TABLET (NEPHRO-VITE) PO SCH (12:09)
[2022-07-14] MEDS: ASPIRIN COATED 81 MG TABLET.EC PO SCH (12:10)
[2022-07-14] MEDS: LOSARTAN POTASSIUM 50 MG TABLET PO SCH (12:10)
[2022-07-14] MEDS: CLOPIDOGREL BISULFATE 75 MG TABLET (FP) PO SCH (12:10)
[2022-07-14] MEDS: amLODIPine BESYLATE 10 MG TABLET (FP) PO SCH (12:10)
[2022-07-14] MEDS: BRIMONIDINE TARTRATE 0.2% OPHTHALMIC 5 ML BOTTLE OU SCH ×2 (15:08→22:00)
[2022-07-14] MEDS: DORZOLAMIDE 2% HCL OPHTHALMIC SOLUTION 10 ML BOTTLE OU SCH ×2 (15:09→22:01)
[2022-07-14] MEDS: TIMOLOL 0.5% OPHTHALMIC SOL 5 ML BOTTLE OU SCH ×2 (15:09→22:01)
[2022-07-14] MEDS ORDERED: DONEPEZIL HCL 5 MG TABLET (FP) PO SCH (18:00)
[2022-07-14] MEDS ORDERED: MIRTAZAPINE 15 MG TABLET (FP) PO SCH (22:00)
[2022-07-14] MEDS ORDERED: LATANOPROST 0.005% OPHTH SOLN 2.5ML BOTTLE OU SCH (22:00)
[2022-07-14] MEDS ORDERED: ATORVASTATIN CA 40 MG TABLET (FP) PO SCH (22:00)
[2022-07-15 05:46] VITALS: RESP 18
[2022-07-15] MEDS ORDERED: TAMSULOSIN HCL 0.4 MG CAP PO SCH (08:30)
[2022-07-15] MEDS: amLODIPine BESYLATE 10 MG TABLET (FP) PO SCH (10:04)
[2022-07-15] MEDS: CLOPIDOGREL BISULFATE 75 MG TABLET (FP) PO SCH (10:04)
[2022-07-15] MEDS: ASPIRIN COATED 81 MG TABLET.EC PO SCH (10:04)
[2022-07-15] MEDS: LOSARTAN POTASSIUM 50 MG TABLET PO SCH (10:04)
[2022-07-15] MEDS: VITAMIN B COMP W-C 1 EA TABLET (NEPHRO-VITE) PO SCH (10:04)
[2022-07-15] MEDS: BRIMONIDINE TARTRATE 0.2% OPHTHALMIC 5 ML BOTTLE OU SCH (10:06)
[2022-07-15] MEDS: TIMOLOL 0.5% OPHTHALMIC SOL 5 ML BOTTLE OU SCH (10:07)
[2022-07-15] MEDS: DORZOLAMIDE 2% HCL OPHTHALMIC SOLUTION 10 ML BOTTLE OU SCH (10:07)
[2022-07-15 12:05] LABS: HEMATOCRIT 33.8 % (32.4-45.2); HEMOGLOBIN 10.8 GM/dL (10.7-15.3); MCH 29.1 pg (25.7-33.7); MEAN CELL VOLUME 91.2 fl (80-96); MEAN PLT VOLUME 9.7 fl (7.5-11.1); PLATELET COUNT 119 10^3/uL (134-434); RDW 18.7 % (11.6-15.6); WHITE BLOOD COUNT 7.7 K/mm3 (4.0-10.0)
[2022-07-15 12:20] LABS: POTASSIUM 4.5 mmol/L (3.5-5.1)
[2022-07-15] MEDS ORDERED: SODIUM CHLORIDE 250 ML IV PRN (12:20)
[2022-07-15 12:22] LABS: ALBUMIN 3.3 g/dl (3.4-5.0); BLOOD UREA NITROGEN 29.6 mg/dL (7-18); CALCIUM 8.5 mg/dL (8.5-10.1)
[2022-07-15 12:24] LABS: CREATININE 4.1 mg/dL (0.55-1.3)
[2022-07-15 12:27] LABS: BILIRUBIN,TOTAL 0.4 mg/dL (0.2-1); TOT PROT 5.9 g/dl (6.4-8.2)
[2022-07-15 15:05] VITALS: BP 149/61; PULSE 81; TEMP 98.4
== END 2022-07-15 16:45 | disposition home or self-care (01) ==
LOC: JER 15:56 → JERBED 19:37 → J4S 07-14 00:52
PROVIDERS: ADMIT Internal Medicine; ATTEND Internal Medicine
DX: E16.2 Hypoglycemia, unspecified (principal); R55 Syncope and collapse; E11.22 Type 2 diabetes mellitus with diabetic chronic kidney disease; I12.0 Hypertensive chronic kidney disease with stage 5 chronic kidney disease or end stage renal disease; N18.6 End stage renal disease; Z99.2 Dependence on renal dialysis; Z79.4 Long term (current) use of insulin; H54.40 Blindness, one eye, unspecified eye; E78.5 Hyperlipidemia, unspecified; E87.5 Hyperkalemia; I73.9 Peripheral vascular disease, unspecified; R80.9 Proteinuria, unspecified; Z79.82 Long term (current) use of aspirin; Z86.718 Personal history of other venous thrombosis and embolism
CPT/HCPCS: 0241U-QW; 36415; 71045-TC-FY; 80048; 80053; 81003; 82803; 82962; 83036; 83605; 83735; 84100; 84443; 84484; 85025; 85027; 85610; 85730; 86850; 86900; 86901; 87086; 93005; 93010; 99285-25; G0378

== ENCOUNTER 2023-05-16 17:16 | Observation (INO) | payer MEDICARE, OTHER ==
[2023-05-16 17:52] VITALS: BMI 27.9
[2023-05-16 17:57] LABS: BASO % 0.7 % (0-2.0); EOS % 2.7 % (0-4.5); HEMATOCRIT 31.9 % (32.4-45.2); HEMOGLOBIN 10.6 GM/dL (10.7-15.3); LYMPH % 34.1 % (8-40); MCH 29.9 pg (25.7-33.7); MCHC 33.1 g/dl (32.0-36.0); MEAN CELL VOLUME 90.1 fl (80-96); MEAN PLT VOLUME 9.2 fl (7.5-11.1); MONO % 9.1 % (3.8-10.2); NEUT % 53.4 % (42.8-82.8); PLATELET COUNT 352 10^3/uL (134-434); RBC 3.54 M/mm3 (3.60-5.2); RDW 17.4 % (11.6-15.6); WHITE BLOOD COUNT 7.2 K/mm3 (4.0-10.0)
[2023-05-16 18:16] LABS: POTASSIUM 5.8 mmol/L (3.5-5.1)
[2023-05-16 18:17] LABS: CALCIUM 8.9 mg/dL (8.5-10.1)
[2023-05-16 18:18] LABS: ALBUMIN 3.5 g/dl (3.4-5.0); BLOOD UREA NITROGEN 22.2 mg/dL (7-18)
[2023-05-16 18:21] LABS: CREATININE 3.9 mg/dL (0.55-1.3)
[2023-05-16 18:23] LABS: BILIRUBIN,TOTAL 0.5 mg/dL (0.2-1); TOT PROT 6.8 g/dl (6.4-8.2)
[2023-05-16 19:53] LABS: POTASSIUM 4.8 mmol/L (3.5-5.1)
[2023-05-16 19:55] LABS: BLOOD UREA NITROGEN 22.6 mg/dL (7-18); CALCIUM 8.9 mg/dL (8.5-10.1)
[2023-05-16 19:58] LABS: CREATININE 4.1 mg/dL (0.55-1.3)
[2023-05-17] MEDS ORDERED: VITAMIN B COMP W-C 1 EA TABLET (NEPHRO-VITE) PO SCH (10:00)
[2023-05-17] MEDS ORDERED: TIMOLOL 0.5% OPHTHALMIC SOL 5 ML BOTTLE OU SCH (10:00)
[2023-05-17] MEDS ORDERED: DORZOLAMIDE 2% HCL OPHTHALMIC SOLUTION 10 ML BOTTLE OU SCH (10:00)
[2023-05-17] MEDS ORDERED: BRIMONIDINE TARTRATE 0.2% OPHTHALMIC 5 ML BOTTLE OU SCH (10:00)
[2023-05-17] MEDS ORDERED: LOSARTAN POTASSIUM 50 MG TABLET ONE (10:52)
[2023-05-17] MEDS ORDERED: CLOPIDOGREL BISULFATE 75 MG TABLET (FP) ONE (10:52)
[2023-05-17] MEDS ORDERED: amLODIPine BESYLATE 10 MG TABLET (FP) ONE (10:52)
[2023-05-17] MEDS ORDERED: ASPIRIN COATED 81 MG TABLET.EC ONE (10:52)
[2023-05-17] MEDS ORDERED: TAMSULOSIN HCL 0.4 MG CAP ONE (10:53)
[2023-05-17] MEDS: ASPIRIN COATED 81 MG TABLET.EC PO SCH (11:05)
[2023-05-17] MEDS: amLODIPine BESYLATE 10 MG TABLET (FP) PO SCH (11:05)
[2023-05-17] MEDS: TAMSULOSIN HCL 0.4 MG CAP PO SCH (11:05)
[2023-05-17] MEDS: LOSARTAN POTASSIUM 50 MG TABLET PO SCH (11:05)
[2023-05-17] MEDS: CLOPIDOGREL BISULFATE 75 MG TABLET (FP) PO SCH (11:05)
[2023-05-17 13:25] VITALS: BP 158/95; PULSE 85; RESP 18; TEMP 98
[2023-05-17] MEDS ORDERED: ATORVASTATIN CA 40 MG TABLET (FP) PO SCH (22:00)
[2023-05-17] MEDS ORDERED: MIRTAZAPINE 15 MG TABLET (FP) PO SCH (22:00)
[2023-05-17] MEDS ORDERED: DONEPEZIL HCL 5 MG TABLET (FP) PO SCH (22:00)
[2023-05-17] MEDS ORDERED: LATANOPROST 0.005% OPHTH SOLN 2.5ML BOTTLE OU SCH (22:00)
[2023-05-18] MEDS ORDERED: SODIUM CHLORIDE 250 ML IV PRN (08:37)
== END 2023-05-17 13:27 | disposition home or self-care (01) ==
LOC: JER 17:16 → JERBED 20:36
PROVIDERS: ADMIT Internal Medicine; ATTEND Internal Medicine
DX: F03.90 Unspecified dementia, unspecified severity, without behavioral disturbance, psychotic disturbance, mood disturbance, and anxiety (principal); E11.22 Type 2 diabetes mellitus with diabetic chronic kidney disease; I12.0 Hypertensive chronic kidney disease with stage 5 chronic kidney disease or end stage renal disease; N18.6 End stage renal disease; Z99.2 Dependence on renal dialysis; E78.5 Hyperlipidemia, unspecified; R80.9 Proteinuria, unspecified; Z86.718 Personal history of other venous thrombosis and embolism; Z87.898 Personal history of other specified conditions; Z87.891 Personal history of nicotine dependence
CPT/HCPCS: 36415; 80048; 80053; 85025; 93005; 93010; 99285-25; G0378

== ENCOUNTER 2023-11-26 13:31 | Day surgery (SDC) | payer MEDICARE, OTHER ==
[2023-11-26 14:28] LABS: BASO % 1.2 % (0-2.0); EOS % 2.6 % (0-4.5); HEMATOCRIT 32.2 % (32.4-45.2); HEMOGLOBIN 10.5 GM/dL (10.7-15.3); LYMPH % 40.6 % (8-40); MCH 29.2 pg (25.7-33.7); MCHC 32.7 g/dl (32.0-36.0); MEAN PLT VOLUME 8.8 fl (7.5-11.1); NEUT % 47.6 % (42.8-82.8); PLATELET COUNT 212 10^3/uL (134-434); RBC 3.61 M/mm3 (3.60-5.2); WHITE BLOOD COUNT 4.6 K/mm3 (4.0-10.0)
[2023-11-26 14:35] LABS: INR 0.91 (0.83-1.09); PROTHROMBIN TIME (PATIENT) 10.3 SEC (9.7-13.0)
[2023-11-26 14:37] LABS: ACTIVATED PTT 32.9 SECONDS (25.2-36.5)
[2023-11-26 14:46] LABS: POTASSIUM 3.8 mmol/L (3.5-5.1)
[2023-11-26 14:47] LABS: CALCIUM 8.8 mg/dL (8.5-10.1)
[2023-11-26 14:48] LABS: ALBUMIN 3.3 g/dl (3.4-5.0)
[2023-11-26 14:51] LABS: CREATININE 3.9 mg/dL (0.55-1.3)
[2023-11-26 14:53] LABS: TOT PROT 6.1 g/dl (6.4-8.2)
[2023-11-26 15:55] LABS: BILIRUBIN,TOTAL 0.4 mg/dL (0.2-1)
[2023-11-26 22:53] VITALS: BMI 20.5
[2023-11-27] MEDS: hydrALAZINE HCL 50 MG TABLET (FP) PO SCH ×2 (06:11→23:10)
[2023-11-27] MEDS: TAMSULOSIN HCL 0.4 MG CAP PO SCH (08:09)
[2023-11-27] MEDS: MIRTAZAPINE 15 MG TABLET (FP) PO SCH (10:03)
[2023-11-27] MEDS: amLODIPine BESYLATE 10 MG TABLET (FP) PO SCH (10:03)
[2023-11-27] MEDS: DONEPEZIL HCL 5 MG TABLET (FP) PO SCH (10:03)
[2023-11-27] MEDS: LOSARTAN POTASSIUM 50 MG TABLET PO SCH (10:04)
[2023-11-27] MEDS ORDERED: ONDANSETRON 4 MG/2 ML VIAL IVPUSH PRN ×2 (19:37→21:20)
[2023-11-27] MEDS ORDERED: LACTATED RINGERS SOLUTION 1,000 ML IV SCH ×2 (19:45→21:20)
[2023-11-27] MEDS ORDERED: PROPOFOL 40 ML ONE (19:53)
[2023-11-27] MEDS ORDERED: MIDAZOLAM HCL 2 MG/2 ML SINGLE DOSE VIAL ONE (19:58)
[2023-11-27] MEDS ORDERED: KETAMINE HCL 200 MG/20 ML VIAL ONE (19:58)
[2023-11-27] MEDS: ceFAZolin SODIUM 1 GM VIAL IVPB ONE (20:05)
[2023-11-27] MEDS: LIDOCAINE HCL 1%, 10 MG/ML (20ML VIAL) NR ONE ×2 (20:06)
[2023-11-27] MEDS: HEPARIN NA (PORCINE) 5,000 UNITS/ML 1ML VIAL SQ ONE ×2 (20:23)
[2023-11-27] MEDS ORDERED: ATORVASTATIN CA 40 MG TABLET (FP) PO SCH (22:00)
[2023-11-27] MEDS: LABETALOL HCL 5 MG/1 ML (100MG/20 ML VIAL) IVPUSH ONE (22:30)
[2023-11-27] MEDS: ATORVASTATIN CA 40 MG TABLET (FP) PO SCH (23:36)
[2023-11-28] MEDS: TAMSULOSIN HCL 0.4 MG CAP PO SCH (09:21)
[2023-11-28] MEDS: LOSARTAN POTASSIUM 50 MG TABLET PO SCH (09:21)
[2023-11-28] MEDS: amLODIPine BESYLATE 10 MG TABLET (FP) PO SCH (09:21)
[2023-11-28] MEDS: MIRTAZAPINE 15 MG TABLET (FP) PO SCH (09:21)
[2023-11-28] MEDS ORDERED: SODIUM CHLORIDE 250 ML IV PRN (15:06)
[2023-11-28 18:08] VITALS: RESP 18
[2023-11-28] MEDS: DONEPEZIL HCL 5 MG TABLET (FP) PO SCH (21:55)
[2023-11-29 14:06] VITALS: BP 154/52; PULSE 76; TEMP 98.8
== END 2023-11-29 17:26 | disposition home or self-care (01) ==
LOC: JER 13:31 → UNDOADMIN 14:59 → JERBED 14:59 → JASUSAT 14:59 → J5S 20:43 → JERBED 20:43 → J5S 11-27 15:55 → JASUSAT 11-29 17:26
PROVIDERS: ATTEND Internal Medicine
PROC: 05CY3ZZ Extirpation of Matter from Upper Vein, Percutaneous Approach (ICD-10-PCS; principal; 2023-11-26)
PROC: 057Y3ZZ Dilation of Upper Vein, Percutaneous Approach (ICD-10-PCS; 2023-11-26)
PROC: B50NYZZ Plain Radiography of Left Upper Extremity Veins using Other Contrast (ICD-10-PCS; 2023-11-26)
DX: T82.868A Thrombosis due to vascular prosthetic devices, implants and grafts, initial encounter (principal); T82.838A Hemorrhage due to vascular prosthetic devices, implants and grafts, initial encounter; I10 Essential (primary) hypertension; F03.90 Unspecified dementia, unspecified severity, without behavioral disturbance, psychotic disturbance, mood disturbance, and anxiety; E11.51 Type 2 diabetes mellitus with diabetic peripheral angiopathy without gangrene; H54.40 Blindness, one eye, unspecified eye; I12.0 Hypertensive chronic kidney disease with stage 5 chronic kidney disease or end stage renal disease; E11.22 Type 2 diabetes mellitus with diabetic chronic kidney disease; N18.6 End stage renal disease; E78.5 Hyperlipidemia, unspecified; R80.9 Proteinuria, unspecified; Y83.8 Other surgical procedures as the cause of abnormal reaction of the patient, or of later complication, without mention of misadventure at the time of the procedure; Z99.2 Dependence on renal dialysis; Z86.718 Personal history of other venous thrombosis and embolism
CPT/HCPCS: 36415; 71045-TC-FY; 76000-TC-FY; 80053; 84484; 85025; 85610; 85730; 86704; 86803; 86850; 86900; 86901; 87340; 87517; 93005; 93010; 94760; 99285-25; C1757; J1644

== ENCOUNTER 2024-01-15 12:28 | Inpatient (IN) | payer MEDICARE, OTHER ==
[2024-01-15 14:17] LABS: BASO % 0.9 % (0-2.0); EOS % 2.7 % (0-4.5); HEMATOCRIT 37.3 % (32.4-45.2); HEMOGLOBIN 12.3 GM/dL (10.7-15.3); LYMPH % 44.2 % (8-40); MCH 28.9 pg (25.7-33.7); MEAN CELL VOLUME 87.8 fl (80-96); MEAN PLT VOLUME 8.8 fl (7.5-11.1); MONO % 6.6 % (3.8-10.2); NEUT % 45.6 % (42.8-82.8); PLATELET COUNT 149 10^3/uL (134-434); RBC 4.25 M/mm3 (3.60-5.2); RDW 18.2 % (11.6-15.6); WHITE BLOOD COUNT 5.9 K/mm3 (4.0-10.0)
[2024-01-15 14:38] LABS: POTASSIUM 5.2 mmol/L (3.5-5.1)
[2024-01-15 14:40] LABS: CALCIUM 9.3 mg/dL (8.5-10.1)
[2024-01-15 14:41] LABS: ALBUMIN 3.6 g/dl (3.4-5.0); BLOOD UREA NITROGEN 55.7 mg/dL (7-18); MAGNESIUM 2.5 mg/dL (1.8-2.4)
[2024-01-15 14:44] LABS: CREATININE 5.5 mg/dL (0.55-1.3)
[2024-01-15 14:45] LABS: BILIRUBIN,TOTAL 0.5 mg/dL (0.2-1); PHOSPHOROUS 3.9 mg/dL (2.5-4.9); TOT PROT 6.8 g/dl (6.4-8.2)
[2024-01-15] MEDS: LOSARTAN POTASSIUM 50 MG TABLET PO SCH (17:13)
[2024-01-15] MEDS: HEPARIN NA (PORCINE) 5,000 UNITS/ML 1ML VIAL SQ SCH (21:56)
[2024-01-15] MEDS: ATORVASTATIN CA 40 MG TABLET (FP) PO SCH (21:56)
[2024-01-15] MEDS: hydrALAZINE HCL 50 MG TABLET (FP) PO SCH (21:56)
[2024-01-16 00:33] VITALS: BMI 22.3
[2024-01-16] MEDS: DORZOLAMIDE 2% HCL OPHTHALMIC SOLUTION 10 ML BOTTLE OU SCH (00:40)
[2024-01-16] MEDS: TIMOLOL 0.5% OPHTHALMIC SOL 5 ML BOTTLE OU SCH (00:40)
[2024-01-16] MEDS: BRIMONIDINE TARTRATE 0.2% OPHTHALMIC 5 ML BOTTLE OU SCH (00:40)
[2024-01-16] MEDS: LATANOPROST 0.005% OPHTH SOLN 2.5ML BOTTLE OU SCH (00:41)
[2024-01-16] MEDS ORDERED: SODIUM CHLORIDE 250 ML IV PRN (08:31)
[2024-01-16] MEDS: DONEPEZIL HCL 5 MG TABLET (FP) PO SCH (10:29)
[2024-01-16] MEDS: CLOPIDOGREL BISULFATE 75 MG TABLET (FP) PO SCH (10:29)
[2024-01-16] MEDS: TAMSULOSIN HCL 0.4 MG CAP PO SCH (10:29)
[2024-01-16] MEDS: ASPIRIN COATED 81 MG TABLET.EC PO SCH (10:29)
[2024-01-16] MEDS: amLODIPine BESYLATE 10 MG TABLET (FP) PO SCH (10:29)
[2024-01-16] MEDS: MIRTAZAPINE 15 MG TABLET (FP) PO SCH (10:30)
[2024-01-16] MEDS: VITAMIN B COMP W-C 1 EA TABLET (NEPHRO-VITE) PO SCH (10:31)
[2024-01-16] MEDS ORDERED: hydrALAZINE HCL 50 MG TABLET (FP) PO SCH (10:49)
[2024-01-16] MEDS: ACETAMINOPHEN 325 MG TABLET (FP) PO PRN (13:27)
[2024-01-16] MEDS: QUEtiapine FUMARATE 25 MG TABLET PO SCH (18:33)
[2024-01-16] MEDS: LOSARTAN POTASSIUM 50 MG TABLET PO SCH (21:37)
[2024-01-17 07:50] LABS: BASO % 0.6 % (0-2.0); EOS % 0.8 % (0-4.5); HEMATOCRIT 33.7 % (32.4-45.2); LYMPH % 19.4 % (8-40); MCH 28.8 pg (25.7-33.7); MCHC 32.7 g/dl (32.0-36.0); MEAN CELL VOLUME 88.1 fl (80-96); MEAN PLT VOLUME 9.2 fl (7.5-11.1); MONO % 8.1 % (3.8-10.2); NEUT % 71.1 % (42.8-82.8); PLATELET COUNT 166 10^3/uL (134-434); RBC 3.82 M/mm3 (3.60-5.2); RDW 18.2 % (11.6-15.6); WHITE BLOOD COUNT 8.5 K/mm3 (4.0-10.0)
[2024-01-17] MEDS: METOPROLOL TARTRATE 25 MG TABLET (FP) PO SCH (12:07)
[2024-01-17] MEDS: hydrALAZINE HCL 50 MG TABLET (FP) PO SCH (13:45)
[2024-01-17 14:44] LABS: HEMATOCRIT 33.2 % (32.4-45.2); HEMOGLOBIN 10.7 GM/dL (10.7-15.3); MCH 28.2 pg (25.7-33.7); MCHC 32.1 g/dl (32.0-36.0); MEAN CELL VOLUME 87.8 fl (80-96); MEAN PLT VOLUME 8.9 fl (7.5-11.1); PLATELET COUNT 155 10^3/uL (134-434); RBC 3.78 M/mm3 (3.60-5.2); RDW 18.7 % (11.6-15.6); WHITE BLOOD COUNT 6.9 K/mm3 (4.0-10.0)
[2024-01-17 15:09] LABS: POTASSIUM 4.6 mmol/L (3.5-5.1)
[2024-01-17 15:11] LABS: ALBUMIN 3.4 g/dl (3.4-5.0); BLOOD UREA NITROGEN 32.5 mg/dL (7-18)
[2024-01-17 15:14] LABS: CREATININE 4.6 mg/dL (0.55-1.3)
[2024-01-17 15:16] LABS: BILIRUBIN,TOTAL 0.5 mg/dL (0.2-1); TOT PROT 6.2 g/dl (6.4-8.2)
[2024-01-18] MEDS ORDERED: SODIUM CHLORIDE 250 ML IV PRN (16:30)
[2024-01-18] MEDS: FUROSEMIDE 40 MG/4 ML INJECTABLE VIAL IVPUSH ONE (17:49)
[2024-01-18] MEDS: MEGESTROL ACETATE 400 MG/10 ML UNIT DOSE CUP PO SCH (17:49)
[2024-01-18] MEDS: ONDANSETRON 4 MG/2 ML VIAL IVPUSH PRN (19:15)
[2024-01-18] MEDS: NIFEdipine E.R 60 MG TABLET PO SCH (22:04)
[2024-01-19] MEDS: VALSARTAN 160 MG TABLET PO SCH (10:53)
[2024-01-19 13:28] LABS: HEMATOCRIT 32.2 % (32.4-45.2); HEMOGLOBIN 10.7 GM/dL (10.7-15.3); MCH 29.4 pg (25.7-33.7); MCHC 33.3 g/dl (32.0-36.0); MEAN CELL VOLUME 88.3 fl (80-96); MEAN PLT VOLUME 8.9 fl (7.5-11.1); PLATELET COUNT 144 10^3/uL (134-434); RBC 3.64 M/mm3 (3.60-5.2); RDW 18.2 % (11.6-15.6); WHITE BLOOD COUNT 8.5 K/mm3 (4.0-10.0)
[2024-01-19 13:55] LABS: POTASSIUM 4.8 mmol/L (3.5-5.1)
[2024-01-19 13:57] LABS: ALBUMIN 3.4 g/dl (3.4-5.0); CALCIUM 8.9 mg/dL (8.5-10.1)
[2024-01-19 14:00] LABS: CREATININE 6.6 mg/dL (0.55-1.3)
[2024-01-19 14:02] LABS: BILIRUBIN,TOTAL 0.4 mg/dL (0.2-1); TOT PROT 6.1 g/dl (6.4-8.2)
[2024-01-19] MEDS: EPOETIN ALFA-EPBX 4,000 UNIT/ML VIAL IVPUSH ONE (14:07)
[2024-01-19 14:11] LABS: BLOOD UREA NITROGEN 61.6 mg/dL (7-18)
[2024-01-19] MEDS ORDERED: SODIUM CHLORIDE 250 ML IV PRN (15:11)
[2024-01-21 00:54] VITALS: RESP 18
[2024-01-21] MEDS: METOPROLOL TARTRATE 50 MG TABLET (FP) PO SCH (13:19)
[2024-01-22] MEDS ORDERED: SODIUM CHLORIDE 250 ML IV PRN (00:01)
[2024-01-22 21:25] VITALS: TEMP 98.4
[2024-01-22 22:54] VITALS: BP 116/53; PULSE 58
== END 2024-01-22 23:00 | disposition home or self-care (01) | DRG 682 ==
LOC: JER 12:28 → JERBED 15:30 → OBSVTOIN 17:07 → J7W 19:51
PROVIDERS: ADMIT Internal Medicine; ATTEND Internal Medicine
PROC: 5A1D70Z Performance of Urinary Filtration, Intermittent, Less than 6 Hours Per Day (ICD-10-PCS; principal; 2024-01-18)
PROC: 5A1D70Z Performance of Urinary Filtration, Intermittent, Less than 6 Hours Per Day (ICD-10-PCS; 2024-01-19)
DX: I12.0 Hypertensive chronic kidney disease with stage 5 chronic kidney disease or end stage renal disease (principal); N18.6 End stage renal disease; E11.22 Type 2 diabetes mellitus with diabetic chronic kidney disease; Z99.2 Dependence on renal dialysis; F03.90 Unspecified dementia, unspecified severity, without behavioral disturbance, psychotic disturbance, mood disturbance, and anxiety; H54.40 Blindness, one eye, unspecified eye; E11.51 Type 2 diabetes mellitus with diabetic peripheral angiopathy without gangrene; R55 Syncope and collapse; R80.9 Proteinuria, unspecified; E78.5 Hyperlipidemia, unspecified; Z86.718 Personal history of other venous thrombosis and embolism
CPT/HCPCS: 36415; 71045-TC-FY; 80053; 82962; 83735; 84100; 85025; 85027; 86705; 86803; 86850; 86900; 86901; 87340; 93005; 93010; 93990-TC; 97116-GP; 97161-GP; 99285-25; G0378; J1644; J2597; Q5106

== ENCOUNTER 2024-01-28 14:22 | Observation (INO) | payer MEDICARE, OTHER ==
[2024-01-28 15:15] VITALS: BMI 22.9
[2024-01-28 16:53] LABS: HEMATOCRIT 33.1 % (32.4-45.2); HEMOGLOBIN 10.5 GM/dL (10.7-15.3); MCH 28.3 pg (25.7-33.7); MCHC 31.7 g/dl (32.0-36.0); MEAN CELL VOLUME 89.4 fl (80-96); PLATELET COUNT 166 10^3/uL (134-434); RDW 18.4 % (11.6-15.6); WHITE BLOOD COUNT 8.9 K/mm3 (4.0-10.0)
[2024-01-28 17:12] LABS: CALCIUM 9.2 mg/dL (8.5-10.1)
[2024-01-28 17:13] LABS: ALBUMIN 3.6 g/dl (3.4-5.0)
[2024-01-28 17:16] LABS: BLOOD UREA NITROGEN 31.5 mg/dL (7-18); CREATININE 4.2 mg/dL (0.55-1.3)
[2024-01-28 17:18] LABS: BILIRUBIN,TOTAL 0.5 mg/dL (0.2-1); TOT PROT 6.7 g/dl (6.4-8.2)
[2024-01-29] MEDS ORDERED: DOCUSATE SODIUM 100 MG CAPSULE (FP) PO PRN (01:37)
[2024-01-29] MEDS: hydrALAZINE HCL 50 MG TABLET (FP) PO ONE (03:30)
[2024-01-29] MEDS ORDERED: METOPROLOL TARTRATE 50 MG TABLET (FP) PO SCH (06:00)
[2024-01-29] MEDS: CLOPIDOGREL BISULFATE 75 MG TABLET (FP) PO SCH (10:09)
[2024-01-29] MEDS: TAMSULOSIN HCL 0.4 MG CAP PO SCH (10:09)
[2024-01-29] MEDS: amLODIPine BESYLATE 10 MG TABLET (FP) PO SCH (10:10)
[2024-01-29] MEDS: ASPIRIN COATED 81 MG TABLET.EC PO SCH (10:10)
[2024-01-29] MEDS: VITAMIN B COMP W-C 1 EA TABLET (NEPHRO-VITE) PO SCH (10:10)
[2024-01-29] MEDS: QUEtiapine FUMARATE 25 MG TABLET PO SCH (10:10)
[2024-01-29] MEDS: NIFEdipine E.R 60 MG TABLET PO SCH (10:10)
[2024-01-29] MEDS: VALSARTAN 160 MG TABLET PO SCH (10:11)
[2024-01-29] MEDS: BRIMONIDINE TARTRATE 0.2% OPHTHALMIC 5 ML BOTTLE OU SCH (10:12)
[2024-01-29] MEDS: TIMOLOL 0.5% OPHTHALMIC SOL 5 ML BOTTLE OU SCH (10:12)
[2024-01-29] MEDS: DORZOLAMIDE 2% HCL OPHTHALMIC SOLUTION 10 ML BOTTLE OU SCH (10:12)
[2024-01-29] MEDS: INSULIN ASPART SLIDING SCALE (NOVOLOG) 1 VIAL SQ SCH (11:28)
[2024-01-29] MEDS ORDERED: hydrALAZINE HCL 50 MG TABLET (FP) ONE (13:09)
[2024-01-29] MEDS: hydrALAZINE HCL 50 MG TABLET (FP) PO SCH (13:26)
[2024-01-29 15:02] LABS: BASO % 0.6 % (0-2.0); EOS % 1.5 % (0-4.5); HEMATOCRIT 28.5 % (32.4-45.2); HEMOGLOBIN 9.4 GM/dL (10.7-15.3); LYMPH % 16.6 % (8-40); MCH 28.6 pg (25.7-33.7); MCHC 32.9 g/dl (32.0-36.0); MEAN PLT VOLUME 8.8 fl (7.5-11.1); MONO % 7.2 % (3.8-10.2); NEUT % 74.1 % (42.8-82.8); PLATELET COUNT 159 10^3/uL (134-434); RBC 3.27 M/mm3 (3.60-5.2); RDW 18.4 % (11.6-15.6); WHITE BLOOD COUNT 11.5 K/mm3 (4.0-10.0)
[2024-01-29 15:11] LABS: INR 0.95 (0.83-1.09); PROTHROMBIN TIME (PATIENT) 10.8 SEC (9.7-13.0)
[2024-01-29 15:25] LABS: POTASSIUM 4.2 mmol/L (3.5-5.1)
[2024-01-29 15:27] LABS: CALCIUM 8.9 mg/dL (8.5-10.1)
[2024-01-29 15:28] LABS: MAGNESIUM 2.2 mg/dL (1.8-2.4)
[2024-01-29 15:30] LABS: PHOSPHOROUS 4.4 mg/dL (2.5-4.9)
[2024-01-29 15:31] LABS: CREATININE 5.3 mg/dL (0.55-1.3)
[2024-01-29] MEDS: DONEPEZIL HCL 5 MG TABLET (FP) PO SCH (22:08)
[2024-01-29] MEDS: MIRTAZAPINE 15 MG TABLET (FP) PO SCH (22:08)
[2024-01-29] MEDS: ATORVASTATIN CA 40 MG TABLET (FP) PO SCH (22:09)
[2024-01-29] MEDS: LATANOPROST 0.005% OPHTH SOLN 2.5ML BOTTLE OU SCH (22:26)
[2024-01-30 08:24] LABS: HEMATOCRIT 29.6 % (32.4-45.2); HEMOGLOBIN 9.6 GM/dL (10.7-15.3); MCH 28.6 pg (25.7-33.7); MCHC 32.3 g/dl (32.0-36.0); MEAN CELL VOLUME 88.7 fl (80-96); MEAN PLT VOLUME 9.4 fl (7.5-11.1); PLATELET COUNT 178 10^3/uL (134-434); RBC 3.33 M/mm3 (3.60-5.2); WHITE BLOOD COUNT 10.2 K/mm3 (4.0-10.0)
[2024-01-30 08:29] LABS: POTASSIUM 4.5 mmol/L (3.5-5.1)
[2024-01-30 08:32] LABS: ALBUMIN 3.4 g/dl (3.4-5.0); BLOOD UREA NITROGEN 51.7 mg/dL (7-18)
[2024-01-30 08:35] LABS: CREATININE 6.2 mg/dL (0.55-1.3)
[2024-01-30 08:36] LABS: BILIRUBIN,TOTAL 0.5 mg/dL (0.2-1); TOT PROT 6.2 g/dl (6.4-8.2)
[2024-01-30] MEDS: EPOETIN ALFA-EPBX 10,000 UNIT/ML VIAL IVPUSH ONE (10:58)
[2024-01-30] MEDS: ACETAMINOPHEN 325 MG TABLET (FP) PO PRN (16:32)
[2024-01-30] MEDS ORDERED: SODIUM CHLORIDE 250 ML IV PRN (17:32)
[2024-02-01 09:25] LABS: HEMATOCRIT 30.4 % (32.4-45.2); HEMOGLOBIN 9.8 GM/dL (10.7-15.3); MCH 28.8 pg (25.7-33.7); MCHC 32.3 g/dl (32.0-36.0); MEAN CELL VOLUME 89.2 fl (80-96); MEAN PLT VOLUME 9.1 fl (7.5-11.1); PLATELET COUNT 208 10^3/uL (134-434); RBC 3.41 M/mm3 (3.60-5.2); RDW 18.3 % (11.6-15.6); WHITE BLOOD COUNT 9.9 K/mm3 (4.0-10.0)
[2024-02-01 09:48] LABS: POTASSIUM 3.9 mmol/L (3.5-5.1)
[2024-02-01 09:52] LABS: CALCIUM 9.2 mg/dL (8.5-10.1)
[2024-02-01 09:53] LABS: BLOOD UREA NITROGEN 37.8 mg/dL (7-18)
[2024-02-01 09:56] LABS: CREATININE 5.7 mg/dL (0.55-1.3)
[2024-02-01] MEDS ORDERED: SODIUM CHLORIDE 250 ML IV PRN (10:00)
[2024-02-01] MEDS: EPOETIN ALFA-EPBX 10,000 UNIT/ML VIAL SQ ONE (11:52)
[2024-02-01 16:11] VITALS: BP 156/58; PULSE 79; RESP 19; TEMP 99.1
== END 2024-02-01 17:50 | disposition home health service (06) ==
LOC: JER 14:22 → JERBED 21:40 → J4S 01-29 17:52
PROVIDERS: ADMIT Internal Medicine; ATTEND Internal Medicine
PROC: 3E033GC Introduction of Other Therapeutic Substance into Peripheral Vein, Percutaneous Approach (ICD-10-PCS; principal; 2024-01-28)
PROC: 3E013GC Introduction of Other Therapeutic Substance into Subcutaneous Tissue, Percutaneous Approach (ICD-10-PCS; 2024-01-28)
DX: R55 Syncope and collapse (principal); E11.22 Type 2 diabetes mellitus with diabetic chronic kidney disease; I12.0 Hypertensive chronic kidney disease with stage 5 chronic kidney disease or end stage renal disease; N18.6 End stage renal disease; Z99.2 Dependence on renal dialysis; Z79.4 Long term (current) use of insulin; I73.9 Peripheral vascular disease, unspecified; F03.90 Unspecified dementia, unspecified severity, without behavioral disturbance, psychotic disturbance, mood disturbance, and anxiety; R80.9 Proteinuria, unspecified; H54.40 Blindness, one eye, unspecified eye
CPT/HCPCS: 0241U-QW; 36415; 70450-TC; 71045-TC-FY; 80048; 80053; 82962; 83735; 84100; 84443; 84484; 85025; 85027; 85610; 85730; 93005; 93010; 93306-TC; 93880-TC; 96372; 96374; 99285-25; G0378; Q5106

== ENCOUNTER 2024-03-26 12:01 | Observation (INO) | payer MEDICARE, OTHER ==
[2024-03-26 14:23] LABS: BASO % 0.4 % (0-2.0); EOS % 0.2 % (0-4.5); HEMATOCRIT 33.5 % (32.4-45.2); HEMOGLOBIN 11.1 GM/dL (10.7-15.3); LYMPH % 11.7 % (8-40); MCH 28.4 pg (25.7-33.7); MEAN CELL VOLUME 85.9 fl (80-96); MEAN PLT VOLUME 9.3 fl (7.5-11.1); MONO % 5.8 % (3.8-10.2); NEUT % 81.9 % (42.8-82.8); PLATELET COUNT 213 10^3/uL (134-434); RDW 17.3 % (11.6-15.6); WHITE BLOOD COUNT 12.3 K/mm3 (4.0-10.0)
[2024-03-26 14:35] LABS: ACTIVATED PTT 32.2 SECONDS (25.2-36.5); INR 0.96 (0.83-1.09); PROTHROMBIN TIME (PATIENT) 10.6 SEC (9.7-13.0)
[2024-03-26 17:44] LABS: CALCIUM 9.2 mg/dL (8.5-10.1); POTASSIUM 5.2 mmol/L (3.5-5.1)
[2024-03-26 17:46] LABS: ALBUMIN 3.4 g/dl (3.4-5.0); BLOOD UREA NITROGEN 69.3 mg/dL (7-18)
[2024-03-26 17:48] LABS: CREATININE 6.4 mg/dL (0.55-1.3)
[2024-03-26 17:51] LABS: BILIRUBIN,TOTAL 0.6 mg/dL (0.2-1); TOT PROT 6.9 g/dl (6.4-8.2)
[2024-03-26] MEDS ORDERED: FUROSEMIDE 40 MG/4 ML INJECTABLE VIAL ONE (21:12)
[2024-03-26] MEDS: FUROSEMIDE 40 MG/4 ML INJECTABLE VIAL IVPUSH ONE (21:15)
[2024-03-26] MEDS ORDERED: ACETAMINOPHEN 325 MG TABLET (FP) PO PRN (22:20)
[2024-03-26] MEDS ORDERED: DOCUSATE SODIUM 100 MG CAPSULE (FP) PO PRN (22:20)
[2024-03-26] MEDS ORDERED: SODIUM ZIRCONIUM CYCLOSILICATE (LOKELMA) 10 GM PACKET ONE (22:30)
[2024-03-26] MEDS: SODIUM ZIRCONIUM CYCLOSILICATE (LOKELMA) 5 GM PACKET PO ONE (22:35)
[2024-03-27 03:30] LABS: EPI CELLS 15 /uL (0-25.1); HYALINE CASTS 0 /uL (0-3.1); PH,URINE 7.5 (5.0-8.0); URINE APPEARANCE CLEAR; URINE BACTERIA 97 /uL (0-1359); URINE BILIRUBIN NEGATIVE (NEGATIVE); URINE COLOR YELLOW; URINE GLUCOSE (UA) NEGATIVE (NEGATIVE); URINE KETONE NEGATIVE (NEGATIVE); URINE LEUK ESTERASE NEGATIVE (NEGATIVE); URINE NITRITE NEGATIVE (NEGATIVE); URINE PROTEIN 4+ (NEGATIVE); URINE RBC 30 /uL (0-23.9); URINE UROBILINOGEN 0.2 mg/dL (0.2-1.0)
[2024-03-27] MEDS: hydrALAZINE HCL 20 MG/ML VIAL IVPUSH ONE (06:34)
[2024-03-27] MEDS: INSULIN ASPART SLIDING SCALE (NOVOLOG) 1 VIAL SQ SCH (07:38)
[2024-03-27] MEDS ORDERED: SODIUM CHLORIDE 250 ML IV PRN (07:54)
[2024-03-27 08:05] LABS: BASO % 0.3 % (0-2.0); EOS % 0.2 % (0-4.5); HEMATOCRIT 30.4 % (32.4-45.2); HEMOGLOBIN 10.1 GM/dL (10.7-15.3); LYMPH % 10.8 % (8-40); MCH 28.7 pg (25.7-33.7); MCHC 33.3 g/dl (32.0-36.0); MEAN CELL VOLUME 86.2 fl (80-96); MEAN PLT VOLUME 9.5 fl (7.5-11.1); MONO % 8.4 % (3.8-10.2); NEUT % 80.3 % (42.8-82.8); PLATELET COUNT 179 10^3/uL (134-434); RBC 3.53 M/mm3 (3.60-5.2); RDW 16.8 % (11.6-15.6); WHITE BLOOD COUNT 12.5 K/mm3 (4.0-10.0)
[2024-03-27 08:28] LABS: BLOOD UREA NITROGEN 83.1 mg/dL (7-18); CALCIUM 9.3 mg/dL (8.5-10.1); MAGNESIUM 2.6 mg/dL (1.8-2.4)
[2024-03-27 08:31] LABS: CREATININE 7.2 mg/dL (0.55-1.3)
[2024-03-27] MEDS ORDERED: SODIUM ZIRCONIUM CYCLOSILICATE (LOKELMA) 5 GM PACKET PO SCH (10:00)
[2024-03-27] MEDS ORDERED: SODIUM ZIRCONIUM CYCLOSILICATE (LOKELMA) 5 GM PACKET PO ONE (10:00)
[2024-03-27] MEDS: DORZOLAMIDE 2% HCL OPHTHALMIC SOLUTION 10 ML BOTTLE OU SCH (11:00)
[2024-03-27] MEDS: BRIMONIDINE TARTRATE 0.2% OPHTHALMIC 5 ML BOTTLE OU SCH (11:00)
[2024-03-27] MEDS: TIMOLOL 0.5% OPHTHALMIC SOL 5 ML BOTTLE OU SCH (11:00)
[2024-03-27] MEDS: ALBUMIN HUMAN 25% 12.5 GM/50 ML VIAL IV SCH (17:28)
[2024-03-27] MEDS: CEFTRIAXONE 1 GM/50 ML PREMIX IVPB SCH (22:54)
[2024-03-27] MEDS: LATANOPROST 0.005% OPHTH SOLN 2.5ML BOTTLE OU SCH (22:55)
[2024-03-27] MEDS: hydrALAZINE HCL 20 MG/ML VIAL IVPUSH PRN (22:58)
[2024-03-28 08:29] LABS: POTASSIUM 3.9 mmol/L (3.5-5.1)
[2024-03-28 08:46] LABS: CALCIUM 8.8 mg/dL (8.5-10.1)
[2024-03-28 08:50] LABS: CREATININE 4.4 mg/dL (0.55-1.3)
[2024-03-28 09:07] LABS: BLOOD UREA NITROGEN 43.5 mg/dL (7-18)
[2024-03-28] MEDS ORDERED: METOPROLOL TARTRATE 5 MG/5 ML VIAL IVPUSH PRN (11:10)
[2024-03-28] MEDS ORDERED: MIDAZOLAM HCL 2 MG/2 ML SINGLE DOSE VIAL ONE (12:10)
[2024-03-28] MEDS: LIDOCAINE HCL 1%, 10 MG/ML (20ML VIAL) INF ONE (12:36)
[2024-03-28] MEDS: HEPARIN NA (PORCINE) 5,000 UNITS/ML 1ML VIAL SQ ONE (12:36)
[2024-03-28] MEDS ORDERED: PROPOFOL 20 ML ONE (12:40)
[2024-03-28] MEDS ORDERED: ACETAMINOPHEN 325 MG TABLET (FP) PO PRN (14:09)
[2024-03-28] MEDS ORDERED: SODIUM CHLORIDE 250 ML IV PRN (17:05)
[2024-03-28] MEDS: INSULIN ASPART SLIDING SCALE (NOVOLOG) 1 VIAL SQ SCH (17:37)
[2024-03-28] MEDS: hydrALAZINE HCL 20 MG/ML VIAL IVPUSH PRN (18:32)
[2024-03-28] MEDS: BRIMONIDINE TARTRATE 0.2% OPHTHALMIC 5 ML BOTTLE OU SCH (21:56)
[2024-03-28] MEDS: DORZOLAMIDE 2% HCL OPHTHALMIC SOLUTION 10 ML BOTTLE OU SCH (21:58)
[2024-03-28] MEDS: TIMOLOL 0.5% OPHTHALMIC SOL 5 ML BOTTLE OU SCH (21:59)
[2024-03-28] MEDS: LATANOPROST 0.005% OPHTH SOLN 2.5ML BOTTLE OU SCH (21:59)
[2024-03-29] MEDS: LOSARTAN POTASSIUM 50 MG TABLET PO ONE (00:09)
[2024-03-29] MEDS: hydrALAZINE HCL 25 MG TABLET (FP) PO SCH (00:09)
[2024-03-29 08:07] LABS: POTASSIUM 4.2 mmol/L (3.5-5.1)
[2024-03-29 08:11] LABS: ALBUMIN 3.1 g/dl (3.4-5.0)
[2024-03-29 08:12] LABS: BLOOD UREA NITROGEN 61.2 mg/dL (7-18)
[2024-03-29 08:15] LABS: CREATININE 5.9 mg/dL (0.55-1.3)
[2024-03-29 08:16] LABS: BILIRUBIN,TOTAL 0.6 mg/dL (0.2-1); TOT PROT 6.5 g/dl (6.4-8.2)
[2024-03-29 08:47] LABS: BASO % 0.8 % (0-2.0); EOS % 2.6 % (0-4.5); HEMATOCRIT 30.6 % (32.4-45.2); LYMPH % 17.6 % (8-40); MCH 28.8 pg (25.7-33.7); MCHC 32.8 g/dl (32.0-36.0); MEAN CELL VOLUME 87.9 fl (80-96); MEAN PLT VOLUME 9.1 fl (7.5-11.1); MONO % 9.8 % (3.8-10.2); NEUT % 69.2 % (42.8-82.8); PLATELET COUNT 186 10^3/uL (134-434); RBC 3.48 M/mm3 (3.60-5.2); RDW 16.8 % (11.6-15.6); WHITE BLOOD COUNT 9.1 K/mm3 (4.0-10.0)
[2024-03-29] MEDS: LOSARTAN POTASSIUM 50 MG TABLET PO SCH (10:02)
[2024-03-29] MEDS: amLODIPine BESYLATE 10 MG TABLET (FP) PO SCH (10:02)
[2024-03-29] MEDS: EPOETIN ALFA-EPBX 4,000 UNIT/ML VIAL IVPUSH ONE (11:03)
[2024-03-29] MEDS: CEFTRIAXONE 1 GM/50 ML PREMIX IVPB SCH (13:01)
[2024-03-30] MEDS ORDERED: SODIUM CHLORIDE 250 ML IV PRN (09:34)
[2024-03-30 09:55] LABS: HEMATOCRIT 29.6 % (32.4-45.2); HEMOGLOBIN 9.8 GM/dL (10.7-15.3); MEAN CELL VOLUME 87.8 fl (80-96); MEAN PLT VOLUME 8.6 fl (7.5-11.1); PLATELET COUNT 190 10^3/uL (134-434); RBC 3.37 M/mm3 (3.60-5.2); RDW 16.6 % (11.6-15.6); WHITE BLOOD COUNT 7.8 K/mm3 (4.0-10.0)
[2024-03-30 10:24] LABS: POTASSIUM 3.8 mmol/L (3.5-5.1)
[2024-03-30 10:28] LABS: BLOOD UREA NITROGEN 43.7 mg/dL (7-18)
[2024-03-30 10:31] LABS: CREATININE 4.7 mg/dL (0.55-1.3)
[2024-03-30] MEDS: EPOETIN ALFA-EPBX 4,000 UNIT/ML VIAL SQ ONE (10:39)
[2024-03-30 13:09] VITALS: RESP 18
[2024-03-30] MEDS: hydrALAZINE HCL 50 MG TABLET (FP) PO SCH (13:20)
[2024-03-30] MEDS: NIFEdipine E.R 60 MG TABLET PO SCH (13:20)
[2024-03-30] MEDS: ASPIRIN 81 MG CHEWABLE TABLETS PO SCH (13:20)
[2024-03-30] MEDS: CLOPIDOGREL BISULFATE 75 MG TABLET (FP) PO SCH (13:20)
[2024-03-30] MEDS: VALSARTAN 160 MG TABLET PO SCH (13:21)
[2024-03-30] MEDS: METOPROLOL TARTRATE 5 MG/5 ML VIAL IVPUSH PRN (13:42)
[2024-03-30] MEDS: MIRTAZAPINE 15 MG TABLET (FP) PO SCH (21:56)
[2024-03-31] MEDS: DOCUSATE SODIUM 100 MG CAPSULE (FP) PO PRN (21:36)
[2024-04-01] MEDS: VITAMIN B COMP W-C 1 EA TABLET (NEPHRO-VITE) PO SCH (12:24)
[2024-04-01] MEDS ORDERED: SODIUM CHLORIDE 250 ML IV PRN (15:17)
[2024-04-02 09:38] LABS: HEMATOCRIT 30.9 % (32.4-45.2); MCH 28.7 pg (25.7-33.7); MCHC 32.4 g/dl (32.0-36.0); MEAN CELL VOLUME 88.6 fl (80-96); MEAN PLT VOLUME 8.8 fl (7.5-11.1); PLATELET COUNT 243 10^3/uL (134-434); RBC 3.49 M/mm3 (3.60-5.2); RDW 16.1 % (11.6-15.6); WHITE BLOOD COUNT 10.7 K/mm3 (4.0-10.0)
[2024-04-02 10:00] LABS: POTASSIUM 4.6 mmol/L (3.5-5.1)
[2024-04-02 10:11] LABS: CALCIUM 9.1 mg/dL (8.5-10.1)
[2024-04-02 10:12] LABS: BLOOD UREA NITROGEN 66.3 mg/dL (7-18)
[2024-04-02 10:15] LABS: CREATININE 6.8 mg/dL (0.55-1.3)
[2024-04-02] MEDS: EPOETIN ALFA-EPBX 10,000 UNIT/ML VIAL SQ ONE (10:50)
[2024-04-02 11:07] VITALS: BMI 20.9
[2024-04-02 14:59] VITALS: TEMP 98.1
[2024-04-02 18:31] VITALS: BP 161/52; PULSE 70
[2024-04-03] MEDS ORDERED: AMINO ACIDS/PROTEIN HYDROLYS 30 ML LIQUID.PKT PO SCH (08:00)
== END 2024-04-02 19:57 | disposition home health service (06) ==
LOC: JER 12:01 → JERBED 19:30 → J4W 03-27 20:42
PROVIDERS: ADMIT Internal Medicine; ATTEND Internal Medicine
PROC: 3E033GC Introduction of Other Therapeutic Substance into Peripheral Vein, Percutaneous Approach (ICD-10-PCS; principal; 2024-03-26)
PROC: 3E023GC Introduction of Other Therapeutic Substance into Muscle, Percutaneous Approach (ICD-10-PCS; 2024-03-26)
PROC: 3E0337Z Introduction of Electrolytic and Water Balance Substance into Peripheral Vein, Percutaneous Approach (ICD-10-PCS; 2024-03-26)
PROC: 04QK4ZZ Repair Right Femoral Artery, Percutaneous Endoscopic Approach (ICD-10-PCS; 2024-03-28)
DX: I73.9 Peripheral vascular disease, unspecified (principal); E11.22 Type 2 diabetes mellitus with diabetic chronic kidney disease; E11.622 Type 2 diabetes mellitus with other skin ulcer; L98.499 Non-pressure chronic ulcer of skin of other sites with unspecified severity; J90 Pleural effusion, not elsewhere classified; F03.90 Unspecified dementia, unspecified severity, without behavioral disturbance, psychotic disturbance, mood disturbance, and anxiety; I12.0 Hypertensive chronic kidney disease with stage 5 chronic kidney disease or end stage renal disease; N18.6 End stage renal disease; Z99.2 Dependence on renal dialysis; E87.70 Fluid overload, unspecified; I99.8 Other disorder of circulatory system; Z87.891 Personal history of nicotine dependence; E78.5 Hyperlipidemia, unspecified; E87.1 Hypo-osmolality and hyponatremia
CPT/HCPCS: 36415; 70450-TC; 71045-TC-FY; 71250-TC; 76000-TC-FY; 80048; 80053; 81003; 82962; 83735; 83880; 84100; 84484; 85025; 85027; 85610; 85730; 87086; 87340; 93005; 93010; 94760; 96372; 96374; 96375; 96376; 99285-25; C1760; G0378; J1644; Q5106

== ENCOUNTER → 2024-03-26 | Day surgery (SDC) | payer MEDICARE, OTHER ==
[2024-03-21 15:58] VITALS: BMI 20.5
[~2024-03-26] MED LIST: LIDOCAINE HCL 1%, 10 MG/ML (20ML VIAL) ONE
[2024-03-26 13:16] VITALS: BP 184/79; PULSE 79; RESP 22; TEMP 98
== END | disposition home or self-care (01) ==
LOC: JASU-SURG 04:24
PROVIDERS: ATTEND Surgery
PROC: 3E033GC Introduction of Other Therapeutic Substance into Peripheral Vein, Percutaneous Approach (ICD-10-PCS; principal; 2024-03-26)
DX: Z53.8 Procedure and treatment not carried out for other reasons (principal)
CPT/HCPCS: 82962

== ENCOUNTER 2024-04-11 12:12 | Inpatient (IN) | payer MEDICARE, OTHER ==
[2024-04-11] MEDS ORDERED: ACETAMINOPHEN INJECTION 100 ML ONE (14:39)
[2024-04-11 15:04] LABS: EOS % 2.3 % (0-4.5); HEMATOCRIT 30.3 % (32.4-45.2); HEMOGLOBIN 9.7 GM/dL (10.7-15.3); LYMPH % 27.4 % (8-40); MCH 29.1 pg (25.7-33.7); MCHC 32.1 g/dl (32.0-36.0); MEAN CELL VOLUME 90.8 fl (80-96); MONO % 9.2 % (3.8-10.2); NEUT % 60.1 % (42.8-82.8); PLATELET COUNT 273 10^3/uL (134-434); RBC 3.34 M/mm3 (3.60-5.2); RDW 17.2 % (11.6-15.6); WHITE BLOOD COUNT 8.5 K/mm3 (4.0-10.0)
[2024-04-11 15:14] LABS: INR 0.97 (0.83-1.09); PROTHROMBIN TIME (PATIENT) 10.7 SEC (9.7-13.0)
[2024-04-11] MEDS: ACETAMINOPHEN 1000 MG/100 ML BAG IVPB ONE (15:23)
[2024-04-11 15:31] LABS: POTASSIUM 4.6 mmol/L (3.5-5.1)
[2024-04-11 15:33] LABS: ALBUMIN 3.1 g/dl (3.4-5.0); BLOOD UREA NITROGEN 16.9 mg/dL (7-18); MAGNESIUM 2.3 mg/dL (1.8-2.4)
[2024-04-11 15:36] LABS: CREATININE 2.6 mg/dL (0.55-1.3)
[2024-04-11 15:38] LABS: BILIRUBIN,TOTAL 0.5 mg/dL (0.2-1); TOT PROT 6.7 g/dl (6.4-8.2)
[2024-04-11] MEDS ORDERED: MIDAZOLAM HCL 2 MG/2 ML SINGLE DOSE VIAL ONE (16:28)
[2024-04-11] MEDS ORDERED: ceFAZolin SODIUM 1 GM VIAL ONE (16:46)
[2024-04-11] MEDS: ceFAZolin SODIUM 1 GM VIAL IVPB ONE (16:47)
[2024-04-11] MEDS: LIDOCAINE HCL 1%, 10 MG/ML (20ML VIAL) NR ONE (17:03)
[2024-04-11] MEDS ORDERED: BACITRACIN ZINC 15 GM TUBE TOPICAL OINTMENT ONE (18:51)
[2024-04-11] MEDS ORDERED: DOCUSATE SODIUM 100 MG CAPSULE (FP) PO PRN (19:13)
[2024-04-11] MEDS: oxyCODONE HCL 5 MG TABLET PO ONE (19:45)
[2024-04-11] MEDS ORDERED: oxyCODONE HCL 5 MG TABLET ONE (19:45)
[2024-04-11] MEDS: LACTATED RINGERS SOLUTION 1,000 ML IV SCH (20:10)
[2024-04-11] MEDS ORDERED: HYDROmorphone HCL CARPU-JECT 2 MG/1 ML DISP.SYRIN ONE (20:34)
[2024-04-11] MEDS: HYDROmorphone HCl 2 MG/ML VIAL IVPUSH ONE (20:36)
[2024-04-11] MEDS: LABETALOL HCL 20 MG/4 ML VIAL IVPUSH ONE (21:20)
[2024-04-11] MEDS: hydrALAZINE HCL 50 MG TABLET (FP) PO SCH (22:52)
[2024-04-11] MEDS: ATORVASTATIN CA 40 MG TABLET (FP) PO SCH (22:52)
[2024-04-11] MEDS: MIRTAZAPINE 15 MG TABLET (FP) PO SCH (22:52)
[2024-04-11] MEDS: DORZOLAMIDE 2% HCL OPHTHALMIC SOLUTION 10 ML BOTTLE OU SCH (22:55)
[2024-04-11] MEDS: TIMOLOL 0.5% OPHTHALMIC SOL 5 ML BOTTLE OU SCH (22:55)
[2024-04-11] MEDS: BRIMONIDINE TARTRATE 0.2% OPHTHALMIC 5 ML BOTTLE OU SCH (22:55)
[2024-04-11] MEDS: LATANOPROST 0.005% OPHTH SOLN 2.5ML BOTTLE OU SCH (22:55)
[2024-04-11] MEDS: INSULIN ASPART SLIDING SCALE (NOVOLOG) 1 VIAL SQ SCH ×2 (23:30→23:31)
[2024-04-12] MEDS: NIFEdipine E.R 60 MG TABLET PO SCH (10:18)
[2024-04-12] MEDS: ASPIRIN 81 MG CHEWABLE TABLETS PO SCH (10:18)
[2024-04-12] MEDS: TAMSULOSIN HCL 0.4 MG CAP PO SCH (10:18)
[2024-04-12] MEDS: VALSARTAN 160 MG TABLET PO SCH (10:18)
[2024-04-12] MEDS: amLODIPine BESYLATE 10 MG TABLET (FP) PO SCH (10:18)
[2024-04-12] MEDS: VITAMIN B COMP W-C 1 EA TABLET (NEPHRO-VITE) PO SCH (10:18)
[2024-04-12] MEDS: DONEPEZIL HCL 5 MG TABLET (FP) PO SCH (10:18)
[2024-04-12] MEDS: CLOPIDOGREL BISULFATE 75 MG TABLET (FP) PO SCH (10:18)
[2024-04-12] MEDS: ACETAMINOPHEN WITH CODEINE 300MG/30MG TABLET PO PRN (10:19)
[2024-04-12] MEDS ORDERED: SODIUM CHLORIDE 250 ML IV PRN (16:27)
[2024-04-13 14:09] LABS: HEMATOCRIT 28.9 % (32.4-45.2); HEMOGLOBIN 9.3 GM/dL (10.7-15.3); MCH 29.3 pg (25.7-33.7); MCHC 32.3 g/dl (32.0-36.0); MEAN CELL VOLUME 90.8 fl (80-96); MEAN PLT VOLUME 8.4 fl (7.5-11.1); PLATELET COUNT 307 10^3/uL (134-434); RBC 3.19 M/mm3 (3.60-5.2); RDW 17.3 % (11.6-15.6); WHITE BLOOD COUNT 9.1 K/mm3 (4.0-10.0)
[2024-04-13 14:46] LABS: POTASSIUM 5.1 mmol/L (3.5-5.1)
[2024-04-13 14:48] LABS: CALCIUM 8.9 mg/dL (8.5-10.1)
[2024-04-13 14:53] LABS: BILIRUBIN,TOTAL 0.4 mg/dL (0.2-1); BLOOD UREA NITROGEN 35.3 mg/dL (7-18); CREATININE 5.5 mg/dL (0.55-1.3)
[2024-04-13 14:54] LABS: TOT PROT 6.5 g/dl (6.4-8.2)
[2024-04-13] MEDS: EPOETIN ALFA-EPBX 4,000 UNIT/ML VIAL SQ ONE (19:59)
[2024-04-14] MEDS: ACETAMINOPHEN 325 MG TABLET (FP) PO ONE (06:25)
[2024-04-14] MEDS: AMINO ACIDS/PROTEIN HYDROLYS 30 ML LIQUID.PKT PO SCH (09:27)
[2024-04-15 05:35] VITALS: RESP 18; TEMP 97.7
[2024-04-15 11:12] VITALS: BP 161/59; PULSE 80
== END 2024-04-15 14:15 | disposition home or self-care (01) | DRG 299 ==
LOC: JER 12:12 → JERBED 13:11 → J6S 21:46
PROVIDERS: ATTEND Internal Medicine
PROC: 0JJW0ZZ Inspection of Lower Extremity Subcutaneous Tissue and Fascia, Open Approach (ICD-10-PCS; 2024-04-11)
PROC: B41JZZZ Fluoroscopy of Other Lower Arteries (ICD-10-PCS; principal; 2024-04-11 14:00)
DX: E11.51 Type 2 diabetes mellitus with diabetic peripheral angiopathy without gangrene (principal); N18.6 End stage renal disease; I12.0 Hypertensive chronic kidney disease with stage 5 chronic kidney disease or end stage renal disease; I70.201 Unspecified atherosclerosis of native arteries of extremities, right leg; E11.22 Type 2 diabetes mellitus with diabetic chronic kidney disease; F03.90 Unspecified dementia, unspecified severity, without behavioral disturbance, psychotic disturbance, mood disturbance, and anxiety; E78.5 Hyperlipidemia, unspecified; E11.622 Type 2 diabetes mellitus with other skin ulcer; L98.499 Non-pressure chronic ulcer of skin of other sites with unspecified severity; Z99.2 Dependence on renal dialysis
CPT/HCPCS: 0241U-QW; 36415; 76000-TC-FY; 80053; 82962; 83735; 84100; 85025; 85027; 85610; 86803; 86850; 86900; 86901; 87340; 93005; 93010; 94760; 99285-25; J0131; J1644; Q5106

== ENCOUNTER 2024-05-20 11:25 | Inpatient (IN) | payer MEDICARE, OTHER ==
[2024-05-20 14:55] LABS: HEMATOCRIT 31.6 % (34.1-44.9); HEMOGLOBIN 10.1 g/dL (11.2-15.7); MEAN CELL VOLUME 84.7 fl (79.4-94.8); MEAN PLT VOLUME 10.5 fl (9.4-12.3); PLATELET COUNT 267 x10^3/uL (182-369); RDW 16.8 % (12.5-17.0)
[2024-05-20 15:10] LABS: INR 1.05 (0.83-1.09); PROTHROMBIN TIME (PATIENT) 11.4 SEC (9.7-13.0)
[2024-05-20 15:42] LABS: POTASSIUM 4.5 mmol/L (3.5-5.1)
[2024-05-20 15:43] LABS: CALCIUM 9.3 mg/dL (8.5-10.1)
[2024-05-20 15:44] LABS: ALBUMIN 2.6 g/dl (3.4-5.0); BLOOD UREA NITROGEN 58.6 mg/dL (7-18)
[2024-05-20 15:47] LABS: CREATININE 5.6 mg/dL (0.55-1.3)
[2024-05-20 15:49] LABS: BILIRUBIN,TOTAL 0.5 mg/dL (0.2-1); TOT PROT 6.2 g/dl (6.4-8.2)
[2024-05-20] MEDS ORDERED: ACETAMINOPHEN INJECTION 100 ML ONE (17:11)
[2024-05-20] MEDS ORDERED: PIPERACILLIN/TAZOB 3.375 GM 3.375 GM/50 ML BAG IVPB ONE (17:12)
[2024-05-20] MEDS: ACETAMINOPHEN 1000 MG/100 ML BAG IVPB ONE (17:15)
[2024-05-20] MEDS: PIPERACILLIN/TAZOB 3.375 GM 3.375 GM in DEXTROSE 5%-WATER - 50 ML IVPB ONE (17:22)
[2024-05-20 17:27] LABS: POTASSIUM 4.2 mmol/L (3.5-5.1)
[2024-05-20 17:31] LABS: CALCIUM 8.9 mg/dL (8.5-10.1)
[2024-05-20 17:32] LABS: BLOOD UREA NITROGEN 59.3 mg/dL (7-18)
[2024-05-20 17:35] LABS: CREATININE 5.8 mg/dL (0.55-1.3)
[2024-05-20] MEDS ORDERED: VANCOMYCIN 1 GM PREMIX (F) 1 GM/200 ML BAG ONE (17:42)
[2024-05-20] MEDS: VANCOMYCIN 1,000 MG in DEXTROSE 5%-WATER - 250 ML IVPB ONE (17:48)
[2024-05-20] MEDS: HEPARIN NA (PORCINE) 5,000 UNITS/ML 1ML VIAL SQ SCH (22:22)
[2024-05-20] MEDS: ATORVASTATIN CA 40 MG TABLET (FP) PO SCH (22:22)
[2024-05-20] MEDS: DONEPEZIL HCL 5 MG TABLET (FP) PO SCH (22:22)
[2024-05-20] MEDS: INSULIN ASPART SLIDING SCALE (NOVOLOG) 1 VIAL SQ SCH (22:23)
[2024-05-20] MEDS: TIMOLOL 0.5% OPHTHALMIC SOL 5 ML BOTTLE OU SCH (22:51)
[2024-05-20] MEDS: LATANOPROST 0.005% OPHTH SOLN 2.5ML BOTTLE OU SCH (22:52)
[2024-05-20] MEDS: DORZOLAMIDE 2% HCL OPHTHALMIC SOLUTION 10 ML BOTTLE OU SCH (22:52)
[2024-05-20] MEDS: BRIMONIDINE TARTRATE 0.2% OPHTHALMIC 5 ML BOTTLE OU SCH (22:52)
[2024-05-20] MEDS ORDERED: SODIUM CHLORIDE 250 ML IV PRN (23:00)
[2024-05-21 00:47] VITALS: BMI 18.2
[2024-05-21] MEDS: DEXTROSE 50%-WATER 25 GM/50 ML DISP.SYRIN IVPUSH ONE (06:41)
[2024-05-21] MEDS: TAMSULOSIN HCL 0.4 MG CAP PO SCH (09:43)
[2024-05-21] MEDS: VITAMIN B COMP W-C 1 EA TABLET (NEPHRO-VITE) PO SCH (09:43)
[2024-05-21] MEDS ORDERED: ENOXAPARIN NA (PORCINE) 30 MG/0.3 ML DISP.SYRIN SQ SCH (10:00)
[2024-05-21 11:41] LABS: HEMATOCRIT 30.6 % (34.1-44.9); HEMOGLOBIN 9.9 g/dL (11.2-15.7); MCHC 32.4 g/dl (32.2-35.5); MEAN CELL VOLUME 83.8 fl (79.4-94.8); MEAN PLT VOLUME 11.4 fl (9.4-12.3); PLATELET COUNT 326 x10^3/uL (182-369); RDW 16.9 % (12.5-17.0)
[2024-05-21 12:07] LABS: POTASSIUM 4.7 mmol/L (3.5-5.1)
[2024-05-21] MEDS: ACETAMINOPHEN 325 MG TABLET (FP) PO PRN (12:11)
[2024-05-21 12:13] LABS: CALCIUM 9.1 mg/dL (8.5-10.1)
[2024-05-21 12:14] LABS: ALBUMIN 2.6 g/dl (3.4-5.0)
[2024-05-21 12:17] LABS: CREATININE 6.6 mg/dL (0.55-1.3)
[2024-05-21 12:18] LABS: BILIRUBIN,TOTAL 0.6 mg/dL (0.2-1)
[2024-05-21 12:19] LABS: TOT PROT 6.5 g/dl (6.4-8.2)
[2024-05-21] MEDS: PIPERACILLIN/TAZOB 2.25 GM 2.25 GM/50 ML BAG IVPB SCH (15:13)
[2024-05-21] MEDS: PIPERACILLIN/TAZOB 2.25 GM 2.25 GM in DEXTROSE 5%-WATER - 50 ML IVPB SCH (17:52)
[2024-05-21] MEDS: EPOETIN ALFA-EPBX 10,000 UNIT/ML VIAL IVPUSH ONE (20:34)
[2024-05-22] MEDS: PIPERACILLIN/TAZOB 2.25 GM 2.25 GM/50 ML BAG IVPB SCH (01:53)
[2024-05-22] MEDS: ACETAMINOPHEN 1000 MG/100 ML BAG IVPB ONE (01:54)
[2024-05-22] MEDS ORDERED: SODIUM CHLORIDE 250 ML IV PRN (12:23)
[2024-05-22] MEDS: oxyCODONE HCL 5 MG TABLET PO PRN (16:35)
[2024-05-22] MEDS: METOPROLOL TARTRATE 25 MG TABLET (FP) PO SCH (22:01)
[2024-05-23 08:41] LABS: HEMATOCRIT 30.9 % (34.1-44.9); HEMOGLOBIN 9.9 g/dL (11.2-15.7); MEAN CELL VOLUME 83.7 fl (79.4-94.8); PLATELET COUNT 362 x10^3/uL (182-369); RDW 17.2 % (12.5-17.0)
[2024-05-23 09:08] LABS: INR 1.19 (0.83-1.09); PROTHROMBIN TIME (PATIENT) 13.1 SEC (9.7-13.0)
[2024-05-23 09:11] LABS: ACTIVATED PTT 34.5 SECONDS (25.2-36.5)
[2024-05-23 09:17] LABS: POTASSIUM 4.3 mmol/L (3.5-5.1)
[2024-05-23 09:23] LABS: BLOOD UREA NITROGEN 50.1 mg/dL (7-18)
[2024-05-23 09:24] LABS: CALCIUM 9.1 mg/dL (8.5-10.1)
[2024-05-23 09:27] LABS: CREATININE 5.5 mg/dL (0.55-1.3)
[2024-05-23] MEDS: ACETAMINOPHEN 1000 MG/100 ML BAG IVPB PRN (11:23)
[2024-05-23] MEDS ORDERED: PROPOFOL 20 ML ONE (11:33)
[2024-05-23] MEDS ORDERED: LIDOCAINE HCL/PF 2% SDV 5ML VIAL ONE (11:34)
[2024-05-23] MEDS ORDERED: SUCCINYLCHOLINE CHLORIDE 200 MG/10 ML SYRINGE ONE (11:35)
[2024-05-23] MEDS ORDERED: ETOMIDATE 20 MG/10 ML VIAL IVPUSH ONE (12:00)
[2024-05-23] MEDS ORDERED: ROCURONIUM BROMIDE 50 MG/5 ML SYRINGE ONE (12:33)
[2024-05-23] MEDS ORDERED: ONDANSETRON 4 MG/2 ML VIAL ONE (13:12)
[2024-05-23] MEDS ORDERED: DEXAMETHASONE SOD PHOSPHATE 4 MG/1 ML VIAL ONE (13:13)
[2024-05-23] MEDS ORDERED: SUGAMMADEX SODIUM 200 MG/2 ML VIAL ONE (13:16)
[2024-05-23] MEDS ORDERED: SEVOFLURANE 250 ML BTL ONE (13:17)
[2024-05-23] MEDS ORDERED: ONDANSETRON 4 MG/2 ML VIAL IVPUSH PRN ×2 (13:39→14:00)
[2024-05-23] MEDS ORDERED: SODIUM CHLORIDE 250 ML IV PRN (14:00)
[2024-05-23] MEDS ORDERED: oxyCODONE HCL 5 MG TABLET PO PRN (14:00)
[2024-05-23] MEDS: LACTATED RINGERS SOLUTION 1,000 ML IV SCH ×2 (15:26→17:10)
[2024-05-23] MEDS: HEPARIN NA (PORCINE) 5,000 UNITS/ML 1ML VIAL SQ SCH (15:57)
[2024-05-23] MEDS: INSULIN ASPART SLIDING SCALE (NOVOLOG) 1 VIAL SQ SCH (16:38)
[2024-05-23] MEDS: PIPERACILLIN/TAZOB 2.25 GM 2.25 GM/50 ML BAG IVPB SCH (17:44)
[2024-05-23] MEDS: DONEPEZIL HCL 5 MG TABLET (FP) PO SCH (21:34)
[2024-05-23] MEDS: METOPROLOL TARTRATE 25 MG TABLET (FP) PO SCH (21:34)
[2024-05-23] MEDS: ATORVASTATIN CA 40 MG TABLET (FP) PO SCH (21:35)
[2024-05-23] MEDS: BRIMONIDINE TARTRATE 0.2% OPHTHALMIC 5 ML BOTTLE OU SCH (21:35)
[2024-05-23] MEDS: LATANOPROST 0.005% OPHTH SOLN 2.5ML BOTTLE OU SCH (21:36)
[2024-05-23] MEDS: DORZOLAMIDE 2% HCL OPHTHALMIC SOLUTION 10 ML BOTTLE OU SCH (21:45)
[2024-05-23] MEDS: TIMOLOL 0.5% OPHTHALMIC SOL 5 ML BOTTLE OU SCH (21:45)
[2024-05-24] MEDS: ACETAMINOPHEN 1000 MG/100 ML BAG IVPB PRN (06:23)
[2024-05-24] MEDS: VITAMIN B COMP W-C 1 EA TABLET (NEPHRO-VITE) PO SCH (10:11)
[2024-05-24] MEDS: TAMSULOSIN HCL 0.4 MG CAP PO SCH (10:56)
[2024-05-25] MEDS ORDERED: SODIUM CHLORIDE 250 ML IV PRN (07:38)
[2024-05-25 08:06] LABS: ABSOLUTE IMMATURE GRANULOCYTES 0.26 x10^3/uL (0.0-0.031); BASOPHILS # 0.07 x10^3/uL (0.01-0.08); EOSINOPHIL % 2.5 % (0.7-5.8); EOSINOPHILS # 0.45 x10^3/uL (0.04-0.36); HEMATOCRIT 30.9 % (34.1-44.9); HEMOGLOBIN 9.6 g/dL (11.2-15.7); MCHC 31.1 g/dl (32.2-35.5); MEAN CELL VOLUME 85.8 fl (79.4-94.8); MEAN PLT VOLUME 10.4 fl (9.4-12.3); MONOCYTE # 1.53 x10^3/uL (0.24-0.86); MONOCYTE % 8.4 % (4.7-12.5); PLATELET COUNT 391 x10^3/uL (182-369); RDW 17.6 % (12.5-17.0)
[2024-05-25] MEDS: EPOETIN ALFA-EPBX 10,000 UNIT/ML VIAL IVPUSH ONE ×3 (08:46→11:02)
[2024-05-26] MEDS ORDERED: hydrALAZINE HCL 25 MG TABLET (FP) PO SCH (14:00)
[2024-05-26] MEDS: hydrALAZINE HCL 50 MG TABLET (FP) PO SCH (14:26)
[2024-05-26] MEDS ORDERED: SODIUM CHLORIDE 250 ML IV PRN (14:38)
[2024-05-26] MEDS: AMINO ACIDS/PROTEIN HYDROLYS 30 ML LIQUID.PKT PO SCH (17:15)
[2024-05-27] MEDS ORDERED: amLODIPine BESYLATE 10 MG TABLET (FP) PO SCH (10:00)
[2024-05-27] MEDS: NIFEdipine E.R 60 MG TABLET PO SCH (15:12)
[2024-05-28 06:49] LABS: BASOPHILS # 0.09 x10^3/uL (0.01-0.08); EOSINOPHIL % 1.8 % (0.7-5.8); EOSINOPHILS # 0.31 x10^3/uL (0.04-0.36); HEMATOCRIT 33.6 % (34.1-44.9); HEMOGLOBIN 10.2 g/dL (11.2-15.7); MCHC 30.4 g/dl (32.2-35.5); MEAN CELL VOLUME 86.8 fl (79.4-94.8); MEAN PLT VOLUME 10.6 fl (9.4-12.3); MONOCYTE # 1.15 x10^3/uL (0.24-0.86); MONOCYTE % 6.8 % (4.7-12.5); PLATELET COUNT 342 x10^3/uL (182-369); RDW 19.2 % (12.5-17.0)
[2024-05-29 06:55] LABS: HEMATOCRIT 33.6 % (34.1-44.9); HEMOGLOBIN 10.3 g/dL (11.2-15.7); MCHC 30.7 g/dl (32.2-35.5); MEAN CELL VOLUME 86.6 fl (79.4-94.8); PLATELET COUNT 367 x10^3/uL (182-369); RDW 19.7 % (12.5-17.0)
[2024-05-29] MEDS: SODIUM CHLORIDE 250 ML IV PRN (08:30)
[2024-05-29] MEDS: EPOETIN ALFA-EPBX 4,000 UNIT/ML VIAL SQ ONE (09:24)
[2024-05-29 09:50] LABS: POTASSIUM 3.4 mmol/L (3.5-5.1)
[2024-05-29 10:09] LABS: ALBUMIN 2.4 g/dl (3.4-5.0)
[2024-05-29 10:11] LABS: BLOOD UREA NITROGEN 46.5 mg/dL (7-18)
[2024-05-29 10:12] LABS: BILIRUBIN,TOTAL 0.5 mg/dL (0.2-1); CREATININE 5.5 mg/dL (0.55-1.3)
[2024-05-29 10:13] LABS: TOT PROT 6.2 g/dl (6.4-8.2)
[2024-05-29] MEDS: ACETAMINOPHEN 325 MG TABLET (FP) PO PRN (20:17)
[2024-05-30] MEDS ORDERED: INSULIN ASPART SLIDING SCALE (NOVOLOG) 1 VIAL SQ ONE (06:56)
[2024-05-30] MEDS ORDERED: SODIUM CHLORIDE 250 ML IV PRN (14:45)
[2024-05-30 14:58] VITALS: RESP 16
[2024-05-30 15:06] VITALS: BP 136/49; PULSE 68; TEMP 97.7
[2024-05-31] MEDS ORDERED: EPOETIN ALFA-EPBX 4,000 UNIT/ML VIAL SQ ONE (14:45)
== END 2024-05-30 20:00 | DRG 239 ==
LOC: JER 11:25 → JERBED 16:08 → J4S 20:39
PROVIDERS: ADMIT Internal Medicine; ATTEND Internal Medicine
PROC: 0Y6C0Z1 Detachment at Right Upper Leg, High, Open Approach (ICD-10-PCS; principal; 2024-05-23 13:30)
DX: E11.52 Type 2 diabetes mellitus with diabetic peripheral angiopathy with gangrene (principal); E43 Unspecified severe protein-calorie malnutrition; N18.6 End stage renal disease; I12.0 Hypertensive chronic kidney disease with stage 5 chronic kidney disease or end stage renal disease; L97.518 Non-pressure chronic ulcer of other part of right foot with other specified severity; I96 Gangrene, not elsewhere classified; Z68.1 Body mass index [BMI] 19.9 or less, adult; E11.22 Type 2 diabetes mellitus with diabetic chronic kidney disease; E78.00 Pure hypercholesterolemia, unspecified; F03.90 Unspecified dementia, unspecified severity, without behavioral disturbance, psychotic disturbance, mood disturbance, and anxiety; R55 Syncope and collapse; E11.621 Type 2 diabetes mellitus with foot ulcer; H54.40 Blindness, one eye, unspecified eye; I25.10 Atherosclerotic heart disease of native coronary artery without angina pectoris; D64.9 Anemia, unspecified; R80.9 Proteinuria, unspecified; L89.152 Pressure ulcer of sacral region, stage 2; I27.20 Pulmonary hypertension, unspecified; I08.1 Rheumatic disorders of both mitral and tricuspid valves; D72.829 Elevated white blood cell count, unspecified; Z85.6 Personal history of leukemia; Z99.2 Dependence on renal dialysis
CPT/HCPCS: 36415; 80048; 80053; 82962; 83605; 84484; 85025; 85027; 85610; 85730; 86704; 86705; 86707; 86850; 86900; 86901; 86922; 87040; 87340; 87350; 87517; 87635; 88307-TC; 88311-TC; 93005; 93010; 94760; 97161-GP; 99285-25; G0463-25; G0480; J0131; J1644; Q5106

== ENCOUNTER 2024-06-29 12:04 | Observation (INO) | payer MEDICARE, OTHER ==
[2024-06-29] MEDS ORDERED: LORazepam 2 MG/ML SDV VIAL ONE (13:12)
[2024-06-29 13:37] LABS: ABSOLUTE IMMATURE GRANULOCYTES 0.04 x10^3/uL (0.0-0.031); BASOPHILS # 0.07 x10^3/uL (0.01-0.08); EOSINOPHIL % 3.1 % (0.7-5.8); EOSINOPHILS # 0.21 x10^3/uL (0.04-0.36); HEMOGLOBIN 11.1 g/dL (11.2-15.7); MCHC 30.8 g/dl (32.2-35.5); MEAN CELL VOLUME 87.8 fl (79.4-94.8); MEAN PLT VOLUME 10.3 fl (9.4-12.3); MONOCYTE # 0.52 x10^3/uL (0.24-0.86); MONOCYTE % 7.8 % (4.7-12.5); PLATELET COUNT 256 x10^3/uL (182-369); RDW 20.2 % (12.5-17.0)
[2024-06-29 13:40] LABS: PH,URINE 7.5 (5.0-8.0); URINE APPEARANCE CLEAR; URINE BILIRUBIN NEGATIVE (NEGATIVE); URINE COLOR YELLOW; URINE GLUCOSE (UA) NEGATIVE (NEGATIVE); URINE KETONE NEGATIVE (NEGATIVE); URINE LEUK ESTERASE NEGATIVE (NEGATIVE); URINE NITRITE NEGATIVE (NEGATIVE); URINE PROTEIN 3+ (NEGATIVE); URINE UROBILINOGEN 0.2 mg/dL (0.2-1.0)
[2024-06-29] MEDS: LORazepam 2 MG/ML SDV VIAL IM ONE (13:46)
[2024-06-29] MEDS ORDERED: HALOPERIDOL LACTATE 5 MG/ML ONE (13:49)
[2024-06-29] MEDS: DEXTROSE 50%-WATER 25 GM/50 ML DISP.SYRIN IVPUSH ONE (13:50)
[2024-06-29] MEDS: INSULIN REGULAR HUMAN 100 UNITS/ML *VIAL IVPUSH ONE (13:51)
[2024-06-29] MEDS: HALOPERIDOL LACTATE 5 MG/ML IM ONE (13:53)
[2024-06-29 14:01] LABS: POTASSIUM 5.7 mmol/L (3.5-5.1)
[2024-06-29 14:03] LABS: CALCIUM 9.8 mg/dL (8.5-10.1)
[2024-06-29 14:04] LABS: MAGNESIUM 2.9 mg/dL (1.8-2.4)
[2024-06-29 14:07] LABS: CREATININE 4.6 mg/dL (0.55-1.3); PHOSPHOROUS 3.9 mg/dL (2.5-4.9)
[2024-06-29 14:08] LABS: BILIRUBIN,TOTAL 0.4 mg/dL (0.2-1); TOT PROT 6.8 g/dl (6.4-8.2)
[2024-06-29 14:10] LABS: EPI CELLS 9 /uL (0-25.1); HYALINE CASTS 1 /uL (0-3.1); URINE BACTERIA 9 /uL (0-1359); URINE RBC 11 /uL (0-23.9); URINE WBC 19 /uL (0-25.8)
[2024-06-29] MEDS ORDERED: DEXTROSE 50%-WATER - 25 GM/50 ML VIAL IVPUSH ONE (15:05)
[2024-06-29] MEDS ORDERED: CALCIUM GLUC IN NACL, ISO-OSM 1 GM/50 ML BAG IVPB ONE (15:15)
[2024-06-29] MEDS ORDERED: SODIUM ZIRCONIUM CYCLOSILICATE (LOKELMA) 5 GM PACKET ONE (15:22)
[2024-06-29] MEDS ORDERED: CALCIUM GLUCONATE 10% - 1,000 MG/10 ML VIAL ONE (15:29)
[2024-06-29] MEDS: CALCIUM GLUCONATE 10% - 1,000 MG/10 ML VIAL IVPB ONE (15:48)
[2024-06-29] MEDS ORDERED: SODIUM CHLORIDE 250 ML IV PRN (16:40)
[2024-06-29 22:37] VITALS: BMI 14.2
[2024-06-30] MEDS: LOSARTAN POTASSIUM 50 MG TABLET PO ONE (03:11)
[2024-06-30] MEDS ORDERED: hydrOXYzine PAMOATE 50 MG CAPSULE (FP) PO PRN (06:23)
[2024-06-30 07:05] LABS: HEMATOCRIT 34.4 % (34.1-44.9); HEMOGLOBIN 10.9 g/dL (11.2-15.7); MCHC 31.7 g/dl (32.2-35.5); MEAN CELL VOLUME 86.4 fl (79.4-94.8); MEAN PLT VOLUME 10.3 fl (9.4-12.3); PLATELET COUNT 245 x10^3/uL (182-369); RDW 20.1 % (12.5-17.0)
[2024-06-30] MEDS ORDERED: hydrOXYzine PAMOATE 25 MG CAPSULE (FP) PO PRN (07:13)
[2024-06-30 07:18] LABS: POTASSIUM 4.6 mmol/L (3.5-5.1)
[2024-06-30 07:21] LABS: ALBUMIN 2.7 g/dl (3.4-5.0)
[2024-06-30 07:24] LABS: CREATININE 2.6 mg/dL (0.55-1.3)
[2024-06-30 07:26] LABS: BILIRUBIN,TOTAL 0.4 mg/dL (0.2-1); TOT PROT 6.4 g/dl (6.4-8.2)
[2024-06-30 07:39] LABS: BLOOD UREA NITROGEN 17.3 mg/dL (7-18)
[2024-06-30] MEDS: HEPARIN NA (PORCINE) 5,000 UNITS/ML 1ML VIAL SQ SCH (09:19)
[2024-06-30] MEDS: SENNOSIDES 8.6MG TABLET (FP) PO SCH (09:19)
[2024-06-30] MEDS: VITAMIN B COMP W-C 1 EA TABLET (NEPHRO-VITE) PO SCH (09:20)
[2024-06-30] MEDS: NIFEdipine E.R 60 MG TABLET PO SCH (09:20)
[2024-06-30] MEDS: METOPROLOL TARTRATE 25 MG TABLET (FP) PO SCH (09:21)
[2024-06-30] MEDS: TIMOLOL 0.5% OPHTHALMIC SOL 5 ML BOTTLE OU SCH (09:23)
[2024-06-30] MEDS ORDERED: LOSARTAN POTASSIUM 50 MG TABLET PO SCH (10:00)
[2024-06-30] MEDS: SODIUM ZIRCONIUM CYCLOSILICATE (LOKELMA) 5 GM PACKET PO ONE (14:30)
[2024-06-30] MEDS: hydrALAZINE HCL 50 MG TABLET (FP) PO SCH (14:34)
[2024-06-30] MEDS: AMINO ACIDS/PROTEIN HYDROLYS 30 ML LIQUID.PKT PO SCH (18:04)
[2024-06-30] MEDS: MIRTAZAPINE 15 MG TABLET (FP) PO SCH (21:53)
[2024-07-01] MEDS ORDERED: LOSARTAN POTASSIUM 50 MG TABLET PO SCH (10:00)
[2024-07-01 15:36] VITALS: RESP 20
[2024-07-01] MEDS: INSULIN ASPART SLIDING SCALE (NOVOLOG) 1 VIAL SQ SCH (16:43)
[2024-07-01 19:39] VITALS: BP 134/68; PULSE 72; TEMP 99
[2024-07-02] MEDS ORDERED: metoPROLOL SUCCINATE 25 MG TAB.SR.24H (FP) PO SCH (10:00)
== END 2024-07-01 20:36 ==
LOC: JER 12:04 → JERBED 17:13 → J4W 21:30
PROVIDERS: ATTEND Nurse Practitioner Family
PROC: 3E033GC Introduction of Other Therapeutic Substance into Peripheral Vein, Percutaneous Approach (ICD-10-PCS; principal; 2024-06-29)
PROC: 3E023GC Introduction of Other Therapeutic Substance into Muscle, Percutaneous Approach (ICD-10-PCS; 2024-06-29)
PROC: 3E033VG Introduction of Insulin into Peripheral Vein, Percutaneous Approach (ICD-10-PCS; 2024-06-29)
PROC: 3E023NZ Introduction of Analgesics, Hypnotics, Sedatives into Muscle, Percutaneous Approach (ICD-10-PCS; 2024-06-29)
DX: S09.90XA Unspecified injury of head, initial encounter (principal); E11.22 Type 2 diabetes mellitus with diabetic chronic kidney disease; I12.0 Hypertensive chronic kidney disease with stage 5 chronic kidney disease or end stage renal disease; N18.6 End stage renal disease; Z99.2 Dependence on renal dialysis; W06.XXXA Fall from bed, initial encounter; I73.9 Peripheral vascular disease, unspecified; Y93.89 Activity, other specified; Y92.092 Bedroom in other non-institutional residence as the place of occurrence of the external cause; Z89.611 Acquired absence of right leg above knee; F03.90 Unspecified dementia, unspecified severity, without behavioral disturbance, psychotic disturbance, mood disturbance, and anxiety; L89.629 Pressure ulcer of left heel, unspecified stage; L89.619 Pressure ulcer of right heel, unspecified stage; Z29.9 Encounter for prophylactic measures, unspecified; Z87.891 Personal history of nicotine dependence
CPT/HCPCS: 0241U-QW; 36415; 70450-TC; 71045-TC-FY; 72125-TC; 72170-TC-FY; 73630-TC-LT; 80053; 81003; 82550; 82962; 83735; 84100; 84484; 85025; 85027; 87086; 87340; 93005; 93010; 96372; 96374; 96375; 99285-25; G0378

== ENCOUNTER 2024-08-12 18:42 | Emergency (ER) | payer MEDICARE, OTHER ==
[2024-08-12 19:10] VITALS: TEMP 98.2; BMI 15.7
[2024-08-12 21:42] LABS: ABSOLUTE IMMATURE GRANULOCYTES 0.04 x10^3/uL (0.0-0.031); BASOPHILS # 0.07 x10^3/uL (0.01-0.08); EOSINOPHIL % 1.5 % (0.7-5.8); EOSINOPHILS # 0.18 x10^3/uL (0.04-0.36); MCHC 30.1 g/dl (32.2-35.5); MEAN CELL VOLUME 88.8 fl (79.4-94.8); MEAN PLT VOLUME 9.8 fl (9.4-12.3); MONOCYTE # 0.78 x10^3/uL (0.24-0.86); MONOCYTE % 6.7 % (4.7-12.5); RDW 18.2 % (12.5-17.0)
[2024-08-12 21:45] LABS: INR 0.98 (0.83-1.09); PROTHROMBIN TIME (PATIENT) 10.8 SEC (9.7-13.0)
[2024-08-12 21:47] LABS: ACTIVATED PTT 25.2 SECONDS (25.2-36.5)
[2024-08-12 21:48] LABS: BG HCT 37.0 % (32.4-45.2); VENOUS BASE EXCESS 5.7 mmol/L (-2-2); VENOUS O2 SATURATION 83.8 % (70-80); VENOUS PCO2 44.3 mmHg (38-52); VENOUS PH 7.454 (7.310-7.410)
[2024-08-12 22:12] LABS: CO2 31.0 mmol/L (21-32); GLUCOSE,RANDOM 287.0 mg/dL (74-106)
[2024-08-12 22:14] LABS: SGPT/ALT 21.0 U/L (13-61)
[2024-08-12 22:15] LABS: CREATININE 5.2 mg/dL (0.55-1.3); SGOT/AST 40.0 U/L (15-37)
[2024-08-12 22:16] LABS: TOT PROT 7.1 g/dl (6.4-8.2)
[2024-08-12 22:18] LABS: ALK PHOS 175.0 U/L (45-117)
[2024-08-12 23:58] VITALS: PULSE 75
[2024-08-12 23:58] LABS: HIV INTERPRETATION NEGATIVE (NEGATIVE)
[2024-08-12 23:59] LABS: HCV DIAGNOSTIC IN-HOUSE W/RFLX NON-REACTIVE (NONREACTIVE)
[2024-08-13 01:04] VITALS: BP 140/53; RESP 14
== END 2024-08-13 01:04 ==
LOC: JER 18:42
DX: I95.9 Hypotension, unspecified (principal)
CPT/HCPCS: 36415; 71045-TC-FY; 80053; 82803; 82962; 83605; 84484; 85025; 85610; 85730; 86803; 86850; 86900; 86901; 87389; 87637-QW; 93005; 93010; 99285-25

== ENCOUNTER 2024-08-19 11:43 | Inpatient (IN) | payer OTHER ==
[2024-08-19 18:47] LABS: ABSOLUTE IMMATURE GRANULOCYTES 0.14 x10^3/uL (0.0-0.031); BASOPHILS # 0.11 x10^3/uL (0.01-0.08); EOSINOPHIL % 1.2 % (0.7-5.8); EOSINOPHILS # 0.23 x10^3/uL (0.04-0.36); MCHC 30.4 g/dl (32.2-35.5); MEAN CELL VOLUME 86.4 fl (79.4-94.8); MEAN PLT VOLUME 10.6 fl (9.4-12.3); MONOCYTE # 1.18 x10^3/uL (0.24-0.86); MONOCYTE % 6.1 % (4.7-12.5); RDW 17.9 % (12.5-17.0)
[2024-08-19] MEDS ORDERED: PIPERACILLIN/TAZOB 4.5 GM 4.5 GM/100 ML BAG IVPB ONE (19:21)
[2024-08-19] MEDS: PIPERACILLIN/TAZOB 4.5 GM 4.5 GM in DEXTROSE 5%-WATER 100 ML IVPB ONE (19:32)
[2024-08-19 20:09] LABS: CO2 29.0 mmol/L (21-32); GLUCOSE,RANDOM 187.0 mg/dL (74-106)
[2024-08-19 20:12] LABS: CREATININE 5.1 mg/dL (0.55-1.3); SGOT/AST 29.0 U/L (15-37); SGPT/ALT 20.0 U/L (13-61)
[2024-08-19 20:13] LABS: TOT PROT 7.0 g/dl (6.4-8.2)
[2024-08-19 20:15] LABS: ALK PHOS 158.0 U/L (45-117)
[2024-08-19] MEDS ORDERED: VANCOMYCIN 500 MG VIAL (RESTRICTED TO ID ONLY) ONE (20:44)
[2024-08-19] MEDS: VANCOMYCIN 500 MG in DEXTROSE 5%-WATER - 100 ML IVPB ONE (20:49)
[2024-08-19 21:02] LABS: HCV DIAGNOSTIC IN-HOUSE W/RFLX NON-REACTIVE (NONREACTIVE); HIV INTERPRETATION NEGATIVE (NEGATIVE)
[2024-08-19 21:11] LABS: URINE APPEARANCE TURBID; URINE BILIRUBIN NEGATIVE (NEGATIVE); URINE COLOR DK YELLOW; URINE GLUCOSE (UA) NEGATIVE (NEGATIVE); URINE KETONE NEGATIVE (NEGATIVE)
[2024-08-19 21:12] LABS: EPI CELLS 206.1 /uL (0-25.1); HYALINE CASTS 725.26 /uL (0-3.1); URINE BACTERIA 1967.6 /uL (0-1359); URINE LEUK ESTERASE 4+ (NEGATIVE); URINE NITRITE NEGATIVE (NEGATIVE); URINE PROTEIN >=1000 (NEGATIVE); URINE RBC 222.6 /uL (0-23.9); URINE UROBILINOGEN 0.2 mg/dL (0.2-1.0); URINE WBC 26360.8 /uL (0-25.8)
[2024-08-19] MEDS: SODIUM CHLORIDE 1,000 ML IV SCH (22:35)
[2024-08-20] MEDS: LABETALOL HCL 5 MG/1 ML (100MG/20 ML VIAL) IVPB ONE (02:10)
[2024-08-20] MEDS ORDERED: LABETALOL HCL 20 MG/4 ML VIAL IVPB PRN ×2 (02:33→05:55)
[2024-08-20] MEDS ORDERED: ACETAMINOPHEN 1000 MG/100 ML BAG IVPB PRN (04:36)
[2024-08-20] MEDS: LABETALOL HCL 20 MG/4 ML VIAL IVPB PRN (06:22)
[2024-08-20] MEDS ORDERED: INSULIN ASPART SLIDING SCALE (NOVOLOG) 1 VIAL SQ SCH (07:00)
[2024-08-20] MEDS: INSULIN ASPART SLIDING SCALE (NOVOLOG) 1 VIAL SQ SCH (07:25)
[2024-08-20 07:43] LABS: ABSOLUTE IMMATURE GRANULOCYTES 0.12 x10^3/uL (0.0-0.031); BASOPHILS # 0.13 x10^3/uL (0.01-0.08); EOSINOPHIL % 1.7 % (0.7-5.8); EOSINOPHILS # 0.31 x10^3/uL (0.04-0.36); MCHC 30.4 g/dl (32.2-35.5); MEAN CELL VOLUME 85.7 fl (79.4-94.8); MEAN PLT VOLUME 10.6 fl (9.4-12.3); MONOCYTE # 0.98 x10^3/uL (0.24-0.86); MONOCYTE % 5.3 % (4.7-12.5); RDW 17.6 % (12.5-17.0)
[2024-08-20 08:14] LABS: CO2 29.0 mmol/L (21-32); GLUCOSE,RANDOM 163.0 mg/dL (74-106)
[2024-08-20 08:16] LABS: SGPT/ALT 24.0 U/L (13-61)
[2024-08-20 08:17] LABS: CREATININE 5.4 mg/dL (0.55-1.3); SGOT/AST 36.0 U/L (15-37)
[2024-08-20 08:18] LABS: TOT PROT 6.4 g/dl (6.4-8.2)
[2024-08-20 08:19] LABS: ALK PHOS 140.0 U/L (45-117)
[2024-08-20] MEDS: TAMSULOSIN HCL 0.4 MG CAP PO SCH (09:04)
[2024-08-20] MEDS: PIPERACILLIN/TAZOB 2.25 GM 2.25 GM in DEXTROSE 5%-WATER - 50 ML IVPB SCH (09:05)
[2024-08-20] MEDS: POLYETHYLENE GLYCOL (HEALTHYLAX) 3350 17 GM PACKET PO SCH (09:05)
[2024-08-20] MEDS: HEPARIN NA (PORCINE) 5,000 UNITS/ML 1ML VIAL SQ SCH (09:05)
[2024-08-20] MEDS ORDERED: PIPERACILLIN/TAZOB 2.25 GM 2.25 GM in DEXTROSE 5%-WATER - 50 ML IVPB SCH (10:00)
[2024-08-20] MEDS ORDERED: POLYETHYLENE GLYCOL (HEALTHYLAX) 3350 17 GM PACKET PO SCH (10:00)
[2024-08-20] MEDS: DORZOLAMIDE 2% HCL OPHTHALMIC SOLUTION 10 ML BOTTLE OU SCH (10:25)
[2024-08-20] MEDS: TIMOLOL 0.5% OPHTHALMIC SOL 5 ML BOTTLE OU SCH (10:25)
[2024-08-20] MEDS: BRIMONIDINE TARTRATE 0.2% OPHTHALMIC 5 ML BOTTLE OU SCH (10:25)
[2024-08-20] MEDS ORDERED: SODIUM CHLORIDE 250 ML IV PRN (12:32)
[2024-08-20] MEDS: EPOETIN ALFA-EPBX 10,000 UNIT/ML VIAL IVPUSH ONE (15:15)
[2024-08-20] MEDS: LABETALOL HCL 20 MG/4 ML VIAL IVPUSH ONE (20:51)
[2024-08-20] MEDS: MIRTAZAPINE 15 MG TABLET (FP) PO SCH (21:24)
[2024-08-20] MEDS: ATORVASTATIN CA 40 MG TABLET (FP) PO SCH (21:24)
[2024-08-20] MEDS: SENNOSIDES 8.8 MG/5 ML SYRUP PO SCH (21:25)
[2024-08-20] MEDS: LATANOPROST 0.005% OPHTH SOLN 2.5ML BOTTLE OU SCH (22:38)
[2024-08-21] MEDS: PIPERACILLIN/TAZOB 2.25 GM 2.25 GM in DEXTROSE 5%-WATER - 50 ML IVPB SCH ×2 (01:34→02:23)
[2024-08-21] MEDS: hydrALAZINE HCL 50 MG TABLET (FP) PO SCH (06:05)
[2024-08-21] MEDS: METOPROLOL TARTRATE 25 MG TABLET (FP) PO SCH (10:02)
[2024-08-21] MEDS: LOSARTAN POTASSIUM 50 MG TABLET PO SCH (10:02)
[2024-08-21] MEDS: NIFEdipine E.R. 90 MG TABLET PO SCH (10:02)
[2024-08-21] MEDS: VITAMIN B COMP W-C 1 EA TABLET (NEPHRO-VITE) PO SCH (10:03)
[2024-08-21] MEDS: SENNOSIDES 8.6MG TABLET (FP) PO SCH (11:55)
[2024-08-21] MEDS: DEXTROSE 5%-LACTATED RINGERS 1,000 ML IV SCH (15:43)
[2024-08-21 21:06] VITALS: BMI 20.1
[2024-08-22 08:56] LABS: MCHC 30.7 g/dl (32.2-35.5); MEAN CELL VOLUME 85.5 fl (79.4-94.8); MEAN PLT VOLUME 10.3 fl (9.4-12.3); RDW 18.1 % (12.5-17.0)
[2024-08-22] MEDS ORDERED: SODIUM CHLORIDE 250 ML IV PRN (09:00)
[2024-08-22 09:38] LABS: CO2 29.0 mmol/L (21-32); GLUCOSE,RANDOM 153.0 mg/dL (74-106)
[2024-08-22 09:41] LABS: CREATININE 4.3 mg/dL (0.55-1.3)
[2024-08-22] MEDS: EPOETIN ALFA-EPBX 10,000 UNIT/ML VIAL SQ ONE (11:24)
[2024-08-22] MEDS: VANCOMYCIN/WATER FOR INJ (PEG) 1,000 MG/200 ML BAG IVPB ONE (12:48)
[2024-08-22] MEDS: SODIUM HYPOCHLORITE 0.25%- 473 ML BULK BOTTLE TP SCH (18:05)
[2024-08-23] MEDS: FAT EMULSIONS 20% 250 ML PREMIX INFUS.BAG IV SCH (13:48)
[2024-08-23] MEDS: AMINO ACIDS 4.25%/D5W 1,000 ML IV SCH ×2 (13:49→14:51)
[2024-08-24 11:16] LABS: ABSOLUTE IMMATURE GRANULOCYTES 0.08 x10^3/uL (0.0-0.031); BASOPHILS # 0.11 x10^3/uL (0.01-0.08); EOSINOPHIL % 2.3 % (0.7-5.8); EOSINOPHILS # 0.35 x10^3/uL (0.04-0.36); MCHC 30.0 g/dl (32.2-35.5); MEAN CELL VOLUME 86.8 fl (79.4-94.8); MEAN PLT VOLUME 10.2 fl (9.4-12.3); MONOCYTE # 1.00 x10^3/uL (0.24-0.86); MONOCYTE % 6.7 % (4.7-12.5); RDW 18.0 % (12.5-17.0)
[2024-08-24 11:33] LABS: CO2 26.0 mmol/L (21-32)
[2024-08-24 11:34] LABS: GLUCOSE,RANDOM 132.0 mg/dL (74-106)
[2024-08-24 11:37] LABS: CREATININE 5.6 mg/dL (0.55-1.3)
[2024-08-26] MEDS: ACETAMINOPHEN 1000 MG/100 ML BAG IVPB PRN (11:55)
[2024-08-26] MEDS ORDERED: SODIUM CHLORIDE 250 ML IV PRN (15:10)
[2024-08-26] MEDS: EPOETIN ALFA-EPBX 10,000 UNIT/ML VIAL IVPUSH ONE (17:19)
[2024-08-27] MEDS ORDERED: PIPERACILLIN/TAZOBACTAM 2.25 GM VIAL IVPB ONE (01:19)
[2024-08-27 09:32] LABS: ABSOLUTE IMMATURE GRANULOCYTES 0.10 x10^3/uL (0.0-0.031); BASOPHILS # 0.12 x10^3/uL (0.01-0.08); EOSINOPHIL % 2.7 % (0.7-5.8); EOSINOPHILS # 0.37 x10^3/uL (0.04-0.36); MCHC 30.8 g/dl (32.2-35.5); MEAN CELL VOLUME 86.4 fl (79.4-94.8); MEAN PLT VOLUME 10.5 fl (9.4-12.3); MONOCYTE # 1.09 x10^3/uL (0.24-0.86); MONOCYTE % 8.0 % (4.7-12.5); RDW 19.2 % (12.5-17.0)
[2024-08-27 10:37] LABS: CO2 31.0 mmol/L (21-32); GLUCOSE,RANDOM 97.0 mg/dL (74-106)
[2024-08-27 10:40] LABS: CREATININE 3.4 mg/dL (0.55-1.3); SGOT/AST 16.0 U/L (15-37); SGPT/ALT 13.0 U/L (13-61)
[2024-08-27 10:41] LABS: TOT PROT 5.7 g/dl (6.4-8.2)
[2024-08-27 10:43] LABS: ALK PHOS 111.0 U/L (45-117)
[2024-08-27] MEDS ORDERED: SODIUM CHLORIDE 250 ML IV PRN ×2 (11:47→16:11)
[2024-08-27] MEDS ORDERED: LIDOCAINE HCL 1%, 10 MG/ML (20ML VIAL) ONE (13:57)
[2024-08-27] MEDS ORDERED: LIDOCAINE HCL/PF 2% SDV 5ML VIAL ONE (14:10)
[2024-08-27] MEDS ORDERED: PROPOFOL 60 ML ONE (14:10)
[2024-08-27] MEDS: LIDOCAINE HCL 1%, 10 MG/ML (20ML VIAL) NR ONE (15:45)
[2024-08-27] MEDS ORDERED: PROMETHAZINE HCL 25 MG/1 ML VIAL IVPB PRN ×2 (15:54→16:11)
[2024-08-27] MEDS ORDERED: ONDANSETRON 4 MG/2 ML VIAL IVPUSH PRN ×2 (15:54→16:11)
[2024-08-27] MEDS ORDERED: LACTATED RINGERS SOLUTION 1,000 ML IV SCH (16:00)
[2024-08-27] MEDS: PIPERACILLIN/TAZOB 2.25 GM 2.25 GM in DEXTROSE 5%-WATER - 50 ML IVPB SCH (17:36)
[2024-08-27] MEDS: DORZOLAMIDE 2% HCL OPHTHALMIC SOLUTION 10 ML BOTTLE OU SCH (22:33)
[2024-08-27] MEDS: BRIMONIDINE TARTRATE 0.2% OPHTHALMIC 5 ML BOTTLE OU SCH (22:37)
[2024-08-27] MEDS: TIMOLOL 0.5% OPHTHALMIC SOL 5 ML BOTTLE OU SCH (22:37)
[2024-08-27] MEDS: LATANOPROST 0.005% OPHTH SOLN 2.5ML BOTTLE OU SCH (22:39)
[2024-08-27] MEDS: ATORVASTATIN CA 40 MG TABLET (FP) GT SCH (22:40)
[2024-08-28] MEDS ORDERED: ATORVASTATIN CA 40 MG TABLET (FP) GT SCH (00:48)
[2024-08-28] MEDS ORDERED: METOPROLOL TARTRATE 25 MG TABLET (FP) GT SCH (00:48)
[2024-08-28] MEDS ORDERED: hydrALAZINE HCL 50 MG TABLET (FP) GT SCH (00:48)
[2024-08-28] MEDS ORDERED: MIRTAZAPINE 15 MG TABLET (FP) GT SCH (00:49)
[2024-08-28] MEDS: hydrALAZINE HCL 50 MG TABLET (FP) GT SCH (00:55)
[2024-08-28] MEDS: METOPROLOL TARTRATE 25 MG TABLET (FP) GT SCH (00:56)
[2024-08-28] MEDS: MIRTAZAPINE 15 MG TABLET (FP) GT SCH (00:56)
[2024-08-28] MEDS: hydrALAZINE HCL 50 MG TABLET (FP) PO SCH (02:01)
[2024-08-28] MEDS: ATORVASTATIN CA 40 MG TABLET (FP) PO SCH (02:02)
[2024-08-28] MEDS: METOPROLOL TARTRATE 25 MG TABLET (FP) PO SCH (02:02)
[2024-08-28] MEDS: POLYETHYLENE GLYCOL (HEALTHYLAX) 3350 17 GM PACKET PO SCH (02:02)
[2024-08-28] MEDS: SENNOSIDES 8.8 MG/5 ML SYRUP PO SCH (02:02)
[2024-08-28] MEDS: MIRTAZAPINE 15 MG TABLET (FP) PO SCH (02:02)
[2024-08-28] MEDS ORDERED: SODIUM CHLORIDE 250 ML IV PRN (07:43)
[2024-08-28] MEDS: TAMSULOSIN HCL 0.4 MG CAP PO SCH (08:27)
[2024-08-28] MEDS: EPOETIN ALFA-EPBX 10,000 UNIT/ML VIAL IVPUSH ONE (09:23)
[2024-08-28] MEDS: INSULIN ASPART SLIDING SCALE (NOVOLOG) 1 VIAL SQ SCH (10:28)
[2024-08-28] MEDS ORDERED: EPOETIN ALFA-EPBX 10,000 UNIT/ML VIAL SQ ONE (11:47)
[2024-08-28] MEDS: VITAMIN B COMP W-C 1 EA TABLET (NEPHRO-VITE) PO SCH (12:21)
[2024-08-28] MEDS: POLYETHYLENE GLYCOL (HEALTHYLAX) 3350 17 GM PACKET GT SCH (12:24)
[2024-08-28] MEDS: NIFEdipine E.R. 90 MG TABLET PO SCH (12:25)
[2024-08-28] MEDS: LOSARTAN POTASSIUM 50 MG TABLET PO SCH (12:25)
[2024-08-28] MEDS: SODIUM HYPOCHLORITE 0.25%- 473 ML BULK BOTTLE TP SCH (12:35)
[2024-08-28] MEDS: THIAMINE HCL 200 MG/2 ML VIAL IVPB SCH (14:05)
[2024-08-28] MEDS: SENNOSIDES 8.8 MG/5 ML SYRUP GT SCH (23:41)
[2024-08-29] MEDS: AMINO ACIDS 4.25%/D5W 1,000 ML IV SCH ×2 (14:28→16:54)
[2024-08-30 09:14] LABS: MCHC 30.7 g/dl (32.2-35.5); MEAN CELL VOLUME 88.2 fl (79.4-94.8); MEAN PLT VOLUME 10.2 fl (9.4-12.3); RDW 20.3 % (12.5-17.0)
[2024-08-30] MEDS ORDERED: SODIUM CHLORIDE 250 ML IV PRN (09:46)
[2024-08-30 10:10] LABS: CO2 30.0 mmol/L (21-32); GLUCOSE,RANDOM 104.0 mg/dL (74-106)
[2024-08-30 10:12] LABS: CREATININE 3.9 mg/dL (0.55-1.3); SGOT/AST 25.0 U/L (15-37); SGPT/ALT 11.0 U/L (13-61)
[2024-08-30 10:14] LABS: TOT PROT 6.3 g/dl (6.4-8.2)
[2024-08-30 10:15] LABS: ALK PHOS 114.0 U/L (45-117)
[2024-08-30] MEDS: EPOETIN ALFA-EPBX 10,000 UNIT/ML VIAL SQ ONE (11:45)
[2024-08-30] MEDS: AMINO ACIDS 4.25%/D5W 1,000 ML IV SCH (15:53)
[2024-08-30] MEDS: AMINO ACIDS/PROTEIN HYDROLYS 30 ML LIQUID.PKT PO SCH (17:18)
[2024-08-31] MEDS: ZINC SULFATE 220 MG CAPSULE (FP) PO SCH (09:30)
[2024-08-31] MEDS: METOPROLOL TARTRATE 25 MG TABLET (FP) GT SCH (22:27)
[2024-09-01] MEDS ORDERED: AMINO ACIDS/PROTEIN HYDROLYS 30 ML LIQUID.PKT PO SCH (08:15)
[2024-09-01] MEDS: ZINC SULFATE 220 MG CAPSULE (FP) GT SCH (09:36)
[2024-09-01] MEDS: LOSARTAN POTASSIUM 50 MG TABLET GT SCH (09:36)
[2024-09-01] MEDS: VITAMIN B COMP W-C 1 EA TABLET (NEPHRO-VITE) PEG SCH (09:36)
[2024-09-01] MEDS: AMINO ACIDS/PROTEIN HYDROLYS 30 ML LIQUID.PKT GT SCH (09:36)
[2024-09-01] MEDS ORDERED: INSULIN GLARGINE (LANTUS) 100 UNITS/ML UNITS SQ SCH (10:00)
[2024-09-01] MEDS: TERAZOSIN HCL 1 MG CAPSULE GT SCH (12:12)
[2024-09-01] MEDS: amLODIPine BESYLATE 10 MG TABLET (FP) NGT SCH (15:43)
[2024-09-01] MEDS: ACETAMINOPHEN 1000 MG/100 ML BAG IVPB PRN (18:23)
[2024-09-02 08:01] LABS: MCHC 30.2 g/dl (32.2-35.5); MEAN CELL VOLUME 86.1 fl (79.4-94.8); MEAN PLT VOLUME 9.9 fl (9.4-12.3); RDW 19.7 % (12.5-17.0)
[2024-09-02 09:11] LABS: CO2 25 mmol/L (21-32); GLUCOSE,RANDOM 113 mg/dL (74-106)
[2024-09-02 09:13] LABS: SGPT/ALT 14 U/L (13-61)
[2024-09-02 09:14] LABS: CREATININE 3.9 mg/dL (0.55-1.3); SGOT/AST 22 U/L (15-37)
[2024-09-02 09:15] LABS: TOT PROT 5.9 g/dl (6.4-8.2)
[2024-09-02 09:16] LABS: ALK PHOS 102 U/L (45-117)
[2024-09-02] MEDS ORDERED: POTASSIUM CHLORIDE ORAL LIQUID 20 MEQ/15 ML NGT ONE ×2 (11:10→11:45)
[2024-09-02] MEDS ORDERED: POTASSIUM CHLORIDE 20 MEQ in AMINO ACIDS 4.25%/D5W 1,000 ML IV SCH (11:10)
[2024-09-02] MEDS ORDERED: SODIUM CHLORIDE 250 ML IV PRN (13:04)
[2024-09-02] MEDS: EPOETIN ALFA-EPBX 10,000 UNIT/ML VIAL SQ ONE (14:11)
[2024-09-02] MEDS: KCL 10 MEQ IVPB 10 MEQ/100 ML INFUS.BAG IVPB SCH ×2 (16:20→18:24)
[2024-09-02] MEDS: POTASSIUM CHLORIDE 10 MEQ in AMINO ACIDS 4.25%/D5W 1,000 ML IV SCH (16:20)
[2024-09-02] MEDS: POTASSIUM CHLORIDE ORAL LIQUID 20 MEQ/15 ML NGT ONE ×2 (16:43→18:25)
[2024-09-03 09:16] LABS: CO2 28.0 mmol/L (21-32); GLUCOSE,RANDOM 111.0 mg/dL (74-106)
[2024-09-03 09:19] LABS: CREATININE 2.3 mg/dL (0.55-1.3); SGOT/AST 27.0 U/L (15-37); SGPT/ALT 16.0 U/L (13-61)
[2024-09-03 09:21] LABS: TOT PROT 6.0 g/dl (6.4-8.2)
[2024-09-03 09:22] LABS: ALK PHOS 107.0 U/L (45-117)
[2024-09-03] MEDS: MAGNESIUM 1GM/D5W 100ML - 100 ML IVPB IVPB ONE (12:40)
[2024-09-03] MEDS ORDERED: SODIUM CHLORIDE 250 ML IV PRN (14:15)
[2024-09-04 08:51] LABS: MCHC 30.0 g/dl (32.2-35.5); MEAN CELL VOLUME 86.9 fl (79.4-94.8); MEAN PLT VOLUME 9.9 fl (9.4-12.3); RDW 20.7 % (12.5-17.0)
[2024-09-04 09:55] LABS: CO2 26.0 mmol/L (21-32); GLUCOSE,RANDOM 71.0 mg/dL (74-106)
[2024-09-04 09:58] LABS: CREATININE 3.3 mg/dL (0.55-1.3)
[2024-09-04] MEDS ORDERED: FENTANYL CITRATE/PF 50 MCG/ML VIAL ONE ×3 (12:08→12:31)
[2024-09-04] MEDS: FENTANYL CITRATE/PF 50 MCG/ML VIAL IVPUSH ONE ×2 (12:19→12:26)
[2024-09-04] MEDS: EPOETIN ALFA-EPBX 10,000 UNIT/ML VIAL SQ ONE (16:26)
[2024-09-05] MEDS ORDERED: DEXTROSE 50%-WATER 25 GM/50 ML DISP.SYRIN ONE (11:43)
[2024-09-05] MEDS: DEXTROSE 50%-WATER - 25 GM/50 ML VIAL IVPUSH ONE (11:50)
[2024-09-05] MEDS: IOHEXOL (OMNIPAQUE IV) 350 MG/ML - 100 ML BOTTLE PEG ONE (14:38)
[2024-09-05] MEDS ORDERED: SODIUM CHLORIDE 250 ML IV PRN (17:12)
[2024-09-05] MEDS: AMINO ACIDS 4.25%/D5W 1,000 ML IV SCH (19:44)
[2024-09-06 08:40] LABS: MCHC 28.7 g/dl (32.2-35.5); MEAN CELL VOLUME 91.5 fl (79.4-94.8); MEAN PLT VOLUME 10.2 fl (9.4-12.3); RDW 21.2 % (12.5-17.0)
[2024-09-06] MEDS ORDERED: VANCOMYCIN/WATER FOR INJ (PEG) 1,000 MG/200 ML BAG IVPB ONE (09:02)
[2024-09-06] MEDS: EPOETIN ALFA-EPBX 10,000 UNIT/ML VIAL SQ ONE (09:43)
[2024-09-06 10:23] LABS: CO2 30.0 mmol/L (21-32); GLUCOSE,RANDOM 156.0 mg/dL (74-106)
[2024-09-06 10:26] LABS: CREATININE 3.4 mg/dL (0.55-1.3)
[2024-09-07] MEDS: ACETAMINOPHEN 650 MG/20.3 ML ORAL SOLUTION (CUPS) PEG PRN (13:58)
[2024-09-09] MEDS ORDERED: SODIUM CHLORIDE 250 ML IV PRN (09:00)
[2024-09-09 13:29] VITALS: RESP 18
[2024-09-10] MEDS: INSULIN ASPART SLIDING SCALE (NOVOLOG) 1 VIAL SQ SCH (00:43)
[2024-09-10 12:33] VITALS: BP 134/64; PULSE 85; TEMP 98.4
== END 2024-09-10 10:21 | disposition home or self-care (01) | DRG 299 ==
LOC: JER 11:43 → JERBED 21:26 → OBSVTOIN 22:36 → J7W 08-20 00:08
PROVIDERS: ADMIT Hospitalist; ATTEND Internal Medicine
PROC: B548ZZA Ultrasonography of Superior Vena Cava, Guidance (ICD-10-PCS; 2024-08-27)
PROC: 02HV33Z Insertion of Infusion Device into Superior Vena Cava, Percutaneous Approach (ICD-10-PCS; principal; 2024-08-27 15:00)
PROC: 5A1D70Z Performance of Urinary Filtration, Intermittent, Less than 6 Hours Per Day (ICD-10-PCS; 2024-09-01)
PROC: 0DH63UZ Insertion of Feeding Device into Stomach, Percutaneous Approach (ICD-10-PCS; 2024-09-04)
DX: E11.51 Type 2 diabetes mellitus with diabetic peripheral angiopathy without gangrene (principal); E43 Unspecified severe protein-calorie malnutrition; L89.154 Pressure ulcer of sacral region, stage 4; N18.6 End stage renal disease; N39.0 Urinary tract infection, site not specified; I12.0 Hypertensive chronic kidney disease with stage 5 chronic kidney disease or end stage renal disease; E78.5 Hyperlipidemia, unspecified; F03.90 Unspecified dementia, unspecified severity, without behavioral disturbance, psychotic disturbance, mood disturbance, and anxiety; H40.9 Unspecified glaucoma; E11.22 Type 2 diabetes mellitus with diabetic chronic kidney disease; Z99.2 Dependence on renal dialysis; K59.00 Constipation, unspecified; L89.620 Pressure ulcer of left heel, unstageable; Z68.20 Body mass index [BMI] 20.0-20.9, adult; E87.6 Hypokalemia; E11.621 Type 2 diabetes mellitus with foot ulcer; L89.890 Pressure ulcer of other site, unstageable; L89.520 Pressure ulcer of left ankle, unstageable
CPT/HCPCS: 36415; 49440; 71045-TC-FY; 74018-TC-FY; 76000-TC-FY; 80048; 80053; 81003; 82962; 83735; 84100; 85025; 85027; 86803; 87040; 87086; 87340; 87389; 93005; 93010; 93971-TC-LT; 94760; 99285-25; C1750; G0378; G0463-25; J1644; Q5106